=== PATIENT | female | born 1940 | race Caucasian/White ===

== ENCOUNTER → 2017-02-23 | Outpatient (CLI) | payer MEDICARE ==
--- NOTE | 2017-02-23 15:32 | US ---
EXAMINATION TYPE: US kidneys/renal and bladder DATE OF EXAM: 02/23/2017 2:59 PM COMPARISON: CT chest August 24, 2016 CLINICAL HISTORY: N39.0 Frequent Urinary Tract Infection. EXAM MEASUREMENTS: Right Kidney: 10.7 x 5.0 x 4.5 cm Left Kidney: 11.5 x 5.3 x 4.7 cm Right Kidney: No hydronephrosis or masses seen Left Kidney: echogenic foci noted superior, calcified artery vs small stone. Bladder: wnl There is no evidence for hydronephrosis at this point in time. The urinary bladder is anechoic. Bila teral ureteral jets are not seen. No worrisome solid or cystic masses seen on images saved. Last imag e shows nonspecific 3 mm hyperechoic focus upper pole level left kidney, no corresponding nonobstruct ing calculus seen on recent CT at this level IMPRESSION: No hydronephrosis is evident bilaterally. Unremarkable study.
== END | disposition home or self-care (01) ==
LOC: RADUSWWP 14:21
PROVIDERS: ATTEND Urology
DX: N39.0 Urinary tract infection, site not specified (principal)
CPT/HCPCS: 76770

== ENCOUNTER → 2017-05-12 | Outpatient (CLI) | payer MEDICARE ==
[2017-05-12 10:06] LABS: Blood Urea Nitrogen 18 mg/dL (7-17); Non-African American GFR(MDRD) 52 (>60 ml/min/1.73 sqM)
--- NOTE | 2017-05-12 11:33 | CT ---
EXAMINATION TYPE: CT abdomen pelvis w con DATE OF EXAM: 05/12/2017 HISTORY: Hematuria CT DLP: 1520mGycm Automated Exposure Control for Dose Reduction was Utilized. CONTRAST: CT scan of the abdomen and pelvis is performed with IV Contrast, patient injected with 80 ml mL of Vi sipaque 320. COMPARISON: None. FINDINGS: LUNG BASES: Some patchy bibasilar linear scarring and/or atelectasis is seen. There is some calcifica tion at level of the mitral valve identified. There is mild biatrial dilatation. LIVER/GB: Cholecystectomy clips are present. PANCREAS: No significant abnormality is seen. SPLEEN: No significant abnormality is seen. ADRENALS: No significant abnormality is seen. KIDNEYS: There is symmetric cortical medullary uptake and excretion from both kidneys without evidenc e of hydronephrosis bilaterally. There is asymmetric cortical atrophy or scarring involving lower lyndsay e right kidney seen best on coronal images. There is 5 mm calculus noted within calyx at this level s een best on coronal image 61. No hydronephrosis or obstructing renal calculi are seen bilaterally. No intraluminal calculus and bladder is present. BOWEL: The oral contrast reaches level of the splenic flexure. Evaluation of distal colon is felt sli ghtly suboptimal. There is no suspicious small or large bowel dilatation seen. There are diverticula scattered throughout the colon most pronounced in the left and sigmoid colon. There is no convincing CT evidence for acute diverticulitis. Amount of fecal burden is slightly prominent distally in the le ft colon and rectum. Cannot exclude villous mass or neoplasm at area of prominent diverticula in the sigmoid colon seen best on coronal image 46. UTERUS/ADNEXA: Uterus is surgically absent or markedly atrophic in appearance. LYMPH NODES: No greater than 1cm abdominal or pelvic lymph nodes are appreciated. OSSEOUS STRUCTURES: Metallic hardware from right hip arthroplasty causes streak artifact limiting shital luation of pelvic structures. Osseous structures are demineralized. There is moderate multilevel disc space narrowing and spurring with multilevel vacuum disc phenomenon in the lower lumbar spine. There is slight grade 1 anterolisthesis L4 on L5. There is most prominent spinal canal effacement at this level. OTHER: There are surgical changes from prior ventral wall hernia repair surgery in the rectus sheath with numerous coils identified. No recurrent ventral wall hernia is evident. There is moderate to severe calcified plaque of the aorta extending into branch vessels. Slight ectas ia is seen. No greater than 3 cm aneurysmal change is noted. IMPRESSION: 1. There is cortical atrophy lower pole level right kidney with 5 mm nonobstructing calyceal calculus at this level noted. 2. Prominent diverticulosis left and sigmoid colon without CT evidence for acute diverticulitis. Susp icious area proximal to mid sigmoid colon in which eccentric mass or neoplasm cannot be excluded, fur ther investigation with colonoscopy is advised if has not been performed in last 3 years.
== END | disposition home or self-care (01) ==
LOC: RADCTMAIN 09:30
PROVIDERS: ATTEND Urology
DX: N20.0 Calculus of kidney (principal); N26.1 Atrophy of kidney (terminal); K57.90 Diverticulosis of intestine, part unspecified, without perforation or abscess without bleeding; R31.9 Hematuria, unspecified
CPT/HCPCS: 82565; 84520; 74177; 36415; Q9967

== ENCOUNTER → 2017-09-10 | Outpatient (CLI) | payer MEDICARE ==
--- NOTE | 2017-09-10 13:00 | CTL ---
EXAMINATION TYPE: CT Low Dose Lung DATE OF EXAM ORDERED: 09/10/2017 HISTORY: . Lung cancer screening CT DLP: [address] CTDI: 3.06 mGy Automated exposure control for dose reduction was used. SCREENING VISIT: First screening visit COMPARISON: CT thorax dated 08/24/2016 TECHNIQUE: Low dose computed tomography scan was performed through the chest at 1 mm thick sections a nd reconstructed images in the coronal plane at [address] DIAGNOSTIC QUALITY: Satisfactory FINDINGS: LUNG NODULES: None. LUNGS: COPD: Severity: Moderate most exaggerated on the sagittal images Fibrosis: Severity: None Lymph nodes: Single enlarged 1.3 x 1.5 cm right paratracheal lymph node is nonspecific and appears mi ldly enlarged from the exam of 08/24/2016. No other enlarged greater the 1 cm short axis lymph nodes are seen within the mediastinum given the limitation of lack of intravenous contrast. Other findings: Right basilar subsegmental dependent atelectasis. Subtle subpleural reticulation is a lso favored to represent atelectasis bilaterally.. Fissural groundglass opacity on series 5 image 107 and series 7 image 56 within the right upper lobe is also likely related to atelectasis. Additional groundglass opacity within the right middle lobe on series 7 image 77 not well visualized on axial im aging is again favored to represent subsegmental atelectasis. RIGHT PLEURAL SPACE: Effusion: None Calcification: None Thickening: None Pneumothorax: None LEFT PLEURAL SPACE: Effusion: None Calcification: None Thickening: None Pneumothorax: None HEART: Heart Size: Normal. Ascending thoracic aorta is within normal limits measuring 3.4 cm. Coronary calcification: Moderate three-vessel Pericardial effusion: None OTHER FINDINGS: Upper abdomen: Cholecystectomy clips reside within the gallbladder fossa. Moderate calcific atheromat ous changes are seen of the visualized upper abdominal aorta. Bony thorax: Mild multilevel degenerative change of the thoracic spine is seen. Supraclavicular region: Unremarkable IMPRESSION: 1. Moderate pulmonary emphysema with no pulmonary nodules. Multifocal groundglass opacities are favor ed to represent multifocal atelectasis. Subpleural reticulation is also favored to represent atelecta sis due to its dependent location rather than early fibrosis. 2. Moderate three-vessel coronary calcifications are marker of coronary artery disease. 3. Single enlarged right peritracheal nonspecific lymph node, slightly enlarged from the prior. FOLLOW UP CT CHEST RECOMMENDATION: Continued annual screening low dose CT is recommended in [address] LUNG RAD: 1-No pulmonary nodules
== END | disposition home or self-care (01) ==
LOC: RADCTMAIN 12:09
PROVIDERS: ATTEND Family Medicine
DX: Z12.2 Encounter for screening for malignant neoplasm of respiratory organs (principal); J43.9 Emphysema, unspecified; Z87.891 Personal history of nicotine dependence; R59.0 Localized enlarged lymph nodes

== ENCOUNTER 2017-11-23 10:12 | Day surgery (SDC) | payer MEDICARE ==
[2017-11-16 14:39] VITALS: BMI 29.7
[~2017-11-23 10:12] MED LIST: LACTATED RINGERS 1,000 ML IV SCH; TIMOLOL 0.5% OPHTH DROPS 5 ML BTL ONE
[2017-11-23 10:45] VITALS: RESP 16; TEMP 98.1
[2017-11-23] MEDS ORDERED: IPRATROPIUM-ALBUTEROL 3 ML NEB INHALATION STA (10:46)
[2017-11-23] MEDS: CYCLOPENTOLATE 1% OPHTH SOLN 2 ML BTL OP ONE ×3 (10:48→11:06)
[2017-11-23] MEDS: FLURBIPROFEN 0.03% OPHTH DROPS 2.5 ML BTL OP ONE ×3 (10:51→11:09)
[2017-11-23] MEDS: PHENYLEPHRINE 10% OPHTH DROPS 5 ML BTL OP ONE ×3 (10:54→11:12)
[2017-11-23 10:57] LABS: Glucose,Whole Blood 82 mg/dL (75-99)
[2017-11-23] MEDS ORDERED: PROPOFOL 10 MG/ML 20 ML VIAL IV ONE (11:28)
[2017-11-23] MEDS ORDERED: BALANCED SALT IRRIG SOLN COMB2 15 ML IRRIG.SOLN INTRAOCULA ONE (11:35)
[2017-11-23] MEDS ORDERED: EPINEPHrine (PF) 0.5 ML in BALANCED SALT IRRIG SOLN COMB2 500 ML IRRIGATION ONE (11:35)
[2017-11-23] MEDS ORDERED: HYALURONATE SODIUM INTRAOCULAR 1 EACH SYRINGE (10MG/ML) INTRAOCULA ONE (11:35)
[2017-11-23] MEDS ORDERED: TETRACAINE 0.5% OPHTH (PF) DROPS 4 ML BTL RIGHT EYE ONE (11:38)
[2017-11-23] MEDS ORDERED: LIDOCAINE 1% (PF) 10MG/ML VIAL MISCELLANE ONE (11:48)
--- NOTE | 2017-11-23 11:51 | P.OP ---
Date of Procedure: 11/23/17 Procedure(s) Performed: PREOPERATIVE DIAGNOSIS: Cataract, right eye. POSTOPERATIVE DIAGNOSIS: Cataract, right eye. OPERATION: Phacoemulsification cataract, right eye. DESCRIPTION OF PROCEDURE: The patient was taken to the preoperative holding area. Intravenous Propofol was given so as to bring about adequate sedation. The following mixture was given for local anesthesia: 5 mL of 2% lidocaine, 5 mL of 0.75% Marcaine, and 1 mL of Wydase. Approximately 4 mL was injected in the retrobulbar space of the surgical eye. Additional 1 mL was then directed to the temporal area of the surgical eye. This was performed to allow adequate neurological block of the facial muscles. The patient was revived and then taken into the operative room. The patient was prepped and draped in the usual sterile manner for the operative eye. A lid speculum was put into position. The conjunctiva was resected back from the limbus in the 12 o'clock position. Bleeding was controlled with electrocautery. A #69 blade was then used and a half-thickness scleral incision approximately 1-mm posterior to the limbus was made on bare sclera. This was shelved in the clear cornea using a crescent knife. Next a 15-degree blade was used to make a stab incision at the 3 o' clock position at the corneolimbal interface. Keratome blade was then used and the superior wound was extended into the anterior chamber. Viscoelastic was injected into the anterior chamber and to maintain its form. Next, a cystotome was used and a continuous anterior capsulotomy was made without difficulty. Hydrodissection using a blunt cannula and BSS was performed. Phaco probe was then employed and a groove extending from 12 to 6 o'clock in the lens was created. A Andrew wand was used through the stab incision so as to perform a divide and conquer technique. Next an irrigation aspiration probe was utilized and any residual cortex was removed from the eye. Again, viscoelastic was injected into the anterior chamber. An Kike posterior chamber lens implant was placed in the cartridge and injected into the anterior chamber without difficulty. The SinGetPriceey hook was utilized to spin the lens into position and this was again performed without any difficulty. The irrigation and aspiration probe was again employed and any residual viscoelastic was removed from the eye. Then BSS was injected into the limbal stab incision and the anterior chamber re-inflated. The conjunctiva was reapproximated using electrocautery. One drop of 0.25% Timoptic was placed over the corneal along with TobraDex ophthalmic ointment. Two sterile patches and a Ritter eye shield were taped into position. The patient was transported to the recovery room in stable condition. Pathology: none sent Condition: stable Disposition: same day
[2017-11-23 12:16] VITALS: BP 169/79; PULSE 71
[2017-11-23] MEDS ORDERED: TIMOLOL 0.5% OPHTH DROPS 5 ML BTL OP ONE (23:00)
[2017-11-23] MEDS ORDERED: GENTAMICIN/PREDNISOL AC OPHTH OINT 3.5GM OPHTHALMIC ONE (23:00)
[2017-11-23] MEDS ORDERED: BUPIVACAINE (PF) 0.75% 5 ML, HYALURONIDASE, HUMAN RECOMB 150 UNIT, LIDOCAINE 2% (PF) 10... MISCELLANE ONE ×3 (23:00)
== END 2017-11-23 12:38 | disposition home or self-care (01) ==
LOC: OR 10:12
PROVIDERS: ATTEND Ophthalmology
DX: H25.11 Age-related nuclear cataract, right eye (principal); E11.9 Type 2 diabetes mellitus without complications; I10 Essential (primary) hypertension; F34.1 Dysthymic disorder; J44.9 Chronic obstructive pulmonary disease, unspecified; K21.9 Gastro-esophageal reflux disease without esophagitis; Z79.51 Long term (current) use of inhaled steroids; Z79.891 Long term (current) use of opiate analgesic; Z79.899 Other long term (current) drug therapy; Z88.1 Allergy status to other antibiotic agents; Z88.2 Allergy status to sulfonamides; Z88.6 Allergy status to analgesic agent; Z88.8 Allergy status to other drugs, medicaments and biological substances; Z87.891 Personal history of nicotine dependence
CPT/HCPCS: 66984; 94640; V2632; J3470; J2001 ×2; J0171; J2704

== ENCOUNTER → 2018-10-26 | Outpatient (CLI) | payer MEDICARE ==
--- NOTE | 2018-10-26 13:07 | XR ---
EXAMINATION TYPE: XR chest 2V DATE OF EXAM: 10/26/2018 COMPARISON: 07/28/2016 TECHNIQUE: PA and lateral views submitted. HISTORY: Shortness of breath FINDINGS: Heart is prominent is atherosclerotic change aorta. Arthropathy of the shoulders. Bilateral lower lob e consolidation and small effusion. Interstitial pattern is prominent. Hyperinflation suggests COPD. Hypertrophic and degenerative change of the spine. Lateral view suggest a surgical clip in the abdome n. IMPRESSION: 1. COPD with basilar infiltrate and small effusion correlate for CHF. Underlying pneumonia not exclud ed. A Jacob level critical message alert has been initiated for Ventura Duran DO via the [employer] Critical Results System on 10/26/2018 1:05 PM. This message alert has been sent to Ventura Vela nd, DO via the preferences provided by the clinician for the receipt of Radiology Critical Findings. Message ID [id number].
== END ==
LOC: RADXRMAIN 12:22
PROVIDERS: ATTEND Family Medicine
DX: J44.9 Chronic obstructive pulmonary disease, unspecified (principal)
CPT/HCPCS: 71046

== ENCOUNTER → 2018-11-08 | Outpatient (CLI) | payer MEDICARE ==
--- NOTE | 2018-11-09 11:01 | ECHOF ---
Referral Reason:I50.9 Heart Failure MEASUREMENTS -------- HEIGHT: 165.1 cm WEIGHT: 79.4 kg BP: RVIDd: 2.2 cm (< 3.3) IVSd: 1.1 cm (0.6 - 1.1) LVIDd: 5.3 cm (3.9 - 5.3) LVPWd: 1.3 cm (0.6 - 1.1) IVSs: 1.4 cm LVIDs: 3.7 cm LVPWs: 1.5 cm LA Diam: 4.4 cm (2.7 - 3.8) LAESV Index (A-L): 36.10 ml/m Ao Diam: 2.9 cm (2.0 - 3.7) AV Cusp: 1.0 cm (1.5 - 2.6) LA Diam: 4.4 cm (2.7 - 3.8) MV EXCURSION: 17.701 mm (> 18.000) MV EF SLOPE: 83 mm/s (70 - 150) EPSS: 1.9 cm MV E Donny: 1.44 m/s MV DecT: 284 ms MV A Donny: 0.88 m/s MV E/A Ratio: 1.64 RAP: 5.00 mmHg RVSP: 45.68 mmHg FINDINGS -------- Sinus rhythm. This was a technically adequate study. The left ventricular size is normal. There is mild concentric left ventricular hypertrophy. Overa ll left ventricular systolic function is normal with, an EF between 55 - 60 %. The right ventricle is normal in size. The left atrium is moderately dilated. LA is moderately dilated 34-39 ml/m2 The right atrial size is normal. There is mild aortic valve sclerosis. There is no evidence of aortic regurgitation. The mitral valve leaflets are mildly thickened. Mild mitral annular calcification present. Mild-t o-moderate mitral regurgitation is present. Mild tricuspid regurgitation present. There is mild pulmonary hypertension. The right ventricular systolic pressure, as measured by Doppler, is 45.68mmHg. There is no pulmonic regurgitation present. The aortic root size is normal. Echo free space indicative of a pericardial fat pad. CONCLUSIONS -------- 1. The left ventricular size is normal. 2. There is mild concentric left ventricular hypertrophy. 3. Overall left ventricular systolic function is normal with, an EF between 55 - 60 %. 4. The right ventricle is normal in size. 5. The left atrium is moderately dilated. 6. LA is moderately dilated 34-39 ml/m2 7. The right atrial size is normal. 8. There is mild aortic valve sclerosis. 9. The mitral valve leaflets are mildly thickened. 10. Mild mitral annular calcification present. 11. Cldn-sj-lmrjkdkb mitral regurgitation is present. 12. Mild tricuspid regurgitation present. 13. There is mild pulmonary hypertension. 14. The right ventricular systolic pressure, as measured by Doppler, is 45.68mmHg. 15. There is no pulmonic regurgitation present. 16. The aortic root size is normal. 17. Echo free space indicative of a pericardial fat pad. FILE SYSTEM INSTALLER: Lilia Mchugh RDCS
== END | disposition home or self-care (01) ==
LOC: RADECHMAIN 12:53
PROVIDERS: ATTEND Family Medicine
DX: I08.3 Combined rheumatic disorders of mitral, aortic and tricuspid valves (principal); I27.20 Pulmonary hypertension, unspecified
CPT/HCPCS: 93306

== ENCOUNTER 2019-01-04 15:36 | Inpatient (IN) | payer MEDICARE ==
--- NOTE | 2019-01-04 16:37 | ED ---
General Adult HPI - General Chief complaint: Recheck/Abnormal Lab/Rx Stated complaint: kidney problems Time Seen by Provider: 01/04/19 16:10 Source: patient Mode of arrival: wheelchair Limitations: no limitations - History of Present Illness Initial comments: Dictation was produced using [employer] dictation software. please excuse any gra mmatical, word or spelling errors. Chief Complaint: 70-year-old female with past medical history of COPD, chronic kidney disease, GERD, cervical arthritis presents with abnormal outpatient labs. History of Present Illness: Patient is 70-year-old female she was instructed by her pack worker supervisor To the emergency department for decreased renal function. She allegedly had an appointment with pack worker supervisor. She is told to come to the emergency department. She said her creatinine is 6.0. Patient has no symptoms at this time. She does have some lower extremity swelling and some mild exe rtional shortness of breath. Patient also reports history of cardiac disease. Patient otherwise has no complaints. The ROS documented in this emergency department record has been reviewed and confirmed by me. Those systems with pertinent positive or negative responses have been documented in the HPI. All other systems are other negative and/or noncontributory. PHYSICAL EXAM: General Impression: Alert and oriented x3, not in acute distress HEENT: Normocephalic atraumatic, extra-ocular movements intact, pupils equal and reactive to light bilaterally, mucous membranes moist. Cardiovascular: Heart regular rate and rhythm, S1&S2 audible, no murmurs, rubs or gallops Chest: Bilateral lung rhonchi Abdomen: Bowel sounds present, abdomen soft, non-tender, non-distended, no organomegaly Musculoskeletal: Pulses present and equal in all extremities, 1+ pitting edema to bilateral lower extremities Motor: no focal deficits noted Neurological: CN II-XII grossly intact, no focal motor or sensory deficits noted Skin: Intact with no visualized rashes Psych: Normal affect and mood ED course: 78-year-old female with abnormal creatinine told to come into the emergency department by pack worker supervisor. As upon arrival are within acceptable limits.Laboratory evaluation obtained. CBC is unremarkable. Patient's hemoglobin of 9.2. Metabolic panel shows potassium 3.3. Creatinine of 9.36 with a BUN of 66. Patient's troponin of 0.05. Patient's clinical presentation concerning for kidney failure. Patient's electrolytes are within acceptable limits. EKG does not show any findings. Patient be admitted to internal medicine with consultation to nephrology. Patient placed on renal diet. She may need emergent hemodialysis. EKG interpretation: Ventricular rate 79, sinus rhythm,. Interval 126, QRS 80, QTC 428. No ID prolongation, no QTC prolongation, no ST or T-wave changes noted. Overall, this EKG is unremarkable - Related Data Home Medications Medication Instructions Recorded Confirmed Advair Inhaler (Unknown Dose) 1 puff INHALATION BID 05/13/15 11/16/17 Fenofibrate [Tricor] 160 mg PO DAILY 05/13/15 11/16/17 Omeprazole [PriLOSEC] 20 mg PO AC-BRKFST 05/13/15 11/16/17 Spiriva Inhaler (Unknown Dose) 1 puff INHALATION QAM 05/13/15 11/16/17 Stool Softner 1 tab PO DIRECTED PRN 05/13/15 11/16/17 oxyCODONE HCL/ACETAMINOPHEN 1 each PO Q6HR PRN 05/13/15 11/16/17 [Percocet 7.5-325 mg] Ergocalciferol (Vitamin D2) 50,000 unit PO QMONTH 11/16/17 11/16/17 [Vitamin D2] Vortioxetine Hydrobromide 10 mg PO 1400 11/16/17 11/16/17 [Trintellix] Allergies Allergy/AdvReac Type Severity Reaction Status Date / Time erythromycin base Allergy Unknown Unknown Verified 01/04/19 15:56 meloxicam Allergy Unknown Unknown Verified 01/04/19 15:56 nitrofurantoin Allergy Unknown Unknown Verified 01/04/19 15:56 [From Macrobid] nitrofurantoin Allergy Unknown Unknown Verified 01/04/19 15:56 macrocrystalline [From Macrobid] Sulfa (Sulfonamide Allergy Unknown Unknown Verified 01/04/19 15:56 Antibiotics) Review of Systems ROS Statement: Those systems with pertinent positive or pertinent negative responses have been documented in the HPI. ROS Other: All systems not noted in ROS Statement are negative. Past Medical History Past Medical History: COPD, Diabetes Mellitus, Eye Disorder, GERD/Reflux, Osteoarthritis (OA) Additional Past Medical History / Comment(s): Right Cataract, DIABETES (DIET CONTROLLED), CONSTIPATION. Hx POSITIVE FOR BLOOD IN STOOL, SCIATICA, UTI's. History of Any Multi-Drug Resistant Organisms: None Reported Past Surgical History: Hernia Repair, Joint Replacement Additional Past Surgical History / Comment(s): Right hip replacement. Past Anesthesia/Blood Transfusion Reactions: No Reported Reaction Past Psychological History: Depression Smoking Status: Former smoker Past Alcohol Use History: None Reported Past Drug Use History: None Reported - Past Family History Mother Family Medical History: No Reported History General Exam Limitations: no limitations Course Vital Signs 01/04/19 15:54 Temperature 97.8 F Pulse Rate 80 Respiratory 16 Rate Blood Pressure 102/64 O2 Sat by Pulse 98 Oximetry Medical Decision Making - Lab Data Result diagrams: 01/04/19 16:45 01/04/19 16:45 Lab Results 01/04/19 01/04/19 01/04/19 Range/Units 16:45 16:45 16:45 WBC 4.8 (3.8-10.6) k/uL RBC 3.15 L (3.80-5.40) m/uL Hgb 9.2 L (11.4-16.0) gm/dL Hct 31.5 L (34.0-46.0) % MCV 100.0 (80.0-100.0) fL MCH 29.2 (25.0-35.0) pg MCHC 29.2 L (31.0-37.0) g/dL RDW 15.3 (11.5-15.5) % Plt Count 320 (150-450) k/uL Neutrophils % 73 % Lymphocytes % 16 % Monocytes % 6 % Eosinophils % 3 % Basophils % 0 % Neutrophils # 3.5 (1.3-7.7) k/uL Lymphocytes # 0.8 L (1.0-4.8) k/uL Monocytes # 0.3 (0-1.0) k/uL Eosinophils # 0.2 (0-0.7) k/uL Basophils # 0.0 (0-0.2) k/uL Hypochromasia Marked Poikilocytosis Slight Macrocytosis Slight Sodium 139 (137-145) mmol/L Potassium 3.3 L (3.5-5.1) mmol/L Chloride 110 H (98-107) mmol/L Carbon Dioxide 15 L (22-30) mmol/L Anion Gap 14 mmol/L BUN 66 H (7-17) mg/dL Creatinine 9.36 H* (0.52-1.04) mg/dL Est GFR (CKD-EPI)AfAm 4 (>60 ml/min/1.73 sqM) Est GFR (CKD-EPI)NonAf 4 (>60 ml/min/1.73 sqM) Glucose 110 H (74-99) mg/dL Calcium 8.1 L (8.4-10.2) mg/dL Magnesium 2.0 (1.6-2.3) mg/dL Total Bilirubin 0.4 (0.2-1.3) mg/dL AST 38 H (14-36) U/L ALT 31 (9-52) U/L Alkaline Phosphatase 61 (38-126) U/L Troponin I 0.050 H* (0.000-0.034) ng/mL Total Protein 5.8 L (6.3-8.2) g/dL Albumin 2.7 L (3.5-5.0) g/dL Disposition Clinical Impression: TE (acute kidney injury) Disposition: ADMITTED IP TO THIS [facility] Condition: Fair Referrals: Ventura Duran DO [Primary Care Provider] - 1-2 days Decision Time: 17:47
[2019-01-04 17:04] LABS: Basophils % (A) 0 %; Eosinophils # (A) 0.2 k/uL (0-0.7); Eosinophils % (A) 3 %; HCT 31.5 % (34.0-46.0); HGB 9.2 gm/dL (11.4-16.0); Hypochromasia Marked; Lymphocytes # (A) 0.8 k/uL (1.0-4.8); Lymphocytes % (A) 16 %; MCH 29.2 pg (25.0-35.0); MCHC 29.2 g/dL (31.0-37.0); Macrocytosis Slight; Mean Platelet Volume 6.8; Monocytes # (A) 0.3 k/uL (0-1.0); Monocytes % (A) 6 %; Neutrophils # (A) 3.5 k/uL (1.3-7.7); Neutrophils % (A) 73 %; Platelet Count 320 k/uL (150-450); Poikilocytosis Slight; RBC 3.15 m/uL (3.80-5.40); RDW 15.3 % (11.5-15.5); WBC 4.8 k/uL (3.8-10.6)
[2019-01-04 17:12] LABS: Albumin 2.7 g/dL (3.5-5.0); Calcium 8.1 mg/dL (8.4-10.2); Potassium 3.3 mmol/L (3.5-5.1); Total Bilirubin 0.4 mg/dL (0.2-1.3); Total Protein 5.8 g/dL (6.3-8.2)
[2019-01-04] MEDS ORDERED: ACETAMINOPHEN TAB 325 MG TAB PO PRN (17:16)
[2019-01-04] MEDS ORDERED: NALOXONE 0.4 MG/ML 1 ML VIAL IV PRN (17:16)
[2019-01-04] MEDS ORDERED: SODIUM CHLORIDE 0.9% 1,000 ML IV SCH (17:30)
--- NOTE | 2019-01-04 18:42 | XR ---
EXAMINATION TYPE: XR chest 2V DATE OF EXAM: 01/04/2019 COMPARISON: October 26, 2018 HISTORY: Chest pain TECHNIQUE: Frontal and lateral views of the chest are obtained. FINDINGS: There is no heart failure nor confluent pneumonic infiltrate. There is some linear density in the left lower lobe. Thoracic aorta is atheromatous. Heart is slightly enlarged. Bony thorax is i ntact. IMPRESSION: Mild cardiomegaly. No heart failure. Minimal scarring or subsegmental atelectasis left l ower lobe probably not changed.
[2019-01-04] MEDS ORDERED: POTASSIUM CHLORIDE ER 20 MEQ TAB.ER PO STA (20:55)
[2019-01-04] MEDS: TEMAZEPAM 30 MG CAP PO SCH (21:53)
[2019-01-04] MEDS: DOCUSATE 100 MG CAP PO SCH (21:53)
--- NOTE | 2019-01-04 21:54 | P.HPIM ---
History of Present Illness H&P Date: 01/04/19 Chief Complaint: Abnormal kidney function Patient is a 78-year-old female with a known history of COPD, diet-controlled diabetes, dry eyes, mouth/, xerostomia, osteoarthritis and GERD was seen by Dr. Gómez in the nephrology clinic. 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 Patient was sent sent to the hospital with elevated creatinine level 6.4. She's been having dry mouth and nausea and episodes of vomiting 2 at home. No chest pain. Patient does have bilateral lower extremities swelling and mild exertional shortness of breath. Currently denied any nausea. Denied any fever or chills. Denied any recent illnesses. Patient says that she's been having history of multiple urinary tract infections. Patient says that she has leaky heart valve and is following cardiology in the clinic. Dr. Chavarria is her systems programmer analyst. Patient has been taking Lasix due to bilateral lower extremity swelling. Patient was found to having blood in the urine. No gross hematuria. Chest x-ray showed mild cardiomegaly. No heart failure. Minimal scarring or subsegmental atelectasis left lower lobe probably not changed area did BUN 66 and creatinine 9.36, bicarb 15, hemoglobin 9.2, BNP 19, 300. Troponin 0.050 Potassium 3.3, albumin 2.7 Review of Systems Constitutional: Patient denies any fever or chills . No generalized weakness or weight loss. Abdomen: Patient denied nausea vomiting and diarrhea and abdominal pain. Cardiovascular: Patient denies any chest pain or short of breath no palpitations. Respiratory: patient denied any cough is from production. No shortness of breath Neurologic: Patient denied any numbness or tingling headache. Musculoskeletal: Patient denies any complaints of joint swelling or deformity. Skin: Negative Psychiatric: Negative Endocrine: No heat or cold intolerance. No recent weight gain. Genitourinary: No dysuria or hematuria. All other 14 point ROS negative except the above Past Medical History Past Medical History: COPD, Diabetes Mellitus, Eye Disorder, GERD/Reflux, Osteoarthritis (OA) Additional Past Medical History / Comment(s): Right Cataract, DIABETES (DIET CONTROLLED), CONSTIPATION. Hx POSITIVE FOR BLOOD IN urine, SCIATICA, UTI's. History of Any Multi-Drug Resistant Organisms: None Reported Past Surgical History: Hernia Repair, Joint Replacement Additional Past Surgical History / Comment(s): Right hip replacement. Past Anesthesia/Blood Transfusion Reactions: No Reported Reaction Past Psychological History: Depression Smoking Status: Former smoker Past Alcohol Use History: None Reported Additional Past Alcohol Use History / Comment(s): Quit smoking 8 yrs ago, smoked since age 14, 2 PPD. Past Drug Use History: None Reported - Past Family History Mother Family Medical History: No Reported History Medications and Allergies Home Medications Medication Instructions Recorded Confirmed Type Ergocalciferol (Vitamin D2) 50,000 unit PO QMONTH 11/16/17 01/04/19 History [Vitamin D2] Furosemide [Lasix] 20 mg PO DAILY 01/04/19 01/04/19 History Metoprolol Succinate [Toprol XL] 25 mg PO DAILY 01/04/19 01/04/19 History Naloxegol Oxalate [Movantik] 25 mg PO DAILY 01/04/19 01/04/19 History Pilocarpine [Salagen] 5 mg PO BID 01/04/19 01/04/19 History Temazepam 30 mg PO HS 01/04/19 01/04/19 History Tiotropium [place] [Spiriva] 1 cap INHALATION RT-DAILY 01/04/19 01/04/19 History Vortioxetine Hydrobromide 20 mg PO DAILY 01/04/19 01/04/19 History [Trintellix] oxyCODONE HCL/ACETAMINOPHEN 1 tab PO Q6HR 01/04/19 01/04/19 History [Percocet 5-325 mg] Allergies Allergy/AdvReac Type Severity Reaction Status Date / Time erythromycin base Allergy Unknown Unknown Verified 01/04/19 17:56 meloxicam Allergy Unknown Unknown Verified 01/04/19 17:56 nitrofurantoin Allergy Unknown Unknown Verified 01/04/19 17:56 [From Macrobid] nitrofurantoin Allergy Unknown Unknown Verified 01/04/19 17:56 macrocrystalline [From Macrobid] Sulfa (Sulfonamide Allergy Unknown Unknown Verified 01/04/19 17:56 Antibiotics) Physical Exam Vitals: Vital Signs Temp Pulse Pulse Resp BP BP Pulse Ox 01/04/19 17:57 98.0 F 90 16 139/68 98 01/04/19 17:48 89 16 118/51 97 01/04/19 15:54 97.8 F 80 16 102/64 98 Intake and Output 01/04/19 01/04/19 01/04/19 06:59 14:59 22:59 Other: Voiding Method Toilet Weight 73.936 kg PHYSICAL EXAMINATION: Patient is lying in the bed comfortably, no acute distress, awake alert and oriented.. HEENT: Normocephalic. Neck is supple. Pupils reactive. Nostrils clear. Oral cavity is moist. Ears reveal no drainage. Neck reveals no JVD, carotid bruits, or thyromegaly. CHEST EXAMINATION: Trachea is central. Symmetrical expansion. Lung momin clear to auscultation and percussion. CARDIAC: Normal S1, S2 with no gallops. No murmurs ABDOMEN: Soft. Bowel sounds normal. No organomegaly. No abdominal bruits. Extremities: BiLateral lower extremity 2+ edema. No clubbing or cyanosis Neurologically awake, alert, oriented x3 with well-coordinated movements. No focal deficits noted Skin: No rash or skin lesions. Psychiatric: Coperative. Nonsuicidal Musculoskeletal: No joint swelling or deformity. Normal range of motion. Results CBC & Chem 7: 01/04/19 16:45 01/04/19 16:45 Labs: Abnormal Lab Results - Last 24 Hours (Table) 01/04/19 01/04/19 01/04/19 Range/Units 16:45 16:45 16:45 RBC 3.15 L (3.80-5.40) m/uL Hgb 9.2 L (11.4-16.0) gm/dL Hct 31.5 L (34.0-46.0) % MCHC 29.2 L (31.0-37.0) g/dL Lymphocytes # 0.8 L (1.0-4.8) k/uL Potassium 3.3 L (3.5-5.1) mmol/L Chloride 110 H (98-107) mmol/L Carbon Dioxide 15 L (22-30) mmol/L BUN 66 H (7-17) mg/dL Creatinine 9.36 H* (0.52-1.04) mg/dL Glucose 110 H (74-99) mg/dL Calcium 8.1 L (8.4-10.2) mg/dL AST 38 H (14-36) U/L Troponin I 0.050 H* (0.000-0.034) ng/mL Total Protein 5.8 L (6.3-8.2) g/dL Albumin 2.7 L (3.5-5.0) g/dL Thrombosis Risk Factor Assmnt - DVT/VTE Prophylaxis DVT/VTE Prophylaxis: Pharmacologic Prophylaxis ordered - Choose All That Apply Any of the Below Risk Factors Present?: No Other Risk Factors: No Thrombosis Risk Factor Assessment Level: Very Low Risk Assessment and Plan Assessment: Acute on chronic kidney disease with creatinine level 9.36, nonoliguric. Baseline creatinine not known. Metabolic acidosis secondary to acute kidney injury Hypokalemia Anemia of chronic disease with hemoglobin level 9.2 Hypertension Diabetes diet controlled COPD stable Previous history of smoking Depression GERD Osteoarthritis history of UTIs DVT prophylaxis Plan: Patient will be continued on gentle hydration. Follow up renal function closely. Urinalysis and urine culture was ordered. Ultrasound kidneys. Follow up closely. Nephrology was consulted. Continue with home medications. Further recommendations based on the clinical course. Prognosis is guarded. Time with Patient: Greater than 30
[2019-01-04 22:40] LABS: Appearance,Urine Cloudy (Clear); Bacteria,Urine Rare /hpf; Bilirubin,Urine Negative (Negative); Blood,Urine Moderate (Negative); Color,Urine Yellow; Glucose,Urine (UA) 1+ (Negative); Hyaline Casts,Urine 1 /lpf (0-2); Ketones,Urine Negative (Negative); Leukocyte Esterase,Urine Small (Negative); Mucus,Urine Rare /hpf; Nitrite,Urine Negative (Negative); Protein,Urine 3+ (Negative); RBC,Urine 46 /hpf (0-5); Specific Gravity,Urine 1.009 (1.001-1.035); Squamous Epithelial Cell,Urine 1 /hpf (0-4); Urobilinogen,Urine <2.0 mg/dL (<2.0)
[2019-01-04] MEDS: METOPROLOL SUCCINATE (ER) 25 MG TAB.ER.24H PO SCH (23:01)
[2019-01-04] MEDS: PILOCARPINE 5 MG TAB PO SCH (23:02)
[2019-01-05] MEDS: oxyCODONE-APAP 5-325MG 1 EACH TAB PO PRN (05:56)
[2019-01-05 06:37] LABS: HCT 30.7 % (34.0-46.0); HGB 9.3 gm/dL (11.4-16.0); Hypochromasia Marked; MCH 31.6 pg (25.0-35.0); MCHC 30.3 g/dL (31.0-37.0); MCV 104.1 fL (80.0-100.0); Macrocytosis Moderate; Mean Platelet Volume 6.5; Platelet Count 337 k/uL (150-450); Poikilocytosis Slight; RBC 2.95 m/uL (3.80-5.40); RDW 15.5 % (11.5-15.5); WBC 6.4 k/uL (3.8-10.6)
[2019-01-05 06:48] LABS: Potassium 3.7 mmol/L (3.5-5.1)
--- NOTE | 2019-01-05 08:47 | US ---
EXAMINATION TYPE: US kidneys/renal and bladder DATE OF EXAM: 01/05/2019 COMPARISON: CT 05/12/17, US 02/23/17 CLINICAL HISTORY: TE. Patient states hematuria EXAM MEASUREMENTS: Right Kidney: 11.0 x 5.8 x 4.9 cm Left Kidney: 11.7 x 5.7 x 4.7 cm Right Kidney: Thinned renal cortex. Left Kidney: Thinned renal cortex, Upper pole cyst = 1.5 x 1.6 x 0.9 cm Bladder: Not overly distended. No obvious masses or thickened wall seen. Bilateral Jets seen: Yes Cortical echogenicity is increased. There is some loss of cortical medullary differentiation. IMPRESSION: Findings suggest underlying medical renal disease.
[2019-01-05] MEDS: HEPARIN SODIUM,PORCINE 5,000 UNIT/ML 1 ML VIAL SQ SCH ×2 (10:04→21:06)
[2019-01-05] MEDS: METOPROLOL SUCCINATE (ER) 25 MG TAB.ER.24H PO SCH (10:04)
[2019-01-05] MEDS: DOCUSATE 100 MG CAP PO SCH ×2 (10:04→21:05)
[2019-01-05] MEDS: VORTIOXETINE HYDROBROMIDE 20 MG TABLET PO SCH (10:05)
[2019-01-05] MEDS: PILOCARPINE 5 MG TAB PO SCH ×2 (10:05→21:05)
[2019-01-05] MEDS: PANTOPRAZOLE 40 MG/10 ML VIAL IV SCH (10:05)
[2019-01-05] MEDS: DEXTROSE 5% IN WATER 1,000 ML with SODIUM BICARB (1 MEQ/ML) 150 ML IV SCH (15:09)
[2019-01-05 16:12] LABS: Appearance,Urine Turbid (Clear); Bacteria,Urine Moderate /hpf; Bilirubin,Urine Negative (Negative); Blood,Urine Moderate (Negative); Color,Urine Yellow; Glucose,Urine (UA) Negative (Negative); Ketones,Urine Negative (Negative); Leukocyte Esterase,Urine Large (Negative); Mucus,Urine Occasional /hpf; Nitrite,Urine Negative (Negative); Protein,Urine 3+ (Negative); RBC,Urine 20 /hpf (0-5); Specific Gravity,Urine 1.012 (1.001-1.035); Squamous Epithelial Cell,Urine 1 /hpf (0-4); Urobilinogen,Urine <2.0 mg/dL (<2.0); WBC,Urine >182 /hpf (0-5)
[2019-01-05] MEDS: Naloxegol Oxalate [Movantik] 25 MG PO SCH (17:02)
--- NOTE | 2019-01-05 17:39 | CONS ---
CONSULTATION REASON FOR CONSULT: Renal failure. HISTORY OF PRESENT ILLNESS: The patient is a 78-year-old female who was seen for initial evaluation yesterday at the office. The patient was found to have a serum creatinine of about 6 mg/dL about 2 weeks ago. She had another set of labs done yesterday and her creatinine was up to 9 and therefore she was advised admission. Review of previous labs did show serum creatinine of about 2.5 in October of 2018, and we have a creatinine of 1.0 in 2017. The patient states that she was having significant swelling of her lower extremities and her diuretics were increased as outpatient. In view of worsening renal function, the diuretics were decreased, but the patient continues to feel weak. She denied any nausea or vomiting. She denied any change in her urine output, although she feels that she may be going less. There is no history of any significant rash. No history of joint pains in the hands. There is no history of use of NSAIDs. An ultrasound done as outpatient did not reveal any evidence of hydronephrosis. Last night, the patient was started on IV fluids. Her serum creatinine has not improved. It was 9.36 and it is at 9.76 today. The patient has been voiding. PAST MEDICAL HISTORY: Significant for hypertension, gastroesophageal reflux disease, osteoarthritis, diet- controlled diabetes, history of COPD, CHF, ejection fraction not known. History of chronic back pain. History of UTIs. PAST SURGICAL HISTORY: Right hip arthroplasty, hernia repair. SOCIAL HISTORY: Patient is a former smoker. No history of drug abuse or alcohol abuse. MEDICATIONS: Medications at home prior to admission included Lasix, Toprol, Trentillix, temazepam, Movantik, vitamin D2. ALLERGIES: ARE MULTIPLE, INCLUDE ERYTHROMYCIN, MELOXICAM, NITROFURANTOIN, SULFA. REVIEW OF SYSTEMS: As per HPI. Other systems negative. PHYSICAL EXAMINATION: Patient is comfortable, awake, alert, oriented x3. She is not in any acute distress. Blood pressure was 116/71, heart rate 86 per minute. She is afebrile. Examination of the heart S1, S2. Examination of the lungs bilateral breath sounds are heard. Abdomen is soft, nontender. Examination of lower extremities shows trace edema bilaterally. HAND SLITTER exam is grossly intact. LAB: Show sodium 140, potassium was 3.7, CO2 is 12, BUN 63, serum creatinine 9.76, calcium 8.0. BNP 35389, albumin 2.7, hemoglobin was 9.3, platelet count 337,000 and white cell count was 6.4. Chest x-ray does not show any significant CHF. ASSESSMENT: 1. Acute kidney injury. Rule out underlying acute GN given the proteinuria and hematuria noted on the urinalysis. A set of serologies will be ordered and patient is advised that if her renal function does not improve or continues to worsen, she may need dialysis. We will likely need to proceed with a kidney biopsy as well. The patient was recently diuresed. Therefore, I will hold off on the diuretics and keep her on IV fluids. So far, there is no change in the creatinine with IV fluids from yesterday. 2. Metabolic acidosis secondary to renal failure. We will start IV bicarb. 3. History of cardiomyopathy, ejection fraction not known. 4. History of chronic obstructive pulmonary disease. 5. Anemia, most likely anemia of chronic disease. No active bleeding noted at this time. PLAN: Check serologies. Agree with ultrasound of the kidneys. Continue IV fluids. Change IV fluids to IV bicarb. Repeat labs in a.m. If renal function continues to worsen, the patient may need to start dialysis. I have also discussed possibility of renal biopsy with her. Thank you for this consultation. We will continue to follow the patient with you during her hospitalization. VIN / ELEUTERIO: [id number] /
[2019-01-05 18:21] LABS: Hepatitis B Surface AB- Quant 3.5 mIU/mL; Hepatitis C IgG Antibody Non-Reactive (Non-Reactive)
[2019-01-05 18:30] LABS: Anti-DNA, DS unit <1.0 IU/mL; DNA Double-Stranded NEGATIVE (NEGATIVE)
[2019-01-05] MEDS: TEMAZEPAM 30 MG CAP PO SCH (21:06)
--- NOTE | 2019-01-06 00:37 | P.PN ---
Subjective Progress Note Date: 01/05/19 Principal diagnosis: Acute kidney injury Patient is a 78-year-old female with a known history of COPD, diet-controlled diabetes, dry eyes, mouth/, xerostomia, osteoarthritis and GERD was seen by Dr. Gómez in the nephrology clinic. 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 Patient was sent sent to the hospital with elevated creatinine level 6.4. She's been having dry mouth and nausea and episodes of vomiting 2 at home. No chest pain. Patient does have bilateral lower extremities swelling and mild exertional shortness of breath. Currently denied any nausea. Denied any fever or chills. Denied any recent illnesses. Patient says that she's been having history of multiple urinary tract infections. Patient says that she has leaky heart valve and is following cardiology in the clinic. Dr. Chavarria is her seconds grader. Patient has been taking Lasix due to bilateral lower extremity swelling. Patient was found to having blood in the urine. No gross hematuria. Chest x-ray showed mild cardiomegaly. No heart failure. Minimal scarring or subsegmental atelectasis left lower lobe probably not changed area did BUN 66 and creatinine 9.36, bicarb 15, hemoglobin 9.2, BNP 19, 300. Troponin 0.050 Potassium 3.3, albumin 2.7 01/05/2019 Patient denied any complaints of chest pain or shortness of breath. Creatinine level is about the same around 9. Patient was seen by nephrology. Serological workup for acute kidney injury was ordered. Patient was started on bicarb drip. No nausea vomiting or abdominal pain. No diarrhea. Patient does have good urine output. Current medications reviewed. Active Medications Acetaminophen (Tylenol Tab) 650 mg PO Q6HR PRN PRN Reason: Mild Pain or Fever > 100.5 Docusate Sodium (Colace) 100 mg PO BID [facility] Last Admin: 01/05/19 21:05 Dose: Not Given Documented by: Heparin Sodium (Porcine) (Heparin) 5,000 unit SQ Q12HR [facility] Last Admin: 01/05/19 21:06 Dose: 5,000 unit Documented by: Sodium Bicarbonate 150 ml/ (Dextrose/Water) 1,150 mls @ 100 mls/hr IV .[id number] [facility] Last Admin: 01/05/19 15:09 Dose: 100 mls/hr Documented by: Metoprolol Succinate (Toprol Xl) 25 mg PO DAILY [facility] Last Admin: 01/05/19 10:04 Dose: 25 mg Documented by: Naloxone HCl (Narcan) 0.2 mg IV Q2M PRN PRN Reason: Opioid Reversal Naloxegol Oxalate [ (Movantik] 25 Mg) 25 mg PO DAILY [facility] Last Admin: 01/05/19 17:02 Dose: Not Given Documented by: Ondansetron HCl (Zofran) 4 mg IVP Q6HR PRN PRN Reason: Nausea And Vomiting Oxycodone/Acetaminophen (Percocet 5-325) 1 each PO Q6HR PRN PRN Reason: Moderate Pain Last Admin: 01/05/19 05:56 Dose: 1 each Documented by: Pantoprazole Sodium (Protonix) 40 mg IV DAILY [facility] Last Admin: 01/05/19 10:05 Dose: 40 mg Documented by: Pilocarpine HCl (Salagen) 5 mg PO BID [facility] Last Admin: 01/05/19 21:05 Dose: Not Given Documented by: Temazepam (Restoril) 30 mg PO HS [facility] Last Admin: 01/05/19 21:06 Dose: 30 mg Documented by: Vortioxetine (Trintellix) 20 mg PO DAILY [facility] Last Admin: 01/05/19 10:05 Dose: 20 mg Documented by: Objective - Vital Signs Vital signs: Vital Signs Temp 98.0 F 01/05/19 20:00 Pulse 85 01/05/19 20:00 Resp 18 01/05/19 20:00 BP 131/79 01/05/19 20:00 Pulse Ox 96 01/05/19 20:00 Intake & Output 01/05/19 01/05/19 01/06/19 06:59 18:59 06:59 Intake Total 265 480 Output Total 250 100 Balance 15 480 -100 Weight 74 kg 74 kg Intake: IV 265 Sodium Chloride 0.9% 1, 265 000 ml @ 75 mls/hr IV . [id number] [facility] Rx#:[id number] Oral 480 Output: Urine 250 100 Other: Voiding Method Toilet Toilet Toilet # Voids 1 # Bowel Movements 1 - Exam PHYSICAL EXAMINATION: Patient is lying in the bed comfortably, no acute distress, awake alert and oriented.. HEENT: Normocephalic. Neck is supple. Pupils reactive. Nostrils clear. Oral cavity is moist. Ears reveal no drainage. Neck reveals no JVD, carotid bruits, or thyromegaly. CHEST EXAMINATION: Trachea is central. Symmetrical expansion. Lung momin clear to auscultation and percussion. CARDIAC: Normal S1, S2 with no gallops. No murmurs ABDOMEN: Soft. Bowel sounds normal. No organomegaly. No abdominal bruits. Extremities: 2+ edema. No clubbing or cyanosis Neurologically awake, alert, oriented x3 with well-coordinated movements. No focal deficits noted Skin: No rash or skin lesions. Psychiatric: Coperative. Nonsuicidal Musculoskeletal: No joint swelling or deformity. Normal range of motion. - Labs CBC & Chem 7: 01/05/19 06:00 01/05/19 06:00 Labs: Abnormal Lab Results - Last 24 Hours (Table) 01/04/19 01/05/19 01/05/19 Range/Units 15:48 06:00 06:00 RBC 2.95 L (3.80-5.40) m/uL Hgb 9.3 L (11.4-16.0) gm/dL Hct 30.7 L (34.0-46.0) % MCV 104.1 H (80.0-100.0) fL MCHC 30.3 L (31.0-37.0) g/dL Chloride 115 H (98-107) mmol/L Carbon Dioxide 12 L (22-30) mmol/L BUN 63 H (7-17) mg/dL Creatinine 9.76 H* (0.52-1.04) mg/dL Glucose 102 H (74-99) mg/dL Calcium 8.0 L (8.4-10.2) mg/dL Urine Appearance Turbid H (Clear) Urine Protein 3+ H (Negative) Urine Blood Moderate H (Negative) Ur Leukocyte Esterase Large H (Negative) Urine RBC 20 H (0-5) /hpf Urine WBC >182 H (0-5) /hpf Urine WBC Clumps Many H (None) /hpf Urine Bacteria Moderate H (None) /hpf Urine Mucus Occasional H (None) /hpf Assessment and Plan Assessment: Acute kidney injury with creatinine level 9.36, nonoliguric. Rule out glomera nephritis with proteinuria and hematuria in the urinalysis... Metabolic acidosis secondary to acute kidney injury Hypokalemia replaced. Cardiomyopathy ejection fraction unknown. Elevated BNP. Anemia of chronic disease with hemoglobin level 9.2 Hypertension Diabetes diet controlled COPD stable Previous history of smoking Depression GERD Osteoarthritis history of UTIs DVT prophylaxis Plan: Patient will be continued on gentle hydration. Changed to bicarbonate drip. Follow up renal function closely. Urinalysis showed proteinuria and hematuria. Serological workup for acute kidney injury was ordered. Nephrology is following. Ultrasound renal is negative for any obstruction. Possibility of renal biopsy is also being considered. TTE will be ordered for left ventricular ejection fraction. Further recommendations based on the clinical course. Time with Patient: Greater than 30
[2019-01-06] MEDS: DEXTROSE 5% IN WATER 1,000 ML with SODIUM BICARB (1 MEQ/ML) 150 ML IV SCH ×3 (01:42→23:33)
[2019-01-06] MEDS: oxyCODONE-APAP 5-325MG 1 EACH TAB PO PRN ×3 (03:26→23:33)
[2019-01-06 06:54] LABS: Basophils % (A) 0 %; Eosinophils # (A) 0.2 k/uL (0-0.7); Eosinophils % (A) 4 %; HCT 24.4 % (34.0-46.0); Hypochromasia Marked; Lymphocytes # (A) 0.8 k/uL (1.0-4.8); Lymphocytes % (A) 15 %; MCH 31.2 pg (25.0-35.0); MCHC 30.7 g/dL (31.0-37.0); MCV 101.7 fL (80.0-100.0); Macrocytosis Slight; Mean Platelet Volume 6.2; Monocytes # (A) 0.3 k/uL (0-1.0); Monocytes % (A) 7 %; Neutrophils # (A) 3.8 k/uL (1.3-7.7); Neutrophils % (A) 72 %; Platelet Count 279 k/uL (150-450); Poikilocytosis Slight; RDW 15.7 % (11.5-15.5); WBC 5.2 k/uL (3.8-10.6)
[2019-01-06 07:01] LABS: Calcium 7.5 mg/dL (8.4-10.2); Potassium 3.3 mmol/L (3.5-5.1)
[2019-01-06 07:02] LABS: HGB 7.5 gm/dL (11.4-16.0)
[2019-01-06] MEDS: VORTIOXETINE HYDROBROMIDE 20 MG TABLET PO SCH (08:33)
[2019-01-06] MEDS: METOPROLOL SUCCINATE (ER) 25 MG TAB.ER.24H PO SCH (08:33)
[2019-01-06] MEDS: PANTOPRAZOLE 40 MG/10 ML VIAL IV SCH (08:33)
[2019-01-06] MEDS: HEPARIN SODIUM,PORCINE 5,000 UNIT/ML 1 ML VIAL SQ SCH ×2 (08:33→20:11)
[2019-01-06] MEDS: PILOCARPINE 5 MG TAB PO SCH ×2 (08:33→20:10)
[2019-01-06] MEDS: DOCUSATE 100 MG CAP PO SCH ×2 (08:34→20:10)
[2019-01-06] MEDS: Naloxegol Oxalate [Movantik] 25 MG PO SCH (10:34)
[2019-01-06] MEDS: ONDANSETRON 4 MG/2 ML VIAL IVP PRN (10:48)
[2019-01-06] MEDS ORDERED: POTASSIUM CHLORIDE ER 20 MEQ TAB.ER PO STA (10:49)
[2019-01-06 11:29] LABS: Complement C3 70.5 mg/dL (80.0-207.0)
--- NOTE | 2019-01-06 11:43 | PN ---
PROGRESS NOTE The patient is seen for followup for acute kidney injury. She is maintained on IV fluids. Renal function has not improved. The patient states she has been voiding. So far the serologies are negative. Some of the serologies are pending. I have advised the patient that she will need a kidney biopsy and given the advanced renal failure we will need to dialyze her before the kidney biopsy is done. At this time we will schedule her for a biopsy, possibly early next week and we plan to dialyze her tomorrow. PHYSICAL EXAMINATION: On examination today, blood pressure is 148/67, heart rate 92 per minute. Patient is afebrile. EXAMINATION OF THE HEART: S1, S2. EXAMINATION OF THE LUNGS: Bilateral breath sounds are heard. Abdomen is soft, nontender. Examination of the lower extremities shows no evidence of edema. CHEF exam is grossly intact. LABS: Labs show sodium 139, potassium 3.3, chloride 112, CO2 is 15, BUN 65, serum creatinine 9.59, hemoglobin 7.5 g/dL. ASSESSMENT: 1. Acute kidney injury. Rule out underlying GN. The patient is maintained on IV fluids. So far serologies are negative. Renal function is not improving. I will send urine for eosinophils and we will plan for a kidney biopsy early next week. However, before that patient needs to be dialyzed since she has advanced renal failure. This will help to prevent any possible bleeding with the biopsy. We will proceed with vascular surgery consult today. 2. Hypokalemia. Will replace. 3. Non-gap metabolic acidosis secondary to renal failure, maintained on IV bicarb. PLAN: Replace potassium potassium. Consult vascular surgery. Plan on dialysis tomorrow and will schedule for a kidney biopsy on Wednesday or Wednesday. MMODL / IJN: [id number] /
[2019-01-06 14:16] LABS: C-ANCA <1:20 Titer (<1:20); P-ANCA <1:20 Titer (<1:20)
[2019-01-06] MEDS ORDERED: IV FLUID CONTINUATION 950 ML IV ONE (14:24)
[2019-01-06 14:25] LABS: INR 1.2 (<1.2); Prothrombin Time 12.8 sec (9.0-12.0)
[2019-01-06] MEDS ORDERED: LIDOCAINE 1% INJ 10MG/ML (20 ML MDV) SQ ONE (14:50)
[2019-01-06] MEDS ORDERED: MIDAZOLAM 2 MG/2 ML VIAL IV ONE (14:51)
[2019-01-06] MEDS ORDERED: fentaNYL (PF) 50 MCG/ML 2 ML AMP IV ONE (15:06)
[2019-01-06] MEDS ORDERED: HEPARIN SODIUM 1,000 UN/ML (10ML VL) IV ONE (15:10)
--- NOTE | 2019-01-06 18:19 | ECHOF ---
Referral Reason:CHF MEASUREMENTS -------- HEIGHT: 162.6 cm WEIGHT: 73.9 kg BP: 144/64 RVIDd: 2.7 cm (< 3.3) IVSd: 1.1 cm (0.6 - 1.1) LVIDd: 5.6 cm (3.9 - 5.3) LVPWd: 1.1 cm (0.6 - 1.1) IVSs: 1.6 cm LVIDs: 4.1 cm LVPWs: 1.3 cm LA Diam: 3.6 cm (2.7 - 3.8) LAESV Index (A-L): 31.51 ml/m Ao Diam: 3.1 cm (2.0 - 3.7) AV Cusp: 1.3 cm (1.5 - 2.6) MV EXCURSION: 16.269 mm (> 18.000) MV EF SLOPE: 103 mm/s (70 - 150) EPSS: 0.9 cm MV E Donny: 1.47 m/s MV DecT: 211 ms MV A Donny: 1.01 m/s MV E/A Ratio: 1.45 AV maxP.20 mmHg AV meanP.32 mmHg RAP: 5.00 mmHg RVSP: 57.44 mmHg FINDINGS -------- Sinus rhythm. This was a technically good study. The left ventricle is mildly dilated. There is borderline concentric left ventricular hypertrophy. Overall left ventricular systolic function is normal with, an EF between 55 - 60 %. The right ventricle is normal in size. LA is midly dilated 29-33ml/m2. The right atrium is normal in size. There is mild aortic valve sclerosis. There is mild aortic stenosis present. Peak/mean gradient a cross the Aortic Valve is 15.20mmHg / 8.32mmHg. The mitral valve leaflets are mildly thickened. Mild mitral annular calcification present. Modera [id number] mitral regurgitation is present. Moderate to severe tricuspid regurgitation present. There is moderate pulmonary hypertension. The right ventricular systolic pressure, as measured by Doppler, is 57.44mmHg. The pulmonic valve was not well visualized. There is no pulmonic regurgitation present. The aortic root size is normal. Normal inferior vena cava with normal inspiratory collapse consistent with estimated right atrial pre ssure of 5 mmHg. There is no pericardial effusion. CONCLUSIONS -------- 1. Sinus rhythm. 2. This was a technically good study. 3. The left ventricle is mildly dilated. 4. There is borderline concentric left ventricular hypertrophy. 5. Overall left ventricular systolic function is normal with, an EF between 55 - 60 %. 6. LA is midly dilated 29-33ml/m2. 7. There is mild aortic valve sclerosis. 8. There is mild aortic stenosis present. 9. Peak/mean gradient across the Aortic Valve is 15.20mmHg / 8.32mmHg. 10. The mitral valve leaflets are mildly thickened. 11. Mild mitral annular calcification present. 12. [id number] mitral regurgitation is present. 13. Moderate to severe tricuspid regurgitation present. 14. There is moderate pulmonary hypertension. 15. The pulmonic valve was not well visualized. 16. The aortic root size is normal. 17. Normal inferior vena cava with normal inspiratory collapse consistent with estimated right atrial pressure of 5 mmHg. 18. There is no pericardial effusion. DATA MINER: Libertad Bacon RDCS
--- NOTE | 2019-01-06 19:18 | XR ---
EXAMINATION TYPE: XR chest 1V portable DATE OF EXAM: 01/06/2019 COMPARISON: 01/04/2019 HISTORY: Catheter insertion TECHNIQUE: Single frontal view of the chest is obtained. FINDINGS: There is right central venous catheter with the tip in the superior vena cava. No pneumoth orax. Lungs are clear of consolidation. There is no heart failure. IMPRESSION: Catheter appears in good position.
[2019-01-06] MEDS: TEMAZEPAM 30 MG CAP PO SCH (20:11)
--- NOTE | 2019-01-07 00:57 | P.PN ---
Subjective Progress Note Date: 01/06/19 Principal diagnosis: Acute kidney injury Patient is a 78-year-old female with a known history of COPD, diet-controlled diabetes, dry eyes, mouth/, xerostomia, osteoarthritis and GERD was seen by Dr. Gómez in the nephrology clinic. Patient was sent to slag mixer by her primary care physician. Patient was sent sent to the hospital with elevated creatinine level 6.4. She's been having dry mouth and nausea and episodes of vomiting 2 at home. No chest pain. Patient does have bilateral lower extremities swelling and mild exertional shortness of breath. Currently denied any nausea. Denied any fever or chills. Denied any recent illnesses. Patient says that she's been having history of multiple urinary tract infections. Patient says that she has leaky heart valve and is following cardiology in the clinic. 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 Patient has been taking Lasix due to bilateral lower extremity swelling. Patient was found to having blood in the urine. No gross hematuria. Chest x-ray showed mild cardiomegaly. No heart failure. Minimal scarring or subsegmental atelectasis left lower lobe probably not changed area did BUN 66 and creatinine 9.36, bicarb 15, hemoglobin 9.2, BNP 19, 300. Troponin 0.050 Potassium 3.3, albumin 2.7 01/05/2019 Patient denied any complaints of chest pain or shortness of breath. Creatinine level is about the same around 9. Patient was seen by nephrology. Serological workup for acute kidney injury was ordered. Patient was started on bicarb drip. No nausea vomiting or abdominal pain. No diarrhea. Patient does have good urine output. 01/06/2019 Patient denied any complaints of chest pain or shortness of breath. No worsening leg swelling. Patient is being continued on D5 bicarb. Renal function is still the same with creatinine level 9.59. Serological workup has been negative so far nephrology is recommending renal biopsy early next week. Patient is being started on hemodialysis. No complaints of fever or chills. Patient does have nausea today. No vomiting. No abdominal pain. No dysuria or hematuria. Patient was started on antibiotics in the form of ceftriaxone for possible urinary tract infection. Current medications reviewed. Active Medications Acetaminophen (Tylenol Tab) 650 mg PO Q6HR PRN PRN Reason: Mild Pain or Fever > 100.5 Docusate Sodium (Colace) 100 mg PO BID [facility] Last Admin: 01/05/19 21:05 Dose: Not Given Documented by: Heparin Sodium (Porcine) (Heparin) 5,000 unit SQ Q12HR [facility] Last Admin: 01/05/19 21:06 Dose: 5,000 unit Documented by: Sodium Bicarbonate 150 ml/ (Dextrose/Water) 1,150 mls @ 100 mls/hr IV .[id number] [facility] Last Admin: 01/05/19 15:09 Dose: 100 mls/hr Documented by: Metoprolol Succinate (Toprol Xl) 25 mg PO DAILY [facility] Last Admin: 01/05/19 10:04 Dose: 25 mg Documented by: Naloxone HCl (Narcan) 0.2 mg IV Q2M PRN PRN Reason: Opioid Reversal Naloxegol Oxalate [ (Movantik] 25 Mg) 25 mg PO DAILY [facility] Last Admin: 01/05/19 17:02 Dose: Not Given Documented by: Ondansetron HCl (Zofran) 4 mg IVP Q6HR PRN PRN Reason: Nausea And Vomiting Oxycodone/Acetaminophen (Percocet 5-325) 1 each PO Q6HR PRN PRN Reason: Moderate Pain Last Admin: 01/05/19 05:56 Dose: 1 each Documented by: Pantoprazole Sodium (Protonix) 40 mg IV DAILY [facility] Last Admin: 01/05/19 10:05 Dose: 40 mg Documented by: Pilocarpine HCl (Salagen) 5 mg PO BID [facility] Last Admin: 01/05/19 21:05 Dose: Not Given Documented by: Temazepam (Restoril) 30 mg PO HS [facility] Last Admin: 01/05/19 21:06 Dose: 30 mg Documented by: Vortioxetine (Trintellix) 20 mg PO DAILY [facility] Last Admin: 01/05/19 10:05 Dose: 20 mg Documented by: Objective - Vital Signs Vital signs: Vital Signs Temp 98.1 F 01/06/19 20:00 Pulse 89 01/06/19 20:00 Resp 20 01/06/19 20:00 BP 122/68 01/06/19 20:00 Pulse Ox 98 01/06/19 20:00 Intake & Output 01/06/19 01/06/19 01/07/19 06:59 18:59 06:59 Intake Total 675 960 200 Output Total 100 600 Balance 575 360 200 Weight 75.3 kg Intake: IV 675 Sodium Chloride 0.9% 1, 675 000 ml @ 75 mls/hr IV . [id number] [facility] Rx#:[id number] Oral 960 200 Output: Urine 100 600 Other: Voiding Method Toilet Toilet Toilet # Voids 2 1 - Exam PHYSICAL EXAMINATION: Patient is lying in the bed comfortably, no acute distress, awake alert and oriented.. HEENT: Normocephalic. Neck is supple. Pupils reactive. Nostrils clear. Oral cavity is moist. Ears reveal no drainage. Neck reveals no JVD, carotid bruits, or thyromegaly. CHEST EXAMINATION: Trachea is central. Symmetrical expansion. Lung momin clear to auscultation and percussion. CARDIAC: Normal S1, S2 with no gallops. No murmurs ABDOMEN: Soft. Bowel sounds normal. No organomegaly. No abdominal bruits. Extremities: 2+ edema. No clubbing or cyanosis Neurologically awake, alert, oriented x3 with well-coordinated movements. No focal deficits noted Skin: No rash or skin lesions. Psychiatric: Coperative. Nonsuicidal Musculoskeletal: No joint swelling or deformity. Normal range of motion. - Labs CBC & Chem 7: 01/06/19 06:15 01/06/19 06:15 Labs: Abnormal Lab Results - Last 24 Hours (Table) 01/05/19 01/05/19 01/06/19 Range/Units 06:00 15:48 06:15 RBC 2.40 L (3.80-5.40) m/uL Hgb 7.5 L D (11.4-16.0) gm/dL Hct 24.4 L (34.0-46.0) % MCV 101.7 H (80.0-100.0) fL MCHC 30.7 L (31.0-37.0) g/dL RDW 15.7 H (11.5-15.5) % Lymphocytes # 0.8 L (1.0-4.8) k/uL PT (9.0-12.0) sec INR (<1.2) Potassium (3.5-5.1) mmol/L Chloride (98-107) mmol/L Carbon Dioxide (22-30) mmol/L BUN (7-17) mg/dL Creatinine (0.52-1.04) mg/dL Calcium (8.4-10.2) mg/dL Urine Appearance Turbid H (Clear) Urine Protein 3+ H (Negative) Urine Blood Moderate H (Negative) Ur Leukocyte Esterase Large H (Negative) Urine RBC 20 H (0-5) /hpf Urine WBC >182 H (0-5) /hpf Urine WBC Clumps Many H (None) /hpf Urine Bacteria Moderate H (None) /hpf Urine Mucus Occasional H (None) /hpf Complement C3 70.5 L (80.0-207.0) mg/dL 01/06/19 01/06/19 Range/Units 06:15 14:00 RBC (3.80-5.40) m/uL Hgb (11.4-16.0) gm/dL Hct (34.0-46.0) % MCV (80.0-100.0) fL MCHC (31.0-37.0) g/dL RDW (11.5-15.5) % Lymphocytes # (1.0-4.8) k/uL PT 12.8 H (9.0-12.0) sec INR 1.2 H (<1.2) Potassium 3.3 L (3.5-5.1) mmol/L Chloride 112 H (98-107) mmol/L Carbon Dioxide 15 L (22-30) mmol/L BUN 65 H (7-17) mg/dL Creatinine 9.59 H* (0.52-1.04) mg/dL Calcium 7.5 L (8.4-10.2) mg/dL Urine Appearance (Clear) Urine Protein (Negative) Urine Blood (Negative) Ur Leukocyte Esterase (Negative) Urine RBC (0-5) /hpf Urine WBC (0-5) /hpf Urine WBC Clumps (None) /hpf Urine Bacteria (None) /hpf Urine Mucus (None) /hpf Complement C3 (80.0-207.0) mg/dL Assessment and Plan Assessment: Acute kidney injury with creatinine level 9.36--9.76-9.59, nonoliguric. Rule out glomerulonephritis with proteinuria and hematuria in the urinalysis... Metabolic acidosis secondary to acute kidney injury Hypokalemia replaced. Chronic CHF with preserved ejection fraction and valvular abnormalities.. Elevated BNP. Moderate to severe mitral and tricuspid regurgitation Moderate pulmonary hypertension Anemia of chronic disease with hemoglobin level 9.2--7.5 Hypertension Diabetes diet controlled COPD stable Previous history of smoking Depression GERD Osteoarthritis history of UTIs DVT prophylaxis Plan: Patient will be continued on gentle hydration. Changed to bicarbonate drip. Follow up renal function closely. Urinalysis showed proteinuria and hematuria. Serological workup for acute kidney injury was ordered. Nephrology is following. Ultrasound renal is negative for any obstruction. renal biopsy is also being considered. Hemodialysis to be started tomorrow. Further recommendations based on the clinical course. Time with Patient: Greater than 30
[2019-01-07] MEDS: PANTOPRAZOLE 40 MG TABLET PO SCH (06:47)
[2019-01-07 07:39] LABS: Basophils % (A) 0 %; Eosinophils # (A) 0.3 k/uL (0-0.7); Eosinophils % (A) 5 %; HGB 7.8 gm/dL (11.4-16.0); Hypochromasia Moderate; Lymphocytes # (A) 0.8 k/uL (1.0-4.8); Lymphocytes % (A) 14 %; MCHC 31.2 g/dL (31.0-37.0); MCV 99.2 fL (80.0-100.0); Macrocytosis Slight; Mean Platelet Volume 6.3; Monocytes # (A) 0.4 k/uL (0-1.0); Monocytes % (A) 6 %; Neutrophils # (A) 4.5 k/uL (1.3-7.7); Neutrophils % (A) 73 %; Platelet Count 293 k/uL (150-450); Poikilocytosis Slight; RBC 2.52 m/uL (3.80-5.40); RDW 15.7 % (11.5-15.5); WBC 6.2 k/uL (3.8-10.6)
[2019-01-07 08:16] LABS: Albumin 2.3 g/dL (3.5-5.0); Calcium 7.2 mg/dL (8.4-10.2); Potassium 3.3 mmol/L (3.5-5.1); Total Bilirubin 0.4 mg/dL (0.2-1.3)
[2019-01-07] MEDS: ONDANSETRON 4 MG/2 ML VIAL IVP PRN ×2 (08:59→15:52)
[2019-01-07] MEDS: oxyCODONE-APAP 5-325MG 1 EACH TAB PO PRN ×2 (09:00→15:20)
[2019-01-07] MEDS: HEPARIN SODIUM,PORCINE 5,000 UNIT/ML 1 ML VIAL SQ SCH ×2 (09:00→19:56)
[2019-01-07] MEDS ORDERED: HEPARIN SODIUM,PORCINE 5,000 UNIT/ML 1 ML VIAL ONE (09:00)
[2019-01-07] MEDS: Naloxegol Oxalate [Movantik] 25 MG PO SCH (11:49)
[2019-01-07] MEDS: METOPROLOL SUCCINATE (ER) 25 MG TAB.ER.24H PO SCH (12:31)
[2019-01-07] MEDS: PILOCARPINE 5 MG TAB PO SCH ×2 (12:32→19:45)
[2019-01-07] MEDS: DOCUSATE 100 MG CAP PO SCH ×2 (12:32→19:44)
[2019-01-07] MEDS: VORTIOXETINE HYDROBROMIDE 20 MG TABLET PO SCH (12:32)
--- NOTE | 2019-01-07 15:08 | PN ---
PROGRESS NOTE Patient is seen for followup for acute kidney injury. She had her dialysis catheter placed yesterday and currently patient is seen on hemodialysis. Patient is tolerating her treatment well. She denies any complaints of chest pain, shortness of breath, nausea, vomiting or abdominal pain. She continues to have fair urine output. Patient is scheduled for biopsy early next week, either Wednesday or Wednesday. We will plan to dialyze her again on Wednesday at least 1 more time before the biopsy. Patient will also get DDAVP prior to the biopsy. PHYSICAL EXAMINATION: Today, blood pressure this morning 125/67, heart rate 94 per minute, patient is afebrile. Examination of the heart, S1, S2. Examination of the lungs, bilateral breath sounds are heard. Abdomen is soft, nontender. Examination of the lower extremities shows no significant edema. 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 LABS: Show hemoglobin 7.8, sodium 139, potassium 3.3, BUN 65, serum creatinine 9.1. ASSESSMENT: 1. Acute kidney injury. Rule out underlying GN. All serologies so far negative except C3, which is slightly on the lower side. We will proceed with kidney biopsy on Wednesday or Wednesday. Patient will receive her second hemodialysis treatment Wednesday morning. At this time, I will change the IV fluids to normal saline and discontinue the bicarb drip. 2. Metabolic acidosis, status post IV bicarb. 3. Hypokalemia associated with decreased oral intake and IV bicarb. Expect improvement once the bicarb is discontinued. We will also replace with hemodialysis today. PLAN: Repeat hemodialysis on Wednesday. DC bicarb drip changed to normal saline. Check urine eosinophils. Check urine culture which was ordered but does not look like it has been drawn yet. MMODL / IJN: [id number] /
[2019-01-07] MEDS: DEXTROSE 5% IN WATER 1,000 ML with SODIUM BICARB (1 MEQ/ML) 150 ML IV SCH (15:21)
[2019-01-07] MEDS: SODIUM CHLORIDE 0.9% 1,000 ML IV SCH (15:21)
[2019-01-07] MEDS: IPRATROPIUM-ALBUTEROL 3 ML NEB INHALATION SCH ×2 (16:53→21:07)
[2019-01-07] MEDS: TEMAZEPAM 30 MG CAP PO SCH (19:56)
--- NOTE | 2019-01-08 00:36 | P.PN ---
Subjective Progress Note Date: 01/07/19 Principal diagnosis: Acute kidney injury Patient is a 78-year-old female with a known history of COPD, diet-controlled diabetes, dry eyes, mouth/, xerostomia, osteoarthritis and GERD was seen by Dr. Gómez in the nephrology clinic. Patient was sent to fly maker by her primary care physician. Patient was sent sent to the hospital with elevated creatinine level 6.4. She's been having dry mouth and nausea and episodes of vomiting 2 at home. No chest pain. Patient does have bilateral lower extremities swelling and mild exertional shortness of breath. Currently denied any nausea. Denied any fever or chills. Denied any recent illnesses. Patient says that she's been having history of multiple urinary tract infections. Patient says that she has leaky heart valve and is following cardiology in the clinic. 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 Patient has been taking Lasix due to bilateral lower extremity swelling. Patient was found to having blood in the urine. No gross hematuria. Chest x-ray showed mild cardiomegaly. No heart failure. Minimal scarring or subsegmental atelectasis left lower lobe probably not changed area did BUN 66 and creatinine 9.36, bicarb 15, hemoglobin 9.2, BNP 19, 300. Troponin 0.050 Potassium 3.3, albumin 2.7 01/05/2019 Patient denied any complaints of chest pain or shortness of breath. Creatinine level is about the same around 9. Patient was seen by nephrology. Serological workup for acute kidney injury was ordered. Patient was started on bicarb drip. No nausea vomiting or abdominal pain. No diarrhea. Patient does have good urine output. 01/06/2019 Patient denied any complaints of chest pain or shortness of breath. No worsening leg swelling. Patient is being continued on D5 bicarb. Renal function is still the same with creatinine level 9.59. Serological workup has been negative so far nephrology is recommending renal biopsy early next week. Patient is being started on hemodialysis. No complaints of fever or chills. Patient does have nausea today. No vomiting. No abdominal pain. No dysuria or hematuria. Patient was started on antibiotics in the form of ceftriaxone for possible urinary tract infection. 01/07/2019 Patient did have hemodialysis today morning. Seems to tolerate well. Complains of nausea. Otherwise creatinine level improved to 9.1 this morning. Bicarb is 22. Full serological workup is pending at this time. No commerce of abdominal pain. No nausea vomiting or diarrhea. No chest pain or shortness of breath. Nephrology is planning for renal biopsy. Current medications reviewed. Active Medications Acetaminophen (Tylenol Tab) 650 mg PO Q6HR PRN PRN Reason: Mild Pain or Fever > 100.5 Docusate Sodium (Colace) 100 mg PO BID [facility] Last Admin: 01/05/19 21:05 Dose: Not Given Documented by: Heparin Sodium (Porcine) (Heparin) 5,000 unit SQ Q12HR [facility] Last Admin: 01/05/19 21:06 Dose: 5,000 unit Documented by: Sodium Bicarbonate 150 ml/ (Dextrose/Water) 1,150 mls @ 100 mls/hr IV .[id number] [facility] Last Admin: 01/05/19 15:09 Dose: 100 mls/hr Documented by: Metoprolol Succinate (Toprol Xl) 25 mg PO DAILY [facility] Last Admin: 01/05/19 10:04 Dose: 25 mg Documented by: Naloxone HCl (Narcan) 0.2 mg IV Q2M PRN PRN Reason: Opioid Reversal Naloxegol Oxalate [ (Movantik] 25 Mg) 25 mg PO DAILY [facility] Last Admin: 01/05/19 17:02 Dose: Not Given Documented by: Ondansetron HCl (Zofran) 4 mg IVP Q6HR PRN PRN Reason: Nausea And Vomiting Oxycodone/Acetaminophen (Percocet 5-325) 1 each PO Q6HR PRN PRN Reason: Moderate Pain Last Admin: 01/05/19 05:56 Dose: 1 each Documented by: Pantoprazole Sodium (Protonix) 40 mg IV DAILY [facility] Last Admin: 01/05/19 10:05 Dose: 40 mg Documented by: Pilocarpine HCl (Salagen) 5 mg PO BID [facility] Last Admin: 01/05/19 21:05 Dose: Not Given Documented by: Temazepam (Restoril) 30 mg PO HS [facility] Last Admin: 01/05/19 21:06 Dose: 30 mg Documented by: Vortioxetine (Trintellix) 20 mg PO DAILY [facility] Last Admin: 01/05/19 10:05 Dose: 20 mg Documented by: Objective - Vital Signs Vital signs: Vital Signs Temp 98.3 F 03/16/19 19:56 Pulse 100 01/07/19 21:18 Resp 20 01/07/19 19:56 BP 137/60 01/07/19 19:56 Pulse Ox 99 01/07/19 19:56 Intake & Output 01/07/19 01/07/19 01/08/19 06:59 18:59 06:59 Intake Total 850 240 80 Balance 850 240 80 Intake: Intake, IV Titration 500 Amount Dextrose 5% in Water 1, 500 000 ml @ 100 mls/hr IV . [id number] JONAS with Sodium Bicarb (1 Meq/ml) 150 ml Rx#:[id number] Oral 350 240 80 Other: Voiding Method Toilet Toilet Toilet # Voids 1 2 1 - Exam PHYSICAL EXAMINATION: Patient is lying in the bed comfortably, no acute distress, awake alert and oriented.. HEENT: Normocephalic. Neck is supple. Pupils reactive. Nostrils clear. Oral cavity is moist. Ears reveal no drainage. Neck reveals no JVD, carotid bruits, or thyromegaly. CHEST EXAMINATION: Trachea is central. Symmetrical expansion. Lung momin clear to auscultation and percussion. CARDIAC: Normal S1, S2 with no gallops. No murmurs ABDOMEN: Soft. Bowel sounds normal. No organomegaly. No abdominal bruits. Extremities: 2+ edema. No clubbing or cyanosis Neurologically awake, alert, oriented x3 with well-coordinated movements. No focal deficits noted Skin: No rash or skin lesions. Psychiatric: Coperative. Nonsuicidal Musculoskeletal: No joint swelling or deformity. Normal range of motion. - Labs CBC & Chem 7: 01/07/19 07:16 01/07/19 07:16 Labs: Abnormal Lab Results - Last 24 Hours (Table) 01/07/19 01/07/19 Range/Units 07:16 07:16 RBC 2.52 L (3.80-5.40) m/uL Hgb 7.8 L (11.4-16.0) gm/dL Hct 25.0 L (34.0-46.0) % RDW 15.7 H (11.5-15.5) % Lymphocytes # 0.8 L (1.0-4.8) k/uL Potassium 3.3 L (3.5-5.1) mmol/L BUN 65 H (7-17) mg/dL Creatinine 9.10 H* (0.52-1.04) mg/dL Calcium 7.2 L (8.4-10.2) mg/dL Total Protein 5.0 L (6.3-8.2) g/dL Albumin 2.3 L (3.5-5.0) g/dL Microbiology - Last 24 Hours (Table) 01/07/19 15:33 Urine Culture - Preliminary Urine,Clean Catch Assessment and Plan Assessment: Acute kidney injury with creatinine level 9.36--9.76-9.59--9.1, nonoliguric. Started hemodialysis on 01/07/2019 Rule out glomerulonephritis with proteinuria and hematuria in the urinalysis... Metabolic acidosis secondary to acute kidney injury Hypokalemia replaced. Chronic CHF with preserved ejection fraction and valvular abnormalities.. Elevated BNP. Moderate to severe mitral and tricuspid regurgitation Moderate pulmonary hypertension Anemia of chronic disease with hemoglobin level 9.2--7.5 Hypertension Diabetes diet controlled COPD stable Previous history of smoking Depression GERD Osteoarthritis history of UTIs DVT prophylaxis Plan: Patient will be continued on gentle hydration. Changed to bicarbonate drip. Follow up renal function closely. Urinalysis showed proteinuria and hematuria. Serological workup for acute kidney injury was ordered. Nephrology is following. Ultrasound renal is negative for any obstruction. renal biopsy is also being considered. Hemodialysis to be started tomorrow. Further recommendations based on the clinical course. Time with Patient: Greater than 30
[2019-01-08] MEDS: PANTOPRAZOLE 40 MG TABLET PO SCH (06:15)
[2019-01-08] MEDS: IPRATROPIUM-ALBUTEROL 3 ML NEB INHALATION SCH ×4 (07:55→21:20)
[2019-01-08 08:06] LABS: Basophils % (A) 1 %; Eosinophils # (A) 0.1 k/uL (0-0.7); Eosinophils % (A) 2 %; HCT 24.4 % (34.0-46.0); HGB 7.1 gm/dL (11.4-16.0); Hypochromasia Marked; Lymphocytes # (A) 0.7 k/uL (1.0-4.8); Lymphocytes % (A) 14 %; MCH 29.4 pg (25.0-35.0); MCHC 29.1 g/dL (31.0-37.0); MCV 100.8 fL (80.0-100.0); Macrocytosis Slight; Mean Platelet Volume 7.1; Monocytes # (A) 0.4 k/uL (0-1.0); Monocytes % (A) 7 %; Neutrophils # (A) 3.7 k/uL (1.3-7.7); Neutrophils % (A) 73 %; Platelet Count 262 k/uL (150-450); Poikilocytosis Slight; RBC 2.42 m/uL (3.80-5.40); RDW 15.6 % (11.5-15.5)
[2019-01-08 08:14] LABS: INR 1.2 (<1.2); Prothrombin Time 12.7 sec (9.0-12.0)
[2019-01-08 08:17] LABS: Potassium 3.2 mmol/L (3.5-5.1)
[2019-01-08] MEDS: HEPARIN SODIUM,PORCINE 5,000 UNIT/ML 1 ML VIAL SQ SCH ×2 (08:17→21:48)
[2019-01-08] MEDS: PILOCARPINE 5 MG TAB PO SCH ×2 (08:17→21:48)
[2019-01-08] MEDS: METOPROLOL SUCCINATE (ER) 25 MG TAB.ER.24H PO SCH (08:17)
[2019-01-08] MEDS: DOCUSATE 100 MG CAP PO SCH ×2 (08:17→21:48)
[2019-01-08] MEDS: VORTIOXETINE HYDROBROMIDE 20 MG TABLET PO SCH (08:17)
[2019-01-08] MEDS: Naloxegol Oxalate [Movantik] 25 MG PO SCH (08:18)
[2019-01-08] MEDS: SODIUM CHLORIDE 0.9% 1,000 ML IV SCH (08:19)
[2019-01-08] MEDS ORDERED: POTASSIUM CHLORIDE ER 20 MEQ TAB.ER PO STA (09:18)
[2019-01-08] MEDS: ONDANSETRON 4 MG/2 ML VIAL IVP PRN ×2 (11:36→18:58)
[2019-01-08] MEDS: oxyCODONE-APAP 5-325MG 1 EACH TAB PO PRN (11:43)
[2019-01-08] MEDS ORDERED: DARBEPOETIN ALFA 40 MCG/0.4 ML SYRINGE SQ SCH (13:00)
[2019-01-08] MEDS ORDERED: FUROSEMIDE 10 MG/ML 4 ML VIAL IV STA (13:47)
--- NOTE | 2019-01-08 13:54 | PN ---
PROGRESS NOTE Patient is seen for followup for acute kidney injury. Her renal function has worsened as outpatient. There is no evidence of obstructive uropathy. The patient is also noted to have proteinuria. She was admitted for further evaluation of her renal failure. All serologies so far are negative, except low C3 level. The patient is scheduled for a kidney biopsy either Wednesday or Wednesday. She has been started on dialysis. The patient had her first treatment yesterday and she will have a second treatment tomorrow. She is maintained on IV fluids which I will discontinue as she is mildly hypervolemic now. PHYSICAL EXAMINATION: Blood pressure this morning 140/66, heart rate 86 per minute. Patient is afebrile. Examination of the heart S1, S2. Examination of lungs: Bilateral breath sounds are heard. Abdomen is soft, nontender. Examination of lower extremities shows trace edema bilaterally. 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 LABS: Hemoglobin 7.1, sodium 138, potassium 3.2, BUN 34, serum creatinine 5.64. ASSESSMENT: 1. Acute kidney injury. Rule out underlying acute GN. Urine for eosinophils was negative. There is no evidence of obstructive uropathy. The patient has had her first treatment of hemodialysis yesterday as her creatinine was staying around 9.5 mg per dL. The patient will have a second treatment tomorrow hopefully before the kidney biopsy. So far, all serologies are negative, except for C3, which is low. 2. Hypokalemia. We will replace. 3. Metabolic acidosis, currently resolved. 4. Anemia with no active bleeding noted. Check iron studies. 5. Pyuria with urine culture currently negative. Maintained on empiric antibiotics. PLAN: DC IV fluids. Replace potassium. Repeat labs in a.m. Second treatment of hemodialysis tomorrow and kidney biopsy to be done either Wednesday or Wednesday. I will also give her a small dose of Lasix today. We will check iron studies for workup of anemia and start patient on Procrit/Aranesp. MMODL / IJN: [id number] /
--- NOTE | 2019-01-08 14:41 | IR ---
Fluoroscopy HISTORY: Dialysis catheter placement 2.1 minutes fluoroscopy time supplied to the referring clinician. 39 intraoperative C-arm images doc ument the procedure. See dictated report from vascular surgery.
[2019-01-08] MEDS: TEMAZEPAM 30 MG CAP PO SCH (21:54)
[2019-01-09] MEDS: PANTOPRAZOLE 40 MG TABLET PO SCH (06:28)
[2019-01-09 06:50] LABS: Calcium 7.7 mg/dL (8.4-10.2); Potassium 3.3 mmol/L (3.5-5.1)
[2019-01-09 07:02] LABS: Basophils % (A) 0 %; Eosinophils # (A) 0.2 k/uL (0-0.7); Eosinophils % (A) 4 %; Hypochromasia Marked; Lymphocytes # (A) 0.6 k/uL (1.0-4.8); Lymphocytes % (A) 11 %; MCH 30.3 pg (25.0-35.0); MCHC 30.4 g/dL (31.0-37.0); MCV 99.8 fL (80.0-100.0); Macrocytosis Slight; Mean Platelet Volume 7.4; Monocytes # (A) 0.4 k/uL (0-1.0); Monocytes % (A) 8 %; Neutrophils # (A) 4.1 k/uL (1.3-7.7); Neutrophils % (A) 75 %; Platelet Count 248 k/uL (150-450); Poikilocytosis Slight; RDW 15.4 % (11.5-15.5); WBC 5.4 k/uL (3.8-10.6)
[2019-01-09 07:07] LABS: HGB 6.7 gm/dL (11.4-16.0)
[2019-01-09] MEDS ORDERED: POTASSIUM CHLORIDE ER 20 MEQ TAB.ER PO STA (07:25)
[2019-01-09] MEDS ORDERED: HEPARIN SODIUM,PORCINE 5,000 UNIT/ML 1 ML VIAL ONE (07:30)
--- NOTE | 2019-01-09 08:53 | P.PN ---
Subjective Patient is seen in follow-up for acute kidney injury. Creatinine in April 2017 was near 1. On admission her creatinine was 9.36 with no significant improvement. She was subsequently started on hemodialysis. She is currently seen while undergoing second treatment of hemodialysis. Denies chest pain or shortness of breath. She scheduled for a kidney biopsy today. Vital signs are stable. General: The patient appeared well nourished and normally developed. HEENT: Head exam is unremarkable. Neck is without jugular venous distension. LUNGS: Lungs are clear to auscultation and percussion. Breath sounds decreased. HEART: Rate and Rhythm are regular. First and second heart sounds normal. No murmurs, rubs or gallops. ABDOMEN: Abdominal exam reveals normal bowel sounds. Non-tender and non- distended. No evidence of peritonitis. EXTREMITITES: No clubbing, cyanosis, or edema. Objective - Vital Signs Vital signs: Vital Signs Temp 98.2 F 01/09/19 08:00 Pulse 100 01/09/19 08:00 Resp 20 01/09/19 08:00 BP 159/82 01/09/19 08:00 Pulse Ox 99 01/09/19 08:00 Intake & Output 01/08/19 01/09/19 01/09/19 18:59 06:59 18:59 Intake Total 100 200 0 Balance 100 200 0 Weight 77 kg Intake: Oral 100 200 Blood Product 0 Rc As-1 Unit 0 [id number] Other: Voiding Method Toilet # Voids 4 1 - Labs CBC & Chem 7: 01/09/19 06:18 01/09/19 06:18 Labs: Abnormal Lab Results - Last 24 Hours (Table) 01/08/19 01/09/19 01/09/19 Range/Units 07:09 06:18 06:18 RBC 2.20 L (3.80-5.40) m/uL Hgb 6.7 L* (11.4-16.0) gm/dL Hct 22.0 L (34.0-46.0) % MCHC 30.4 L (31.0-37.0) g/dL Lymphocytes # 0.6 L (1.0-4.8) k/uL Potassium 3.3 L (3.5-5.1) mmol/L BUN 35 H (7-17) mg/dL Creatinine 6.44 H (0.52-1.04) mg/dL Calcium 7.7 L (8.4-10.2) mg/dL Crossmatch See Detail Microbiology - Last 24 Hours (Table) 01/07/19 15:33 Urine Culture - Final Urine,Clean Catch Assessment and Plan Plan: Assessment: 1. Acute kidney injury with concern for underlying acute GN. C3 noted to be low. No evidence of obstruction. Urine eosinophils negative. Currently hemodialysis dependent. Creatinine in April 2017 was near 1. 2. Hypokalemia secondary to diuresis. 3. Anemia scheduled to receive a unit of blood today with dialysis. She is maintained on Aranesp. 4. Metabolic acidosis secondary to acute kidney injury. Improved with dialysis. Plan: Currently seen while undergoing hemodialysis. Next treatment tomorrow. IV DDAVP one hour prior to kidney biopsy. Kidney biopsy scheduled for later today. Replace potassium. 1 unit of blood transfusion with dialysis today. Check iron studies.
[2019-01-09] MEDS: IPRATROPIUM-ALBUTEROL 3 ML NEB INHALATION SCH ×4 (09:41→21:52)
[2019-01-09 09:47] LABS: Iron Saturation 16.67 (12.00-45.00)
[2019-01-09] MEDS ORDERED: DESMOPRESSIN ACETATE 23 MCG in SODIUM CHLORIDE 0.9% 50 ML IVPB ONE (10:00)
--- NOTE | 2019-01-09 10:53 | P.PN ---
Subjective Progress Note Date: 01/08/19 Principal diagnosis: Acute kidney injury Patient is a 78-year-old female with a known history of COPD, diet-controlled diabetes, dry eyes, mouth/, xerostomia, osteoarthritis and GERD was seen by Dr. Gómez in the nephrology clinic. Patient was sent to senior vice president & general counsel by her primary care physician. Patient was sent sent to the hospital with elevated creatinine level 6.4. She's been having dry mouth and nausea and episodes of vomiting 2 at home. No chest pain. Patient does have bilateral lower extremities swelling and mild exertional shortness of breath. Currently denied any nausea. Denied any fever or chills. Denied any recent illnesses. Patient says that she's been having history of multiple urinary tract infections. Patient says that she has leaky heart valve and is following cardiology in the clinic. 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 Patient has been taking Lasix due to bilateral lower extremity swelling. Patient was found to having blood in the urine. No gross hematuria. Chest x-ray showed mild cardiomegaly. No heart failure. Minimal scarring or subsegmental atelectasis left lower lobe probably not changed area did BUN 66 and creatinine 9.36, bicarb 15, hemoglobin 9.2, BNP 19, 300. Troponin 0.050 Potassium 3.3, albumin 2.7 01/05/2019 Patient denied any complaints of chest pain or shortness of breath. Creatinine level is about the same around 9. Patient was seen by nephrology. Serological workup for acute kidney injury was ordered. Patient was started on bicarb drip. No nausea vomiting or abdominal pain. No diarrhea. Patient does have good urine output. 01/06/2019 Patient denied any complaints of chest pain or shortness of breath. No worsening leg swelling. Patient is being continued on D5 bicarb. Renal function is still the same with creatinine level 9.59. Serological workup has been negative so far nephrology is recommending renal biopsy early next week. Patient is being started on hemodialysis. No complaints of fever or chills. Patient does have nausea today. No vomiting. No abdominal pain. No dysuria or hematuria. Patient was started on antibiotics in the form of ceftriaxone for possible urinary tract infection. 01/07/2019 Patient did have hemodialysis today morning. Seems to tolerate well. Complains of nausea. Otherwise creatinine level improved to 9.1 this morning. Bicarb is 22. Full serological workup is pending at this time. No commerce of abdominal pain. No nausea vomiting or diarrhea. No chest pain or shortness of breath. Nephrology is planning for renal biopsy. 01/08/2019 Patient denied any complaints of chest pain or shortness of breath. Nausea is much improved. Patient says that she feels better after dialysis. No complaints of chest pain or worsening shortness of breath. Creatinine level improved to 5.6 today. Serological workup is pending. Hepatitis B and C negative. No fever no chills. Follow-up urine culture reports. Patient is being continued on ceftriaxone IV daily. Other acute overnight issues. No headache or dizziness or lightheadedness. Current medications reviewed. Active Medications Acetaminophen (Tylenol Tab) 650 mg PO Q6HR PRN PRN Reason: Mild Pain or Fever > 100.5 Docusate Sodium (Colace) 100 mg PO BID [facility] Last Admin: 01/05/19 21:05 Dose: Not Given Documented by: Heparin Sodium (Porcine) (Heparin) 5,000 unit SQ Q12HR [facility] Last Admin: 01/05/19 21:06 Dose: 5,000 unit Documented by: Sodium Bicarbonate 150 ml/ (Dextrose/Water) 1,150 mls @ 100 mls/hr IV .[id number] [facility] Last Admin: 01/05/19 15:09 Dose: 100 mls/hr Documented by: Metoprolol Succinate (Toprol Xl) 25 mg PO DAILY [facility] Last Admin: 01/05/19 10:04 Dose: 25 mg Documented by: Naloxone HCl (Narcan) 0.2 mg IV Q2M PRN PRN Reason: Opioid Reversal Naloxegol Oxalate [ (Movantik] 25 Mg) 25 mg PO DAILY [facility] Last Admin: 01/05/19 17:02 Dose: Not Given Documented by: Ondansetron HCl (Zofran) 4 mg IVP Q6HR PRN PRN Reason: Nausea And Vomiting Oxycodone/Acetaminophen (Percocet 5-325) 1 each PO Q6HR PRN PRN Reason: Moderate Pain Last Admin: 01/05/19 05:56 Dose: 1 each Documented by: Pantoprazole Sodium (Protonix) 40 mg IV DAILY [facility] Last Admin: 01/05/19 10:05 Dose: 40 mg Documented by: Pilocarpine HCl (Salagen) 5 mg PO BID [facility] Last Admin: 01/05/19 21:05 Dose: Not Given Documented by: Temazepam (Restoril) 30 mg PO HS [facility] Last Admin: 01/05/19 21:06 Dose: 30 mg Documented by: Vortioxetine (Trintellix) 20 mg PO DAILY [facility] Last Admin: 01/05/19 10:05 Dose: 20 mg Documented by: Objective - Vital Signs Vital signs: Vital Signs Temp 98.2 F 01/08/19 12:00 Pulse 84 01/08/19 16:38 Resp 20 01/08/19 16:00 BP 132/66 01/08/19 16:00 Pulse Ox 95 01/08/19 12:00 Intake & Output 01/07/19 01/08/19 01/08/19 18:59 06:59 18:59 Intake Total 240 380 100 Balance 240 380 100 Weight 77.2 kg Intake: Intake, IV Titration 200 Amount Sodium Chloride 0.9% 1, 200 000 ml @ 50 mls/hr IV . Q20H [facility] Rx#:[id number] Oral 240 180 100 Other: Voiding Method Toilet Toilet # Voids 2 2 4 - Exam PHYSICAL EXAMINATION: Patient is lying in the bed comfortably, no acute distress, awake alert and oriented.. HEENT: Normocephalic. Neck is supple. Pupils reactive. Nostrils clear. Oral cavity is moist. Ears reveal no drainage. Neck reveals no JVD, carotid bruits, or thyromegaly. CHEST EXAMINATION: Trachea is central. Symmetrical expansion. Lung momin clear to auscultation and percussion. CARDIAC: Normal S1, S2 with no gallops. No murmurs ABDOMEN: Soft. Bowel sounds normal. No organomegaly. No abdominal bruits. Extremities: 2+ edema. No clubbing or cyanosis Neurologically awake, alert, oriented x3 with well-coordinated movements. No focal deficits noted Skin: No rash or skin lesions. Psychiatric: Coperative. Nonsuicidal Musculoskeletal: No joint swelling or deformity. Normal range of motion. - Labs CBC & Chem 7: 01/09/19 06:18 01/09/19 06:18 Labs: Abnormal Lab Results - Last 24 Hours (Table) 01/08/19 01/08/19 01/08/19 Range/Units 07:09 07:09 07:09 RBC 2.42 L (3.80-5.40) m/uL Hgb 7.1 L (11.4-16.0) gm/dL Hct 24.4 L (34.0-46.0) % MCV 100.8 H (80.0-100.0) fL MCHC 29.1 L (31.0-37.0) g/dL RDW 15.6 H (11.5-15.5) % Lymphocytes # 0.7 L (1.0-4.8) k/uL PT 12.7 H (9.0-12.0) sec INR 1.2 H (<1.2) Potassium 3.2 L (3.5-5.1) mmol/L BUN 34 H (7-17) mg/dL Creatinine 5.64 H (0.52-1.04) mg/dL Calcium 7.0 L (8.4-10.2) mg/dL Microbiology - Last 24 Hours (Table) 01/07/19 15:33 Urine Culture - Preliminary Urine,Clean Catch Assessment and Plan Assessment: Acute kidney injury with creatinine level 9.36--9.76-9.59--9.1--5.6, nonoliguric. Started hemodialysis on 01/07/2019 Rule out glomerulonephritis with proteinuria and hematuria in the urinalysis... Loss. Workup is pending. Metabolic acidosis secondary to acute kidney injury Hypokalemia replaced. Chronic CHF with preserved ejection fraction and valvular abnormalities.. Elevated BNP. Moderate to severe mitral and tricuspid regurgitation Moderate pulmonary hypertension Anemia of chronic disease with hemoglobin level 9.2--7.5--7.1 Hypertension Diabetes diet controlled COPD stable Previous history of smoking Depression GERD Osteoarthritis history of UTIs DVT prophylaxis Plan: Patient will be continued on gentle hydration. Changed to bicarbonate drip. Follow up renal function closely. Urinalysis showed proteinuria and hematuria. Serological workup for acute kidney injury was ordered. Nephrology is following. Ultrasound renal is negative for any obstruction. renal biopsy is also being considered. Recent had hemodialysis first run on 01/07/2019.. Further recommendations based on the clinical course. Time with Patient: Greater than 30
[2019-01-09] MEDS: DOCUSATE 100 MG CAP PO SCH ×2 (11:19→20:49)
[2019-01-09] MEDS: PILOCARPINE 5 MG TAB PO SCH ×3 (11:19→20:49)
[2019-01-09] MEDS: METOPROLOL SUCCINATE (ER) 25 MG TAB.ER.24H PO SCH (11:19)
[2019-01-09] MEDS: VORTIOXETINE HYDROBROMIDE 20 MG TABLET PO SCH (11:19)
[2019-01-09] MEDS: Naloxegol Oxalate [Movantik] 25 MG PO SCH (11:30)
[2019-01-09] MEDS: ONDANSETRON 4 MG/2 ML VIAL IVP PRN ×2 (14:44→20:49)
--- NOTE | 2019-01-09 15:29 | P.PCN ---
Date of Procedure: 01/09/19 Preoperative Diagnosis: renal failure Procedure(s) Performed: renal biopsy by ct guidance Anesthesia: local Estimated Blood Loss (ml): 50 Pathology: other Condition: stable Disposition: no change Operative Findings: 3 x 18 ga lower right renal cortex
[2019-01-09] MEDS: oxyCODONE-APAP 5-325MG 1 EACH TAB PO PRN (17:21)
[2019-01-09] MEDS: TEMAZEPAM 30 MG CAP PO SCH (20:49)
[2019-01-10] MEDS: oxyCODONE-APAP 5-325MG 1 EACH TAB PO PRN ×2 (04:36→17:25)
--- NOTE | 2019-01-10 06:08 | PN ---
PROGRESS NOTE DATE OF SERVICE: 01/09/2019 PRESENTING COMPLAINT: Nausea. INTERVAL HISTORY: This patient admitted with acute renal failure. Creatinine was 2.5 in October, presented with a creatinine up to 9 being 6 two weeks ago. The patient has been having persistent nausea. The patient is given a unit of blood earlier today. Pending to get a renal biopsy. Daughter at the bedside. REVIEW OF SYSTEMS: Done for constitutional, cardiovascular, GI, pulmonary; relevant findings as above. CURRENT MEDICATIONS: Current medications are reviewed that include DuoNeb, IV ceftriaxone, Aranesp, subcu heparin, Toprol XL, Movantik, Percocet, Protonix, Salagen, Restoril, Trintellix. PHYSICAL EXAMINATION: On examination, temperature in 98.8, pulse 108, respirations 16, blood pressure 137/68, pulse ox 98% on 2 L. GENERAL APPEARANCE: Sitting up in a chair, tired appearing. EYES: Pupils equal. Conjunctivae normal. HEENT: External appearance of nose and ears normal. Oral cavity dry. NECK; JVD not raised. Mass not palpable. RESPIRATORY: Effort normal. LUNGS: Fair entry. CARDIOVASCULAR: First and second sounds normal. edema. ABDOMEN: Soft, nontender. Liver and spleen not palpable. PSYCHIATRY: Alert and oriented x3. Mood and affect tired appearing. INVESTIGATIONS: White count 5.4, hemoglobin 6.7. Potassium 3.3. BUN 35, creatinine 6.44. Ferritin 336. Albumin 2.3. A 2-D echocardiogram EF 55% to 60% and moderate to severe mitral and tricuspid regurgitation and moderate pulmonary hypertension. ASSESSMENT: 1. Acute kidney injury with concern for underlying acute glomerulonephritis. The patient is currently on hemodialysis. 2. Hypokalemia due to diuresis. 3. Metabolic acidosis secondary to acute kidney injury. 4. Essential hypertension. 5. Diabetes mellitus type 2 on oral hypoglycemic. 6. Chronic obstructive pulmonary disease in an ex-smoker. 7. Gastroesophageal reflux disease. 8. Primary osteoarthritis. 9. Hypoalbuminemia as an acute phase reactant. 10.Troponin leak, not acute coronary syndrome positive in setting of renal failure. 11.Acute urinary tract infection likely from cystitis. PLAN: The patient did get a unit of blood today pending renal biopsy. Further plan of care to be determined by Nephrology. Care was discussed with the patient's daughter at the bedside. Prognosis guarded. MMODL / IJN: [id number] /
[2019-01-10] MEDS: PANTOPRAZOLE 40 MG TABLET PO SCH (06:43)
[2019-01-10] MEDS: IPRATROPIUM-ALBUTEROL 3 ML NEB INHALATION SCH ×4 (07:05→20:20)
[2019-01-10 07:29] LABS: Potassium 3.8 mmol/L (3.5-5.1)
[2019-01-10 07:30] LABS: Calcium 7.9 mg/dL (8.4-10.2); Phosphorus 5.2 mg/dL (2.5-4.5)
--- NOTE | 2019-01-10 08:03 | CT ---
DATE OF EXAM: 01/09/2019 COMPARISON: NONE CT DLP: 1200 mGycm HISTORY: Renal failure PROCEDURE: Maximal barrier technique was utilized. After informed consent, the skin overlying a suit able path to the lower right kidney was localized using CT guidance, the skin was prepped and draped. Lidocaine was used for local anesthesia. A skin chuck made with a scalpel. Using CT guidance, a 17 -gauge needle was advanced into in position at inferior cortex of the right kidney where coaxial plac ement of an 18-gauge needle was used and core biopsy obtained. Three passes made in total. Hemostas is was achieved. There was no immediate complication and patient remained in stable condition. Spec imen submitted to Pathology. IMPRESSION: Status post CT guided core biopsy of right renal cortex, pathology pending. This procedu re performed by the undersigned.
--- NOTE | 2019-01-10 10:34 | P.PN ---
Subjective Patient is seen in follow-up for acute kidney injury. Creatinine in April 2017 was near 1. On admission her creatinine was 9.36 with no significant improvement. She was subsequently started on hemodialysis. She is currently seen while undergoing third treatment of hemodialysis. Denies chest pain or shortness of breath. She underwent kidney biopsy on January 09. Results are pending. Vital signs are stable. General: The patient appeared well nourished and normally developed. HEENT: Head exam is unremarkable. Neck is without jugular venous distension. LUNGS: Lungs are clear to auscultation and percussion. Breath sounds decreased. HEART: Rate and Rhythm are regular. First and second heart sounds normal. No murmurs, rubs or gallops. ABDOMEN: Abdominal exam reveals normal bowel sounds. Non-tender and non- distended. No evidence of peritonitis. EXTREMITITES: No clubbing, cyanosis, or edema. Objective - Vital Signs Vital signs: Vital Signs Temp 98.2 F 01/10/19 04:39 Pulse 101 H 01/10/19 07:15 Resp 20 01/10/19 04:39 BP 165/83 01/10/19 04:39 Pulse Ox 97 01/10/19 07:25 Intake & Output 01/09/19 01/10/19 01/10/19 18:59 06:59 18:59 Intake Total 310 Output Total 1150 Balance -840 Weight 77 kg 76 kg Intake: Blood Product 310 Rc As-1 Unit 310 [id number] Output: Urine 150 Other 1000 Other: Voiding Method Toilet Toilet # Bowel Movements 1 - Labs CBC & Chem 7: 01/09/19 06:18 01/10/19 06:31 Labs: Abnormal Lab Results - Last 24 Hours (Table) 01/08/19 01/09/19 01/10/19 Range/Units 07:09 06:18 06:31 BUN 21 H (7-17) mg/dL Creatinine 4.28 H (0.52-1.04) mg/dL Calcium 7.9 L (8.4-10.2) mg/dL Phosphorus 5.2 H (2.5-4.5) mg/dL Ferritin 336.6 H (10.0-291.0) ng/mL Crossmatch See Detail Assessment and Plan Plan: Assessment: 1. Acute kidney injury with concern for underlying acute GN. C3 noted to be low. No evidence of obstruction. Urine eosinophils negative. Currently hemodialysis dependent. Creatinine in April 2017 was near 1. 2. Hypokalemia secondary to diuresis. Better post replacement. 3. Anemia scheduled to receive a unit of blood today with dialysis. She is maintained on Aranesp. Iron deficiency noted. 4. Metabolic acidosis secondary to acute kidney injury. Improved with dialysis. Plan: Currently seen while undergoing hemodialysis. Will plan to hold hemodialysis tomorrow. Await results of the kidney biopsy. IV iron 3 doses. First dose today. Check phosphorus level.
[2019-01-10 11:28] LABS: Basophils % (A) 0 %; Eosinophils # (A) 0.2 k/uL (0-0.7); Eosinophils % (A) 3 %; HCT 27.4 % (34.0-46.0); Hypochromasia Marked; Lymphocytes # (A) 0.5 k/uL (1.0-4.8); Lymphocytes % (A) 8 %; MCH 30.1 pg (25.0-35.0); MCHC 30.3 g/dL (31.0-37.0); MCV 99.6 fL (80.0-100.0); Macrocytosis Slight; Mean Platelet Volume 7.8; Monocytes # (A) 0.6 k/uL (0-1.0); Monocytes % (A) 9 %; Neutrophils # (A) 5.5 k/uL (1.3-7.7); Neutrophils % (A) 79 %; Platelet Count 235 k/uL (150-450); Poikilocytosis Slight; RBC 2.76 m/uL (3.80-5.40); RDW 15.9 % (11.5-15.5)
[2019-01-10] MEDS: METOPROLOL SUCCINATE (ER) 25 MG TAB.ER.24H PO SCH (11:40)
[2019-01-10 11:41] LABS: HGB 8.3 gm/dL (11.4-16.0)
[2019-01-10] MEDS: PILOCARPINE 5 MG TAB PO SCH ×2 (11:41→21:00)
[2019-01-10] MEDS: Naloxegol Oxalate [Movantik] 25 MG PO SCH (11:41)
[2019-01-10] MEDS: VORTIOXETINE HYDROBROMIDE 20 MG TABLET PO SCH (11:41)
[2019-01-10] MEDS: DOCUSATE 100 MG CAP PO SCH ×2 (11:41→21:00)
[2019-01-10] MEDS: SODIUM FERRIC GLUCONAT-SUCROSE 125 MG in SODIUM CHLORIDE 0.9% 100 ML IVPB SCH (11:50)
[2019-01-10] MEDS: ONDANSETRON 4 MG/2 ML VIAL IVP PRN (11:57)
[2019-01-10] MEDS: TEMAZEPAM 30 MG CAP PO SCH (20:59)
[2019-01-10] MEDS: HEPARIN SODIUM,PORCINE 5,000 UNIT/ML 1 ML VIAL SQ SCH (21:00)
[2019-01-10] MEDS ORDERED: SCOPOLAMINE 1.5MG/72HR PATCH TRANSDERM SCH (23:15)
[2019-01-11] MEDS: PANTOPRAZOLE 40 MG TABLET PO SCH (06:29)
--- NOTE | 2019-01-11 07:21 | PN ---
PROGRESS NOTE DATE OF SERVICE: 01/10/2019 PRESENTING COMPLAINT: Nausea. INTERVAL HISTORY: Patient admitted with acute renal failure. Creatinine was 2.5 in October and admitted with a creatinine of 9, status post renal biopsy. Still having persistent nausea, not really able to eat much. Has been on hemodialysis. Does feel tired. REVIEW OF SYSTEMS: Done for constitutional, cardiovascular, GI, pulmonary; relevant findings as above. CURRENT MEDICATIONS: Reviewed, include IV ceftriaxone, IV iron has been given. PHYSICAL EXAMINATION: Temperature 98.8, pulse 104, respiration 18, blood pressure 130/71, pulse ox 98% on 2 L. GENERAL: Sitting up in bed, tired. EYES: Pupils equal, conjunctivae normal. NECK: JVD not raised. Mass not palpable. RESPIRATORY: Effort normal. LUNGS: Clear. CARDIOVASCULAR: First and second sounds are normal. No edema. ABDOMEN: Soft, nontender. Liver and spleen not palpable. PSYCHIATRY: Alert and oriented x3. Mood and affect normal. INVESTIGATIONS: White count 7, hemoglobin 8.3, potassium 3.8, BUN 21, creatinine 4.28, phosphorus 5.2. ASSESSMENT: 1. Acute kidney injury with concern for underlying acute glomerulonephritis, currently on hemodialysis. 2. Persistent nausea could be from uremic symptoms. 3. Hypokalemia due to diuresis. 4. Metabolic acidosis secondary to acute kidney injury. 5. Essential hypertension. 6. Diabetes mellitus type 2 on oral hypoglycemic. 7. Chronic obstructive pulmonary disease in an ex-smoker. 8. Gastroesophageal reflux disease. 9. Primary osteoarthritis. 10.Hypoalbuminemia as an acute phase reactant. 11.Troponin leak, not acute coronary syndrome. 12.Acute urinary tract infection, likely from cystitis. Patient has completed 3 days of antibiotics. PLAN: Patient will be skipping hemodialysis tomorrow. Will use a scopolamine patch, scopolamine patch. Potassium is corrected. Creatinine has started to come down. The patient's urine eosinophiles was 0. Patient is getting IV iron. Will follow with Nephrology. MMODL / IJN: [id number] /
[2019-01-11 07:23] LABS: Calcium 8.2 mg/dL (8.4-10.2); Phosphorus 3.7 mg/dL (2.5-4.5); Potassium 3.4 mmol/L (3.5-5.1)
[2019-01-11] MEDS ORDERED: POTASSIUM CHLORIDE ER 20 MEQ TAB.ER PO STA (07:57)
[2019-01-11] MEDS: IPRATROPIUM-ALBUTEROL 3 ML NEB INHALATION SCH ×5 (08:02→21:07)
[2019-01-11] MEDS: PILOCARPINE 5 MG TAB PO SCH ×2 (08:52→20:47)
[2019-01-11] MEDS: Naloxegol Oxalate [Movantik] 25 MG PO SCH (08:52)
[2019-01-11] MEDS: METOPROLOL SUCCINATE (ER) 25 MG TAB.ER.24H PO SCH (09:00)
[2019-01-11] MEDS: VORTIOXETINE HYDROBROMIDE 20 MG TABLET PO SCH (09:00)
[2019-01-11] MEDS: HEPARIN SODIUM,PORCINE 5,000 UNIT/ML 1 ML VIAL SQ SCH ×2 (09:01→20:47)
[2019-01-11] MEDS: oxyCODONE-APAP 5-325MG 1 EACH TAB PO PRN ×2 (09:07→23:48)
--- NOTE | 2019-01-11 10:14 | P.PN ---
Subjective Patient is seen in follow-up for acute kidney injury. Creatinine in April 2017 was near 1. On admission her creatinine was 9.36 with no significant improvement. She was subsequently started on hemodialysis. She tolerated third treatment of hemodialysis while yesterday. Denies chest pain or shortness of breath. She underwent kidney biopsy on January 09. Results are pending. Vital signs are stable. General: The patient appeared well nourished and normally developed. HEENT: Head exam is unremarkable. Neck is without jugular venous distension. LUNGS: Lungs are clear to auscultation and percussion. Breath sounds decreased. HEART: Rate and Rhythm are regular. First and second heart sounds normal. No murmurs, rubs or gallops. ABDOMEN: Abdominal exam reveals normal bowel sounds. Non-tender and non- distended. No evidence of peritonitis. EXTREMITITES: No clubbing, cyanosis, or edema. Objective - Vital Signs Vital signs: Vital Signs Temp 98.1 F 01/11/19 08:00 Pulse 100 01/11/19 08:15 Resp 18 01/11/19 08:00 BP 152/84 01/11/19 08:00 Pulse Ox 98 01/11/19 08:00 Intake & Output 01/10/19 01/11/19 01/11/19 18:59 06:59 18:59 Intake Total 540 120 Balance 540 120 Weight 75.5 kg Intake: Oral 540 120 Other: Voiding Method Toilet Toilet # Voids 1 2 # Bowel Movements 1 - Labs CBC & Chem 7: 01/10/19 06:31 01/11/19 06:29 Labs: Abnormal Lab Results - Last 24 Hours (Table) 01/10/19 01/11/19 Range/Units 06:31 06:29 RBC 2.76 L (3.80-5.40) m/uL Hgb 8.3 L D (11.4-16.0) gm/dL Hct 27.4 L (34.0-46.0) % MCHC 30.3 L (31.0-37.0) g/dL RDW 15.9 H (11.5-15.5) % Lymphocytes # 0.5 L (1.0-4.8) k/uL Potassium 3.4 L (3.5-5.1) mmol/L Creatinine 3.09 H (0.52-1.04) mg/dL Calcium 8.2 L (8.4-10.2) mg/dL Assessment and Plan Plan: Assessment: 1. Acute kidney injury with concern for underlying acute GN. C3 noted to be low. No evidence of obstruction. Urine eosinophils negative. Currently hemodialysis dependent. Creatinine in April 2017 was near 1. 2. Hypokalemia secondary to diuresis. 3. Anemia scheduled to receive a unit of blood today with dialysis. She is maintained on Aranesp. Iron deficiency noted. 4. Metabolic acidosis secondary to acute kidney injury. Improved with dialysis. Plan: Next hemodialysis tomorrow. Await results of the kidney biopsy. IV iron 3 doses. Second dose today. Phosphorus level at goal. Replace potassium. 40 mEq today.
[2019-01-11] MEDS: SODIUM FERRIC GLUCONAT-SUCROSE 125 MG in SODIUM CHLORIDE 0.9% 100 ML IVPB SCH (10:35)
--- NOTE | 2019-01-11 10:55 | CDI ---
Documentation Clarification Form Date: 01/11/2019 10:34:47 AM From: Alisa Dougherty RN, CCDS Admit Date: 01/04/2019 5:16:00 PM Patient Name: Gladis Horn Visit Number: [id number] Discharge Date: ATTENTION: The Clinical Documentation Specialists (CDI) and [facility] Coding Staff appreciate your assistance in clarifying documentation. Please respond to the clarification below the line at the bottom and electronically sign. The CDI & [facility] Coding staff will review the response and follow-up if needed. Please note: Queries are made part of the Legal Health Record. If you have any questions, please contact the author of this message via ITS. Dr. Wayne Taylor CHF is documented in your ongoing progress notes starting on 01/07/19. History/Risk Factors: Hypertension, Diabetes diet controlled, COPD, Clinical Indicators: Patient sent in for abnormal labs. She's been having nausea and episodes of vomiting x2 at home. Patient does have bilateral lower extremity swelling and mild exertionall shortness of breath. Chest x-ray showed mild cardiomegaly. no heart failure VS/Pulse OX: 122/68 89 20 98 % RA BNP: 19,300 Echocardiogram Results: EF 55-60 % Treatment: Toprol Xl PO Lasix IV X1 ( per Nephrology 01/08/19) In your professional opinion, can you please clarify the type of CHF if known? Chronic Diastolic Heart Failure: Unable to Determine Other, please specify (Last Revision: January 2018) Possible chronic CHF with diastolic dysfunction. Ejection fraction 55-60%. MTDD
[2019-01-11] MEDS: TEMAZEPAM 30 MG CAP PO SCH (20:47)
--- NOTE | 2019-01-11 23:42 | PN ---
PROGRESS NOTE DATE OF SERVICE: 01/11/2019 PRESENTING COMPLAINT: Tired. INTERVAL HISTORY: This patient presented with acute renal failure, had a creatinine of 2.5 in October, presented with creatinine of 9. Status post renal biopsy. Also getting hemodialysis. Did not get dialysis today. Started on a scopolamine patch yesterday. Feels better. Did tolerate some diet today. Sitting up in a chair. No vomiting, no fever, no chills. REVIEW OF SYSTEMS: Done for constitutional, cardiovascular, GI, pulmonary; relevant findings as above. CURRENT MEDICATIONS: Reviewed. They include: 1. DuoNeb. 2. Aranesp. 3. Subcutaneous heparin. 4. Scopolamine patch. PHYSICAL EXAMINATION: Temperature 98.1, pulse 116, respiration 18, blood pressure 152/84, pulse ox 98% on 2 L. GENERAL APPEARANCE: Sitting up, looking better. EYES: Pupils equal. Conjunctivae pale. NECK: JVD not raised. Mass not palpable. RESPIRATORY: Effort normal. Lungs are clear. CARDIOVASCULAR: First and second sounds normal. No edema. ABDOMEN: Soft, non-tender. Liver and spleen not palpable. PSYCHIATRY: Alert and oriented x3. Mood and affect normal. INVESTIGATIONS: Potassium 3.4, BUN 13, creatinine 3.09. ASSESSMENT: 1. Acute kidney injury with concern for underlying acute glomerulonephritis, currently on hemodialysis, pending renal biopsy results. 2. Persistent nausea. Could be from uremic symptoms, improving. 3. Hypokalemia due to diuresis. 4. Metabolic acidosis secondary to acute kidney injury. 5. Essential hypertension. 6. Diabetes mellitus, type 2, on oral hypoglycemic. 7. Chronic obstructive pulmonary disease in an ex-smoker. 8. Gastroesophageal reflux disease. 9. Primary osteoarthritis. 10.Hypoalbuminemia as an acute phase reactant. 11.Troponin leak, not acute coronary syndrome. 12.Acute urinary tract infection from cystitis. Patient finished 3-day course of antibiotics. PLAN: Overall looking better. Await results of renal biopsy and further determination by Nephrology. Patient has started to eat better. Keep the scopolamine patch on. MMODL / IJN: [id number] /
[2019-01-12] MEDS: PANTOPRAZOLE 40 MG TABLET PO SCH (06:09)
[2019-01-12 06:47] LABS: Basophils % (A) 0 %; Eosinophils # (A) 0.3 k/uL (0-0.7); Eosinophils % (A) 4 %; HCT 26.3 % (34.0-46.0); Hypochromasia Moderate; Lymphocytes # (A) 0.9 k/uL (1.0-4.8); Lymphocytes % (A) 12 %; MCH 30.1 pg (25.0-35.0); MCHC 30.4 g/dL (31.0-37.0); MCV 99.1 fL (80.0-100.0); Macrocytosis Slight; Mean Platelet Volume 6.8; Monocytes # (A) 0.5 k/uL (0-1.0); Monocytes % (A) 7 %; Neutrophils # (A) 5.3 k/uL (1.3-7.7); Neutrophils % (A) 75 %; Platelet Count 245 k/uL (150-450); Poikilocytosis Slight; RBC 2.65 m/uL (3.80-5.40); RDW 15.2 % (11.5-15.5); WBC 7.1 k/uL (3.8-10.6)
[2019-01-12 07:02] LABS: Magnesium 1.7 mg/dL (1.6-2.3); Potassium 3.8 mmol/L (3.5-5.1)
[2019-01-12] MEDS: IPRATROPIUM-ALBUTEROL 3 ML NEB INHALATION SCH ×4 (07:47→20:46)
[2019-01-12] MEDS: Naloxegol Oxalate [Movantik] 25 MG PO SCH (09:03)
[2019-01-12] MEDS: PILOCARPINE 5 MG TAB PO SCH ×2 (09:05→22:00)
[2019-01-12] MEDS: VORTIOXETINE HYDROBROMIDE 20 MG TABLET PO SCH (09:05)
[2019-01-12] MEDS: METOPROLOL SUCCINATE (ER) 25 MG TAB.ER.24H PO SCH (09:05)
[2019-01-12] MEDS: HEPARIN SODIUM,PORCINE 5,000 UNIT/ML 1 ML VIAL SQ SCH ×2 (09:05→21:56)
--- NOTE | 2019-01-12 10:41 | P.PN ---
Subjective Patient is seen in follow-up for acute kidney injury. Creatinine in April 2017 was near 1. On admission her creatinine was 9.36 with no significant improvement. She was subsequently started on hemodialysis. She has undergone 3 treatments of hemodialysis so far this admission. Denies chest pain or shortness of breath. 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 Patient complains of dry heaving this morning. According to the nurse she's also been having shortness of breath while laying flat. Vital signs are stable. General: The patient appeared well nourished and normally developed. HEENT: Head exam is unremarkable. Neck is without jugular venous distension. LUNGS: Breath sounds decreased. HEART: Rate and Rhythm are regular. First and second heart sounds normal. No murmurs, rubs or gallops. ABDOMEN: Abdominal exam reveals normal bowel sounds. Non-tender and non-distended. No evidence of peritonitis. EXTREMITITES: No clubbing, cyanosis, or edema. Objective - Vital Signs Vital signs: Vital Signs Temp 97.5 F L 01/12/19 08:00 Pulse 110 H 01/12/19 08:00 Resp 22 01/12/19 08:00 BP 160/100 01/12/19 08:00 Pulse Ox 99 01/12/19 08:00 Intake & Output 01/11/19 01/12/19 01/12/19 18:59 06:59 18:59 Intake Total 480 Balance 480 Weight 75 kg Intake: Oral 480 Other: # Voids 2 1 - Labs CBC & Chem 7: 01/12/19 06:14 01/12/19 06:14 Labs: Abnormal Lab Results - Last 24 Hours (Table) 01/12/19 01/12/19 Range/Units 06:14 06:14 RBC 2.65 L (3.80-5.40) m/uL Hgb 8.0 L (11.4-16.0) gm/dL Hct 26.3 L (34.0-46.0) % MCHC 30.4 L (31.0-37.0) g/dL Lymphocytes # 0.9 L (1.0-4.8) k/uL BUN 21 H (7-17) mg/dL Creatinine 4.03 H (0.52-1.04) mg/dL Calcium 8.0 L (8.4-10.2) mg/dL Assessment and Plan Plan: Assessment: 1. 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 However she is noted to h ave severe chronicity on biopsy. C3 noted to be low. No evidence of obstruction. Urine eosinophils negative. Currently hemodialysis dependent. Creatinine in April 2017 was near 1. 2. Hypokalemia secondary to diuresis. Better posterior placement. 3. Anemia scheduled to receive a unit of blood today with dialysis. She is maintained on Aranesp. Iron deficiency noted. 4. Metabolic acidosis secondary to acute kidney injury. Improved with dialysis. Plan: Hemodialysis today. Will try for 2-3 L ultrafiltration. IV iron 3 doses. Third dose today. Phosphorus level at goal. commercial property manager to help facilitate outpatient hemodialysis set up. She is not a candidate for treatment of fibrillary GN due to high chronicity.
[2019-01-12] MEDS: SODIUM FERRIC GLUCONAT-SUCROSE 125 MG in SODIUM CHLORIDE 0.9% 100 ML IVPB SCH (13:03)
[2019-01-12] MEDS: ONDANSETRON 4 MG/2 ML VIAL IVP PRN (13:03)
[2019-01-12] MEDS: oxyCODONE-APAP 5-325MG 1 EACH TAB PO PRN (17:44)
[2019-01-12] MEDS: TEMAZEPAM 30 MG CAP PO SCH (21:56)
--- NOTE | 2019-01-12 22:43 | PN ---
PROGRESS NOTE DATE OF SERVICE: 01/12/2019 PRESENTING COMPLAINT: Tired. INTERVAL HISTORY: This patient presented with acute renal failure, had a creatinine of 2.5 in October, admitted with a creatinine of 9, now getting hemodialysis. Care was discussed with Dr. Bland. No further intervention. Changes appear to be chronic. The patient had some more nausea today. Patient is due to get dialyzed today; about 3 L are planned to be removed. Family at the bedside. The patient really does not like the hospital food. REVIEW OF SYSTEMS: Done for constitutional, cardiovascular, GI, pulmonary; relevant findings as above. CURRENT MEDICATIONS: Reviewed. They include: 1. DuoNeb. 2. Aranesp. 3. IV iron. 4. Scopolamine patch. PHYSICAL EXAMINATION: Temperature 97.6, pulse 110, respiration 18, blood pressure 177/82, pulse ox 98% on 3 L. GENERAL APPEARANCE: Sitting up beside the bed, awake. EYES: Pupils equal. Conjunctivae pale. NECK: JVD not raised. Mass not palpable. RESPIRATORY: Effort normal. Lungs are clear. CARDIOVASCULAR: First and second sounds normal. No edema. ABDOMEN: Soft, non-tender. Liver and spleen not palpable. PSYCHIATRY: Alert and oriented x3. Mood and affect normal. INVESTIGATIONS: White count 7.1, hemoglobin 8, potassium 3.8, BUN 21, creatinine 4.03. ASSESSMENT: 1. Acute kidney injury with concern for underlying acute kidney injury with biopsy coming back showing chronic changes. Patient to continue on hemodialysis. 2. Nausea, probably from renal failure, improving. 3. Hypokalemia due to diuresis. 4. Metabolic acidosis secondary to acute kidney injury. 5. Essential hypertension. 6. Diabetes mellitus, type 2, on oral hypoglycemic. 7. Chronic obstructive pulmonary disease in an ex-smoker. 8. Gastroesophageal reflux disease. 9. Primary osteoarthritis. 10.Hyperalbuminemia as an acute phase reactant. 11.Troponin leak, not acute coronary syndrome. 12.Acute urinary tract infection from cystitis. Patient finished a 3-day course of antibiotics. PLAN: Discussed at length with Dr. Bland. Patient will get dialyzed and hopefully can be discharged tomorrow. Outpatient hemodialysis schedule is being set up. Also spoke to the family. Did tell the patient's family to bring some food from outside that patient likes, as patient definitely does not like the hospital food. MMODL / IJN: [id number] /
[2019-01-13] MEDS: PANTOPRAZOLE 40 MG TABLET PO SCH (07:35)
--- NOTE | 2019-01-13 08:22 | P.PN ---
Subjective Patient is seen in follow-up for acute kidney injury. Creatinine in April 2017 was near 1. On admission her creatinine was 9.36 with no significant improvement. She was subsequently started on hemodialysis. She has undergone 4 treatments of hemodialysis so far this admission. Denies chest pain or shortness of breath. 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 Feels better today. Oral intake is gradually improving. Dyspnea improved. Vital signs are stable. General: The patient appeared well nourished and normally developed. HEENT: Head exam is unremarkable. Neck is without jugular venous distension. LUNGS: Breath sounds decreased. HEART: Rate and Rhythm are regular. First and second heart sounds normal. No murmurs, rubs or gallops. ABDOMEN: Abdominal exam reveals normal bowel sounds. Non-tender and non- distended. No evidence of peritonitis. EXTREMITITES: No clubbing, cyanosis, or edema. Objective - Vital Signs Vital signs: Vital Signs Temp 98.5 F 01/13/19 04:23 Pulse 111 H 01/13/19 04:23 Resp 20 01/13/19 04:23 BP 157/86 01/13/19 04:23 Pulse Ox 98 01/13/19 04:23 Intake & Output 01/12/19 01/13/19 01/13/19 18:59 06:59 18:59 Intake Total 300 Balance 300 Weight 73.2 kg Intake: Intake, IV Titration 100 Amount Sodium Ferric Gluconat- 100 Sucrose 125 mg In Sodium Chloride 0.9% 100 ml @ 100 mls/hr IVPB DAILY [facility] Rx#:[id number] Oral 200 Other: # Voids 2 - Labs CBC & Chem 7: 01/12/19 06:14 01/12/19 06:14 Assessment and Plan Plan: Assessment: 1. 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 However she is noted to have severe chronicity on biopsy. C3 noted to be low. No evidence of ob struction. Urine eosinophils negative. Currently hemodialysis dependent. Creatinine in April 2017 was near 1. 2. Hypokalemia secondary to diuresis. Better posterior placement. 3. Anemia scheduled to receive a unit of blood today with dialysis. She is maintained on Aranesp. Iron deficiency noted. Status post 3 doses of IV iron. 4. Metabolic acidosis secondary to acute kidney injury. Improved with dialysis. Plan: Hemodialysis today. Will try for 2-3 L ultrafiltration. She will now be maintained on a Wednesday schedule. Phosphorus level at goal. She is not a candidate for treatment of fibrillary GN due to high chronicity. Stable to be discharged from nephrology standpoint after dialysis today.
[2019-01-13 09:04] VITALS: RESP 22
--- NOTE | 2019-01-13 09:34 | CDI ---
Documentation Clarification Form Date: 01/13/2019 9:08:40 AM From: Alisa Dougherty RN, CCDS Admit Date: 01/04/2019 5:16:00 PM Patient Name: Gladis Horn Visit Number: [id number] Discharge Date: ATTENTION: The Clinical Documentation Specialists (CDI) and [facility] Coding Staff appreciate your assistance in clarifying documentation. Please respond to the clarification below the line at the bottom and electronically sign. The CDI & [facility] Coding staff will review the response and follow-up if needed. Please note: Queries are made part of the Legal Health Record. If you have any questions, please contact the author of this message via ITS. Dr. Filemon Bland Patient was admitted with acute kidney injury secondary to fibrilllary GN. Acute on Chronic renal failure is noted in the H/P and further clarification is needed. History/Risk Factors: COPB, Diabetes Mellitus, Former smoker Clinical Indicators: Present to the nephrologists clinic with complaints of having dry mouth and nausea and episodes of vomiting x2. The patient was found to have a serum creatinine of about 6 mg/dL about 2 weeks prior to admission. She is noted to have severe chronicity on biopsy. C3 noted to be low. Currently hemodialysis dependent. On admission BUN 66, CR 9.36 GFR: 4 Patients Baseline: Creatinine in April 2017 was near 1. Creatinine of about 2.5 in October of 2018 Treatment: IVF IV Bicarb Kidney biopsy Hemodialysis per orders Monitor: CBC BUN, CR, Electrolytes In order to capture the severity of condition, please clarify if the condition signifies: CKD Stage 1 (GFR > 90) CKD Stage 2 (GFR 60-89) CKD Stage 3 (GFR 30-59) CKD Stage 4 (GFR 15-29) CKD Stage 5 (GFR <15) ESRD Other, please specify Unable to determine (Last Revision: January 2018) MTDD
[2019-01-13] MEDS: IPRATROPIUM-ALBUTEROL 3 ML NEB INHALATION SCH ×3 (09:49→16:41)
[2019-01-13 11:30] VITALS: BMI 27.6
[2019-01-13 12:26] VITALS: BP 147/93; PULSE 108; TEMP 97.4
[2019-01-13] MEDS: METOPROLOL SUCCINATE (ER) 25 MG TAB.ER.24H PO SCH (13:32)
[2019-01-13] MEDS: VORTIOXETINE HYDROBROMIDE 20 MG TABLET PO SCH (13:32)
[2019-01-13] MEDS: PILOCARPINE 5 MG TAB PO SCH (13:33)
[2019-01-13] MEDS: HEPARIN SODIUM,PORCINE 5,000 UNIT/ML 1 ML VIAL SQ SCH (13:33)
[2019-01-13] MEDS: Naloxegol Oxalate [Movantik] 25 MG PO SCH (13:38)
--- NOTE | 2019-01-14 05:01 | DS ---
DISCHARGE SUMMARY DATE OF ADMISSION: January 04, 2019 DATE OF DISCHARGE: January 13, 2019. FINAL DIAGNOSES: 1. 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 2. Nausea as a side effect of renal failure/uremia. 3. Hypokalemia due to diuresis. 4. Metabolic acidosis secondary to acute kidney injury. 5. Essential hypertension. 6. Diabetes mellitus type 2 on oral hypoglycemic. 7. Chronic obstructive pulmonary disease in an ex-smoker. 8. Gastroesophageal reflux disease. 9. Primary osteoarthritis. 10.Hypoalbuminemia as an acute phase reactant. 11.Troponin leak, not acute coronary syndrome. 12.Acute urinary tract infection from cystitis. The patient did complete a 3 course of antibiotics. 13.End-stage kidney disease, started on hemodialysis. 14.Moderate to severe mitral and tricuspid regurgitation. 15.Secondary pulmonary hypertension. HOSPITAL COURSE: This patient normally runs a creatinine of 2.5, presented with creatinine of 9 and uremic symptoms. The patient was started on hemodialysis. The patient's kidney biopsy came back and showed chronic fibrillator changes. Discussed with Dr. Bland. The patient to continue dialysis. The patient's symptoms were better. Eating better. The patient did have a 2-D echocardiogram showed EF of 55-60 percent, evidence of moderate to severe mitral and tricuspid regurgitation and moderate pulmonary hypertension. 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 CONSULTATIONS: Dr. Bland and Dr. Gómez from Nephrology, interventional Radiology Dr. Raven robb put in the dialysis catheter. PHYSICAL EXAMINATION: Temperature 97.4, pulse 108, respiratory 22, blood pressure 147/93, pulse ox 100 percent on 3 L. LABS: White count 7.1, hemoglobin 8, potassium 3.8, BUN 21, creatinine 4.03, phosphorus 1.7, iron 42, TIBC 252, iron saturation was 16.6, ferritin 336. DISCHARGE MEDICATIONS: 1. Vitamin D2 24743 units every month. 2. Toprol-XL 25 mg a day. 3. 25 mg a day. 4. Salagen 5 mg p.o. b.i.d. 5. Temazepam 30 mg q.h.s. 6. Spiriva 1 capsule inhalation daily. 7. Trentillix 20 mg p.o. daily. 8. Percocet 5 one tab q.6h. 9. Tylenol 650 mg q.6h p.r.n. FOLLOWUP: Follow up with Dr. Gómez in 1 week. Follow up with Dr. Duran on January 20, 2019, hemodialysis at [facility] on Wednesday, Wednesday and Wednesday. Copy to Dr. Duran. MMODL / IJN: [id number] /
--- NOTE | 2019-02-01 10:56 | CONS ---
CONSULTATION Patient was seen on 01/08/2019. Patient was consulted for placement of urgent dialysis catheter. This is a 78-year-old female with history of acute chronic renal failure, history of COPD, history of diabetes. SURGICAL HISTORY: Patient had a hernia repair and joint replacement in the past. PHYSICAL EXAMINATION: The patient was seen in her room, lying comfortably in bed. NECK: Supple. Trachea central. CHEST: Clear. ABDOMEN: Soft. Femoral pulses are present. Patient has some swelling of both lower extremities. Patient has a high BUN and creatinine. I was consulted for placement of the dialysis catheter. Risks and complications of bleeding, infection, thrombosis has been discussed. MMODL / IJN: [id number] /
--- NOTE | 2019-02-01 12:08 | PCN ---
PROCEDURE NOTE DATE OF SERVICE: 01/08/2019 . PREOPERATIVE REPORT: Acute on chronic renal failure. PROCEDURE: Ultrasound-guided right IJ catheter placed. Patient was brought to the biology laboratory assistant. Right side of the neck and chest was prepped and draped in a sterile manner. 1% lidocaine plain infiltrated under IV sedation and a micropuncture introduced. Ultrasound-guided right internal jugular vein micropuncture guidewire was passed and 4 Croatian dilator on the top of the guidewire. After that, we passed a regular guidewire under fluoroscopy. The scope which was parked in the inferior vena cava. After that, a tunnel was created. Through the tunnel we brought the dialysis catheter pre curved sheath was advanced on the top of the guidewire. Through the sheath we introduced the dialysis catheter. Tip of the catheter in superior vena cava an atrial fib. The sheath was removed and flushed with heparin saline and hep-locked and incision closed with Vicryl and nylon. Dressing applied. Patient tolerated the procedure well. MMODL / IJN: [id number] /
== END 2019-01-13 17:00 | disposition home or self-care (01) | DRG 683 ==
LOC: EC 15:36 → 3SCARD 17:16
PROVIDERS: ADMIT Hospitalist; ATTEND Hospitalist
PROC: 02HV33Z Insertion of Infusion Device into Superior Vena Cava, Percutaneous Approach (ICD-10-PCS; 2019-01-08)
PROC: 0TB03ZX Excision of Right Kidney, Percutaneous Approach, Diagnostic (ICD-10-PCS; principal; 2019-01-09)
PROC: 5A1D70Z Performance of Urinary Filtration, Intermittent, Less than 6 Hours Per Day (ICD-10-PCS; 2019-01-12)
DX: N17.9 Acute kidney failure, unspecified (principal); E87.2 Acidosis; I13.2 Hypertensive heart and chronic kidney disease with heart failure and with stage 5 chronic kidney disease, or end stage renal disease; I42.9 Cardiomyopathy, unspecified; I50.32 Chronic diastolic (congestive) heart failure; D63.8 Anemia in other chronic diseases classified elsewhere; E11.22 Type 2 diabetes mellitus with diabetic chronic kidney disease; E61.1 Iron deficiency; E87.6 Hypokalemia; E88.09 Other disorders of plasma-protein metabolism, not elsewhere classified; F32.9 Major depressive disorder, single episode, unspecified; I08.1 Rheumatic disorders of both mitral and tricuspid valves; I27.29 Other secondary pulmonary hypertension; J44.9 Chronic obstructive pulmonary disease, unspecified; K21.9 Gastro-esophageal reflux disease without esophagitis; M19.91 Primary osteoarthritis, unspecified site; N03.9 Chronic nephritic syndrome with unspecified morphologic changes; N26.9 Renal sclerosis, unspecified; N30.90 Cystitis, unspecified without hematuria; T50.2X5A Adverse effect of carbonic-anhydrase inhibitors, benzothiadiazides and other diuretics, initial encounter; Z79.899 Other long term (current) drug therapy; Z87.440 Personal history of urinary (tract) infections; Z87.891 Personal history of nicotine dependence; Z96.641 Presence of right artificial hip joint; N18.6 End stage renal disease; Z88.1 Allergy status to other antibiotic agents; Z88.2 Allergy status to sulfonamides; Z88.8 Allergy status to other drugs, medicaments and biological substances
CPT/HCPCS: 36415; 36558; 71045; 71046; 76770; 76937; 77001; 80048; 80053; 81001; 82728; 83516; 83540; 83550; 83735; 83880; 84100; 84484; 85025; 85027; 85610; 86038; 86160; 86225; 86255; 86334; 86335; 86706; 86803; 86850; 86900; 86901; 86920; 87086; 87205; 87340; 88305; 88313; 88342; 88346; 88348; 88350; 90935; 93005; 93306; 94640; 94760; 99284

== ENCOUNTER 2019-04-12 10:03 | Day surgery (SDC) | payer MEDICARE ==
[2019-04-06 18:18] VITALS: BMI 26.9
[~2019-04-12 10:03] MED LIST changes: +ALPRAZolam 0.25 MG TAB PO PRN; -LACTATED RINGERS 1,000 ML IV SCH; +SODIUM CHLORIDE 0.9% 1,000 ML in EMPTY BAG 1 BAG IV ONE; -TIMOLOL 0.5% OPHTH DROPS 5 ML BTL ONE
[2019-04-12 11:07] VITALS: TEMP 97.8
[2019-04-12 11:14] LABS: Glucose,Whole Blood 88 mg/dL (75-99)
[2019-04-12] MEDS ORDERED: MIDAZOLAM (PF) 2 MG/2 ML VIAL IVP ONE (12:35)
[2019-04-12] MEDS ORDERED: IV FLUID CONTINUATION 1,000 ML IV ONE (12:38)
[2019-04-12] MEDS ORDERED: LIDOCAINE 1% INJ 10MG/ML (20 ML MDV) SQ ONE (12:38)
[2019-04-12] MEDS ORDERED: VERAPAMIL SYRINGE (5 MG/10 ML) INTRAARTER ONE ×2 (12:40→12:50)
[2019-04-12] MEDS ORDERED: HYDROmorphone 1 MG/ML 1 ML SYRINGE IVP ONE (12:42)
[2019-04-12] MEDS ORDERED: HEPARIN SODIUM 1,000 UN/ML (10ML VL) IV ONE (12:45)
[2019-04-12] MEDS ORDERED: IOPAMIDOL-370 125ML BTL INJ ONE (12:49)
[2019-04-12] MEDS ORDERED: RX INFO: IV CONTRAST WAS GIVEN 1 EACH MISC MISCELLANE PRN (12:55)
[2019-04-12] MEDS ORDERED: SODIUM CHLORIDE 0.9% 1,000 ML IV SCH (13:00)
[2019-04-12 16:36] VITALS: BP 155/65; PULSE 89; RESP 16
--- NOTE | 2019-04-12 18:58 | CC ---
CARDIAC CATHETERIZATION REPORT DATE OF SERVICE: April 12, 2019 PERFORMING PHYSICIAN: William Chavarria MD, external grinder tool. PROCEDURE PERFORMED: 1. Selective right and left coronary angiogram. 2. Left heart catheterization. INDICATION: This is a 79-year-old female patient with end-stage renal disease on dialysis currently, as well as hypertension and dyslipidemia who was experiencing symptoms of discomfort in between the shoulders with exertion. The symptoms of the discomfort in between the shoulders was mainly exertional. Because of that, a heart catheterization was advised. APPROACH: Right radial artery. COMPLICATION: None. LEVEL OF SEDATION: Moderate with sedation length of 13 minutes. PROCEDURE DESCRIPTION: After obtaining an informed consent, the patient was brought to cardiac laborer concrete paving. The right radial artery was cannulated using micropuncture technique, the micropuncture wire passed easily. Then I placed a 5-Albanian sheath in the right radial artery. After that, I gave the patient 2 mg of verapamil IA and 8000 units of heparin IV. Subsequently I did perform selective right and left coronary angiogram using JR4 and JL3.5 catheters. The left heart catheterization was performed using 5-Albanian pigtail catheter. The procedure was completed without any complication. SELECTIVE CORONARY ANGIOGRAM: 1. The right coronary artery is a moderate caliber vessel and is a nondominant vessel and appeared to be angiographically normal. 2. The left main is angiographically normal. It bifurcates into the left circumflex and left anterior descending artery. 3. The left circumflex is a large caliber vessel. It is a dominant vessel. The left circumflex itself appeared to have mild disease only and distally bifurcates into PDA and PLV branches both appeared to be angiographically normal. 4. The left circumflex itself gives rise into OM1, which has a lesion in the midportion appeared to be in the range of 60% and OM2 which appeared to be angiographically normal. 5. The LAD: The proximal LAD appeared to have mild disease only. The mid LAD appeared to have also mild disease only and the LAD distally appeared to be angiographically normal. HEMODYNAMICS: The left ventricular end-diastolic pressure was about 8 mmHg without significant gradient across the aortic valve. CONCLUSION: 1. Calcified left coronary system. 2. Dominant left coronary system. 3. Intermediate lesion involving the mid 1st obtuse marginal branch of the left circumflex appeared to be in the range of 60%. POSTPROCEDURE MANAGEMENT: Given the above anatomy, I did recommend maximized medical treatment and follow up with the patient. If the patient continues to have intermittent episodes of angina, I would consider doing an FFR of the OM and possible PCI of the OM if the FFR is ischemic. VIN / ELEUTERIO: [id number] /
--- NOTE | 2019-04-12 19:16 | LTR ---
DATE OF SERVICE: April 12, [address] Duran: Ms. 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 I did recommend maximized medical treatment at this point and no need for balloon angioplasty or stenting. I want to thank you for allowing us to participate in her care and please do not hesitate to call if you have any questions or concerns. MMODL / IJN: [id number] /
== END 2019-04-12 17:10 | disposition home or self-care (01) ==
LOC: CATHCVL 10:03
PROVIDERS: ATTEND Internal Medicine Interventional Cardiology
DX: I25.10 Atherosclerotic heart disease of native coronary artery without angina pectoris (principal); I25.84 Coronary atherosclerosis due to calcified coronary lesion; E78.5 Hyperlipidemia, unspecified; N18.6 End stage renal disease; Z99.2 Dependence on renal dialysis; E11.22 Type 2 diabetes mellitus with diabetic chronic kidney disease; J96.11 Chronic respiratory failure with hypoxia; F17.200 Nicotine dependence, unspecified, uncomplicated; Z79.82 Long term (current) use of aspirin; Z79.51 Long term (current) use of inhaled steroids; Z79.899 Other long term (current) drug therapy; Z88.1 Allergy status to other antibiotic agents; Z88.2 Allergy status to sulfonamides; I13.2 Hypertensive heart and chronic kidney disease with heart failure and with stage 5 chronic kidney disease, or end stage renal disease; I50.32 Chronic diastolic (congestive) heart failure; I34.0 Nonrheumatic mitral (valve) insufficiency
CPT/HCPCS: 93458; C1769; C1894; J2001; J1644; J1170; Q9967; J2250

== ENCOUNTER 2019-05-16 08:16 | Day surgery (SDC) | payer MEDICARE ==
[2019-05-11 15:24] VITALS: BMI 26.6
[~2019-05-16 08:16] MED LIST changes: -ALPRAZolam 0.25 MG TAB PO PRN; +DEXAMETHASONE SOD PHOSPHATE 10 MG/ML 1 ML VIAL IV ONE; +HYDROmorphone 0.5 MG/0.5 ML SYRINGE IVP PRN; +LACTATED RINGERS 1,000 ML IV SCH; +ONDANSETRON 4 MG/2 ML VIAL IVP ONE; -SODIUM CHLORIDE 0.9% 1,000 ML in EMPTY BAG 1 BAG IV ONE
[2019-05-16 08:45] VITALS: TEMP 98
[2019-05-16 08:51] LABS: Glucose,Whole Blood 88 mg/dL (75-99)
[2019-05-16] MEDS ORDERED: MIDAZOLAM (PF) 2 MG/2 ML VIAL IVP ONE (09:46)
[2019-05-16] MEDS ORDERED: HEPARIN SODIUM,PORCINE 5,000 UNIT/ML 1 ML VIAL ONE (10:49)
[2019-05-16] MEDS ORDERED: LIDOCAINE 1% INJ 10MG/ML (20 ML MDV) ONE (10:49)
[2019-05-16] MEDS ORDERED: PROPOFOL 10 MG/ML 20 ML VIAL IV ONE (10:49)
[2019-05-16] MEDS ORDERED: fentaNYL (PF) 50 MCG/ML 2 ML AMP ONE (10:49)
[2019-05-16] MEDS ORDERED: PHENYLEPHRINE-0.9% NACL SYG 1 MG/10 ML SYRINGE ONE (10:49)
--- NOTE | 2019-05-16 10:53 | P.ANPRN ---
Procedure Note - Anesthesia - Nerve Block Performed Left Infraclavicular Single Time Out Performed: Yes ([id number]) Date of Procedure: 05/16/19 Procedure Start Time: :45 Procedure Stop Time: 09:50 Location of Patient Procedure: PreOp Indication: Acute Post-Operative Pain, Dx/Pain Location (Left Arm Pain), Requested by physician Sedation Type: Sedate with meaningful contact maintained Preparation: Sterile Prep Position: Supine Catheter: None Needle Types: Pajunk Needle Gauge: 21 Technique: Ultrasound Blood Aspirated: No Pain Paresthesia on Injection Noted: No Resistance on Injection: Normal Events: Uneventful and Well Tolerated
[2019-05-16] MEDS ORDERED: GELATIN SPONGE,ABSORB (SMALL) 1 EACH SPONGE TOPICAL ONE (12:39)
[2019-05-16] MEDS ORDERED: THROMBIN (BOVINE) 5,000 UNIT VIAL TOPICAL ONE (12:44)
--- NOTE | 2019-05-16 13:03 | P.OP ---
Date of Procedure: 05/16/19 Preoperative Diagnosis: End-stage renal disease Postoperative Diagnosis: Same Procedure(s) Performed: Left upper extremity loop AV graft Anesthesia: regional Surgeon: Wayne Garcia Estimated Blood Loss (ml): 20 Pathology: none sent Condition: stable Disposition: PACU Indications for Procedure: 79-year-old female with chronic renal failure in need of hemodialysis per her clinical rehab specialist and presents today for loop AV graft creation in the left upper extremity secondary to small veins throughout both upper extremities. Description of Procedure: After written informed consent was obtained the patient all risks benefits and competitions were described patient is brought to the operative suite and laid in a supine position with the left arm outstretched on an armboard. The area of the arm was then prepped and draped in usual sterile fashion after appropriate anesthetic was performed per the anesthesiologist. A timeout was performed in normal fashion antibiotics were administered prior to incision. A transverse incision was then created just distal to the elbow and dissection was carried down to the antecubital vein and this was dissected free in a circumferential manner. Proximal and distal control was obtained with vessel loops. Attention was then placed to the artery and the brachial artery was then dissected free in a circumferential manner and controlled with vessel loops for the proximal and distal aspect. A tunnel was then created in a loop fashion with a counterincision made in the forearm and a 4-7 mm [place] propatent graft was tunneled in a loop fashion. Patient was then administered heparin. Arterial anastomosis was then performed after arteriotomy was created in the brachial artery and extended with Pott Haynes scissors. We 4 mm aspect of the graft was then spatulated in normal fashion and anastomosis was created with 6-0 Prolene suture in a running fashion. Control was then released into the graft revealing good pulsatile blood flow. Distal control of the artery was then released. Assessment of the radial artery demonstrated good pulse. The anastomosis was then performed. Venotomy was created with 11 blade scalpel and extended with Pott Haynes scissors. A 7 mm aspect of the graft was then spatulated in normal fashion and anastomosis was created with 6-0 Prolene suture in a running fashion. Prior to last sutures being placed control was released revealing good backbleeding from the vein. The graft was flushed with heparin saline. Control was then released revealing good pulsatile blood flow within the vein with a good palpable thrill noted. Hemostasis was then assured with Gelfoam and thr ombin and Surgicel. Incisions were then closed in a multilayer fashion. Skin was cleansed and dressings were placed. The patient tolerated the procedure well and was sent to PACU for recovery. Plan - Discharge Summary Discharge Rx Participant: No New Discharge Prescriptions: No Action Ergocalciferol (Vitamin D2) [Vitamin D2] 50,000 unit PO QMONTH oxyCODONE HCL/ACETAMINOPHEN [Percocet 5-325 mg] 1 tab PO Q6HR PRN PRN Reason: Pain Vortioxetine Hydrobromide [Trintellix] 20 mg PO DAILY Temazepam 30 mg PO HS Metoprolol Succinate [Toprol XL] 25 mg PO DAILY Tiotropium [place] [Spiriva] 1 cap INHALATION RT-DAILY Ipratropium/Albuterol Sulfate [Combivent Respimat Inhaler] 1 - 2 puff INHALATION QID PRN PRN Reason: Dyspnea Fluticasone/Salmeterol [Advair 250-50 Diskus] 1 inhalation PO BID Albuterol Nebulized [Ventolin Nebulized] 2.5 mg INHALATION Q6H PRN PRN Reason: Dyspnea Niacin [Niacin ER] 500 mg PO DAILY Aspirin 81 mg PO DAILY Fenofibrate(Unknown Dose) 1 tab PO DAILY Rosuvastatin [Crestor] 10 mg PO DAILY Isosorbide Mononitrate [Isosorbide Mononitrate ER] 60 mg PO DAILY Discharge Medication List Ergocalciferol (Vitamin D2) [Vitamin D2] 50,000 unit PO QMONTH 11/16/17 [History] Metoprolol Succinate [Toprol XL] 25 mg PO DAILY 01/04/19 [History] Temazepam 30 mg PO HS 01/04/19 [History] Tiotropium [place] [Spiriva] 1 cap INHALATION RT-DAILY 01/04/19 [History] Vortioxetine Hydrobromide [Trintellix] 20 mg PO DAILY 01/04/19 [History] oxyCODONE HCL/ACETAMINOPHEN [Percocet 5-325 mg] 1 tab PO Q6HR PRN 01/04/19 [History] Albuterol Nebulized [Ventolin Nebulized] 2.5 mg INHALATION Q6H PRN 04/06/19 [History] Aspirin 81 mg PO DAILY 04/06/19 [History] Fenofibrate(Unknown Dose) 1 tab PO DAILY 04/06/19 [History] Fluticasone/Salmeterol [Advair 250-50 Diskus] 1 inhalation PO BID 04/06/19 [History] Ipratropium/Albuterol Sulfate [Combivent Respimat Inhaler] 1 - 2 puff INHALATION QID PRN 04/06/19 [History] Niacin [Niacin ER] 500 mg PO DAILY 04/06/19 [History] Isosorbide Mononitrate [Isosorbide Mononitrate ER] 60 mg PO DAILY 05/11/19 [History] Rosuvastatin [Crestor] 10 mg PO DAILY 05/11/19 [History] Follow up Appointment(s)/Referral(s): Wayne Garcia DO [STAFF PHYSICIAN] - 1 Week Activity/Diet/Wound Care/Special Instructions: no heavy lifting greater than 15 lbs with left arm. No tub baths. Ok to remove dressing in 48 hours then ok to shower over incision. Maintain steri strips. Discharge Disposition: HOME SELF-CARE
[2019-05-16 13:08] VITALS: PULSE 82
[2019-05-16] MEDS ORDERED: HYDROcodone/APAP 5-325MG 1 EACH TAB PO ONE (13:21)
[2019-05-16 13:59] VITALS: BP 125/74; RESP 16
== END 2019-05-16 14:27 | disposition home or self-care (01) ==
LOC: OR 08:16
PROVIDERS: ATTEND Surgery
DX: I12.0 Hypertensive chronic kidney disease with stage 5 chronic kidney disease or end stage renal disease (principal); E11.22 Type 2 diabetes mellitus with diabetic chronic kidney disease; N18.6 End stage renal disease; Z99.2 Dependence on renal dialysis; I25.10 Atherosclerotic heart disease of native coronary artery without angina pectoris; E78.5 Hyperlipidemia, unspecified; J44.9 Chronic obstructive pulmonary disease, unspecified; M19.90 Unspecified osteoarthritis, unspecified site; F32.9 Major depressive disorder, single episode, unspecified; Z79.82 Long term (current) use of aspirin; Z79.891 Long term (current) use of opiate analgesic; Z79.899 Other long term (current) drug therapy; Z97.2 Presence of dental prosthetic device (complete) (partial); Z96.641 Presence of right artificial hip joint; Z87.891 Personal history of nicotine dependence; Z88.1 Allergy status to other antibiotic agents; Z88.2 Allergy status to sulfonamides; Z88.8 Allergy status to other drugs, medicaments and biological substances
CPT/HCPCS: 36830; 64413; 86900; 86901; 86850; 36415; L8670; J1644; J1100; J0690; J2405; J2001; J3010; J2370; J2704; J2250

== ENCOUNTER 2021-01-21 08:02 | Day surgery (SDC) | payer MEDICARE ==
[2021-01-20 08:23] VITALS: BMI 26.6
[~2021-01-21 08:02] MED LIST changes: -DEXAMETHASONE SOD PHOSPHATE 10 MG/ML 1 ML VIAL IV ONE; +DEXAMETHASONE SOD PHOSPHATE 4 MG/ML 1 ML VIAL IV ONE; +LIDOCAINE 1% (10MG/ML) FOR IV START INTRADERMA PRN; +MIDAZOLAM 2 MG/2 ML VIAL IV PRN; -ONDANSETRON 4 MG/2 ML VIAL IVP ONE; +SODIUM CHLORIDE 0.9% 500 ML 500 ML IV SCH
[2021-01-21] MEDS ORDERED: SODIUM CHLORIDE 0.9% 500 ML 500 ML IV ONE (08:10)
[2021-01-21 08:35] VITALS: RESP 16; TEMP 97.6
[2021-01-21] MEDS ORDERED: LIDOCAINE 1% INJ 10MG/ML (20 ML MDV) ONE (08:46)
[2021-01-21] MEDS ORDERED: LIDOCAINE 1% INJ 10MG/ML (20 ML MDV) SQ ONE (08:55)
[2021-01-21 09:16] LABS: Basophils % (A) 1 %; Eosinophils # (A) 0.2 k/uL (0-0.7); Eosinophils % (A) 5 %; HCT 36.2 % (34.0-46.0); HGB 11.9 gm/dL (11.4-16.0); Lymphocytes # (A) 1.5 k/uL (1.0-4.8); Lymphocytes % (A) 29 %; MCH 31.7 pg (25.0-35.0); MCHC 32.8 g/dL (31.0-37.0); MCV 96.4 fL (80.0-100.0); Monocytes # (A) 0.4 k/uL (0-1.0); Monocytes % (A) 7 %; Neutrophils % (A) 57 %; Platelet Count 164 k/uL (150-450); RBC 3.76 m/uL (3.80-5.40); RDW 13.7 % (11.5-15.5); WBC 5.3 k/uL (3.8-10.6)
[2021-01-21] MEDS ORDERED: IOPAMIDOL-250 50ML BTL INTRAARTER ONE (09:26)
--- NOTE | 2021-01-21 09:34 | P.OP ---
Description of Procedure: Date: 01/21/2021 Preoperative diagnosis: End-stage renal disease, outflow stenosis Postoperative diagnosis: Same Procedure: Left Upper extremity fistulogram with ultrasound guided access, percutaneous transluminal balloon venoplasty of the outflow venous anastomosis Surgeon: Wayne Garcia DO Anesthesia : Local Estimated blood loss: Minimal Complications: None Condition: Stable Disposition: Stable Indications: 80-year-old female with history of end-stage renal disease on hemodialysis via left upper extremity loop graft presented to the office for her normal evaluation and ultrasound which demonstrated some elevated velocities at the outflow venous anastomosis. Patient states that she has had some increased bleeding after dialysis and therefore presents today for evaluation. Operative narrative: After written informed consent was obtained the patient all risks benefits competitions were described the patient is brought to the [facility] and laid in a supine position with their left arm outstretched on an armboard. The area of the arm was prepped and draped in usual sterile fashion. Utilizing local anesthetic the fistula was accessed under ultrasound guidance and a 6-[place] sheath was placed. Fistulogram was then obtained demonstrating widely patent loop graft with an area of stenosis at the venous anastomosis. The outflow cephalic vein, subclavian and axillary veins were widely patent without any evidence of stenosis. No central stenosis was noted. Inflow was assessed after guidewire was placed across the outflow stenosis and utilizing a 5 x 40 mm balloon balloon venoplasty was performed. Inflow was normal without any evidence of stenosis or disease. Once completed the balloon was removed and final fissure gram was obtained demonstrating mild improvement at the anastomotic line. There was some waist of the balloon but we did not want to get overaggressive and possible rupture the anastomosis. All guidewires and catheters were removed and suture was placed for hemostasis. Hemostasis was assured the area was cleansed and dressings were placed. The patient all procedure well had a palpable thrill at the conclusion of the procedure as well as palpable radial pulse. Plan - Discharge Summary Discharge Rx Participant: No New Discharge Prescriptions: No Action Ergocalciferol (Vitamin D2) [Vitamin D2] 50,000 unit PO QMONTH oxyCODONE HCL/ACETAMINOPHEN [Percocet 5-325 mg] 1 tab PO Q6HR PRN PRN Reason: Pain Temazepam 30 mg PO HS Metoprolol Succinate [Toprol XL] 25 mg PO DAILY Tiotropium [place] [Spiriva] 1 cap INHALATION RT-DAILY Ipratropium/Albuterol Sulfate [Combivent Respimat Inhaler] 1 - 2 puff INHALATION QID PRN PRN Reason: Dyspnea Fluticasone/Salmeterol [Advair 250-50 Diskus] 1 inhalation PO BID Albuterol Nebulized [Ventolin Nebulized] 2.5 mg INHALATION Q6H PRN PRN Reason: Dyspnea Niacin [Niacin ER] 500 mg PO DAILY Aspirin 81 mg PO DAILY Isosorbide Mononitrate [Isosorbide Mononitrate ER] 30 mg PO DAILY Discharge Medication List Ergocalciferol (Vitamin D2) [Vitamin D2] 50,000 unit PO QMONTH 11/16/17 [History] Metoprolol Succinate [Toprol XL] 25 mg PO DAILY 01/04/19 [History] Temazepam 30 mg PO HS 01/04/19 [History] Tiotropium [place] [Spiriva] 1 cap INHALATION RT-DAILY 01/04/19 [History] oxyCODONE HCL/ACETAMINOPHEN [Percocet 5-325 mg] 1 tab PO Q6HR PRN 01/04/19 [History] Albuterol Nebulized [Ventolin Nebulized] 2.5 mg INHALATION Q6H PRN 04/06/19 [History] Aspirin 81 mg PO DAILY 04/06/19 [History] Fluticasone/Salmeterol [Advair 250-50 Diskus] 1 inhalation PO BID 04/06/19 [History] Ipratropium/Albuterol Sulfate [Combivent Respimat Inhaler] 1 - 2 puff INHALATION QID PRN 04/06/19 [History] Niacin [Niacin ER] 500 mg PO DAILY 04/06/19 [History] Isosorbide Mononitrate [Isosorbide Mononitrate ER] 30 mg PO DAILY 05/11/19 [His tory]
[2021-01-21 10:46] VITALS: PULSE 82
[2021-01-21 10:50] VITALS: BP 152/77
--- NOTE | 2021-01-21 14:35 | IR ---
EXAMINATION TYPE: IR fistula/abscess/sinus tract DATE OF EXAM: 01/21/2021 COMPARISON: NONE HISTORY: Reduced arteriovenous fistula flow Fluoroscopy support supplied to the referring clinician. See dictated report from vascular surgery, 2 minutes fluoroscopy time, 514 intraoperative images document the procedure
== END 2021-01-21 10:16 | disposition home or self-care (01) ==
LOC: CATHCVL 08:02
PROVIDERS: ATTEND Surgery
DX: T82.858A Stenosis of other vascular prosthetic devices, implants and grafts, initial encounter (principal); I12.0 Hypertensive chronic kidney disease with stage 5 chronic kidney disease or end stage renal disease; E11.22 Type 2 diabetes mellitus with diabetic chronic kidney disease; N18.6 End stage renal disease; Z99.2 Dependence on renal dialysis; E11.9 Type 2 diabetes mellitus without complications; Z82.49 Family history of ischemic heart disease and other diseases of the circulatory system; Z81.8 Family history of other mental and behavioral disorders; Z87.891 Personal history of nicotine dependence; Z79.82 Long term (current) use of aspirin; Z79.51 Long term (current) use of inhaled steroids; Z79.899 Other long term (current) drug therapy; Z88.6 Allergy status to analgesic agent; Z88.1 Allergy status to other antibiotic agents; Z88.2 Allergy status to sulfonamides
CPT/HCPCS: 36902; 85025; C1769 ×4; C1894; C1725; J2001; Q9966

== ENCOUNTER → 2021-03-06 | Outpatient (CLI) | payer MEDICARE ==
--- NOTE | 2021-03-06 14:09 | US ---
EXAMINATION TYPE: US venous doppler duplex LE RT DATE OF EXAM: 03/06/2021 1:58 PM COMPARISON: NONE CLINICAL HISTORY: R60.0 Localized edema. Right foot swelling per patient. On baby aspirin. No injur y. SIDE PERFORMED: Right TECHNIQUE: The lower extremity deep venous system is examined utilizing real time linear array sonog rhea with graded compression, doppler sonography and color-flow sonography. VESSELS IMAGED: Common Femoral Vein Deep Femoral Vein Greater Saphenous Vein * Femoral Vein Popliteal Vein Small Saphenous Vein * Proximal Calf Veins (* superficial vessels) Right Leg: Negative for DVT IMPRESSION: No evidence for DVT.
== END | disposition home or self-care (01) ==
LOC: RADUSWWP 13:44
PROVIDERS: ATTEND Family Medicine
DX: R60.0 Localized edema (principal)

== ENCOUNTER → 2021-03-12 | Outpatient (CLI) | payer MEDICARE ==
--- NOTE | 2021-03-12 12:34 | CT ---
EXAMINATION TYPE: CT angio chest DATE OF EXAM: 03/12/2021 COMPARISON: 09/10/2017 and 08/24/2016 HISTORY: SOB TECHNIQUE: Contiguous axial scanning of the chest performed with IV Contrast, patient injected with 1 00ml mL of Isovue 370. Coronal/sagittal MIP reconstructions performed. CT DLP: 613 mGycm Automated exposure control for dose reduction was used. FINDINGS: Heart upper limits of normal in size. Some dilatation of the right side of the heart but no flattenin g of the interventricular septum. Prominent reflux of contrast into the hepatic veins. LAD and circum flex coronary artery calcifications. No pericardial effusion. Mild to moderate atherosclerotic arch calcifications with a bovine configuration to the aortic arch. Enlargement of the pulmonary arterial system with the right and left sides measuring up to 3.0 cm com patible with underlying pulmonary hypertension. Satisfactory opacification of the pulmonary arterial system no suspicious filling defect to suggest a pulmonary embolus. Enlarged 1.4 cm lower right paratracheal lymph node is unchanged. Other smaller mediastinal lymph nod es are also unchanged from 2017. No progressive thoracic lymphadenopathy. New small right pleural effusion. Mild centrilobular emphysema. Some scattered septal lines are prese nt. No adriana consolidation. Some dependent edema along the posterior midline subcutaneous adipose layer. Some sutures along the anterior mid abdomen and right upper quadrant. Bones: Moderate to advanced degenerative disc disease mid and lower thoracic spine. IMPRESSION: 1. NO EVIDENCE FOR PULMONARY EMBOLUS. 2. CONSTELLATION OF FINDINGS INCLUDING RIGHT HEART CHAMBER ENLARGEMENT, PULMONARY ARTERIAL HYPERTENSI ON, SMALL RIGHT EFFUSION, AND SCATTERED SEPTAL LINES COMPATIBLE WITH CHF WITH EARLY INTERSTITIAL PULM ONARY EDEMA. 3. CAD WITH LAD AND CIRCUMFLEX CORONARY ARTERY CALCIFICATIONS. 4. COPD WITH MILD EMPHYSEMA.
== END | disposition home or self-care (01) ==
LOC: RADCTMAIN 10:05
PROVIDERS: ATTEND Family Medicine
DX: J44.9 Chronic obstructive pulmonary disease, unspecified (principal); J43.9 Emphysema, unspecified; I27.21 Secondary pulmonary arterial hypertension; I25.10 Atherosclerotic heart disease of native coronary artery without angina pectoris
CPT/HCPCS: 71275; Q9967

== ENCOUNTER 2021-05-02 18:08 | Inpatient (IN) | payer MEDICARE ==
[2021-05-02] MEDS ORDERED: SODIUM CHLORIDE 0.9% 500 ML 500 ML IV STA (18:17)
[2021-05-02] MEDS ORDERED: IPRATROPIUM-ALBUTEROL 3 ML NEB INHALATION STA (18:25)
[2021-05-02] MEDS ORDERED: methylPREDNISolone SOD SUCCI 125 MG/2 ML VIAL IV STA (18:25)
--- NOTE | 2021-05-02 18:32 | ED ---
SOB HPI - General Chief Complaint: Shortness of Breath Stated Complaint: SOB Source: patient, family, RN notes reviewed, old records reviewed Mode of arrival: wheelchair Limitations: no limitations - History of Present Illness Initial Comments: 81-year-old white female, alert and oriented 4, presents to the emergency room with a friend complaining of 2 days of shortness of breath and cough. Patient states that she's also had some chest pain that goes to the left side. She states that she recently was given a fair condition and that she attributes her illness 2. States that prior to getting the air conditioner she was feeling great and then after today she's been having an increased cough. Patient states that she does have COPD and is on 2 L at home she does not smoke. She states that her sputum is clearing color. Patient states that she has a decrease in her appetite and is having nausea but no vomiting. Her last BM was today. She states that she does have an appointment for dialysis today but she canceled that rescheduled for tomorrow. Patient is dyspneic with oxygen saturation 92% on 2 L, heart rate of 123, temperature 100.6. MD Complaint: shortness of breath, cough, chest pain -: days(s) (2) Radiation: left arm Severity scale (1-10): 8 Consistency: constant Improves With: nothing Worsens With: exertion Known History Of: COPD, congestive heart failure, diabetes, other (Dialysis) Associated Symptoms: chest pain, cough, sputum production (Clear), nausea/vomiting (Nausea and no vomiting), other (Decreased appetite) Treatments Prior to Arrival: oxygen - Related Data Home Oxygen Amount: 2 Liters Home Medications Medication Instructions Recorded Confirmed Ergocalciferol (Vitamin D2) 50,000 unit PO Q28D 11/16/17 05/02/21 [Vitamin D2] Temazepam 30 mg PO HS 01/04/19 05/02/21 Tiotropium [place] [Spiriva] 1 cap INHALATION RT-DAILY 01/04/19 05/02/21 oxyCODONE HCL/ACETAMINOPHEN 1 tab PO DAILY PRN 01/04/19 05/02/21 [Percocet 5-325 mg] Aspirin 81 mg PO DAILY 04/06/19 05/02/21 Fluticasone/Salmeterol [Advair 1 puff INHALATION RT-BID 04/06/19 05/02/21 250-50 Diskus] Ipratropium/Albuterol Sulfate 1 - 2 puff INHALATION RT-QID PRN 04/06/19 05/02/21 [Combivent Respimat Inhaler] Furosemide [Lasix] 40 mg PO DAILY 05/02/21 05/02/21 Lidocaine-Prilocaine Cream [Emla 1 applic TOPICAL MOWEFR 05/02/21 05/02/21 Cream 2.5%/2.5%] Pantoprazole Sodium [Protonix] 20 mg PO DAILY 05/02/21 05/02/21 [place] Multivitamin 1 tab PO DAILY 05/02/21 05/02/21 Allergies Allergy/AdvReac Type Severity Reaction Status Date / Time erythromycin base Allergy Unknown Unknown Verified 05/02/21 20:28 meloxicam Allergy Unknown Unknown Verified 05/02/21 20:28 nitrofurantoin Allergy Unknown Unknown Verified 05/02/21 20:28 [From Macrobid] nitrofurantoin Allergy Unknown Unknown Verified 05/02/21 20:28 macrocrystalline [From Macrobid] Sulfa (Sulfonamide Allergy Unknown Unknown Verified 05/02/21 20:28 Antibiotics) Review of Systems ROS Statement: Those systems with pertinent positive or pertinent negative responses have been documented in the HPI. ROS Other: All systems not noted in ROS Statement are negative. Past Medical History Past Medical History: COPD, Diabetes Mellitus, Dialysis, Eye Disorder, GERD/Reflux, Osteoarthritis (OA), Renal Disease Additional Past Medical History / Comment(s): Right Cataract, DIABETES (DIET CONTROLLED), CONSTIPATION. Hx UTI's, SCIATICA, hemodialysis Wed-Wed-Wed., uses oxygen @2l, very SOB per pt, swollen hands & feet, back pain between shoulder blades, irreg. heart rate per pt. hemodialysis fistula lt arm History of Any Multi-Drug Resistant Organisms: None Reported Past Surgical History: Hernia Repair, Joint Replacement Additional Past Surgical History / Comment(s): Right hip replacement, dialysis catheter insertion Past Anesthesia/Blood Transfusion Reactions: No Reported Reaction Past Psychological History: Depression Smoking Status: Former smoker Past Alcohol Use History: None Reported Past Drug Use History: None Reported - Past Family History Mother Family Medical History: No Reported History General Exam Limitations: no limitations General appearance: alert, in distress (Dyspneic) Head exam: Present: atraumatic, normocephalic, normal inspection Eye exam: Present: normal appearance, PERRL, EOMI. Absent: scleral icterus, conjunctival injection, periorbital swelling, periorbital tenderness ENT exam: Present: normal exam, normal oropharynx, mucous membranes dry Neck exam: Present: normal inspection, full ROM. Absent: tenderness, meningismus, lymphadenopathy, thyromegaly Respiratory exam: Present: wheezes, rales. Absent: stridor, chest wall tenderness, accessory muscle use Cardiovascular Exam: Present: tachycardia GI/Abdominal exam: Present: soft, normal bowel sounds. Absent: distended, tenderness, guarding, rebound, rigid, mass, pulsatile mass Extremities exam: Present: full ROM, normal capillary refill. Absent: tenderness, pedal edema, joint swelling, calf tenderness Left Forearm Wrist exam: Present: other (Graft left arm for dialysis) Back exam: Present: normal inspection, full ROM. Absent: tenderness, CVA tenderness (R), CVA tenderness (L), muscle spasm, paraspinal tenderness, vertebral tenderness, rash noted Neurological exam: Present: alert, oriented X3, CN II-XII intact Psychiatric exam: Present: normal affect, normal mood Skin exam: Present: warm, dry, intact, normal color. Absent: rash, cyanosis, diaphoretic, erythema, urticaria, vesicles, petechiae, pallor Course Vital Signs 05/02/21 05/02/21 05/02/21 18:12 19:01 19:21 Temperature 100.0 F H Pulse Rate 123 H 112 H Respiratory 28 H 16 Rate Blood Pressure 180/89 O2 Sat by Pulse 88 L Oximetry 05/02/21 05/02/21 19:34 19:55 Temperature 102.2 F H Pulse Rate 113 H 112 H Respiratory 22 Rate Blood Pressure O2 Sat by Pulse 93 L Oximetry Medical Decision Making - Medical Decision Making X-ray shows an enlarged heart, mild blunting of the costophrenic angles , more in the right consistent with mild heart failure. There are small pleural effusions which is consistent with physical exam of rales and wheezing at the right base. Patient is febrile and tachycardic upon arrival to the ER will be treated for community-acquired pneumonia. WBC count is 5.9, hemoglobin and hematocrit is 12 and 37 respectively, troponin 0.016. BUN 25, Creatinine is 4.65, patient is on renal dialysis and did miss today but is scheduled tomorrow at 10 AM. Lactic acid is 2.2 patient was given 500 mL 0.9 normal saline bolus. D-dimer elevated at 1.25, [place] [address]. Patient will be admitted to the hospital for pneumonia with nephrology on consult. She was given Rocephin and doxycycline in the emergency room. Case discussed with Dr. Madden. - Lab Data Result diagrams: 05/02/21 18:17 05/02/21 18:17 Lab Results 05/02/21 05/02/21 05/02/21 Range/Units 18:17 18:17 18:17 WBC 5.9 (3.8-10.6) k/uL RBC 3.85 (3.80-5.40) m/uL Hgb 12.6 (11.4-16.0) gm/dL Hct 37.8 (34.0-46.0) % MCV 98.1 (80.0-100.0) fL MCH 32.6 (25.0-35.0) pg MCHC 33.3 (31.0-37.0) g/dL RDW 14.4 (11.5-15.5) % Plt Count 117 L (150-450) k/uL MPV 7.3 Neutrophils % 86 % Lymphocytes % 8 % Monocytes % 4 % Eosinophils % 1 % Basophils % 0 % Neutrophils # 5.1 (1.3-7.7) k/uL Lymphocytes # 0.4 L (1.0-4.8) k/uL Monocytes # 0.2 (0-1.0) k/uL Eosinophils # 0.1 (0-0.7) k/uL Basophils # 0.0 (0-0.2) k/uL PT (9.0-12.0) sec INR (<1.2) APTT (22.0-30.0) sec D-Dimer (<0.60) mg/L FEU Sodium 136 L (137-145) mmol/L Potassium 4.0 (3.5-5.1) mmol/L Chloride 97 L (98-107) mmol/L Carbon Dioxide 26 (22-30) mmol/L Anion Gap 13 mmol/L BUN 25 H (7-17) mg/dL Creatinine 4.65 H (0.52-1.04) mg/dL Est GFR (CKD-EPI)AfAm 10 (>60 ml/min/1.73 sqM) Est GFR (CKD-EPI)NonAf 8 (>60 ml/min/1.73 sqM) Glucose 127 H (74-99) mg/dL Plasma Lactic Acid Saad (0.7-2.0) mmol/L Calcium 9.1 (8.4-10.2) mg/dL Magnesium 1.9 (1.6-2.3) mg/dL Total Bilirubin 0.7 (0.2-1.3) mg/dL AST 47 H (14-36) U/L ALT 15 (4-34) U/L Alkaline Phosphatase 121 (38-126) U/L Troponin I 0.016 (0.000-0.034) ng/mL NT-Pro-B Natriuret Pep pg/mL Total Protein 7.6 (6.3-8.2) g/dL Albumin 4.1 (3.5-5.0) g/dL 05/02/21 05/02/21 05/02/21 Range/Units 18:51 18:51 18:51 WBC (3.8-10.6) k/uL RBC (3.80-5.40) m/uL Hgb (11.4-16.0) gm/dL Hct (34.0-46.0) % MCV (80.0-100.0) fL MCH (25.0-35.0) pg MCHC (31.0-37.0) g/dL RDW (11.5-15.5) % Plt Count (150-450) k/uL MPV Neutrophils % % Lymphocytes % % Monocytes % % Eosinophils % % Basophils % % Neutrophils # (1.3-7.7) k/uL Lymphocytes # (1.0-4.8) k/uL Monocytes # (0-1.0) k/uL Eosinophils # (0-0.7) k/uL Basophils # (0-0.2) k/uL PT 10.1 (9.0-12.0) sec INR 0.9 (<1.2) APTT 24.7 (22.0-30.0) sec D-Dimer 1.25 H (<0.60) mg/L FEU Sodium (137-145) mmol/L Potassium (3.5-5.1) mmol/L Chloride (98-107) mmol/L Carbon Dioxide (22-30) mmol/L Anion Gap mmol/L BUN (7-17) mg/dL Creatinine (0.52-1.04) mg/dL Est GFR (CKD-EPI)AfAm (>60 ml/min/1.73 sqM) Est GFR (CKD-EPI)NonAf (>60 ml/min/1.73 sqM) Glucose (74-99) mg/dL Plasma Lactic Acid Saad 2.2 H* (0.7-2.0) mmol/L Calcium (8.4-10.2) mg/dL Magnesium (1.6-2.3) mg/dL Total Bilirubin (0.2-1.3) mg/dL AST (14-36) U/L ALT (4-34) U/L Alkaline Phosphatase (38-126) U/L Troponin I (0.000-0.034) ng/mL NT-Pro-B Natriuret Pep 16265 pg/mL Total Protein (6.3-8.2) g/dL Albumin (3.5-5.0) g/dL - EKG Data EKG shows normal: sinus rhythm (Ventricular rate of 1:15, VA interval 0.146, QRS of 0.92, QTC of 0.484) When compared to previous EKG there are: no significant change (01/04/2019) Disposition Clinical Impression: Pneumonia Disposition: ADMITTED IP TO THIS [facility] Condition: Fair Referrals: Ventura Duran DO [Primary Care Provider] - 1-2 days Decision Date: 05/02/21 Decision Time: 19:48
[2021-05-02 19:03] LABS: Basophils % (A) 0 %; Eosinophils # (A) 0.1 k/uL (0-0.7); Eosinophils % (A) 1 %; HCT 37.8 % (34.0-46.0); HGB 12.6 gm/dL (11.4-16.0); Lymphocytes # (A) 0.4 k/uL (1.0-4.8); Lymphocytes % (A) 8 %; MCH 32.6 pg (25.0-35.0); MCHC 33.3 g/dL (31.0-37.0); MCV 98.1 fL (80.0-100.0); Mean Platelet Volume 7.3; Monocytes # (A) 0.2 k/uL (0-1.0); Monocytes % (A) 4 %; Neutrophils # (A) 5.1 k/uL (1.3-7.7); Neutrophils % (A) 86 %; Platelet Count 117 k/uL (150-450); RBC 3.85 m/uL (3.80-5.40); RDW 14.4 % (11.5-15.5); WBC 5.9 k/uL (3.8-10.6)
[2021-05-02 19:16] LABS: Albumin 4.1 g/dL (3.5-5.0); Calcium 9.1 mg/dL (8.4-10.2); Magnesium 1.9 mg/dL (1.6-2.3); Total Bilirubin 0.7 mg/dL (0.2-1.3); Total Protein 7.6 g/dL (6.3-8.2)
--- NOTE | 2021-05-02 19:23 | XR ---
EXAMINATION TYPE: XR chest 2V DATE OF EXAM: 05/02/2021 COMPARISON: 01/06/2019 HISTORY: Difficulty breathing TECHNIQUE: FINDINGS: Heart is enlarged. There is mild blunting of the costophrenic angles and more on the right side. There is mild pulmonary congestion. There are chest leads. IMPRESSION: Changes consistent with mild heart failure with small pleural effusions. This appears new compared to old exam.
[2021-05-02 19:36] LABS: INR 0.9 (<1.2); Partial Thromboplastin Time 24.7 sec (22.0-30.0); Prothrombin Time 10.1 sec (9.0-12.0)
[2021-05-02 19:49] LABS: D-Dimer 1.25 mg/L FEU (<0.60)
[2021-05-02] MEDS ORDERED: NALOXONE 0.4 MG/ML 1 ML VIAL IV PRN (20:43)
[2021-05-02] MEDS ORDERED: ACETAMINOPHEN TAB 325 MG TAB PO PRN (20:43)
[2021-05-02] MEDS: DOXYCYCLINE 100 MG in SODIUM CHLORIDE 0.9% 100 ML IVPB SCH (21:17)
[2021-05-02] MEDS ORDERED: TEMAZEPAM 15 MG CAP PO PRN (22:05)
[2021-05-02] MEDS ORDERED: CEFEPIME 2 GM in SODIUM CHLORIDE 0.9% 100 ML IVPB SCH (23:00)
[2021-05-02] MEDS ORDERED: CEFEPIME 1 GM in SODIUM CHLORIDE 0.9% 100 ML IVPB SCH (23:00)
[2021-05-02] MEDS: CEFEPIME 1 GM in SODIUM CHLORIDE 0.9% 50 ML IVPB SCH (23:47)
[2021-05-03] MEDS ORDERED: CEFEPIME 2 GM in SODIUM CHLORIDE 0.9% 100 ML IVPB SCH ×2
[2021-05-03 03:23] LABS: Appearance,Urine Cloudy (Clear); Bacteria,Urine Many /hpf; Bilirubin,Urine Negative (Negative); Blood,Urine Large (Negative); Color,Urine Yellow; Glucose,Urine (UA) Negative (Negative); Ketones,Urine Negative (Negative); Leukocyte Esterase,Urine Moderate (Negative); Nitrite,Urine Negative (Negative); PH, Urine 6.5 (5.0-8.0); Protein,Urine 2+ (Negative); RBC,Urine 106 /hpf (0-5); Specific Gravity,Urine 1.009 (1.001-1.035); Squamous Epithelial Cell,Urine 11 /hpf (0-4); Urobilinogen,Urine <2.0 mg/dL (<2.0); WBC,Urine 29 /hpf (0-5)
[2021-05-03] MEDS: IPRATROPIUM-ALBUTEROL 3 ML NEB INHALATION PRN ×4 (06:15→19:18)
[2021-05-03] MEDS: SYMBICORT 80-4.5 MCG INHALER INHALATION SCH ×2 (06:18→19:18)
[2021-05-03] MEDS ORDERED: NON FORMULARY DRUG (Tiotropium Bromide [Spiriva] 18 MCG Cap.W.Dev) INHALATION SCH (08:00)
[2021-05-03] MEDS: DOXYCYCLINE 100 MG in SODIUM CHLORIDE 0.9% 100 ML IVPB SCH (08:59)
[2021-05-03] MEDS: FUROSEMIDE 40 MG TAB PO SCH (08:59)
[2021-05-03] MEDS: ASPIRIN 81 MG PO SCH (08:59)
[2021-05-03] MEDS: HEPARIN SODIUM,PORCINE/PF 5,000 UNIT/0.5 ML SYRINGE SQ SCH ×2 (08:59→22:42)
[2021-05-03] MEDS ORDERED: FAMOTIDINE 20 MG/2 ML VIAL IV SCH (09:00)
--- NOTE | 2021-05-03 10:11 | P.NPCON ---
History of Present Illness - Reason for Consult end stage renal disease - History of Present Illness Reason for consultation: End-stage renal disease History of present illness: I sent patient is a 81-year-old female seen in renal consultation for end-stage renal disease. She is maintained on hemodialysis on Wednesday schedule. Patient presented to the hospital with shortness of breath that began 2-3 days ago. Patient does admit to a productive cough with clear phlegm. She denies any fever or chills. No vomiting or diarrhea. She missed hemodialysis yesterday due to not feeling well. She did receive 1 L bolus of normal saline on admission. She is also receiving IV antibiotics for pneumonia. Chest x-ray was suggestive of mild heart failure. Blood pressure is on the higher side. White count is normal. Patient has a history of diastolic CHF with moderate to severe mitral and cuspid regurgitation. She is currently on 3 L nasal cannula. No active complaints at this time. Vital signs are stable. General: The patient appeared well nourished and normally developed. HEENT: Head exam is unremarkable. Neck is without jugular venous distension. LUNGS: Breath sounds decreased. HEART: Rate and Rhythm are regular. ABDOMEN: Soft, no distention. EXTREMITITES: No edema. Past Medical History Past Medical History: COPD, Diabetes Mellitus, Dialysis, Eye Disorder, GERD/Reflux, Osteoarthritis (OA), Renal Disease Additional Past Medical History / Comment(s): Right Cataract, DIABETES (DIET CONTROLLED), CONSTIPATION. Hx UTI's, SCIATICA, hemodialysis Wed-Wed-Wed., uses oxygen @2l, very SOB per pt, swollen hands & feet, back pain between shoulder blades, irreg. heart rate per pt. hemodialysis fistula lt arm History of Any Multi-Drug Resistant Organisms: None Reported Past Surgical History: Hernia Repair, Joint Replacement Additional Past Surgical History / Comment(s): Right hip replacement, dialysis catheter insertion Past Anesthesia/Blood Transfusion Reactions: No Reported Reaction Past Psychological History: Depression Smoking Status: Former smoker Past Alcohol Use History: None Reported Additional Past Alcohol Use History / Comment(s): Quit smoking 8 yrs ago, smoked since age 14, 2 PPD. Past Drug Use History: None Reported - Past Family History Mother Family Medical History: No Reported History Medications and Allergies Home Medications Medication Instructions Recorded Confirmed Type Ergocalciferol (Vitamin D2) 50,000 unit PO Q28D 11/16/17 05/02/21 History [Vitamin D2] Temazepam 30 mg PO HS 01/04/19 05/02/21 History Tiotropium [place] [Spiriva] 1 cap INHALATION RT-DAILY 01/04/19 05/02/21 History oxyCODONE HCL/ACETAMINOPHEN 1 tab PO DAILY PRN 01/04/19 05/02/21 History [Percocet 5-325 mg] Aspirin 81 mg PO DAILY 04/06/19 05/02/21 History Fluticasone/Salmeterol [Advair 1 puff INHALATION RT-BID 04/06/19 05/02/21 History 250-50 Diskus] Ipratropium/Albuterol Sulfate 1 - 2 puff INHALATION RT-QID PRN 04/06/19 05/02/21 History [Combivent Respimat Inhaler] Furosemide [Lasix] 40 mg PO DAILY 05/02/21 05/02/21 History Lidocaine-Prilocaine Cream [Emla 1 applic TOPICAL MOWEFR 05/02/21 05/02/21 History Cream 2.5%/2.5%] Pantoprazole Sodium [Protonix] 20 mg PO DAILY 05/02/21 05/02/21 History [place] Multivitamin 1 tab PO DAILY 05/02/21 05/02/21 History Allergies Allergy/AdvReac Type Severity Reaction Status Date / Time erythromycin base Allergy Unknown Unknown Verified 05/02/21 20:28 meloxicam Allergy Unknown Unknown Verified 05/02/21 20:28 nitrofurantoin Allergy Unknown Unknown Verified 05/02/21 20:28 [From Macrobid] nitrofurantoin Allergy Unknown Unknown Verified 05/02/21 20:28 macrocrystalline [From Macrobid] Sulfa (Sulfonamide Allergy Unknown Unknown Verified 05/02/21 20:28 Antibiotics) Physical Exam Vitals: Vital Signs Temp Pulse Pulse Resp BP BP Pulse Ox 05/03/21 06:53 97.7 F 106 H 15 164/79 93 L 05/03/21 06:28 104 H 05/03/21 06:15 105 H 05/03/21 02:00 97.6 F 104 H 18 171/82 94 L 05/02/21 22:10 98.9 F 109 H 19 159/92 91 L 05/02/21 21:18 114 H 20 162/88 97 05/02/21 19:55 102.2 F H 112 H 22 93 L 05/02/21 19:34 113 H 05/02/21 19:21 112 H 05/02/21 19:01 16 05/02/21 18:12 100.0 F H 123 H 28 H 180/89 88 L Intake and Output 05/02/21 05/03/21 05/03/21 22:59 06:59 14:59 Other: # Voids 1 Weight 70.307 kg 70 kg Results - Lab Results Most recent lab results Calcium 9.1 mg/dL (8.4-10.2) 05/02/21 18:17 Magnesium 1.9 mg/dL (1.6-2.3) 05/02/21 18:17 05/02/21 18:17 05/02/21 18:17 Assessment and Plan Plan: Assessment: 1. End-stage renal disease maintained on hemodialysis on Wednesday schedule. 2. Acute on chronic diastolic CHF with moderate to severe mitral and tricuspid regurgitation. 3. Pulmonary hypertension. 4. Pneumonia maintain on antibiotics. 5. Chronic kidney disease mineral bone disease. 6. Hypertension with chronic kidney disease. Plan: Hemodialysis today. Check phosphorus level. Add hydralazine 25 mg 3 times a day. Thank you for the consultation. I will continue to follow the patient with you during her hospital stay.
[2021-05-03] MEDS: CEFEPIME 1 GM in SODIUM CHLORIDE 0.9% 50 ML IVPB SCH (10:35)
--- NOTE | 2021-05-03 11:59 | P.HPIM ---
History of Present Illness Patient is a 81-year-old the pleasant female came in with compensative short is a cough with whitish sputum production. Patient was found to be febrile patient denied any dysuria increased to urinary frequency. Patient urine is significantly abnormal patient was started on Rocephin and doxycycline with concerns of pneumonia although there is no pneumonia on the chest x-ray such as chest x-ray service history of pulmonary edema with bilateral pleural effusions. Patient does have history of end-stage liver disease (dependent and patient dialysis access is a left arm graft. Patient is feeling much better patient does have wheezing on exam patient does use oxygen at home does have history of COPD. REVIEW OF SYSTEMS: CONSTITUTIONAL: As mentioned in HPI. HEENT: No recent visual problems or hearing problems. Denied any sore throat. CARDIOVASCULAR: No chest pain, orthopnea, PND, no palpitations, no syncope. PULMONARY: no hemoptysis. GASTROINTESTINAL: No diarrhea, no nausea, no vomiting, no abdominal pain. NEUROLOGICAL: No headaches, no weakness, no numbness. HEMATOLOGICAL: Denies any bleeding or petechiae. GENITOURINARY: Denies any burning micturition, frequency, or urgency. MUSCULOSKELETAL/RHEUMATOLOGICAL: Denies any joint pain, swelling, or any muscle pain. ENDOCRINE: Denies any polyuria or polydipsia. The rest of the 14-point review of systems is negative. PHYSICAL EXAMINATION: GENERAL: The patient is alert and oriented x3, not in any acute distress. Well developed, well nourished. HEENT: Pupils are round and equally reacting to light. EOMI. No scleral icterus. No conjunctival pallor. Normocephalic, atraumatic. No pharyngeal erythema. No thyromegaly. CARDIOVASCULAR: S1 and S2 present. No murmurs, rubs, or gallops. PULMONARY: Mild expiratory wheezing on exam ABDOMEN: Soft, nontender, nondistended, normoactive bowel sounds. No palpable organomegaly. MUSCULOSKELETAL: No joint swelling or deformity. EXTREMITIES: No cyanosis, clubbing, or pedal edema. NEUROLOGICAL: Gross neurological examination did not reveal any focal deficits. SKIN: No rashes. Assessment and plan -Sepsis most probably secondary to urinary tract infection patient doesn't appear to have any pneumonia at this time dose toxic and this can you continue with the Rocephin. -Shortness of breath and pulmonary edema secondary to end-stage renal disease, patient received hemodialysis yesterday with some improvement in her respiratory status. -COPD with mild acute exacerbation patient will be started on inhaled steroids inhalational treatments -Chronic respiratory failure on home oxygen which will be continued -Pulmonary hypertension secondary to urinary hypertension most probably secondary to COPD -Chronic kidney disease/end-stage renal disease secondary to hypertensive nephrosclerosis are to diabetic nephropathy -Hypertension -Gastroesophageal reflux disease DVT prophylaxis: Subcutaneous heparin Past Medical History Past Medical History: COPD, Diabetes Mellitus, Dialysis, Eye Disorder, GERD/Reflux, Osteoarthritis (OA), Renal Disease Additional Past Medical History / Comment(s): Right Cataract, DIABETES (DIET CONTROLLED), CONSTIPATION. Hx UTI's, SCIATICA, hemodialysis Mon-Wed-Wed., uses oxygen @2l, very SOB per pt, swollen hands & feet, back pain between shoulder blades, irreg. heart rate per pt. hemodialysis fistula lt arm History of Any Multi-Drug Resistant Organisms: None Reported Past Surgical History: Hernia Repair, Joint Replacement Additional Past Surgical History / Comment(s): Right hip replacement, dialysis catheter insertion Past Anesthesia/Blood Transfusion Reactions: No Reported Reaction Past Psychological History: Depression Smoking Status: Former smoker Past Alcohol Use History: None Reported Additional Past Alcohol Use History / Comment(s): Quit smoking 8 yrs ago, smoked since age 14, 2 PPD. Past Drug Use History: None Reported - Past Family History Mother Family Medical History: No Reported History Medications and Allergies Home Medications Medication Instructions Recorded Confirmed Type Ergocalciferol (Vitamin D2) 50,000 unit PO Q28D 11/16/17 05/02/21 History [Vitamin D2] Temazepam 30 mg PO HS 01/04/19 05/02/21 History Tiotropium Ambrose [Spiriva] 1 cap INHALATION RT-DAILY 01/04/19 05/02/21 History oxyCODONE HCL/ACETAMINOPHEN 1 tab PO DAILY PRN 01/04/19 05/02/21 History [Percocet 5-325 mg] Aspirin 81 mg PO DAILY 04/06/19 05/02/21 History Fluticasone/Salmeterol [Advair 1 puff INHALATION RT-BID 04/06/19 05/02/21 History 250-50 Diskus] Ipratropium/Albuterol Sulfate 1 - 2 puff INHALATION RT-QID PRN 04/06/19 05/02/21 History [Combivent Respimat Inhaler] Furosemide [Lasix] 40 mg PO DAILY 05/02/21 05/02/21 History Lidocaine-Prilocaine Cream [Emla 1 applic TOPICAL MOWEFR 05/02/21 05/02/21 History Cream 2.5%/2.5%] Pantoprazole Sodium [Protonix] 20 mg PO DAILY 05/02/21 05/02/21 History Brigette-Lynn Multivitamin 1 tab PO DAILY 05/02/21 05/02/21 History Allergies Allergy/AdvReac Type Severity Reaction Status Date / Time erythromycin base Allergy Unknown Unknown Verified 05/02/21 20:28 meloxicam Allergy Unknown Unknown Verified 05/02/21 20:28 nitrofurantoin Allergy Unknown Unknown Verified 05/02/21 20:28 [From Macrobid] nitrofurantoin Allergy Unknown Unknown Verified 05/02/21 20:28 macrocrystalline [From Macrobid] Sulfa (Sulfonamide Allergy Unknown Unknown Verified 05/02/21 20:28 Antibiotics) Physical Exam Vitals: Vital Signs Temp Pulse Pulse Resp BP BP Pulse Ox 05/03/21 06:53 97.7 F 106 H 15 164/79 93 L 05/03/21 06:28 104 H 05/03/21 06:15 105 H 05/03/21 02:00 97.6 F 104 H 18 171/82 94 L 05/02/21 22:10 98.9 F 109 H 19 159/92 91 L 05/02/21 21:18 114 H 20 162/88 97 05/02/21 19:55 102.2 F H 112 H 22 93 L 05/02/21 19:34 113 H 05/02/21 19:21 112 H 05/02/21 19:01 16 05/02/21 18:12 100.0 F H 123 H 28 H 180/89 88 L Intake and Output 05/02/21 05/03/21 05/03/21 22:59 06:59 14:59 Intake Total 150 Balance 150 Intake: Intake, IV Titration 150 Amount Cefepime 1 gm In Sodium 50 Chloride 0.9% 50 ml @ 12. 5 mls/hr IVPB Q12H JONAS Rx #:[id number] Doxycycline 100 mg In 100 Sodium Chloride 0.9% 100 ml @ 100 mls/hr IVPB Q12HR JONAS Rx#:[id number] Other: # Voids 1 1 # Bowel Movements 1 Weight 70.307 kg 70 kg Results CBC & Chem 7: 05/02/21 18:17 05/02/21 18:17 Labs: Abnormal Lab Results - Last 24 Hours (Table) 05/02/21 05/02/21 05/02/21 Range/Units 18:17 18:17 18:51 Plt Count 117 L (150-450) k/uL Lymphocytes # 0.4 L (1.0-4.8) k/uL D-Dimer 1.25 H (<0.60) mg/L FEU Sodium 136 L (137-145) mmol/L Chloride 97 L (98-107) mmol/L BUN 25 H (7-17) mg/dL Creatinine 4.65 H (0.52-1.04) mg/dL Glucose 127 H (74-99) mg/dL Plasma Lactic Acid Saad (0.7-2.0) mmol/L AST 47 H (14-36) U/L Urine Appearance (Clear) Urine Protein (Negative) Urine Blood (Negative) Ur Leukocyte Esterase (Negative) Urine RBC (0-5) /hpf Urine WBC (0-5) /hpf Ur Squamous Epith Cells (0-4) /hpf Urine Bacteria (None) /hpf 05/02/21 05/03/21 Range/Units 18:51 02:00 Plt Count (150-450) k/uL Lymphocytes # (1.0-4.8) k/uL D-Dimer (<0.60) mg/L FEU Sodium (137-145) mmol/L Chloride (98-107) mmol/L BUN (7-17) mg/dL Creatinine (0.52-1.04) mg/dL Glucose (74-99) mg/dL Plasma Lactic Acid Saad 2.2 H* (0.7-2.0) mmol/L AST (14-36) U/L Urine Appearance Cloudy H (Clear) Urine Protein 2+ H (Negative) Urine Blood Large H (Negative) Ur Leukocyte Esterase Moderate H (Negative) Urine RBC 106 H (0-5) /hpf Urine WBC 29 H (0-5) /hpf Ur Squamous Epith Cells 11 H (0-4) /hpf Urine Bacteria Many H (None) /hpf Microbiology - Last 24 Hours (Table) 05/03/21 02:00 Urine Culture - Preliminary Urine,Voided
[2021-05-03] MEDS ORDERED: LEVOFLOXACIN 500 MG TAB PO SCH ×2 (15:00)
[2021-05-03] MEDS: hydrALAZINE HCL 25 MG TAB PO SCH ×2 (15:27→22:42)
[2021-05-03] MEDS ORDERED: METOPROLOL TARTRATE 25 MG TAB PO STA (17:49)
[2021-05-03] MEDS: BENZOCAINE/MENTHOL LOZENG 1 EACH LOZENGE MUCOUS MEM PRN (18:10)
[2021-05-03] MEDS: oxyCODONE-APAP 5-325MG 1 EACH TAB PO PRN (18:11)
[2021-05-03] MEDS ORDERED: HEPARIN SODIUM,PORCINE/PF 5,000 UNIT/0.5 ML SYRINGE SQ SCH (21:00)
--- NOTE | 2021-05-03 22:40 | P.CONS ---
History of Present Illness - Reason for Consult Consult date: 05/03/21 pneumonia Requesting physician: Blair E Sheet - Chief Complaint shortness of breath and cough few days - History of Present Illness Patient is 81-year female with multiple comorbidities presenting to the ER at [facility] yesterday evening for evaluation of increasing shortness of breath and cough that has been getting worse for the last 2 days patient complaining of a congested cough moderate intensity however she is unable to cough up any sputum patient denies any chest pain patient denies having any nausea no vomiting no abdominal pain no diarrhea patient denies having any choking on the food patient did have history of COPD on 2 L at home and also have a history of end-stage renal disease on hemodialysis patient apparently has been given a air conditioner and patient mention her symptoms started after she has been exposed to the air conditioner on presentation to the hospital the patient did have a fever of 102.2 F the patient was tachycardic patient did have a normal white count the D-dimer was mildly elevated lactic was 2.2 urine was positive patient did have a chest x-ray changes consistent with mild heart failure with small pleural effusion patient was admitted to hospital she has been started on cefepime infectious disease was consulted for further management of antibiotic therapy Review of Systems Positive point has been mentioned in the HPI rest of the systems are negative Past Medical History Past Medical History: COPD, Diabetes Mellitus, Dialysis, Eye Disorder, GERD/Reflux, Osteoarthritis (OA), Renal Disease Additional Past Medical History / Comment(s): Right Cataract, DIABETES (DIET CONTROLLED), CONSTIPATION. Hx UTI's, SCIATICA, hemodialysis Mon-Wed-Fri., uses oxygen @2l, very SOB per pt, swollen hands & feet, back pain between shoulder blades, irreg. heart rate per pt. hemodialysis fistula lt arm History of Any Multi-Drug Resistant Organisms: None Reported Past Surgical History: Hernia Repair, Joint Replacement Additional Past Surgical History / Comment(s): Right hip replacement, dialysis catheter insertion Past Anesthesia/Blood Transfusion Reactions: No Reported Reaction Past Psychological History: Depression Smoking Status: Former smoker Past Alcohol Use History: None Reported Additional Past Alcohol Use History / Comment(s): Quit smoking 8 yrs ago, smoked since age 14, 2 PPD. Past Drug Use History: None Reported - Past Family History Mother Family Medical History: No Reported History Medications and Allergies Home Medications Medication Instructions Recorded Confirmed Type Ergocalciferol (Vitamin D2) 50,000 unit PO Q28D 11/16/17 05/02/21 History [Vitamin D2] Temazepam 30 mg PO HS 01/04/19 05/02/21 History Tiotropium Webster [Spiriva] 1 cap INHALATION RT-DAILY 01/04/19 05/02/21 History oxyCODONE HCL/ACETAMINOPHEN 1 tab PO DAILY PRN 01/04/19 05/02/21 History [Percocet 5-325 mg] Aspirin 81 mg PO DAILY 04/06/19 05/02/21 History Fluticasone/Salmeterol [Advair 1 puff INHALATION RT-BID 04/06/19 05/02/21 History 250-50 Diskus] Ipratropium/Albuterol Sulfate 1 - 2 puff INHALATION RT-QID PRN 04/06/19 05/02/21 History [Combivent Respimat Inhaler] Furosemide [Lasix] 40 mg PO DAILY 05/02/21 05/02/21 History Lidocaine-Prilocaine Cream [Emla 1 applic TOPICAL MOWEFR 05/02/21 05/02/21 History Cream 2.5%/2.5%] Pantoprazole Sodium [Protonix] 20 mg PO DAILY 05/02/21 05/02/21 History Brigette-Lynn Multivitamin 1 tab PO DAILY 05/02/21 05/02/21 History Allergies Allergy/AdvReac Type Severity Reaction Status Date / Time erythromycin base Allergy Unknown Unknown Verified 05/02/21 20:28 meloxicam Allergy Unknown Unknown Verified 05/02/21 20:28 nitrofurantoin Allergy Unknown Unknown Verified 05/02/21 20:28 [From Macrobid] nitrofurantoin Allergy Unknown Unknown Verified 05/02/21 20:28 macrocrystalline [From Macrobid] Sulfa (Sulfonamide Allergy Unknown Unknown Verified 05/02/21 20:28 Antibiotics) Physical Exam Vitals: Vital Signs Temp Pulse Pulse Resp BP BP Pulse Ox 05/03/21 13:23 98.3 F 113 H 17 138/75 94 L 05/03/21 12:13 100 05/03/21 11:59 100 05/03/21 06:53 97.7 F 106 H 15 164/79 93 L 05/03/21 06:28 104 H 05/03/21 06:15 105 H 05/03/21 02:00 97.6 F 104 H 18 171/82 94 L 05/02/21 22:10 98.9 F 109 H 19 159/92 91 L 05/02/21 21:18 114 H 20 162/88 97 05/02/21 19:55 102.2 F H 112 H 22 93 L 05/02/21 19:34 113 H 05/02/21 19:21 112 H 05/02/21 19:01 16 05/02/21 18:12 100.0 F H 123 H 28 H 180/89 88 L Intake and Output 05/02/21 05/03/21 05/03/21 22:59 06:59 14:59 Intake Total 150 Balance 150 Intake: Intake, IV Titration 150 Amount Cefepime 1 gm In Sodium 50 Chloride 0.9% 50 ml @ 12. 5 mls/hr IVPB Q12H JONAS Rx #:[id number] Doxycycline 100 mg In 100 Sodium Chloride 0.9% 100 ml @ 100 mls/hr IVPB Q12HR JONAS Rx#:[id number] Other: # Voids 1 1 # Bowel Movements 1 Weight 70.307 kg 70 kg GENERAL DESCRIPTION: An elderly female up in the chair, no distress. No tachypnea or accessory muscle of respiration use. HEENT: Shows Pallor , no scleral icterus. Oral mucous membrane is dry. No pharyngeal erythema or thrush NECK: Trachea central, no thyromegaly. LUNGS: Unlabored breathing. Coarse breath sounds bilaterally. No wheeze or crackle. HEART: S1, S2, regular rate and rhythm. No loud murmur ABDOMEN: Soft, no tenderness , guarding or rigidity, no organomegaly EXTREMITIES: No edema of feet. SKIN: No rash, no masses palpable. NEUROLOGICAL: The patient is awake, alert, oriented x3, mood and affect normal. Results CBC & Chem 7: 05/02/21 18:17 05/02/21 18:17 Labs: Abnormal Lab Results - Last 24 Hours (Table) 05/02/21 05/02/21 05/02/21 Range/Units 18:17 18:17 18:51 Plt Count 117 L (150-450) k/uL Lymphocytes # 0.4 L (1.0-4.8) k/uL D-Dimer 1.25 H (<0.60) mg/L FEU Sodium 136 L (137-145) mmol/L Chloride 97 L (98-107) mmol/L BUN 25 H (7-17) mg/dL Creatinine 4.65 H (0.52-1.04) mg/dL Glucose 127 H (74-99) mg/dL Plasma Lactic Acid Saad (0.7-2.0) mmol/L AST 47 H (14-36) U/L Urine Appearance (Clear) Urine Protein (Negative) Urine Blood (Negative) Ur Leukocyte Esterase (Negative) Urine RBC (0-5) /hpf Urine WBC (0-5) /hpf Ur Squamous Epith Cells (0-4) /hpf Urine Bacteria (None) /hpf 05/02/21 05/03/21 Range/Units 18:51 02:00 Plt Count (150-450) k/uL Lymphocytes # (1.0-4.8) k/uL D-Dimer (<0.60) mg/L FEU Sodium (137-145) mmol/L Chloride (98-107) mmol/L BUN (7-17) mg/dL Creatinine (0.52-1.04) mg/dL Glucose (74-99) mg/dL Plasma Lactic Acid Saad 2.2 H* (0.7-2.0) mmol/L AST (14-36) U/L Urine Appearance Cloudy H (Clear) Urine Protein 2+ H (Negative) Urine Blood Large H (Negative) Ur Leukocyte Esterase Moderate H (Negative) Urine RBC 106 H (0-5) /hpf Urine WBC 29 H (0-5) /hpf Ur Squamous Epith Cells 11 H (0-4) /hpf Urine Bacteria Many H (None) /hpf Microbiology - Last 24 Hours (Table) 05/03/21 02:00 Urine Culture - Preliminary Urine,Voided Assessment and Plan Assessment: 1- patient presented to hospital with increasing shortness of breath patient did have a cough in this patient who did have fever on presentation , pt symptoms started after exposure to air conditioner patient was given, concern for possible atypical pneumonia such as Legionella 2-patient who do have a positive UA to significant urinary symptoms in this patient with underlying dialysis questionable value of UA in this patient p opulation (1) Pneumonia Current Visit: Yes Status: Acute Code(s): J18.9 - PNEUMONIA, UNSPECIFIED ORGANISM SNOMED Code(s): 525320842 (2) Sepsis Current Visit: Yes Status: Acute Code(s): A41.9 - SEPSIS, UNSPECIFIED ORGANISM SNOMED Code(s): 31523490 Plan: 1- we will obtain urine for Legionella antigen and check a CRP and pro ca lcitonin level 2-continue cefepime however and Levaquin 3-obtain sputum for Gram stain and culture We will follow on clinical condition and cultures to further adjust medication if needed Thank you for this consultation will follow this patient with you Time with Patient: Greater than 30
[2021-05-03] MEDS: TEMAZEPAM 15 MG CAP PO PRN (23:30)
[2021-05-04 06:39] LABS: HCT 39.3 % (34.0-46.0); HGB 12.8 gm/dL (11.4-16.0); MCH 32.3 pg (25.0-35.0); MCHC 32.7 g/dL (31.0-37.0); MCV 98.9 fL (80.0-100.0); Mean Platelet Volume 7.8; Platelet Count 126 k/uL (150-450); RBC 3.97 m/uL (3.80-5.40); RDW 14.5 % (11.5-15.5); WBC 5.9 k/uL (3.8-10.6)
[2021-05-04 06:52] LABS: African American GFR (CKD) 13 (>60 ml/min/1.73 sqM); Anion Gap 12 mmol/L; Blood Urea Nitrogen 23 mg/dL (7-17); C Reactive Protein 4.3 mg/dL (<1.0); Calcium 9.3 mg/dL (8.4-10.2); Carbon Dioxide 25 mmol/L (22-30); Chloride 101 mmol/L (98-107); Glucose 105 mg/dL (74-99); Non-African American GFR(CKD) 11 (>60 ml/min/1.73 sqM); Potassium 3.7 mmol/L (3.5-5.1); Sodium 138 mmol/L (137-145)
[2021-05-04] MEDS: oxyCODONE-APAP 5-325MG 1 EACH TAB PO PRN (08:11)
[2021-05-04] MEDS: PANTOPRAZOLE 40 MG TABLET PO SCH (08:12)
[2021-05-04] MEDS: HEPARIN SODIUM,PORCINE/PF 5,000 UNIT/0.5 ML SYRINGE SQ SCH ×2 (08:12→20:44)
[2021-05-04] MEDS: FOLIC ACID-VIT B COMPLEX-VIT C 1 CAP PO SCH (08:12)
[2021-05-04] MEDS: ASPIRIN 81 MG PO SCH (08:12)
[2021-05-04] MEDS: FUROSEMIDE 40 MG TAB PO SCH (08:12)
[2021-05-04] MEDS: hydrALAZINE HCL 25 MG TAB PO SCH (08:12)
[2021-05-04] MEDS: CEFEPIME 1 GM in SODIUM CHLORIDE 0.9% 50 ML IVPB SCH (08:14)
[2021-05-04] MEDS ORDERED: predniSONE 20 MG TAB PO STA (08:17)
--- NOTE | 2021-05-04 08:22 | P.PN ---
Subjective Patient is a 81-year-old the pleasant female came in with compensative short is a cough with whitish sputum production. Patient was found to be febrile patient denied any dysuria increased to urinary frequency. Patient urine is significantly abnormal patient was started on Rocephin and doxycycline with concerns of pneumonia although there is no pneumonia on the chest x-ray such as chest x-ray service history of pulmonary edema with bilateral pleural effusions. Patient does have history of end-stage liver disease (dependent and patient dialysis access is a left arm graft. Patient is feeling much better patient does have wheezing on exam patient does use oxygen at home does have history of COPD. 05/04/2022 Infectious disease evaluate the patient that they believe patient has atypical pneumonia patient is presently on cefepime and levofloxacin. Urine Legionella antigen is being obtained sputum cultures were ordered. I still do not believe patient has pneumonia patient has pulmonary edema on the chest x-ray. And her pulmonary edema is secondary to volume overload and patient is a poor dialysis patient. Patient does have a lateral pleural effusions consistent with pulmonary edema rather than atypical pneumonia. Patient doesn't have any fevers at this time. 2 feeling short of breath does have some wheezing on exam patient will be given 1 dose of prednisone patient does have history of COPD. Is not coughing much. will repeat a chest x-ray which shows improvement but then it CHF Constitutional: Denied any fatigue denied any fever. Cardio vascular: denied any chest pain, palpitations Gastrointestinal denied any nausea vomiting Pulmonary: Mentioned in the interval history Neurologic denied any new focal deficits All inpatient medications were reviewed and appropriate changes in these medications as dictated in the interval history and assessment and plan. PHYSICAL EXAMINATION: GENERAL: The patient is alert and oriented x3, not in any acute distress. Well developed, well nourished. HEENT: Pupils are round and equally reacting to light. EOMI. No scleral icterus. No conjunctival pallor. Normocephalic, atraumatic. No pharyngeal erythema. No thyromegaly. CARDIOVASCULAR: S1 and S2 present. No murmurs, rubs, or gallops. PULMONARY: Mild expiratory wheezing on exam ABDOMEN: Soft, nontender, nondistended, normoactive bowel sounds. No palpable organomegaly. MUSCULOSKELETAL: No joint swelling or deformity. EXTREMITIES: No cyanosis, clubbing, or pedal edema. NEUROLOGICAL: Gross neurological examination did not reveal any focal deficits. SKIN: No rashes. Assessment and plan -Sepsis most probably secondary to urinary tract infection patient doesn't appear to have any pneumonia infectious disease evaluate the patient and patient is a being treated for atypical pneumonia patient is also on levofloxacin along with the cefepime. -Shortness of breath and pulmonary edema secondary to end-stage renal disease, had urinalysis today continues to have shortness of breath patient does have [place] PD which is contributing to her shortness of breath and patient tell will be given a dose of steroid -COPD with mild acute exacerbation patient will be started on inhaled steroids inhalational treatments and dose of prednisone. -Chronic respiratory failure on home oxygen which will be continued -Pulmonary hypertension secondary to urinary hypertension most probably secondary to COPD -Chronic kidney disease/end-stage renal disease secondary to hypertensive nephrosclerosis are to diabetic nephropathy -Hypertension -Gastroesophageal reflux disease DVT prophylaxis: Subcutaneous heparin Objective - Vital Signs Vital signs: Vital Signs Temp 98.6 F 05/04/21 07:38 Pulse 115 H 05/04/21 07:38 Resp 26 H 05/04/21 07:38 BP 148/84 05/04/21 07:38 Pulse Ox 97 05/04/21 07:38 Intake & Output 05/03/21 05/04/21 05/04/21 18:59 06:59 18:59 Intake Total 150 300 Output Total 2300 Balance 150 -2000 Weight 70.3 kg Intake: Intake, IV Titration 150 Amount Cefepime 1 gm In Sodium 50 Chloride 0.9% 50 ml @ 12. 5 mls/hr IVPB Q12H JONAS Rx #:[id number] Doxycycline 100 mg In 100 Sodium Chloride 0.9% 100 ml @ 100 mls/hr IVPB Q12HR JONAS Rx#:[id number] Hemodialysis 300 Output: Hemodialysis 2300 Other: Voiding Method Bedside Commode # Voids 1 2 # Bowel Movements 1 - Labs CBC & Chem 7: 05/04/21 06:03 05/04/21 06:03 Labs: Abnormal Lab Results - Last 24 Hours (Table) 05/03/21 05/04/21 05/04/21 Range/Units 18:30 06:03 06:03 Plt Count 126 L (150-450) k/uL BUN 23 H (7-17) mg/dL Creatinine 3.67 H (0.52-1.04) mg/dL Glucose 105 H (74-99) mg/dL C-Reactive Protein 4.3 H (<1.0) mg/dL Procalcitonin 0.85 H (0.02-0.09) ng/mL Microbiology - Last 24 Hours (Table) 05/02/21 20:10 Blood Culture - Preliminary Blood No Growth after 24 hours 05/02/21 18:33 Blood Culture - Preliminary Blood No Growth after 24 hours 05/03/21 02:00 Urine Culture - Preliminary Urine,Voided
[2021-05-04] MEDS: IPRATROPIUM-ALBUTEROL 3 ML NEB INHALATION PRN ×3 (08:36→16:17)
[2021-05-04] MEDS: SYMBICORT 80-4.5 MCG INHALER INHALATION SCH ×2 (08:36→21:10)
--- NOTE | 2021-05-04 08:41 | XR ---
EXAMINATION TYPE: XR chest 1V DATE OF EXAM: 05/04/2021 COMPARISON: Chest x-ray 05/02/2021, CT chest 03/12/2021 HISTORY: Congestive heart failure TECHNIQUE: Single frontal view of the chest is obtained. FINDINGS: The heart remains enlarged. There is blunting the right costophrenic angle. Interstitium i s increased. No evident pneumothorax. Aorta is dense. Patient is rotated. Bones are stable, there may be chronic rotator cuff tear right shoulder. IMPRESSION: Cardiomegaly, right basilar effusion and associated atelectasis. Difficult to exclude a component of mild interstitial edema. There is underlying emphysema.
[2021-05-04] MEDS ORDERED: FAMOTIDINE 20 MG TAB PO SCH (09:00)
[2021-05-04] MEDS ORDERED: METOPROLOL TARTRATE 25 MG TAB PO SCH (09:00)
--- NOTE | 2021-05-04 09:53 | P.PN ---
Subjective Patient is seen in follow-up for end-stage renal disease. She is maintained on hemodialysis on Wednesday schedule. [place] dizzy with this morning and was also noted to be tachycardic. Feels better now. She is on 2 L of cannula. Tolerated dialysis well yesterday. Blood pressures stable. Vital signs are stable. General: The patient appeared well nourished and normally developed. HEENT: Head exam is unremarkable. Neck is without jugular venous distension. LUNGS: Breath sounds decreased. HEART: Rate and Rhythm are regular. ABDOMEN: Soft, no distention. EXTREMITITES: No edema. Objective - Vital Signs Vital signs: Vital Signs Temp 98.6 F 05/04/21 07:38 Pulse 88 05/04/21 08:50 Resp 26 H 05/04/21 07:38 BP 148/84 05/04/21 07:38 Pulse Ox 97 05/04/21 07:38 Intake & Output 05/03/21 05/04/21 05/04/21 18:59 06:59 18:59 Intake Total 150 300 Output Total 2300 Balance 150 -2000 Weight 70.3 kg Intake: Intake, IV Titration 150 Amount Cefepime 1 gm In Sodium 50 Chloride 0.9% 50 ml @ 12. 5 mls/hr IVPB Q12H JONAS Rx #:[id number] Doxycycline 100 mg In 100 Sodium Chloride 0.9% 100 ml @ 100 mls/hr IVPB Q12HR JONAS Rx#:[id number] Hemodialysis 300 Output: Hemodialysis 2300 Other: Voiding Method Bedside Commode # Voids 1 2 # Bowel Movements 1 - Labs CBC & Chem 7: 05/04/21 06:03 05/04/21 06:03 Labs: Abnormal Lab Results - Last 24 Hours (Table) 05/03/21 05/04/21 05/04/21 Range/Units 18:30 06:03 06:03 Plt Count 126 L (150-450) k/uL BUN 23 H (7-17) mg/dL Creatinine 3.67 H (0.52-1.04) mg/dL Glucose 105 H (74-99) mg/dL C-Reactive Protein 4.3 H (<1.0) mg/dL Procalcitonin 0.85 H (0.02-0.09) ng/mL Microbiology - Last 24 Hours (Table) 05/02/21 20:10 Blood Culture - Preliminary Blood No Growth after 24 hours 05/02/21 18:33 Blood Culture - Preliminary Blood No Growth after 24 hours 05/03/21 02:00 Urine Culture - Preliminary Urine,Voided Assessment and Plan Plan: Assessment: 1. End-stage renal disease maintained on hemodialysis on Wednesday schedule. 2. Acute on chronic diastolic CHF with moderate to severe mitral and tricuspid regurgitation. 3. Pulmonary hypertension. 4. Pneumonia maintain on antibiotics. 5. Chronic kidney disease mineral bone disease. Phosphorus level 3.8. 6. Hypertension with chronic kidney disease. Plan: Hemodialysis tomorrow. Check EKG. Cardiology to be notified for further recommendations. Discussed with the nurse.
[2021-05-04 10:23] LABS: Hepatitis B Surface AB- Quant 122.4 mIU/mL; Hepatitis B Surface Antibody Reactive (Non-Reactive); Hepatitis B Surface Antigen Non-Reactive (Non-Reactive)
--- NOTE | 2021-05-04 15:40 | CONS ---
CONSULTATION CHIEF COMPLAINT: Shortness of breath and palpitations. HISTORY: Gladis is an 81-year-old lady with history of atrial fibrillation, end-stage renal disease on hemodialysis, and COPD, who is admitted to hospital with symptoms of cough, fever and urinary frequency. She was treated and I have been consulted because of atrial fibrillation with rapid ventricular rate. The patient has known permanent atrial fibrillation, heart rates are poorly controlled. She is not on anticoagulant because of some issues with bleeding. She does not have chest pain. Her shortness of breath is chronic and stable. The patient has a dialysis access on the left arm. The patient is feeling better. Past medical history is significant for end-stage renal disease on hemodialysis, COPD, diabetes, osteoarthritis, cataracts, hernia repair, joint replacement. MEDICATIONS: At home include Lasix, lidocaine, tamsulosin, Spiriva, Percocet, Combivent. ALLERGIES: Has multiple drug allergies, they are charted. FAMILY HISTORY: Negative for premature coronary artery disease. SOCIAL HISTORY: Negative for current smoking, EtOH abuse, or drug abuse. REVIEW OF SYSTEMS: HEENT is unremarkable. Cardiac as described above. Respiratory as described above. GI negative. significant for end-stage renal disease on hemodialysis. Psychosocial negative. Derm negative. Constitutional negative. Oncological negative. PHYSICAL EXAM: On exam comfortable at rest. Heart rate is 104 beats per minute. Blood pressure is normal. Chest exam reveals good air entry bilaterally. Heart exam reveals first and second heart sounds. Systolic murmur at the apex. Abdomen is soft. Examination of extremities reveals bilateral pitting edema. LABS: Lab show a hemoglobin of 12.8, platelet count is 126, potassium is 3.7, BUN is 23, creatinine is 3.6. ASSESSMENT: Permanent atrial fibrillation with poorly controlled ventricular rate. PLAN: I will obtain a 2D echo to document her LV function. Treat her with metoprolol 25 t.i.d. The issue of anticoagulation is to be addressed in the outpatient set up. We need to figure out why she was thought not to be a candidate for anticoagulation. MMODL / IJN: [id number] /
[2021-05-04] MEDS: METOPROLOL TARTRATE 25 MG TAB PO SCH ×2 (15:52→20:44)
[2021-05-04] MEDS: TEMAZEPAM 15 MG CAP PO PRN (22:34)
--- NOTE | 2021-05-05 06:56 | PN ---
PROGRESS NOTE DATE OF SERVICE: 05/04/2021 REASON FOR FOLLOWUP: 1. Pneumonia. 2. Positive blood culture. INTERVAL HISTORY: The patient is afebrile. The patient is breathing more comfortably. The patient denies having any chest pain, cough has decreased in intensity. Not able to bring up any sputum. No nausea, vomiting. No abdominal pain or diarrhea. PHYSICAL EXAMINATION: Her blood pressure is 145/87, pulse of 127, temperature 98.4. She is 95% on 3 L nasal cannula. General description is an elderly female lying in bed in no distress. Respiratory system: Unlabored breathing, decreased intensity of breath sounds. No wheeze. Heart S1, S2. Regular rate and rhythm. Abdomen: Soft, no tenderness. LABORATORY DATA: . Blood cultures with gram-positive bacilli. DIAGNOSTIC IMPRESSION AND PLAN: 1. Patient admitted to the hospital with shortness of breath and cough concerning for pneumonia. Urine for Legionella is still pending. The patient clinically responding to the Levaquin to continue while waiting for the culture to finalize. 2. Positive blood cultures with gram-positive bacilli and possible contaminant. Blood culture repeat tomorrow. No need for vancomycin. MMODL / IJN: [id number] /
[2021-05-05] MEDS: BENZOCAINE/MENTHOL LOZENG 1 EACH LOZENGE MUCOUS MEM PRN (07:07)
[2021-05-05] MEDS: SYMBICORT 80-4.5 MCG INHALER INHALATION SCH ×2 (07:22→20:50)
[2021-05-05] MEDS: METOPROLOL TARTRATE 25 MG TAB PO SCH ×3 (07:38→20:24)
[2021-05-05] MEDS: ASPIRIN 81 MG PO SCH (07:38)
[2021-05-05] MEDS: HEPARIN SODIUM,PORCINE/PF 5,000 UNIT/0.5 ML SYRINGE SQ SCH ×2 (07:38→20:27)
[2021-05-05] MEDS: FOLIC ACID-VIT B COMPLEX-VIT C 1 CAP PO SCH (07:39)
[2021-05-05] MEDS: FUROSEMIDE 40 MG TAB PO SCH (07:39)
[2021-05-05] MEDS: PANTOPRAZOLE 40 MG TABLET PO SCH (07:39)
[2021-05-05] MEDS: LIDOCAINE-PRILOCAINE 2.5-2.5% CREAM 5 GM TUBE TOPICAL SCH (07:40)
[2021-05-05 07:44] LABS: HCT 36.8 % (34.0-46.0); MCHC 32.7 g/dL (31.0-37.0); Mean Platelet Volume 8.2; Platelet Count 124 k/uL (150-450); RBC 3.75 m/uL (3.80-5.40); RDW 14.6 % (11.5-15.5); WBC 5.8 k/uL (3.8-10.6)
[2021-05-05] MEDS: CEFEPIME 1 GM in SODIUM CHLORIDE 0.9% 50 ML IVPB SCH (07:45)
[2021-05-05] MEDS ORDERED: ERGOCALCIFEROL 1,250 MCG (50,000 IU) CAPSULE PO SCH (09:00)
[2021-05-05 10:45] LABS: African American GFR (CKD) 10 (>60 ml/min/1.73 sqM); Anion Gap 11 mmol/L; Blood Urea Nitrogen 40 mg/dL (7-17); Calcium 8.9 mg/dL (8.4-10.2); Carbon Dioxide 24 mmol/L (22-30); Chloride 101 mmol/L (98-107); Glucose 132 mg/dL (74-99); Non-African American GFR(CKD) 8 (>60 ml/min/1.73 sqM); Potassium 3.7 mmol/L (3.5-5.1); Sodium 136 mmol/L (137-145)
[2021-05-05] MEDS ORDERED: METOPROLOL TARTRATE 25 MG TAB PO STA (10:56)
--- NOTE | 2021-05-05 12:42 | P.PN ---
Subjective Patient is a 81-year-old the pleasant female came in with compensative short is a cough with whitish sputum production. Patient was found to be febrile patient denied any dysuria increased to urinary frequency. Patient urine is significantly abnormal patient was started on Rocephin and doxycycline with concerns of pneumonia although there is no pneumonia on the chest x-ray such as chest x-ray service history of pulmonary edema with bilateral pleural effusions. Patient does have history of end-stage liver disease (dependent and patient dialysis access is a left arm graft. Patient is feeling much better patient does have wheezing on exam patient does use oxygen at home does have history of COPD. 05/04/2022 Infectious disease evaluate the patient that they believe patient has atypical pneumonia patient is presently on cefepime and levofloxacin. Urine Legionella antigen is being obtained sputum cultures were ordered. I still do not believe patient has pneumonia patient has pulmonary edema on the chest x-ray. And her pulmonary edema is secondary to volume overload and patient is a poor dialysis patient. Patient does have a lateral pleural effusions consistent with pulmonary edema rather than atypical pneumonia. Patient doesn't have any fevers at this time. 2 feeling short of breath does have some wheezing on exam patient will be given 1 dose of prednisone patient does have history of COPD. Is not coughing much. will repeat a chest x-ray which shows improvement but then it CHF. 05/05/2021 Patient is in atrial fibrillation with rapid unclear rate cardiology eval and the patient patient is a given additional dose of metoprolol patient metoprolol dose was increased to 25 3 times a day. Patient not on any anti-correlation patient heart rate is still high. I believe that this increased heart rate is secondary to fluoroquinolones and discontinue levofloxacin and lipid urine Legionella antigen is negative. Clinically bilateral pleural effusions is not consistent with atypical pneumonia rather it's more consistent with volume overload. I'll discuss the same with the infectious disease. Patient is also on cefepime which is being continued. Urine culture showed normal emiliano, blood cultures are positive for gram-negative bacilli which is a contamination. Patient wheezing although improved. Respiratory status is improving at this time. Constitutional: Denied any fatigue denied any fever. Cardio vascular: denied any chest pain, palpitations Gastrointestinal denied any nausea vomiting Pulmonary: Mentioned in the interval history Neurologic denied any new focal deficits All inpatient medications were reviewed and appropriate changes in these medications as dictated in the interval history and assessment and plan. PHYSICAL EXAMINATION: GENERAL: The patient is alert and oriented x3, not in any acute distress. Well developed, well nourished. HEENT: Pupils are round and equally reacting to light. EOMI. No scleral icterus. No conjunctival pallor. Normocephalic, atraumatic. No pharyngeal erythema. No thyromegaly. CARDIOVASCULAR: S1 and S2 present. No murmurs, rubs, or gallops. Tachycardic irregularly irregular rhythm PULMONARY: Mild expiratory wheezing on exam which she is an improvement compared to yesterday ABDOMEN: Soft, nontender, nondistended, normoactive bowel sounds. No palpable organomegaly. MUSCULOSKELETAL: No joint swelling or deformity. EXTREMITIES: No cyanosis, clubbing, or pedal edema. NEUROLOGICAL: Gross neurological examination did not reveal any focal deficits. SKIN: No rashes. Assessment and plan -Sepsis most probably secondary to urinary tract infection patient doesn't appear to have any pneumonia infectious disease evaluated the patient and p atient is a being treated for atypical pneumonia patient is also on levofloxacin for urinary Legionella antigen is negative patient heart rhythm abnormalities can be related to fluoroquinolones were discontinued levofloxacin and continue cefepime. -Atrial fibrillation with rapid unclear rate cardiology evaluated the patient patient is not on any anticoagulation at this time and patient is on metoprolol 50 3 times a day. And cardiology is recommending the anticoagulation issue to be addressed by her master sheet clerk. -Shortness of breath and pulmonary edema secondary to end-stage renal disease, had urinalysis today continues to have shortness of breath patient does have COPD which is contributing to her shortness of breath and wheezing did improve -COPD with mild acute exacerbation patient will be started on inhaled steroids inhalational treatments and dose of prednisone. -Chronic respiratory failure on home oxygen which will be continued -Pulmonary hypertension secondary to urinary hypertension most probably secondary to COPD -Chronic kidney disease/end-stage renal disease secondary to hypertensive nephrosclerosis are to diabetic nephropathy -Hypertension -Gastroesophageal reflux disease DVT prophylaxis: Subcutaneous heparin Objective - Vital Signs Vital signs: Vital Signs Temp 97.9 F 05/05/21 07:33 Pulse 141 H 05/05/21 10:36 Resp 19 05/05/21 07:33 BP 127/87 05/05/21 07:33 Pulse Ox 99 05/05/21 07:33 Intake & Output 05/04/21 05/05/21 05/05/21 18:59 06:59 18:59 Intake Total 50 Balance 50 Weight 71.1 kg Intake: Intake, IV Titration 50 Amount Cefepime 1 gm In Sodium 50 Chloride 0.9% 50 ml @ 12. 5 mls/hr IVPB Q24HR [facility] Rx#:[id number] Other: Voiding Method Bedside Commode # Voids 1 # Bowel Movements 1 - Labs CBC & Chem 7: 05/05/21 06:57 05/05/21 10:10 Labs: Abnormal Lab Results - Last 24 Hours (Table) 05/05/21 05/05/21 Range/Units 06:57 10:10 RBC 3.75 L (3.80-5.40) m/uL Plt Count 124 L (150-450) k/uL Sodium 136 L (137-145) mmol/L BUN 40 H (7-17) mg/dL Creatinine 4.62 H (0.52-1.04) mg/dL Glucose 132 H (74-99) mg/dL Microbiology - Last 24 Hours (Table) 05/02/21 18:33 Blood Culture Gram Stain - Preliminary Blood 05/02/21 20:10 Blood Culture - Preliminary Blood No Growth after 48 hours 05/02/21 18:33 Blood Culture - Final Blood 05/03/21 02:00 Urine Culture - Final Urine,Voided
[2021-05-05] MEDS: oxyCODONE-APAP 5-325MG 1 EACH TAB PO PRN (13:15)
[2021-05-05] MEDS: NYSTATIN 100,000 UNIT/ML SUSP 500,000 UNIT/5 ML CUP PO SCH ×3 (14:09→20:25)
[2021-05-05] MEDS ORDERED: MIDODRINE 5 MG TAB PO ONE (14:31)
[2021-05-05] MEDS: IPRATROPIUM-ALBUTEROL 3 ML NEB INHALATION PRN (15:47)
[2021-05-05] MEDS ORDERED: METOPROLOL TARTRATE 50 MG TAB PO SCH (16:00)
--- NOTE | 2021-05-05 18:00 | PN ---
PROGRESS NOTE Patient is seen for followup for end-stage renal disease. She is scheduled on a Wednesday, Wednesday, Wednesday schedule. This morning patient is complaining of shortness of breath. She is noted to be in atrial fibrillation with an RVR and has received Lopressor. Heart rate about 140s. The patient denies any chest pains. PHYSICAL EXAMINATION: On examination today, blood pressure 108/78, heart rate 140 per minute, she is afebrile. Examination of the heart S1, S2. Examination of the lungs, decreased breath sounds at the bases. Abdomen is soft, nontender. Examination of lower extremities shows no evidence of edema. PERSONNEL SECURITY SPECIALIST exam grossly intact. LAB: Show sodium 136, potassium 3.7, BUN 40, creatinine 4.62. ASSESSMENT: 1. End-stage renal disease, on hemodialysis on a Wednesday, Wednesday, Wednesday schedule. 2. Atrial fibrillation with RVR, being followed by Cardiology, maintained on Lopressor. May need IV Cardizem drip. 3. Pulmonary hypertension. 4. Chronic diastolic congestive heart failure with acute component. 5. History of moderate to severe mitral and tricuspid regurgitation. 6. Chronic kidney disease mineral bone disorder. 7. Hypertension with chronic kidney disease. 8. Volume overload, expect improvement with dialysis today. PLAN: Hemodialysis today, however, patient's heart rate is quite elevated. We will try to have a goal ultrafiltration of about 1 to 1.5 L as tolerated. If her heart rate increases further the patient will not be dialyzed and we will plan for a treatment again tomorrow. MMODL / IJN: [id number] /
--- NOTE | 2021-05-05 19:00 | ECHOF ---
Referral Reason:afib MEASUREMENTS -------- HEIGHT: 162.6 cm WEIGHT: 69.9 kg BP: IVSd: 0.8 cm (0.6 - 1.1) LVIDd: 4.5 cm (3.9 - 5.3) LVPWd: 1.5 cm (0.6 - 1.1) EDV(Teich): 93 ml IVSs: 1.1 cm LVIDs: 3.6 cm LVPWs: 1.7 cm %IVS Thck: 39 % ESV(Teich): 55 ml EF(Teich): 41 % %FS: 20 % SV(Teich): 39 ml LA Diam: 4.3 cm (2.7 - 3.8) RVIDd: 3.4 cm (< 3.3) Ao Diam: 2.5 cm (2.0 - 3.7) TR Vmax: 3.79 m/s TR maxP.36 mmHg RAP: 5.00 mmHg RVSP: 62.36 mmHg MV EF SLOPE: 64.48 mm/s (70 - 150) MV EXCURSION: 17.01 mm (> 18.000) FINDINGS -------- Atrial fibrillation. This was a technically adequate study. Overall left ventricular systolic function is mild-moderately impaired with, an EF between 40 - 45 %. The right ventricle is mild to moderately enlarged. The left atrium is moderately dilated. The right atrial size is normal. There is doming of the aortic valve leaflets. There is mild aortic valve sclerosis. Mild mitral annular calcification present. Mild mitral regurgitation is present. Moderate tricuspid regurgitation present. There is moderate pulmonary hypertension. The right lennox tricular systolic pressure, as measured by Doppler, is 62.36mmHg. There is no pulmonic regurgitation present. There is no pericardial effusion. Small Pleural Effusion. CONCLUSIONS -------- 1. Overall left ventricular systolic function is mild-moderately impaired with, an EF between 40 - 45 %. 2. The right ventricle is mild to moderately enlarged. 3. The left atrium is moderately dilated. 4. The right atrial size is normal. 5. There is doming of the aortic valve leaflets. 6. Mild mitral annular calcification present. 7. Mild mitral regurgitation is present. 8. Moderate tricuspid regurgitation present. 9. There is moderate pulmonary hypertension. 10. The right ventricular systolic pressure, as measured by Doppler, is 62.36mmHg. 11. There is no pulmonic regurgitation present. 12. There is no pericardial effusion. 13. Small Pleural Effusion. INSPECTOR EXPERIMENTAL ASSEMBLY: Lilia Mchugh RDCS
[2021-05-05] MEDS: TEMAZEPAM 15 MG CAP PO PRN (23:16)
--- NOTE | 2021-05-05 23:17 | PN ---
PROGRESS NOTE DATE OF SERVICE: 05/05/2021 REASON FOR FOLLOWUP: 1. Pneumonia. 2. Positive blood culture likely contamination. INTERVAL HISTORY: Patient is afebrile. The patient is breathing comfortably. The patient did have a cough, which is dry in nature. No nausea, no vomiting. No abdominal pain or diarrhea. PHYSICAL EXAMINATION: Blood pressure 101/66, pulse 84, temp 97.7. She is 99% on 2 L nasal cannula. General description is an elderly female lying in no distress. Respiratory system: Unlabored breathing, decreased breath sounds in the bases with no wheeze. Heart S1, S2. Regular rate and rhythm. Abdomen is soft. No tenderness. LABS: BUN of 40, creatinine 4.62. Urine for Legionella antigen negative. White count 5.8. DIAGNOSTIC IMPRESSION AND PLAN: 1. Patient admitted to the hospital with pneumonia, possible community-acquired. Urine for Legionella negative. Levaquin has been discontinued. Continue .. 2. Positive blood culture with gram-positive bacilli and possible contaminant. No need for any therapy for the same thing. MMODL / IJN: [id number] /
[2021-05-06] MEDS: IPRATROPIUM-ALBUTEROL 3 ML NEB INHALATION PRN ×4 (07:20→20:12)
[2021-05-06] MEDS: SYMBICORT 80-4.5 MCG INHALER INHALATION SCH ×2 (07:20→20:12)
[2021-05-06] MEDS: CEFEPIME 1 GM in SODIUM CHLORIDE 0.9% 50 ML IVPB SCH (07:31)
[2021-05-06] MEDS: HEPARIN SODIUM,PORCINE/PF 5,000 UNIT/0.5 ML SYRINGE SQ SCH (07:32)
[2021-05-06] MEDS: METOPROLOL TARTRATE 25 MG TAB PO SCH ×3 (07:32→21:14)
[2021-05-06] MEDS: ASPIRIN 81 MG PO SCH (07:32)
[2021-05-06] MEDS: FUROSEMIDE 40 MG TAB PO SCH (07:33)
[2021-05-06] MEDS: PANTOPRAZOLE 40 MG TABLET PO SCH (07:33)
[2021-05-06] MEDS: NYSTATIN 100,000 UNIT/ML SUSP 500,000 UNIT/5 ML CUP PO SCH ×4 (07:33→21:15)
[2021-05-06] MEDS: FOLIC ACID-VIT B COMPLEX-VIT C 1 CAP PO SCH (07:33)
[2021-05-06 09:09] LABS: HCT 35.2 % (37.2-46.3); HGB 11.3 g/dL (12.0-15.0); MCH 30.6 pg (27.0-32.0); MCHC 32.1 g/dL (32.0-37.0); MCV 95.4 fL (80.0-97.0); Mean Platelet Volume 10.9 fL (9.5-12.2); Platelet Count 162 X 10*3/uL (140-440); RBC 3.69 X 10*6/uL (4.10-5.20); RDW 15.6 % (11.5-14.5); WBC 7.25 X 10*3/uL (4.50-10.00)
--- NOTE | 2021-05-06 09:37 | P.PN ---
Subjective This is a pleasant 81-year-old female past medical history significant for end-stage renal disease on hemodialysis, history of SVT, diabetes mellitus and COPD. She follows in the office with Dr. Chavarria. She is seen and examined sitting up in bed in no acute distress. She has family at the bedside. She continues to be in atrial fibrillation with poorly controlled ventricular rates. There is some question of prior history of A. fib however according to Dr. Chavarria's office documentation the patient is only ever been diagnosed with SVT and atrial tachycardia in the past. Blood pressure 127/87 heart rate 141 afebrile maintaining oxygen saturation on nasal cannula. GENERAL: Well-appearing, well-nourished and in no acute distress. NECK: Supple without JVD or thyromegaly. LUNGS: Respiration equal and unlabored. Scattered rhonchi throughout, no wheezes or rales. HEART: Irregular rate and rhythm without murmurs, rubs or gallops. S1 and S2 heard. EXTREMITIES: Normal range of motion, no edema. No clubbing or cyanosis. Peripheral pulses intact. ASSESSMENT Paroxysmal atrial organized atrial tachycardia with rapid ventricular rate End-stage renal disease on hemodialysis PLAN Increase metoprolol to 75 mg 3 times a day. Nurse Practitioner note has been reviewed, I agree with a documented findings and plan of care. Patient was seen and examined. Objective - Vital Signs Vital signs: Vital Signs Temp 97.9 F 05/05/21 07:33 Pulse 141 H 05/05/21 10:36 Resp 19 05/05/21 07:33 BP 127/87 05/05/21 07:33 Pulse Ox 99 05/05/21 07:33 Intake & Output 05/04/21 05/05/21 05/05/21 18:59 06:59 18:59 Intake Total 50 Balance 50 Weight 71.1 kg Intake: Intake, IV Titration 50 Amount Cefepime 1 gm In Sodium 50 Chloride 0.9% 50 ml @ 12. 5 mls/hr IVPB Q24HR [facility] Rx#:[id number] Other: Voiding Method Bedside Commode # Voids 1 # Bowel Movements 1 - Labs CBC & Chem 7: 05/06/21 06:07 05/05/21 10:10 Labs: Abnormal Lab Results - Last 24 Hours (Table) 05/05/21 05/05/21 Range/Units 06:57 10:10 RBC 3.75 L (3.80-5.40) m/uL Plt Count 124 L (150-450) k/uL Sodium 136 L (137-145) mmol/L BUN 40 H (7-17) mg/dL Creatinine 4.62 H (0.52-1.04) mg/dL Glucose 132 H (74-99) mg/dL Microbiology - Last 24 Hours (Table) 05/02/21 18:33 Blood Culture Gram Stain - Preliminary Blood 05/02/21 20:10 Blood Culture - Preliminary Blood No Growth after 48 hours 05/02/21 18:33 Blood Culture - Final Blood 05/03/21 02:00 Urine Culture - Final Urine,Voided
[2021-05-06 10:14] LABS: African American GFR (CKD) 9.4 (60.0-200.0); BUN/Creat Ratio 8.94 Ratio (12.00-20.00); Calcium 7.9 mg/dL (8.7-10.3); Non-African American GFR(CKD) 8.1 (60.0-200.0); Potassium 3.9 mmol/L (3.5-5.5)
[2021-05-06] MEDS: APIXABAN 2.5 MG TABLET PO SCH ×2 (12:50→21:15)
--- NOTE | 2021-05-06 13:37 | PN ---
PROGRESS NOTE Patient is seen for followup for end-stage renal disease. The patient was not able to tolerate dialysis yesterday. We had about 1-1/2 hour treatment. Her heart rate had been significantly elevated, 130-1 40 beats per minute. We were not able to take any fluid off. This morning her heart rate is much improved and staying at about 112 per minute. Her respiratory status is slightly improved, although she remains short of breath. PHYSICAL EXAMINATION: On examination today, blood pressure 119/84, heart rate 120 per minute, she is afebrile. Examination of the heart S1, S2. Examination of the lungs, bilateral breath sounds are heard. Decreased breath sounds at bases. Abdomen is soft, nontender. Examination of lower extremities shows no evidence of edema. AIRFRAME DESIGN ENGINEER exam grossly intact. LAB: Show sodium 137, potassium 3.9, chloride 100, hemoglobin 11.3 g/dL. ASSESSMENT: 1. End-stage renal disease, on hemodialysis on a Wednesday, Wednesday, Wednesday schedule. Patient did not tolerate her treatment well yesterday secondary to atrial fibrillation with RVR. We will plan to dialyze him again today for a short period of time mostly for fluid removal. 2. Acute hypoxic respiratory failure secondary to fluid overload. Expect improvement post dialysis. 3. Atrial fibrillation with rapid ventricular response, heart rate is slightly improved. Patient is maintained on metoprolol. She is on Eliquis for anticoagulation. 4. Diphtheroid bacteremia, most likely contaminant. 5. Possible community-acquired pneumonia, being followed by Infectious Disease, maintained on antibiotics. PLAN: Repeat hemodialysis today mostly for ultrafiltration for about 2 hours and then continue with metoprolol for rate control. If patient tolerates dialysis well, we will plan for her regular treatment again tomorrow. MMODL / IJN: [id number] /
--- NOTE | 2021-05-06 13:37 | PN ---
PROGRESS NOTE DATE OF VISIT: 05/06/2021 REASON FOR FOLLOWUP: 1. Pneumonia. 2. Positive blood culture likely contamination. INTERVAL HISTORY: The patient is afebrile. The patient is breathing comfortably. The patient denies having chest pain. She did have a cough, which is mostly dry in nature. No nausea, no vomiting. No abdominal pain, no diarrhea. PHYSICAL EXAMINATION: Blood pressure is 119/84, pulse of 120, temperature of 97.7. She is 99% on 4 L nasal cannula. GENERAL DESCRIPTION is an elderly female up in the chair in no distress. RESPIRATORY SYSTEM: Unlabored breathing, decreased BS, no wheeze. HEART: S1, S2. Regular rate and rhythm. ABDOMEN: Soft, no tenderness. LABS: Hemoglobin 11.9, white count 7.5. BUN of 42, creatinine 4.7. DIAGNOSTIC IMPRESSION AND PLAN: 1. Patient with admission to the hospital with pneumonia, clinically responding cefepime, to continue. Transition to oral antibiotic on discharge. 2. Positive blood culture with diphtheroids, likely contaminant. Blood culture negative. No need for further workup for the same thing. MMODL / IJN: [id number] /
[2021-05-06] MEDS: AMIODARONE 200 MG TAB PO SCH ×3 (14:14→21:15)
--- NOTE | 2021-05-06 15:37 | P.PN ---
Subjective Progress Note Date: 05/06/21 Patient is a 81-year-old the pleasant female came in with compensative short is a cough with whitish sputum production. Patient was found to be febrile patient denied any dysuria increased to urinary frequency. Patient urine is significantly abnormal patient was started on Rocephin and doxycycline with concerns of pneumonia although there is no pneumonia on the chest x-ray such as chest x-ray service history of pulmonary edema with bilateral pleural effusions. Patient does have history of end-stage liver disease (dependent and patient dialysis access is a left arm graft. Patient is feeling much better patient does have wheezing on exam patient does use oxygen at home does have history of COPD. 05/04/2022 Infectious disease evaluate the patient that they believe patient has atypical p neumonia patient is presently on cefepime and levofloxacin. Urine Legionella antigen is being obtained sputum cultures were ordered. I still do not believe patient has pneumonia patient has pulmonary edema on the chest x-ray. And her pulmonary edema is secondary to volume overload and patient is a poor dialysis patient. Patient does have a lateral pleural effusions consistent with pulmonary edema rather than atypical pneumonia. Patient doesn't have any fevers at this time. 2 feeling short of breath does have some wheezing on exam patient will be given 1 dose of prednisone patient does have history of COPD. Is not coughing much. will repeat a chest x-ray which shows improvement but then it CHF. 05/05/2021 Patient is in atrial fibrillation with rapid unclear rate cardiology eval and the patient patient is a given additional dose of metoprolol patient metoprolol dose was increased to 25 3 times a day. Patient not on any anticoagulation patient heart rate is still high. I believe that this increased heart rate is secondary to fluoroquinolones and discontinue levofloxacin and lipid urine Legionella antigen is negative. Clinically bilateral pleural effusions is not consistent with atypical pneumonia rather it's more consistent with volume overload. I'll discuss the same with the infectious disease. Patient is also on cefepime which is being continued. Urine culture showed normal emiliano, blood cultures are positive for gram-negative bacilli which is a contamination. P atient wheezing although improved. Respiratory status is improving at this time. 05/06/2021 Patient is seen in follow-up this morning and heart rate slightly improved after increasing dose although blood pressure on the lower side with multiple medical consultations following. Patient continues on IV cefepime with infectious disease following closely. Nephrology also following as patient receives dialysis and unable to tolerate yesterday and will try ultrafiltration today with possibly resuming hemodialysis on her normal schedule of Wednesday/Wednesday/Wednesday. Patient being started on Eliquis 2.5 mg twice a day. Patient continues on metoprolol 75 mg 3 times daily and cardiology following closely and has added amiodarone 200 mg 3 times daily and will continue to monitor closely. She continues to have some shortness of breath with mild wheezing noted and is continued on breathing inhalational treatments and will continue. Patient is afebrile. Constitutional: Denied any fatigue denied any fever. Cardio vascular: denied any chest pain, palpitations Gastrointestinal denied any nausea vomiting Pulmonary: Mentioned in the interval history Neurologic denied any new focal deficits All inpatient medications were reviewed and appropriate changes in these medications as dictated in the interval history and assessment and plan. PHYSICAL EXAMINATION: GENERAL: The patient is alert and oriented x3, not in any acute distress. Well developed, well nourished. HEENT: Pupils are round and equally reacting to light. EOMI. No scleral icterus. No conjunctival pallor. Normocephalic, atraumatic. No pharyngeal erythema. No thyromegaly. CARDIOVASCULAR: S1 and S2 present. No murmurs, rubs, or gallops. Tachycardic irregularly irregular rhythm PULMONARY: Diminished breath sounds bilaterally with Mild expiratory wheezing on exam which she is slowly improving ABDOMEN: Soft, nontender, nondistended, normoactive bowel sounds. No palpable organomegaly. MUSCULOSKELETAL: No joint swelling or deformity. EXTREMITIES: No cyanosis, clubbing, or pedal edema. NEUROLOGICAL: Gross neurological examination did not reveal any focal deficits. SKIN: No rashes. Assessment and plan -Sepsis most probably secondary to urinary tract infection patient doesn't appear to have any pneumonia. infectious disease following an patient is maintained on IV cefepime for possible atypical pneumonia -Atrial fibrillation with rapid unclear rate cardiology evaluated the patient and being started on Eliquis 2.5 mg twice daily. patient is on metoprolol 75mg 3 times a day. And amiodarone being added and will monitor closely -Shortness of breath and pulmonary edema secondary to end-stage renal disease, had ultrafiltration today, continues to have shortness of breath patient does have COPD which is contributing to her shortness of breath and wheezing did improve -COPD with mild acute exacerbation patient will be started on inhaled steroids inhalational treatments and dose of prednisone. -Chronic respiratory failure on home oxygen which will be continued -Pulmonary hypertension most probably secondary to COPD -Chronic kidney disease/end-stage renal disease secondary to hypertensive nephrosclerosis and diabetic nephropathy -Hypertension -Gastroesophageal reflux disease -DVT prophylaxis: eliquis -Full code Plan: Continue to monitor vital signs and attempt ultrafiltration today with possible hemodialysis tomorrow. Continue to follow with multiple medical consultations. Will repeat a.m. labs and continue to monitor closely. Patient is. Anxious to go home and would like to go home tomorrow if possible. Possible discharge in 24 hours. Objective - Vital Signs Vital signs: Vital Signs Temp 98.4 F 05/06/21 14:00 Pulse 133 H 05/06/21 14:00 Resp 18 05/06/21 14:00 BP 132/76 05/06/21 14:00 Pulse Ox 95 05/06/21 14:00 Intake & Output 05/05/21 05/06/21 05/06/21 18:59 06:59 18:59 Intake Total 1100 Output Total 0 300 Balance 0 800 Weight 68.7 kg Intake: Hemodialysis 1100 Output: Hemodialysis 0 300 Other: Voiding Method Bedside Commode Bedside Commode # Voids 3 - Labs CBC & Chem 7: 05/06/21 06:07 05/06/21 06:07 Labs: Abnormal Lab Results - Last 24 Hours (Table) 05/06/21 05/06/21 Range/Units 06:07 06:07 RBC 3.69 L (4.10-5.20) X 10*6/uL Hgb 11.3 L (12.0-15.0) g/dL Hct 35.2 L (37.2-46.3) % RDW 15.6 H (11.5-14.5) % Absolute Nucleated RBC 0.02 H (0.00-0.00) X 10*3/uL NRBC/100 WBC Diff 0.3 H (0.0-0.0) /100 WBCS Anion Gap 14.00 H (4.00-12.00) mmol/L BUN 42.0 H (9.0-27.0) mg/dL Creatinine 4.7 H (0.6-1.5) mg/dL Est GFR (CKD-EPI)AfAm 9.4 L (60.0-200.0) Est GFR (CKD-EPI)NonAf 8.1 L (60.0-200.0) BUN/Creatinine Ratio 8.94 L (12.00-20.00) Ratio Calcium 7.9 L (8.7-10.3) mg/dL Microbiology - Last 24 Hours (Table) 05/02/21 18:33 Blood Culture Gram Stain - Final Blood Blood Culture - Preliminary Brevibacterium species 05/05/21 06:57 Blood Culture - Preliminary Blood No Growth after 24 hours 05/02/21 20:10 Blood Culture - Preliminary Blood No Growth after 72 hours
[2021-05-06] MEDS: TEMAZEPAM 15 MG CAP PO PRN (22:54)
[2021-05-07] MEDS: FUROSEMIDE 40 MG TAB PO SCH (07:52)
[2021-05-07] MEDS: APIXABAN 2.5 MG TABLET PO SCH ×2 (07:52→21:03)
[2021-05-07] MEDS: METOPROLOL TARTRATE 25 MG TAB PO SCH ×3 (07:52→21:03)
[2021-05-07] MEDS: LIDOCAINE-PRILOCAINE 2.5-2.5% CREAM 5 GM TUBE TOPICAL SCH (07:52)
[2021-05-07] MEDS: NYSTATIN 100,000 UNIT/ML SUSP 500,000 UNIT/5 ML CUP PO SCH ×4 (07:53→21:04)
[2021-05-07] MEDS: CEFEPIME 1 GM in SODIUM CHLORIDE 0.9% 50 ML IVPB SCH (07:53)
[2021-05-07] MEDS: AMIODARONE 200 MG TAB PO SCH ×3 (07:53→21:03)
[2021-05-07] MEDS: PANTOPRAZOLE 40 MG TABLET PO SCH (07:53)
[2021-05-07] MEDS: FOLIC ACID-VIT B COMPLEX-VIT C 1 CAP PO SCH (07:53)
[2021-05-07] MEDS: IPRATROPIUM-ALBUTEROL 3 ML NEB INHALATION PRN ×3 (08:17→21:56)
[2021-05-07] MEDS: SYMBICORT 80-4.5 MCG INHALER INHALATION SCH ×2 (08:17→21:57)
--- NOTE | 2021-05-07 09:31 | P.PN ---
Subjective This is a pleasant 81-year-old female past medical history significant for end-stage renal disease on hemodialysis, history of SVT, diabetes mellitus and COPD. She follows in the office with Dr. Chavarria. She is seen and examined sitting up in bed in no acute distress. She has family at the bedside. She continues to be in atrial fibrillation with poorly controlled ventricular rates. There is some question of prior history of A. fib however according to Dr. Chavarria's office documentation the patient is only ever been diagnosed with SVT and atrial tachycardia in the past. Blood pressure 127/87 heart rate 141 afebrile maintaining oxygen saturation on nasal cannula. 05/07/2021 Pt is seen and examined sitting up in bed in no acute distress. Her breathing is starting to improve. She continues to be in afib with rates in the 100-115 ranges. Better at night while sleeping. Blood pressure 116/77 heart rate 97 afebrile and maintaining oxygen saturation on nasal cannula. GENERAL: Well-appearing, well-nourished and in no acute distress. NECK: Supple without JVD or thyromegaly. LUNGS: Respiration equal and unlabored. Scattered rhonchi throughout, no wheezes or rales. HEART: Irregular rate and rhythm without murmurs, rubs or gallops. S1 and S2 heard. EXTREMITIES: Normal range of motion, no edema. No clubbing or cyanosis. Perip heral pulses intact. ASSESSMENT Paroxysmal organized atrial tachycardia with rapid ventricular rate End-stage renal disease on hemodialysis Pneumonia Bacteremia, possible contaminant per ID Diabetes mellitus COPD History of SVT PLAN Amiodarone has been initiated yesterday for help with rate control. This has helped some but she is still mildly uncontrolled. This is likely being driven by her current pulmonary state with pneumonia. She will continue 200 mg TID for 2 weeks, then decrease to 200 mg BID, then daily thereafter. If she does not convert she will likely require SHERON/cardioversion as an outpatient down the line. Discussed with the patient and daughter in detail the current plan. Nurse Practitioner note has been reviewed, I agree with a documented findings and plan of care. Patient was seen and examined. Objective - Vital Signs Vital signs: Vital Signs Temp 97.8 F 05/07/21 08:00 Pulse 124 H 05/07/21 08:00 Resp 18 05/07/21 08:00 BP 116/77 05/07/21 08:00 Pulse Ox 98 05/07/21 08:00 Intake & Output 05/06/21 05/07/21 05/07/21 18:59 06:59 18:59 Intake Total 1640 Output Total 300 Balance 1340 Weight 68.7 kg 69.4 kg Intake: Oral 540 Hemodialysis 1100 Output: Hemodialysis 300 Other: Voiding Method Bedside Commode Bedside Commode # Voids 2 1 - Labs CBC & Chem 7: 05/06/21 06:07 05/06/21 06:07 Labs: Abnormal Lab Results - Last 24 Hours (Table) 05/06/21 05/06/21 Range/Units 06:07 06:07 RBC 3.69 L (4.10-5.20) X 10*6/uL Hgb 11.3 L (12.0-15.0) g/dL Hct 35.2 L (37.2-46.3) % RDW 15.6 H (11.5-14.5) % Absolute Nucleated RBC 0.02 H (0.00-0.00) X 10*3/uL NRBC/100 WBC Diff 0.3 H (0.0-0.0) /100 WBCS Anion Gap 14.00 H (4.00-12.00) mmol/L BUN 42.0 H (9.0-27.0) mg/dL Creatinine 4.7 H (0.6-1.5) mg/dL Est GFR (CKD-EPI)AfAm 9.4 L (60.0-200.0) Est GFR (CKD-EPI)NonAf 8.1 L (60.0-200.0) BUN/Creatinine Ratio 8.94 L (12.00-20.00) Ratio Calcium 7.9 L (8.7-10.3) mg/dL Microbiology - Last 24 Hours (Table) 05/02/21 20:10 Blood Culture - Preliminary Blood No Growth after 96 hours 05/02/21 18:33 Blood Culture Gram Stain - Final Blood Blood Culture - Preliminary Brevibacterium species 05/05/21 06:57 Blood Culture - Preliminary Blood No Growth after 24 hours
--- NOTE | 2021-05-07 11:54 | PN ---
PROGRESS NOTE Patient is seen for followup for end-stage renal disease. Her heart rate has been running high. She remains about 106-120. We tried to dialyze the patient again yesterday and we were able to get about 1.1 L. This morning she is sitting up in a chair, still complaining of shortness of breath. Heart rate is noted to be 124. PHYSICAL EXAMINATION: Blood pressure 116/77. She is afebrile. Examination of the heart S1, S2. Examination of the lungs, bilateral breath sounds are heard. Abdomen is soft, nontender. Examination of the lower extremities shows no evidence of edema. [employer] exam grossly intact. LABS: Show sodium 137, potassium 3.9, hemoglobin 11.3 g/dL. ASSESSMENT: 1. End-stage renal disease, on hemodialysis on a Wednesday, Wednesday, Wednesday schedule. The patient was dialyzed yesterday and we were able to get just about 1.1 L mostly secondary to atrial fibrillation with RVR. I will hold off on dialysis today and plan for a treatment tomorrow. Hopefully, her rate is better controlled by then. 2. Atrial fibrillation with RVR, being followed by Cardiology, started on amiodarone, maintained on Lopressor as well. 3. Volume overload seems to have improved. I believe her shortness of breath is mostly related to the atrial fibrillation with RVR. I will check a chest x-ray today and then repeated again post dialysis tomorrow. We will try to increase UF as tolerated tomorrow with dialysis if her heart rate is better controlled. 4. Chronic kidney disease, mineral bone disorder. PLAN: Hemodialysis in a.m. Check chest x-ray today and then again in a.m. post dialysis. MMODL / IJN: [id number] /
--- NOTE | 2021-05-07 14:30 | P.PN ---
Subjective Progress Note Date: 05/07/21 Patient is a 81-year-old the pleasant female came in with compensative short is a cough with whitish sputum production. Patient was found to be febrile patient denied any dysuria increased to urinary frequency. Patient urine is significantly abnormal patient was started on Rocephin and doxycycline with concerns of pneumonia although there is no pneumonia on the chest x-ray such as chest x-ray service history of pulmonary edema with bilateral pleural effusions. Patient does have history of end-stage liver disease (dependent and patient dialysis access is a left arm graft. Patient is feeling much better patient does have wheezing on exam patient does use oxygen at home does have history of COPD. 05/04/2022 Infectious disease evaluate the patient that they believe patient has atypical p neumonia patient is presently on cefepime and levofloxacin. Urine Legionella antigen is being obtained sputum cultures were ordered. I still do not believe patient has pneumonia patient has pulmonary edema on the chest x-ray. And her pulmonary edema is secondary to volume overload and patient is a poor dialysis patient. Patient does have a lateral pleural effusions consistent with pulmonary edema rather than atypical pneumonia. Patient doesn't have any fevers at this time. 2 feeling short of breath does have some wheezing on exam patient will be given 1 dose of prednisone patient does have history of COPD. Is not coughing much. will repeat a chest x-ray which shows improvement but then it CHF. 05/05/2021 Patient is in atrial fibrillation with rapid unclear rate cardiology eval and the patient patient is a given additional dose of metoprolol patient metoprolol dose was increased to 25 3 times a day. Patient not on any anticoagulation patient heart rate is still high. I believe that this increased heart rate is secondary to fluoroquinolones and discontinue levofloxacin and lipid urine Legionella antigen is negative. Clinically bilateral pleural effusions is not consistent with atypical pneumonia rather it's more consistent with volume overload. I'll discuss the same with the infectious disease. Patient is also on cefepime which is being continued. Urine culture showed normal emiliano, blood cultures are positive for gram-negative bacilli which is a contamination. P atient wheezing although improved. Respiratory status is improving at this time. 05/06/2021 Patient is seen in follow-up this morning and heart rate slightly improved after increasing dose although blood pressure on the lower side with multiple medical consultations following. Patient continues on IV cefepime with infectious disease following closely. Nephrology also following as patient receives dialysis and unable to tolerate yesterday and will try ultrafiltration today with possibly resuming hemodialysis on her normal schedule of Wednesday/Wednesday/Wednesday. Patient being started on Eliquis 2.5 mg twice a day. Patient continues on metoprolol 75 mg 3 times daily and cardiology following closely and has added amiodarone 200 mg 3 times daily and will continue to monitor closely. She continues to have some shortness of breath with mild wheezing noted and is continued on breathing inhalational treatments and will continue. Patient is afebrile. 05/07/2021 Patient is seen in follow-up with no acute overnight issues noted. Daughter at the bedside and discussed discharge planning as patient continues to be extremely weak and dyspneic with minimal exertion and will have PT/OT evaluate the patient and also case management to discuss options of possible ECF for continued PT/OT therapy and family along with patient are agreeable if it is a covered benefit under her insurance as she does live alone and they are quite concerned as they live in [facility] with limited visitations allowed. They feel she is unsafe to return home at this time and her current clinical situation. Patient continues on 3-4 L of oxygen via nasal cannula and continues to have a minimal cough with no phlegm production. Patient did tolerate ultrafiltration yesterday and nephrology following and plans are for hemodialysis in the morning with follow-up chest x-ray. Patient is continued on oral amiodarone along with oral metoprolol and heart rate improved today. Patient is continued on IV cefepime with infectious disease following. Patient is afebrile and white blood count within normal limits. Chest x-ray ordered today and pending at this time. Constitutional: Denied any fatigue denied any fever. Cardio vascular: denied any chest pain, palpitations Gastrointestinal denied any nausea vomiting Pulmonary: Mentioned in the interval history Neurologic denied any new focal deficits, reports generalized weakness All inpatient medications were reviewed and appropriate changes in these medications as dictated in the interval history and assessment and plan. PHYSICAL EXAMINATION: GENERAL: The patient is alert and oriented x3, not in any acute distress. Well developed, well nourished. HEENT: Pupils are round and equally reacting to light. EOMI. No scleral icterus. No conjunctival pallor. Normocephalic, atraumatic. No pharyngeal erythema. No thyromegaly. CARDIOVASCULAR: S1 and S2 present. No murmurs, rubs, or gallops. Tachycardic irregularly irregular rhythm PULMONARY: Diminished breath sounds bilaterally with scattered rhonchi noted. Wheezing improved. ABDOMEN: Soft, nontender, nondistended, normoactive bowel sounds. No palpable organomegaly. MUSCULOSKELETAL: No joint swelling or deformity. EXTREMITIES: No cyanosis, clubbing, or pedal edema. NEUROLOGICAL: Gross neurological examination did not reveal any focal deficits. SKIN: No rashes. Assessment and plan -Sepsis most probably secondary to urinary tract infection patient doesn't appear to have any pneumonia. infectious disease following and patient is maintained on IV cefepime for possible atypical pneumonia -Atrial fibrillation with rapid unclear rate cardiology evaluated the patient and being started on Eliquis 2.5 mg twice daily. patient is on metoprolol 75mg 3 times a day. And amiodarone being added and will monitor closely, improving and will need an amiodarone taper and close outpatient follow-up with cardiology and possible SHERON in the outpatient setting if this continues to be uncontrolled -Acute on chronic systolic congestive heart failure acute exacerbation, most recent EF is 40-45% -Shortness of breath and pulmonary edema secondary to end-stage renal disease, will have hemodialysis tomorrow, continues to have shortness of breath patient does have COPD which is contributing to her shortness of breath and wheezing did improve -COPD with mild acute exacerbation patient will continue on inhaled steroids inhalational treatments and dose of prednisone. -Chronic respiratory failure on home oxygen which will be continued -Pulmonary hypertension most probably secondary to COPD -Chronic kidney disease/end-stage renal disease secondary to hypertensive nephrosclerosis and diabetic nephropathy -Hypertension -Gastroesophageal reflux disease -DVT prophylaxis: eliquis -Full code Plan: Continue to monitor vital signs and tolerated ultrafiltration yesterday with possible hemodialysis tomorrow. Nephrology is following closely. Continue to follow with multiple medical consultations. Chest x-ray ordered and pending at this time and patient will undergo hemodialysis tomorrow with a follow-up chest x-ray. Patient continues on oral amiodarone along with metoprolol and cardiology following closely. Patient continues to be extremely weak and dyspneic with minimal exertion and daughter here at the bedside and discussion was had about possible rehab and will have PT/OT evaluate the patient. Patient will likely benefit from subacute rehab for continued strength and mobility as she does live alone and has multiple complex medical comorbidities. Family lives in [facility] and are restricted with visitations given the pandemic and have a hard time coming here to visit their mother. Case management and social work consulted for possible placement at [facility]. Continue with current medications and will continue to monitor closely. Objective - Vital Signs Vital signs: Vital Signs Temp 97.8 F 05/07/21 08:00 Pulse 97 05/07/21 08:25 Resp 18 05/07/21 08:00 BP 116/77 05/07/21 08:00 Pulse Ox 98 05/07/21 08:00 Intake & Output 05/06/21 05/07/21 05/07/21 18:59 06:59 18:59 Intake Total 1640 Output Total 300 Balance 1340 Weight 68.7 kg 69.4 kg Intake: Oral 540 Hemodialysis 1100 Output: Hemodialysis 300 Other: Voiding Method Bedside Commode Bedside Commode # Voids 2 1 - Labs CBC & Chem 7: 05/06/21 06:07 05/06/21 06:07 Labs: Abnormal Lab Results - Last 24 Hours (Table) 05/06/21 Range/Units 06:07 Anion Gap 14.00 H (4.00-12.00) mmol/L BUN 42.0 H (9.0-27.0) mg/dL Creatinine 4.7 H (0.6-1.5) mg/dL Est GFR (CKD-EPI)AfAm 9.4 L (60.0-200.0) Est GFR (CKD-EPI)NonAf 8.1 L (60.0-200.0) BUN/Creatinine Ratio 8.94 L (12.00-20.00) Ratio Calcium 7.9 L (8.7-10.3) mg/dL Microbiology - Last 24 Hours (Table) 05/02/21 20:10 Blood Culture - Preliminary Blood No Growth after 96 hours 05/02/21 18:33 Blood Culture Gram Stain - Final Blood Blood Culture - Preliminary Brevibacterium species 05/05/21 06:57 Blood Culture - Preliminary Blood No Growth after 24 hours
[2021-05-07] MEDS: SENNOSIDES 8.6 MG TAB PO SCH ×2 (15:15→21:00)
--- NOTE | 2021-05-07 15:49 | XR ---
EXAMINATION TYPE: XR chest 1V DATE OF EXAM: 05/07/2021 CLINICAL HISTORY: CHF. TECHNIQUE: Portable frontal view of the chest. COMPARISON: 05/04/2021 FINDINGS: The cardiomediastinal silhouette is again enlarged. Pulmonary vasculature is normal. There is interstitial coarsening which is likely chronic. Minimal subsegmental atelectasis and/or scarring . Small right pleural effusion. No pneumothorax seen. No acute displaced osseous fracture. IMPRESSION: Unchanged cardiomegaly and small right pleural effusion versus 05/04/2021.
--- NOTE | 2021-05-07 18:35 | PN ---
PROGRESS NOTE DATE OF SERVICE: 05/07/2021 REASON FOR FOLLOWUP: Pneumonia. INTERVAL HISTORY: The patient is afebrile. The patient is feeling better. She is breathing comfortably. The patient's cough has decreased intensity, not bringing up any sputum. No vomiting. No abdominal pain or diarrhea. PHYSICAL EXAMINATION: Blood pressure 115/77 with a pulse of 91, temperature 97.8. She is 98% on 3 L nasal cannula. General description is an elderly female lying in bed in no distress. Respiratory system: Unlabored breathing, decreased breath sounds in the bases. No wheeze. Heart: S1, S2. Regular rate and rhythm. Abdomen: Soft, no tenderness. LABS: Hemoglobin 11.8, white count 7.25, BUN of 42, creatinine 4.7. Blood culture repeat has been negative so far. DIAGNOSTIC IMPRESSION/PLAN: Patient admitted to the hospital with shortness of breath and cough in this patient who did have a component of pneumonia. Sputum could not be obtained. Overall improvement with cefepime to continue while monitoring clinical course closely. Continue supportive care. MMODL / IJN: [id number] /
[2021-05-07] MEDS: TEMAZEPAM 15 MG CAP PO PRN (22:29)
[2021-05-08] MEDS: CEFEPIME 1 GM in SODIUM CHLORIDE 0.9% 50 ML IVPB SCH (07:22)
[2021-05-08] MEDS: FOLIC ACID-VIT B COMPLEX-VIT C 1 CAP PO SCH (07:23)
[2021-05-08] MEDS: METOPROLOL TARTRATE 25 MG TAB PO SCH ×3 (07:23→20:58)
[2021-05-08] MEDS: APIXABAN 2.5 MG TABLET PO SCH ×2 (07:23→20:58)
[2021-05-08] MEDS: PANTOPRAZOLE 40 MG TABLET PO SCH (07:23)
[2021-05-08] MEDS: AMIODARONE 200 MG TAB PO SCH ×3 (07:23→20:58)
[2021-05-08] MEDS: FUROSEMIDE 40 MG TAB PO SCH (07:23)
[2021-05-08] MEDS: SENNOSIDES 8.6 MG TAB PO SCH ×2 (07:23→20:57)
[2021-05-08] MEDS: NYSTATIN 100,000 UNIT/ML SUSP 500,000 UNIT/5 ML CUP PO SCH ×4 (07:23→20:56)
[2021-05-08] MEDS: SYMBICORT 80-4.5 MCG INHALER INHALATION SCH ×2 (09:05→19:26)
--- NOTE | 2021-05-08 11:03 | P.PN ---
Subjective Patient is a 81-year-old the pleasant female came in with compensative short is a cough with whitish sputum production. Patient was found to be febrile patient denied any dysuria increased to urinary frequency. Patient urine is significantly abnormal patient was started on Rocephin and doxycycline with concerns of pneumonia although there is no pneumonia on the chest x-ray such as chest x-ray service history of pulmonary edema with bilateral pleural effusions. Patient does have history of end-stage liver disease (dependent and patient dialysis access is a left arm graft. Patient is feeling much better patient does have wheezing on exam patient does use oxygen at home does have history of COPD. 05/04/2022 Infectious disease evaluate the patient that they believe patient has atypical pneumonia patient is presently on cefepime and levofloxacin. Urine Legionella antigen is being obtained sputum cultures were ordered. I still do not believe patient has pneumonia patient has pulmonary edema on the chest x-ray. And her pulmonary edema is secondary to volume overload and patient is a poor dialysis patient. Patient does have a lateral pleural effusions consistent with pulmonary edema rather than atypical pneumonia. Patient doesn't have any fevers at this time. 2 feeling short of breath does have some wheezing on exam patient will be given 1 dose of prednisone patient does have history of COPD. Is not coughing much. will repeat a chest x-ray which shows improvement but then it CHF. 05/05/2021 Patient is in atrial fibrillation with rapid unclear rate cardiology eval and the patient patient is a given additional dose of metoprolol patient metoprolol dose was increased to 25 3 times a day. Patient not on any anti-correlation patient heart rate is still high. I believe that this increased heart rate is secondary to fluoroquinolones and discontinue levofloxacin and lipid urine Legionella antigen is negative. Clinically bilateral pleural effusions is not consistent with atypical pneumonia rather it's more consistent with volume overload. I'll discuss the same with the infectious disease. Patient is also on cefepime which is being continued. Urine culture showed normal emiliano, blood cultures are positive for gram-negative bacilli which is a contamination. Patient wheezing although improved. Respiratory status is improving at this time. 05/08/2021 Patient is presently on amiodarone and metoprolol and patient heart rate is better controlled but patient that is bit volume overloaded with significant edema. Bilateral upper and lower extremities patient is undergoing hemodialysis today. Because of the borderline blood pressure is not much enough room to remove much of fluid 2 L of fluid is being removed today via hemodialysis. She probably will end up staying in the hospital until Wednesday and patient was comparing of her shortness of breath orthopnea last night Constitutional: Denied any fatigue denied any fever. Cardio vascular: denied any chest pain, palpitations Gastrointestinal denied any nausea vomiting Pulmonary: Mentioned in the interval history Neurologic denied any new focal deficits All inpatient medications were reviewed and appropriate changes in these medications as dictated in the interval history and assessment and plan. PHYSICAL EXAMINATION: GENERAL: The patient is alert and oriented x3, not in any acute distress. Well developed, well nourished. HEENT: Pupils are round and equally reacting to light. EOMI. No scleral icterus. No conjunctival pallor. Normocephalic, atraumatic. No pharyngeal erythema. No thyromegaly. CARDIOVASCULAR: S1 and S2 present. No murmurs, rubs, or gallops. Tachycardic irregularly irregular rhythm PULMONARY: Mild expiratory wheezing on exam which she is an improvement compared to yesterday ABDOMEN: Soft, nontender, nondistended, normoactive bowel sounds. No palpable organomegaly. MUSCULOSKELETAL: No joint swelling or deformity. EXTREMITIES: No cyanosis, clubbing, or pedal edema. NEUROLOGICAL: Gross neurological examination did not reveal any focal deficits. SKIN: No rashes. Assessment and plan -Sepsis most probably secondary to urinary tract infection patient doesn't appear to have any pneumonia infectious disease evaluated the patient and patient is a being treated for atypical pneumonia patient is also on levofloxacin for urinary Legionella antigen is negative patient heart rhythm abnormalities can be related to fluoroquinolones were discontinued levofloxacin and continue cefepime. -Atrial fibrillation with rapid unclear rate cardiology evaluated the patient patient is not on any anticoagulation at this time and patient is on metoprolol 75 mg 3 times a day along with amiodarone. And cardiology is recommending the anticoagulation issue to be addressed by her welfare case worker. -Shortness of breath and pulmonary edema secondary to end-stage renal disease, had urinalysis today continues to have shortness of breath patient does have COPD which is contributing to her shortness of breath and wheezing did improve -COPD with mild acute exacerbation patient is on inhaled steroids inhalational treatments presently not in exacerbation. -Chronic respiratory failure on home oxygen which will be continued -Pulmonary hypertension secondary to urinary hypertension most probably secondary to COPD -Chronic kidney disease/end-stage renal disease secondary to hypertensive nephrosclerosis are to diabetic nephropathy -Hypertension -Gastroesophageal reflux disease DVT prophylaxis: Subcutaneous heparin Objective - Vital Signs Vital signs: Vital Signs Temp 97.6 F 05/08/21 07:46 Pulse 104 H 05/08/21 07:46 Resp 16 05/08/21 07:46 BP 110/75 05/08/21 07:46 Pulse Ox 98 05/08/21 07:46 Intake & Output 05/07/21 05/08/21 05/08/21 18:59 06:59 18:59 Intake Total 540 Balance 540 Weight 69.4 kg 71.1 kg Intake: Oral 540 Other: Voiding Method Bedside Commode Bedside Commode # Voids 3 1 - Labs CBC & Chem 7: 05/06/21 06:07 05/06/21 06:07 Labs: Microbiology - Last 24 Hours (Table) 05/05/21 06:57 Blood Culture - Preliminary Blood No Growth after 72 hours 05/02/21 20:10 Blood Culture - Preliminary Blood No Growth after 120 hours
--- NOTE | 2021-05-08 12:30 | PN ---
PROGRESS NOTE Patient is seen for followup for end-stage renal disease. She is currently seen on dialysis. She is tolerating her treatment fairly okay. Blood pressure was low and therefore the temp was decreased. Patient is complaining of being cold. Her heart rate is much better controlled now and we are planning for about 2 L of ultrafiltration. PHYSICAL EXAMINATION: On examination today, blood pressure 110/75, heart rate 104 per minute, she is afebrile. Examination of the heart S1, S2. Examination of the lungs, bilateral breath sounds are heard. Abdomen is soft, nontender. Examination of lower extremities shows no evidence of edema. 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 LAB: Show sodium 137 on May 06, potassium 3.9. ASSESSMENT: 1. End-stage renal disease, on hemodialysis on a Wednesday, Wednesday, Wednesday schedule. 2. Atrial fibrillation with an RVR now with improved ventricular response. 3. Volume overload. 4. Chronic kidney disease mineral bone disorder. PLAN: We will plan for about 2-2.5 L of ultrafiltration today. Her blood pressure and heart rate are much improved, therefore, hopefully patient will have a smooth treatment today. If she needs we can arrange for an extra treatment tomorrow depending on her volume status. MMODL / IJN: [id number] /
[2021-05-08 14:04] VITALS: BMI 26.9
[2021-05-08] MEDS: IPRATROPIUM-ALBUTEROL 3 ML NEB INHALATION PRN (15:14)
--- NOTE | 2021-05-08 18:24 | PN ---
PROGRESS NOTE DATE OF SERVICE: 05/08/2021 REASON FOR FOLLOWUP: Pneumonia. INTERVAL HISTORY: The patient is afebrile. The patient is complaining of shortness of breath. She did have a cough, not bringing up any sputum. No chest pain. No abdominal pain or diarrhea. PHYSICAL EXAMINATION: Blood pressure 114/79, pulse of 94, temperature is 97.8, She is 98% on 2 L nasal cannula. GENERAL DESCRIPTION: The patient is an elderly female up in the chair in no distress. RESPIRATORY SYSTEM: Unlabored breathing, decreased BS, no wheeze. HEART: S1, S2. Regular rate and rhythm. LABS: No new labs have been obtained today. Blood culture repeat has been negative. Initially showing some ( ) bacterium. Chest x-ray yesterday showing a right-sided pleural effusion. DIAGNOSTIC IMPRESSION AND PLAN: Patient admitted to the hospital with shortness of breath and cough, concerning for pneumonia. Patient continually complaining of shortness of breath, not feeling better, now with evidence of effusion, which is small. Continue cefepime to which the patient's fever has responded and continue supportive care. MMODL / IJN: [id number] /
[2021-05-08] MEDS: oxyCODONE-APAP 5-325MG 1 EACH TAB PO PRN (20:56)
[2021-05-08] MEDS: TEMAZEPAM 15 MG CAP PO PRN (20:57)
[2021-05-09] MEDS: METOPROLOL TARTRATE 25 MG TAB PO SCH ×3 (07:17→21:04)
[2021-05-09] MEDS: PANTOPRAZOLE 40 MG TABLET PO SCH (07:17)
[2021-05-09] MEDS: FUROSEMIDE 40 MG TAB PO SCH (07:18)
[2021-05-09] MEDS: LIDOCAINE-PRILOCAINE 2.5-2.5% CREAM 5 GM TUBE TOPICAL SCH (07:18)
[2021-05-09] MEDS: AMIODARONE 200 MG TAB PO SCH ×3 (07:18→21:04)
[2021-05-09] MEDS: APIXABAN 2.5 MG TABLET PO SCH ×2 (07:18→21:04)
[2021-05-09] MEDS: NYSTATIN 100,000 UNIT/ML SUSP 500,000 UNIT/5 ML CUP PO SCH ×4 (07:18→21:03)
[2021-05-09] MEDS: FOLIC ACID-VIT B COMPLEX-VIT C 1 CAP PO SCH (07:18)
[2021-05-09] MEDS: SENNOSIDES 8.6 MG TAB PO SCH ×2 (07:19→21:05)
[2021-05-09] MEDS: CEFEPIME 1 GM in SODIUM CHLORIDE 0.9% 50 ML IVPB SCH (07:23)
[2021-05-09] MEDS: SYMBICORT 80-4.5 MCG INHALER INHALATION SCH ×2 (08:48→19:55)
[2021-05-09 11:27] LABS: HCT 35.9 % (37.2-46.3); HGB 11.6 g/dL (12.0-15.0); MCH 32.8 pg (27.0-32.0); MCHC 32.3 g/dL (32.0-37.0); MCV 101.4 fL (80.0-97.0); Mean Platelet Volume 11.3 fL (9.5-12.2); Platelet Count 158 X 10*3/uL (140-440); RBC 3.54 X 10*6/uL (4.10-5.20); RDW 16.5 % (11.5-14.5); WBC 9.67 X 10*3/uL (4.50-10.00)
--- NOTE | 2021-05-09 14:08 | PN ---
PROGRESS NOTE Patient is seen for followup for end-stage renal disease. The patient tolerated her treatment well yesterday. She is currently sitting up in bed. Heart rate has been around 90s. EXAMINATION: On examination today, blood pressure 117/77, heart rate 93 per minute. Patient is afebrile. Examination of the heart S1, S2. Examination of the lungs, bilateral breath sounds are heard. Decreased breath sounds at bases. Abdomen is soft, nontender. Examination of lower extremities shows no significant edema. 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 LAB: Show hemoglobin 11.6, sodium 137, potassium 3.9 on May 06. ASSESSMENT: 1. End-stage renal disease, on dialysis on Wednesday, Wednesday, Wednesday schedule. Hemodialysis will be scheduled for tomorrow as patient was dialyzed yesterday. We had about 2 L of ultrafiltration. 2. Atrial fibrillation with RVR currently with improved ventricular response heart rate less than 100 now, maintained on amiodarone and Lopressor. 3. Volume overload, currently improved. X-ray did not show significant congestive heart failure. The patient tolerated UF of about 2 L yesterday. We will plan to dialyze her again tomorrow. 4. Chronic kidney disease, mineral bone disorder. PLAN: Hemodialysis in a.m. MMODL / IJN: [id number] /
--- NOTE | 2021-05-09 14:25 | PN ---
PROGRESS NOTE DATE OF SERVICE: 05/09/2021 REASON FOR FOLLOWUP: Pneumonia. INTERVAL HISTORY: The patient is afebrile. The patient is breathing comfortably. Patient denies having any chest pain. Cough decreased in intensity. Mostly dry in nature. No nausea, vomiting, no abdominal pain or diarrhea. PHYSICAL EXAMINATION: Blood pressure 117/77, pulse of 90, temperature 98.5. He is 98% on 3 L nasal cannula. General description is an elderly female up in the bed in no distress. Respiratory system: Unlabored breathing. Decreased breath sounds in the bases. No wheeze. Heart S1, S2. Regular rate and rhythm. Abdomen soft. No tenderness. The patient did have a big bruise on the left posterior abdominal wall. LABS: Hemoglobin 11.1, white count of 9.67. Hemoglobin is stable though. Blood culture has been negative. DIAGNOSTIC IMPRESSION AND PLAN: 1. Patient admitted to the hospital with shortness of breath, fever, pneumonia. Overall improvement on cefepime to start a short course of oral Ceftin on discharge to finish a course of therapy. 2. Patient with a left posterior trunk bruise. The area should be marked to make sure no evidence of any continuous bleeding. Patient have any symptoms referable to that area and will be monitored. MMODL / IJN: [id number] /
[2021-05-09 15:26] LABS: Albumin 3.3 g/dL (3.80-4.90); Albumin/Globulin Ratio 1.18 (1.60-3.17); Anion Gap 18.2 mmol/L (4.00-12.00); BUN/Creat Ratio 6.39 Ratio (12.00-20.00); Calcium 8.3 mg/dL (8.7-10.3); Carbon Dioxide 22.8 mmol/L (21.6-31.8); Globulin 2.8 g/dL (1.6-3.3); Non-African American GFR(CKD) 11.2 (60.0-200.0); Potassium 3.8 mmol/L (3.5-5.5); Total Bilirubin 0.4 mg/dL (0.2-1.2); Total Protein 6.1 g/dL (6.2-8.2)
[2021-05-09] MEDS: predniSONE 20 MG TAB PO SCH (18:11)
[2021-05-09] MEDS: oxyCODONE-APAP 5-325MG 1 EACH TAB PO PRN (21:03)
[2021-05-09] MEDS: TEMAZEPAM 15 MG CAP PO PRN (21:04)
--- NOTE | 2021-05-10 01:43 | P.PN ---
Subjective Progress Note Date: 05/09/21 Patient is a 81-year-old the pleasant female came in with compensative short is a cough with whitish sputum production. Patient was found to be febrile patient denied any dysuria increased to urinary frequency. Patient urine is significantly abnormal patient was started on Rocephin and doxycycline with concerns of pneumonia although there is no pneumonia on the chest x-ray such as chest x-ray service history of pulmonary edema with bilateral pleural effusions. Patient does have history of end-stage liver disease (dependent and patient dialysis access is a left arm graft. Patient is feeling much better patient does have wheezing on exam patient does use oxygen at home does have history of COPD. 05/04/2022 Infectious disease evaluate the patient that they believe patient has atypical p neumonia patient is presently on cefepime and levofloxacin. Urine Legionella antigen is being obtained sputum cultures were ordered. I still do not believe patient has pneumonia patient has pulmonary edema on the chest x-ray. And her pulmonary edema is secondary to volume overload and patient is a poor dialysis patient. Patient does have a lateral pleural effusions consistent with pulmonary edema rather than atypical pneumonia. Patient doesn't have any fevers at this time. 2 feeling short of breath does have some wheezing on exam patient will be given 1 dose of prednisone patient does have history of COPD. Is not coughing much. will repeat a chest x-ray which shows improvement but then it CHF. 05/05/2021 Patient is in atrial fibrillation with rapid unclear rate cardiology eval and the patient patient is a given additional dose of metoprolol patient metoprolol dose was increased to 25 3 times a day. Patient not on any anticoagulation patient heart rate is still high. I believe that this increased heart rate is secondary to fluoroquinolones and discontinue levofloxacin and lipid urine Legionella antigen is negative. Clinically bilateral pleural effusions is not consistent with atypical pneumonia rather it's more consistent with volume overload. I'll discuss the same with the infectious disease. Patient is also on cefepime which is being continued. Urine culture showed normal emiliano, blood cultures are positive for gram-negative bacilli which is a contamination. P atient wheezing although improved. Respiratory status is improving at this time. 05/06/2021 Patient is seen in follow-up this morning and heart rate slightly improved after increasing dose although blood pressure on the lower side with multiple medical consultations following. Patient continues on IV cefepime with infectious disease following closely. Nephrology also following as patient receives dialysis and unable to tolerate yesterday and will try ultrafiltration today with possibly resuming hemodialysis on her normal schedule of Wednesday/Wednesday/Wednesday. Patient being started on Eliquis 2.5 mg twice a day. Patient continues on metoprolol 75 mg 3 times daily and cardiology following closely and has added amiodarone 200 mg 3 times daily and will continue to monitor closely. She continues to have some shortness of breath with mild wheezing noted and is continued on breathing inhalational treatments and will continue. Patient is afebrile. 05/07/2021 Patient is seen in follow-up with no acute overnight issues noted. Daughter at the bedside and discussed discharge planning as patient continues to be extremely weak and dyspneic with minimal exertion and will have PT/OT evaluate the patient and also case management to discuss options of possible ECF for continued PT/OT therapy and family along with patient are agreeable if it is a covered benefit under her insurance as she does live alone and they are quite concerned as they live in [facility] with limited visitations allowed. They feel she is unsafe to return home at this time and her current clinical situation. Patient continues on 3-4 L of oxygen via nasal cannula and continues to have a minimal cough with no phlegm production. Patient did tolerate ultrafiltration yesterday and nephrology following and plans are for hemodialysis in the morning with follow-up chest x-ray. Patient is continued on oral amiodarone along with oral metoprolol and heart rate improved today. Patient is continued on IV cefepime with infectious disease following. Patient is afebrile and white blood count within normal limits. Chest x-ray ordered today and pending at this time. 05/08/2021 Patient is presently on amiodarone and metoprolol and patient heart rate is better controlled but patient that is bit volume overloaded with significant edema. Bilateral upper and lower extremities patient is undergoing hemodialysis today. Because of the borderline blood pressure is not much enough room to remove much of fluid 2 L of fluid is being removed today via hemodialysis. She probably will end up staying in the hospital until Wednesday and patient was comparing of her shortness of breath orthopnea last night 05/09/2021 Patient is seen and evaluated this morning sitting up in the chair and continues to have a cough with some mild wheeze and extreme shortness of breath. Patient continues on IV cefepime along with breathing inhalational treatments. Will add low dose prednisone for the wheezing. Patient states she is not having dialysis today with possibly tomorrow. Patient is on oral lasix. Social work following as well and patient will require insurance authorization to ECF once more stable and closer to discharge. Will follow up with chest xray in the am. Constitutional: Denied any fatigue denied any fever. Cardio vascular: denied any chest pain, palpitations Gastrointestinal denied any nausea vomiting Pulmonary: Mentioned in the interval history Neurologic denied any new focal deficits, reports generalized weakness All inpatient medications were reviewed and appropriate changes in these medications as dictated in the interval history and assessment and plan. PHYSICAL EXAMINATION: GENERAL: The patient is alert and oriented x3, not in any acute distress. Well developed, well nourished. HEENT: Pupils are round and equally reacting to light. EOMI. No scleral icterus. No conjunctival pallor. Normocephalic, atraumatic. No pharyngeal erythema. No thyromegaly. CARDIOVASCULAR: S1 and S2 present. No murmurs, rubs, or gallops. Tachycardic irregularly irregular rhythm PULMONARY: Diminished breath sounds bilaterally with scattered rhonchi noted. Wheezing improved although still evident. ABDOMEN: Soft, nontender, nondistended, normoactive bowel sounds. No palpable organomegaly. MUSCULOSKELETAL: No joint swelling or deformity. EXTREMITIES: No cyanosis, clubbing, or pedal edema. NEUROLOGICAL: Gross neurological examination did not reveal any focal deficits. SKIN: No rashes. Assessment and plan -Sepsis most probably secondary to urinary tract infection patient doesn't appear to have any pneumonia infectious disease evaluated the patient and patient is a being treated for atypical pneumonia patient was also on levofloxacin for urinary Legionella antigen is negative patient heart rhythm abnormalities can be related to fluoroquinolones were discontinued levofloxacin and continue cefepime. -Atrial fibrillation with rapid ventricular rate cardiology evaluated the patient patient is on eliquis, metoprolol 75 mg 3 times a day along with amiodarone. -Shortness of breath and pulmonary edema secondary to end-stage renal disease, continues to have shortness of breath patient does have COPD which is contributing to her shortness of breath and wheezing did improve although still evident and will add low dose prednisone -COPD with mild acute exacerbation patient is on inhaled steroids inhalational treatments presently not in exacerbation. -Chronic respiratory failure on home oxygen which will be continued -Pulmonary hypertension secondary to most probably secondary to COPD -Chronic kidney disease/end-stage renal disease secondary to hypertensive nephrosclerosis and also diabetic nephropathy -Hypertension -Gastroesophageal reflux disease -DVT prophylaxis: eliquis -Full code Plan: Continue to monitor vital signs and continue with current medications. Will add low dose oral prednisone. Nephrology is following closely. Continue to follow with multiple medical consultations. Patient continues to be extremely weak and dyspneic with minimal exertion. Encouraged continued incentive spirometer use. Case management and social work following and working on placement at [facility]. Patient will require insurance authorization once closer to discharge. Continue with current medications and will continue to monitor closely. Follow up labs and chest xray in the am. Objective - Vital Signs Vital signs: Vital Signs Temp 98.5 F 05/09/21 08:00 Pulse 93 05/09/21 08:00 Resp 17 05/09/21 08:00 BP 117/77 05/09/21 08:00 Pulse Ox 98 05/09/21 08:00 Intake & Output 05/08/21 05/09/21 05/09/21 18:59 06:59 18:59 Intake Total 540 50 Balance 540 50 Weight 71.1 kg 71 kg Intake: Intake, IV Titration 50 Amount Cefepime 1 gm In Sodium 50 Chloride 0.9% 50 ml @ 12. 5 mls/hr IVPB Q24HR [facility] Rx#:[id number] Oral 540 Other: Voiding Method Bedside Commode # Bowel Movements 1 - Labs CBC & Chem 7: 05/09/21 07:08 05/09/21 07:08 Labs: Microbiology - Last 24 Hours (Table) 05/02/21 20:10 Blood Culture - Final Blood No Growth after 144 hours 05/05/21 06:57 Blood Culture - Preliminary Blood No Growth after 72 hours
[2021-05-10 06:53] LABS: African American GFR (CKD) 11 (>60 ml/min/1.73 sqM); Anion Gap 11 mmol/L; Blood Urea Nitrogen 29 mg/dL (7-17); Calcium 8.1 mg/dL (8.4-10.2); Carbon Dioxide 22 mmol/L (22-30); Chloride 104 mmol/L (98-107); Glucose 141 mg/dL (74-99); Non-African American GFR(CKD) 9 (>60 ml/min/1.73 sqM); Potassium 3.5 mmol/L (3.5-5.1); Sodium 137 mmol/L (137-145)
[2021-05-10] MEDS: SYMBICORT 80-4.5 MCG INHALER INHALATION SCH ×2 (07:25→20:12)
[2021-05-10 07:30] LABS: Anisocytosis Slight; HCT 35.4 % (34.0-46.0); HGB 11.7 gm/dL (11.4-16.0); MCV 99.9 fL (80.0-100.0); Macrocytosis Slight; Mean Platelet Volume 8.2; Platelet Count 141 k/uL (150-450); RBC 3.54 m/uL (3.80-5.40); RDW 16.1 % (11.5-15.5)
[2021-05-10] MEDS: CEFEPIME 1 GM in SODIUM CHLORIDE 0.9% 50 ML IVPB SCH (08:17)
[2021-05-10] MEDS: PANTOPRAZOLE 40 MG TABLET PO SCH (08:18)
[2021-05-10] MEDS: APIXABAN 2.5 MG TABLET PO SCH ×2 (08:18→21:19)
[2021-05-10] MEDS: SENNOSIDES 8.6 MG TAB PO SCH ×2 (08:18→21:21)
[2021-05-10] MEDS: NYSTATIN 100,000 UNIT/ML SUSP 500,000 UNIT/5 ML CUP PO SCH ×5 (08:19→21:19)
[2021-05-10] MEDS: predniSONE 20 MG TAB PO SCH (08:19)
[2021-05-10] MEDS: AMIODARONE 200 MG TAB PO SCH ×3 (08:19→21:19)
[2021-05-10] MEDS: FOLIC ACID-VIT B COMPLEX-VIT C 1 CAP PO SCH (08:19)
[2021-05-10] MEDS: FUROSEMIDE 40 MG TAB PO SCH (08:24)
[2021-05-10] MEDS: METOPROLOL TARTRATE 25 MG TAB PO SCH ×3 (08:25→21:20)
[2021-05-10 09:00] LABS: Band Neutrophils % 1 %; Eosinophils # (M) 0.09 k/uL (0-0.7); Lymphocytes # (M) 0.82 k/uL (1.0-4.8); Monocytes # (M) 0.36 k/uL (0-1.0); Myelocytes # (M) 0.18 k/uL (0); Myelocytes % 2 %; Neutrophils % (M) 84 %; Nucleated Red Blood Cells 3 /100 WBC (0-0); Total Cells Counted 200; WBC 9.1 k/uL (3.8-10.6)
[2021-05-10 09:01] LABS: Polychromasia Present
--- NOTE | 2021-05-10 10:11 | PN ---
PROGRESS NOTE Patient is seen for followup for end-stage renal disease. She was admitted with atrial fibrillation with RVR. Currently is sitting up in bed. She is comfortable. Patient denies any significant complaints. Shortness of breath slightly improved. She is scheduled for hemodialysis today. The patient is normally maintained on a Wednesday, Wednesday, Wednesday schedule, which she has been off schedule during her stay recently secondary to issues with heart rate and difficult ultrafiltration with a rapid heart rate. EXAMINATION: Today patient is comfortable. Blood pressure 107/77, heart rate 90 per minute. Patient is afebrile. Examination of the heart S1, S2. Examination of the lungs, bilateral breath sounds are heard. Abdomen is soft, nontender. Examination of lower extremities edema 1+ bilaterally. 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 LAB: Show sodium 137, potassium 3.5, BUN 29, creatinine 4.28, hemoglobin 11.7. ASSESSMENT: 1. End-stage renal disease, on hemodialysis on a Wednesday, Wednesday, Wednesday schedule as outpatient. The patient will be dialyzed today. 2. Fluid overload currently improved. Chest x-ray did not show significant congestive heart failure. 3. Atrial fibrillation with RVR. 4. Chronic kidney disease, mineral bone disorder. PLAN: Hemodialysis today. MMODL / IJN: [id number] /
--- NOTE | 2021-05-10 10:15 | XR ---
EXAMINATION TYPE: XR chest 1V portable DATE OF EXAM: 05/10/2021 COMPARISON: 05/07/2021 INDICATION: Short of breath TECHNIQUE: Single frontal view of the chest is obtained. FINDINGS: The heart size is prominent. The pulmonary vasculature is normal. Small right pleural effusion is present. This is increasing from comparison. Some mild atelectasis ma y be at the left base. IMPRESSION: 1. Increasing small right pleural effusion. 2. Suggestion of minimal plate atelectasis at the left base. 3. Cardiomegaly
--- NOTE | 2021-05-10 15:55 | P.PN ---
Subjective Patient is a 81-year-old the pleasant female came in with compensative short is a cough with whitish sputum production. Patient was found to be febrile patient denied any dysuria increased to urinary frequency. Patient urine is significantly abnormal patient was started on Rocephin and doxycycline with concerns of pneumonia although there is no pneumonia on the chest x-ray such as chest x-ray service history of pulmonary edema with bilateral pleural effusions. Patient does have history of end-stage liver disease (dependent and patient dialysis access is a left arm graft. Patient is feeling much better patient does have wheezing on exam patient does use oxygen at home does have history of COPD. 05/04/2022 Infectious disease evaluate the patient that they believe patient has atypical pneumonia patient is presently on cefepime and levofloxacin. Urine Legionella antigen is being obtained sputum cultures were ordered. I still do not believe patient has pneumonia patient has pulmonary edema on the chest x-ray. And her pulmonary edema is secondary to volume overload and patient is a poor dialysis patient. Patient does have a lateral pleural effusions consistent with pulmonary edema rather than atypical pneumonia. Patient doesn't have any fevers at this time. 2 feeling short of breath does have some wheezing on exam patient will be given 1 dose of prednisone patient does have history of COPD. Is not coughing much. will repeat a chest x-ray which shows improvement but then it CHF. 05/05/2021 Patient is in atrial fibrillation with rapid unclear rate cardiology eval and the patient patient is a given additional dose of metoprolol patient metoprolol dose was increased to 25 3 times a day. Patient not on any anticoagulation patient heart rate is still high. I believe that this increased heart rate is secondary to fluoroquinolones and discontinue levofloxacin and lipid urine Legionella antigen is negative. Clinically bilateral pleural effusions is not consistent with atypical pneumonia rather it's more consistent with volume overload. I'll discuss the same with the infectious disease. Patient is also on cefepime which is being continued. Urine culture showed normal emiliano, blood cultures are positive for gram-negative bacilli which is a contamination. Patient wheezing although improved. Respiratory status is improving at this time. 05/06/2021 Patient is seen in follow-up this morning and heart rate slightly improved after increasing dose although blood pressure on the lower side with multiple medical consultations following. Patient continues on IV cefepime with infectious disease following closely. Nephrology also following as patient receives dialysis and unable to tolerate yesterday and will try ultrafiltration today with possibly resuming hemodialysis on her normal schedule of Wednesday/Wednesday/Wednesday. Patient being started on Eliquis 2.5 mg twice a day. Patient continues on metoprolol 75 mg 3 times daily and cardiology following closely and has added amiodarone 200 mg 3 times daily and will continue to monitor closely. She continues to have some shortness of breath with mild wheezing noted and is continued on breathing inhalational treatments and will continue. Patient is afebrile. 05/07/2021 Patient is seen in follow-up with no acute overnight issues noted. Daughter at the bedside and discussed discharge planning as patient continues to be extremely weak and dyspneic with minimal exertion and will have PT/OT evaluate the patient and also case management to discuss options of possible ECF for continued PT/OT therapy and family along with patient are agreeable if it is a covered benefit under her insurance as she does live alone and they are quite concerned as they live in [facility] with limited visitations allowed. They feel she is unsafe to return home at this time and her current clinical situation. Patient continues on 3-4 L of oxygen via nasal cannula and continues to have a minimal cough with no phlegm production. Patient did tolerate ultrafiltration yesterday and nephrology following and plans are for hemodialysis in the morning with follow-up chest x-ray. Patient is continued on oral amiodarone along with oral metoprolol and heart rate improved today. Patient is continued on IV cefepime with infectious disease following. Patient is afebrile and white blood count within normal limits. Chest x-ray ordered today and pending at this time. 05/08/2021 Patient is presently on amiodarone and metoprolol and patient heart rate is better controlled but patient that is bit volume overloaded with significant edema. Bilateral upper and lower extremities patient is undergoing hemodialysis today. Because of the borderline blood pressure is not much enough room to remove much of fluid 2 L of fluid is being removed today via hemodialysis. She probably will end up staying in the hospital until Wednesday and patient was comparing of her shortness of breath orthopnea last night 05/09/2021 Patient is seen and evaluated this morning sitting up in the chair and continues to have a cough with some mild wheeze and extreme shortness of breath. Patient continues on IV cefepime along with breathing inhalational treatments. Will add low dose prednisone for the wheezing. Patient states she is not having dialysis today with possibly tomorrow. Patient is on oral lasix. Social work following as well and patient will require insurance authorization to ECF once more stable and closer to discharge. Will follow up with chest xray in the am. 05/10/2021 This is a pleasant 81 years old female who presents with sepsis secondary to UTI and pneumonia. She's chronic kidney disease and end-stage renal disease on dialysis. There was suspicion of atrial fibrillation with recommendation that she follow up with her composite worker for need for anticoagulation and our composite worker evaluated the patient and diagnosed her with paroxysmal organized atrial tachycardia. And it looks like she has cardiomyopathy with ejection fraction of 40-45%. Today she was undergoing dialysis. She still complained from difficulty breathing although she reports improvement. She is saturating 98% on 3 L oxygen NC.. She is afebrile Labs reviewed. CBC and BMP are unremarkable except for chronically elevated creatinine. Liver enzymes were elevated yesterday Chest x-ray this morning: Increasing small right pleural effusion. Atelectasis and cardiomegaly She remains on cefepime. Also she is on prednisone 20 mg for history of COPD, also she is on Eliquis 2.5 mg. She is on amiodarone 200 mg 3 times a day, composite worker [place] to [place] to [facility] down the road. Objective - Vital Signs Vital signs: Vital Signs Temp 97.6 F 05/10/21 13:00 Pulse 101 H 05/10/21 13:00 Resp 16 05/10/21 13:00 BP 152/92 05/10/21 13:00 Pulse Ox 98 05/10/21 13:00 Intake & Output 05/09/21 05/10/21 05/10/21 18:59 06:59 18:59 Intake Total 540 290 Balance 540 290 Weight 71.1 kg Intake: Intake, IV Titration 50 Amount Cefepime 1 gm In Sodium 50 Chloride 0.9% 50 ml @ 12. 5 mls/hr IVPB Q24HR [facility] Rx#:[id number] Oral 540 240 Other: Voiding Method Bedside Commode Bedside Commode # Bowel Movements 2 - Exam GENERAL: The patient is alert and oriented x3, not in any acute distress. Well developed, well nourished. HEENT: Pupils are round and equally reacting to light. EOMI. No scleral icterus. No conjunctival pallor. Normocephalic, atraumatic. No pharyngeal erythema. No thyromegaly. CARDIOVASCULAR: S1 and S2 present. No murmurs, rubs, or gallops. -PULMONARY: Chest is clear to auscultation, no wheezing . Bilateral crepitation ABDOMEN: Soft, nontender, nondistended, normoactive bowel sounds. No palpable organomegaly. MUSCULOSKELETAL: No joint swelling or deformity. EXTREMITIES: No cyanosis, clubbing, or pedal edema. NEUROLOGICAL: Gross neurological examination did not reveal any focal deficits. SKIN: No rashes. no petechiae. - Labs CBC & Chem 7: 05/10/21 06:24 05/10/21 06:24 Labs: Abnormal Lab Results - Last 24 Hours (Table) 05/10/21 05/10/21 Range/Units 06:24 06:24 RBC 3.54 L (3.80-5.40) m/uL RDW 16.1 H (11.5-15.5) % Plt Count 141 L (150-450) k/uL Lymphocytes # (Manual) 0.82 L (1.0-4.8) k/uL Myelocytes # (Manual) 0.18 H (0) k/uL Nucleated RBCs 3 H (0-0) /100 WBC BUN 29 H (7-17) mg/dL Creatinine 4.28 H (0.52-1.04) mg/dL Glucose 141 H (74-99) mg/dL Calcium 8.1 L (8.4-10.2) mg/dL Microbiology - Last 24 Hours (Table) 05/05/21 06:57 Blood Culture - Preliminary Blood No Growth after 120 hours Assessment and Plan Assessment: -Sepsis most probably secondary to urinary tract infection patient , possible pneumonia, infectious disease evaluated the patient and continued cefepime. -Atrial fibrillation with rapid ventricular rate cardiology evaluated the patient patient is on eliquis, metoprolol 75 mg 3 times a day along with amiodarone. -Shortness of breath and pulmonary edema secondary to end-stage renal disease, continues to have shortness of breath patient does have COPD which is contributing to her shortness of breath and wheezing did improve although still evident and will add low dose prednisone -Acute on chronic systolic CHF with ejection fraction 40-45% -Moderate tricuspid regurgitation -COPD with mild acute exacerbation patient is on inhaled steroids inhalational treatments presently not in exacerbation. -Chronic respiratory failure on home oxygen which will be continued -Pulmonary hypertension secondary to most probably secondary to COPD -Chronic kidney disease/end-stage renal disease secondary to hypertensive nephrosclerosis and also diabetic nephropathy -Hypertension -Gastroesophageal reflux disease -DVT prophylaxis: eliquis - GI prophylaxis Protonix
--- NOTE | 2021-05-10 17:29 | PN ---
PROGRESS NOTE DATE OF SERVICE: 05/10/2021. REASON FOR FOLLOWUP: Pneumonia. INTERVAL HISTORY: The patient is afebrile. The patient is still complaining of shortness of breath. She did have some cough, not bringing up any sputum. No nausea, no abdominal pain or diarrhea. PHYSICAL EXAMINATION: Blood pressure 173/92 with a pulse of 96 temperature 98.2. She is 98% on 2 L nasal cannula. General description is an elderly female lying in no distress. Respiratory system unlabored breathing, decreased breath sounds at bases no wheeze. Heart S1, S2. Regular rate and rhythm. LABS: Hemoglobin 9.1, BUN of 29, creatinine is 2.28. DIAGNOSTIC IMPRESSION AND PLAN: Patient admitted to the hospital with shortness of breath. This patient did have a possible component of pneumonia. X-ray showed mostly increased pleural effusion. The patient is undergoing dialysis. She is covered with cefepime to continue for now. Monitor clinical course closely. MMODL / IJN: [id number] /
[2021-05-10] MEDS: oxyCODONE-APAP 5-325MG 1 EACH TAB PO PRN (18:15)
[2021-05-11] MEDS: oxyCODONE-APAP 5-325MG 1 EACH TAB PO PRN ×2 (00:14→21:59)
[2021-05-11] MEDS: TEMAZEPAM 15 MG CAP PO PRN ×2 (00:15→21:58)
[2021-05-11] MEDS: CEFEPIME 1 GM in SODIUM CHLORIDE 0.9% 50 ML IVPB SCH (07:35)
[2021-05-11] MEDS: NYSTATIN 100,000 UNIT/ML SUSP 500,000 UNIT/5 ML CUP PO SCH ×4 (07:36→21:59)
[2021-05-11] MEDS: METOPROLOL TARTRATE 25 MG TAB PO SCH ×3 (07:36→21:58)
[2021-05-11] MEDS: AMIODARONE 200 MG TAB PO SCH ×3 (07:36→21:58)
[2021-05-11] MEDS: APIXABAN 2.5 MG TABLET PO SCH ×2 (07:36→21:58)
[2021-05-11] MEDS: PANTOPRAZOLE 40 MG TABLET PO SCH (07:36)
[2021-05-11] MEDS: predniSONE 20 MG TAB PO SCH (07:36)
[2021-05-11] MEDS: FUROSEMIDE 40 MG TAB PO SCH (07:36)
[2021-05-11] MEDS: FOLIC ACID-VIT B COMPLEX-VIT C 1 CAP PO SCH (07:37)
[2021-05-11] MEDS: SENNOSIDES 8.6 MG TAB PO SCH (07:37)
[2021-05-11] MEDS: SYMBICORT 80-4.5 MCG INHALER INHALATION SCH ×2 (07:42→19:17)
--- NOTE | 2021-05-11 12:30 | P.PN ---
Subjective Patient is a 81-year-old the pleasant female came in with compensative short is a cough with whitish sputum production. Patient was found to be febrile patient denied any dysuria increased to urinary frequency. Patient urine is significantly abnormal patient was started on Rocephin and doxycycline with concerns of pneumonia although there is no pneumonia on the chest x-ray such as chest x-ray service history of pulmonary edema with bilateral pleural effusions. Patient does have history of end-stage liver disease (dependent and patient dialysis access is a left arm graft. Patient is feeling much better patient does have wheezing on exam patient does use oxygen at home does have history of COPD. 05/04/2022 Infectious disease evaluate the patient that they believe patient has atypical pneumonia patient is presently on cefepime and levofloxacin. Urine Legionella antigen is being obtained sputum cultures were ordered. I still do not believe patient has pneumonia patient has pulmonary edema on the chest x-ray. And her pulmonary edema is secondary to volume overload and patient is a poor dialysis patient. Patient does have a lateral pleural effusions consistent with pulmonary edema rather than atypical pneumonia. Patient doesn't have any fevers at this time. 2 feeling short of breath does have some wheezing on exam patient will be given 1 dose of prednisone patient does have history of COPD. Is not coughing much. will repeat a chest x-ray which shows improvement but then it CHF. 05/05/2021 Patient is in atrial fibrillation with rapid unclear rate cardiology eval and the patient patient is a given additional dose of metoprolol patient metoprolol dose was increased to 25 3 times a day. Patient not on any anticoagulation patient heart rate is still high. I believe that this increased heart rate is secondary to fluoroquinolones and discontinue levofloxacin and lipid urine Legionella antigen is negative. Clinically bilateral pleural effusions is not consistent with atypical pneumonia rather it's more consistent with volume overload. I'll discuss the same with the infectious disease. Patient is also on cefepime which is being continued. Urine culture showed normal emiliano, blood cultures are positive for gram-negative bacilli which is a contamination. Patient wheezing although improved. Respiratory status is improving at this time. 05/06/2021 Patient is seen in follow-up this morning and heart rate slightly improved after increasing dose although blood pressure on the lower side with multiple medical consultations following. Patient continues on IV cefepime with infectious disease following closely. Nephrology also following as patient receives dialysis and unable to tolerate yesterday and will try ultrafiltration today with possibly resuming hemodialysis on her normal schedule of Wednesday/Wednesday/Wednesday. Patient being started on Eliquis 2.5 mg twice a day. Patient continues on metoprolol 75 mg 3 times daily and cardiology following closely and has added amiodarone 200 mg 3 times daily and will continue to monitor closely. She continues to have some shortness of breath with mild wheezing noted and is continued on breathing inhalational treatments and will continue. Patient is afebrile. 05/07/2021 Patient is seen in follow-up with no acute overnight issues noted. Daughter at the bedside and discussed discharge planning as patient continues to be extremely weak and dyspneic with minimal exertion and will have PT/OT evaluate the patient and also case management to discuss options of possible ECF for continued PT/OT therapy and family along with patient are agreeable if it is a covered benefit under her insurance as she does live alone and they are quite concerned as they live in [facility] with limited visitations allowed. They feel she is unsafe to return home at this time and her current clinical situation. Patient continues on 3-4 L of oxygen via nasal cannula and continues to have a minimal cough with no phlegm production. Patient did tolerate ultrafiltration yesterday and nephrology following and plans are for hemodialysis in the morning with follow-up chest x-ray. Patient is continued on oral amiodarone along with oral metoprolol and heart rate improved today. Patient is continued on IV cefepime with infectious disease following. Patient is afebrile and white blood count within normal limits. Chest x-ray ordered today and pending at this time. 05/08/2021 Patient is presently on amiodarone and metoprolol and patient heart rate is better controlled but patient that is bit volume overloaded with significant edema. Bilateral upper and lower extremities patient is undergoing hemodialysis today. Because of the borderline blood pressure is not much enough room to remove much of fluid 2 L of fluid is being removed today via hemodialysis. She probably will end up staying in the hospital until Wednesday and patient was comparing of her shortness of breath orthopnea last night 05/09/2021 Patient is seen and evaluated this morning sitting up in the chair and continues to have a cough with some mild wheeze and extreme shortness of breath. Patient continues on IV cefepime along with breathing inhalational treatments. Will add low dose prednisone for the wheezing. Patient states she is not having dialysis today with possibly tomorrow. Patient is on oral lasix. Social work following as well and patient will require insurance authorization to ECF once more stable and closer to discharge. Will follow up with chest xray in the am. 05/10/2021 This is a pleasant 81 years old female who presents with sepsis secondary to UTI and pneumonia. She's chronic kidney disease and end-stage renal disease on dialysis. There was suspicion of atrial fibrillation with recommendation that she follow up with her barge pilot for need for anticoagulation and our barge pilot evaluated the patient and diagnosed her with paroxysmal organized atrial tachycardia. And it looks like she has cardiomyopathy with ejection fraction of 40-45%. Today she was undergoing dialysis. She still complained from difficulty breathing although she reports improvement. She is saturating 98% on 3 L oxygen NC.. She is afebrile Labs reviewed. CBC and BMP are unremarkable except for chronically elevated creatinine. Liver enzymes were elevated yesterday Chest x-ray this morning: Increasing small right pleural effusion. Atelectasis and cardiomegaly She remains on cefepime. Also she is on prednisone 20 mg for history of COPD, also she is on Eliquis 2.5 mg. She is on amiodarone 200 mg 3 times a day, bar[place] pilot planning [place] to [facility] down the road. 05/11/2021 Patient breathing is slightly better than yesterday. She is somewhat less dyspneic. With no cough, no chest pain. She is currently on 3 L oxygen via nasal cannula and saturating 98% she is on 2 L oxygen at home. She still complaining of from bilateral leg swelling. Blood pressure is 100/66. She is continued on cefepime for possible pneumonia. UTI is also suspected but is less likely. Chest x-ray from yesterday showing increasing small right pleural effusion and minimal atelectasis She had with dialysis yesterday. She is continued on amiodarone, metoprolol and Eliquis for possible atrial fibrillation per barge pilot. She might need SHERON/cardioversion and converted as an outpatient. Objective - Vital Signs Vital signs: Vital Signs Temp 97.6 F 05/11/21 07:56 Pulse 82 05/11/21 07:56 Resp 19 05/11/21 07:56 BP 100/66 05/11/21 07:56 Pulse Ox 99 05/11/21 07:56 Intake & Output 05/10/21 05/11/21 05/11/21 18:59 06:59 18:59 Intake Total 240 Output Total 1999 -1999 240 Weight 71.1 kg Intake: Oral 240 Output: Hemodialysis 1999 Other: Voiding Method Bedside Commode Bedside Commode Bedside Commode # Voids 3 1 1 # Bowel Movements 1 1 1 - Exam GENERAL: The patient is alert and oriented x3, not in any acute distress. Well developed, well nourished. HEENT: Pupils are round and equally reacting to light. EOMI. No scleral icterus. No conjunctival pallor. Normocephalic, atraumatic. No pharyngeal erythema. No thyromegaly. CARDIOVASCULAR: S1 and S2 present. No murmurs, rubs, or gallops. -PULMONARY: Chest is clear to auscultation, no wheezing . Bilateral crepitation ABDOMEN: Soft, nontender, nondistended, normoactive bowel sounds. No palpable organomegaly. MUSCULOSKELETAL: No joint swelling or deformity. EXTREMITIES: No cyanosis, clubbing, or pedal edema. NEUROLOGICAL: Gross neurological examination did not reveal any focal deficits. SKIN: No rashes. no petechiae. - Labs CBC & Chem 7: 05/10/21 06:24 05/10/21 06:24 Labs: Microbiology - Last 24 Hours (Table) 05/05/21 06:57 Blood Culture - Final Blood No Growth after 144 hours Assessment and Plan Assessment: -Sepsis most probably secondary to urinary tract infection patient , possible pneumonia, infectious disease evaluated the patient and continued cefepime. -Atrial fibrillation with rapid ventricular rate cardiology evaluated the patient patient is on eliquis, metoprolol 75 mg 3 times a day along with amiodarone. -Shortness of breath and pulmonary edema secondary to end-stage renal disease, continues to have shortness of breath patient does have COPD which is contributing to her shortness of breath and wheezing did improve although still evident and will add low dose prednisone -Acute on chronic systolic CHF with ejection fraction 40-45% -Moderate tricuspid regurgitation -COPD with mild acute exacerbation patient is on inhaled steroids inhalational treatments presently not in exacerbation. -Chronic respiratory failure on home oxygen which will be continued -Pulmonary hypertension secondary to most probably secondary to COPD -Chronic kidney disease/end-stage renal disease secondary to hypertensive nephrosclerosis and also diabetic nephropathy -Hypertension -Gastroesophageal reflux disease -DVT prophylaxis: eliquis - GI prophylaxis Protonix
--- NOTE | 2021-05-11 13:26 | PN ---
PROGRESS NOTE Patient is seen for followup for end-stage renal disease. This morning patient feels fairly well. We had about 2 L of ultrafiltration yesterday. She tolerated her treatment very well. The patient is complaining of lower extremity swelling. She denies any significant palpitations, chest pain, or shortness of breath. PHYSICAL EXAMINATION: On examination today, blood pressure 100/66, heart rate 82 per minute. She is afebrile. Examination of the heart S1, S2. Examination of the lungs, bilateral breath sounds are heard. Abdomen is soft, nontender. Examination of lower extremities shows edema 1+ bilaterally. CREW BOSS exam grossly intact. LABS: Show sodium of 137, potassium 3.5 yesterday, hemoglobin 11.7 g/dL. ASSESSMENT: 1. End-stage renal disease, on hemodialysis on a Wednesday, Wednesday, Wednesday schedule. 2. Volume overload, tolerated dialysis well yesterday with UF of 2 L. We will plan for another treatment tomorrow. 3. Atrial fibrillation with rapid ventricular response, heart rate now controlled well and patient has been tolerating her dialysis much better. 4. Chronic kidney disease, mineral bone disorder. PLAN: Hemodialysis in a.m. MMODL / IJN: [id number] /
--- NOTE | 2021-05-11 14:59 | PN ---
PROGRESS NOTE DATE OF SERVICE: 05/10/2021 INTERVAL HISTORY: Patient is seen for followup for end-stage renal disease. She is complaining of mild shortness of breath today. Patient is scheduled for hemodialysis today, which is Wednesday. Her heart rate is much better controlled now, staying about 70-80 beats per minute. PHYSICAL EXAMINATION: Blood pressure 107/77, heart rate of 78 per minute. She is afebrile examination of the heart S1, S2. Examination of the lungs, bilateral breath sounds are heard. Abdomen is soft, nontender. Examination of lower extremities shows edema 2+ bilaterally. G[employer]ICER exam grossly intact. LAB: Show sodium 137, potassium 3.5, hemoglobin 11.7 on 05/10/2021. ASSESSMENT: 1. End-stage renal disease, on hemodialysis on a Wednesday, Wednesday, Wednesday schedule. Patient will be dialyzed today, which is Wednesday, as she did not have a treatment yesterday due to issues with the rapid heart rate. We will try for about 2 L and she will be dialyzed again on Wednesday. 2. Atrial fibrillation with rapid ventricular response, now better controlled. 3. Mild volume overload. 4. Chronic kidney disease, mineral bone disorder. PLAN: Hemodialysis today which is 05/10/2021. Next dialysis again on 05/12/2021. MMODL / IJN: [id number] /
--- NOTE | 2021-05-11 16:32 | PN ---
PROGRESS NOTE DATE OF SERVICE: 05/11/2021 REASON FOR FOLLOWUP: Pneumonia. INTERVAL HISTORY: The patient is afebrile. The patient is breathing comfortably. The patient denies having any chest pain. No shortness of breath or cough. No abdominal pain. EXAMINATION: Blood pressure 139/70 with a pulse of 92, temperature is 97.8, she is 94% on 2 L nasal cannula. GENERAL DESCRIPTION: Is an elderly female up in the chair in no distress. RESPIRATORY SYSTEM: Unlabored breathing, decreased breath sounds in the base, with no wheeze. HEART: S1, S2. Regular rate and rhythm. LABS: Hemoglobin 11.1, white count 9.1 BUN of 29, creatinine 4.28. DIAGNOSTIC IMPRESSION AND PLAN: Shortness with cough and chest pain. Diagnosis of pneumonia. Overall improvement on cefepime, finishing therapy with a short course of Ceftin. Continue supportive care. MMODL / IJN: [id number] /
[2021-05-12] MEDS: SENNOSIDES 8.6 MG TAB PO SCH ×3 (05:27→21:40)
[2021-05-12] MEDS: SYMBICORT 80-4.5 MCG INHALER INHALATION SCH ×2 (07:22→19:26)
[2021-05-12] MEDS: AMIODARONE 200 MG TAB PO SCH ×3 (08:27→20:18)
[2021-05-12] MEDS: FUROSEMIDE 40 MG TAB PO SCH (08:27)
[2021-05-12] MEDS: METOPROLOL TARTRATE 25 MG TAB PO SCH ×3 (08:28→21:40)
[2021-05-12 08:30] LABS: Anisocytosis Slight; HCT 42.7 % (34.0-46.0); HGB 13.3 gm/dL (11.4-16.0); Hypochromasia Slight; MCH 31.9 pg (25.0-35.0); MCHC 31.1 g/dL (31.0-37.0); MCV 102.5 fL (80.0-100.0); Macrocytosis Moderate; Mean Platelet Volume 9.4; Platelet Count 117 k/uL (150-450); RBC 4.17 m/uL (3.80-5.40); RDW 18.7 % (11.5-15.5)
[2021-05-12] MEDS: PANTOPRAZOLE 40 MG TABLET PO SCH (08:34)
[2021-05-12] MEDS: LIDOCAINE-PRILOCAINE 2.5-2.5% CREAM 5 GM TUBE TOPICAL SCH (08:34)
[2021-05-12] MEDS: NYSTATIN 100,000 UNIT/ML SUSP 500,000 UNIT/5 ML CUP PO SCH ×4 (08:34→21:40)
[2021-05-12] MEDS: predniSONE 20 MG TAB PO SCH (08:34)
[2021-05-12] MEDS: APIXABAN 2.5 MG TABLET PO SCH ×2 (08:34→21:41)
[2021-05-12] MEDS: CEFDINIR 300 MG CAP PO SCH (08:35)
[2021-05-12] MEDS: FOLIC ACID-VIT B COMPLEX-VIT C 1 CAP PO SCH (08:35)
--- NOTE | 2021-05-12 10:54 | P.PN ---
Subjective Patient is seen in follow-up for end-stage renal disease. She is maintained on hemodialysis on Wednesday schedule. Tolerating dialysis well. Complains of a cough. On 2 L nasal cannula. Vital signs are stable. General: The patient appeared well nourished and normally developed. HEENT: Head exam is unremarkable. Neck is without jugular venous distension. LUNGS: Breath sounds decreased. HEART: Rate and Rhythm are regular. ABDOMEN: Soft, no distention. EXTREMITITES: No edema. Objective - Vital Signs Vital signs: Vital Signs Temp 97.4 F L 05/12/21 07:45 Pulse 95 05/12/21 07:45 Resp 16 05/12/21 07:45 BP 109/75 05/12/21 07:45 Pulse Ox 95 05/12/21 07:45 Intake & Output 05/11/21 05/12/21 05/12/21 18:59 06:59 18:59 Intake Total 480 Balance 480 Weight 71 kg Intake: Oral 480 Other: Voiding Method Bedside Commode Bedside Commode # Voids 1 2 # Bowel Movements 1 1 - Labs CBC & Chem 7: 05/12/21 06:14 05/10/21 06:24 Labs: Abnormal Lab Results - Last 24 Hours (Table) 05/12/21 Range/Units 06:14 WBC 11.2 H (3.8-10.6) k/uL MCV 102.5 H (80.0-100.0) fL RDW 18.7 H (11.5-15.5) % Plt Count 117 L (150-450) k/uL Microbiology - Last 24 Hours (Table) 05/05/21 06:57 Blood Culture - Final Blood No Growth after 144 hours Assessment and Plan Plan: Assessment: 1. End-stage renal disease maintained on hemodialysis on Wednesday schedule. 2. Acute on chronic diastolic CHF with moderate to severe mitral and tricuspid regurgitation. 3. Pulmonary hypertension. 4. Pneumonia maintained on antibiotics. 5. Chronic kidney disease mineral bone disease. Phosphorus level 3.8. 6. Hypertension with chronic kidney disease. 7. A. fib maintained on amiodarone, metoprolol and anticoagulation. 8. Volume overload. Plan: Currently seen while undergoing hemodialysis. Try for 2.5-3 L UF. Next treatment on Wednesday.
[2021-05-12 11:51] LABS: African American GFR (CKD) 9.2 (60.0-200.0); Albumin 3.7 g/dL (3.80-4.90); Albumin/Globulin Ratio 1.19 (1.60-3.17); Anion Gap 15.2 mmol/L (4.00-12.00); BUN/Creat Ratio 7.71 Ratio (12.00-20.00); Calcium 8.6 mg/dL (8.7-10.3); Carbon Dioxide 24.8 mmol/L (21.6-31.8); Globulin 3.1 g/dL (1.6-3.3); Non-African American GFR(CKD) 7.9 (60.0-200.0); Potassium 4.5 mmol/L (3.5-5.5); Total Bilirubin 0.6 mg/dL (0.3-1.2); Total Protein 6.8 g/dL (6.2-8.2)
[2021-05-12 12:09] LABS: Band Neutrophils % 1 %; Lymphocytes # (M) 1.19 k/uL (1.0-4.8); Monocytes # (M) 0.76 k/uL (0-1.0); Neutrophils % (M) 82 %; Nucleated Red Blood Cells 4 /100 WBC (0-0); Total Cells Counted 200; WBC 10.8 k/uL (3.8-10.6)
[2021-05-12 12:10] LABS: Polychromasia Present
--- NOTE | 2021-05-12 20:23 | P.PN ---
Subjective Patient is a 81-year-old the pleasant female came in with compensative short is a cough with whitish sputum production. Patient was found to be febrile patient denied any dysuria increased to urinary frequency. Patient urine is significantly abnormal patient was started on Rocephin and doxycycline with concerns of pneumonia although there is no pneumonia on the chest x-ray such as chest x-ray service history of pulmonary edema with bilateral pleural effusions. Patient does have history of end-stage liver disease (dependent and patient dialysis access is a left arm graft. Patient is feeling much better patient does have wheezing on exam patient does use oxygen at home does have history of COPD. 05/04/2022 Infectious disease evaluate the patient that they believe patient has atypical pneumonia patient is presently on cefepime and levofloxacin. Urine Legionella antigen is being obtained sputum cultures were ordered. I still do not believe patient has pneumonia patient has pulmonary edema on the chest x-ray. And her pulmonary edema is secondary to volume overload and patient is a poor dialysis patient. Patient does have a lateral pleural effusions consistent with pulmonary edema rather than atypical pneumonia. Patient doesn't have any fevers at this time. 2 feeling short of breath does have some wheezing on exam patient will be given 1 dose of prednisone patient does have history of COPD. Is not coughing much. will repeat a chest x-ray which shows improvement but then it CHF. 05/05/2021 Patient is in atrial fibrillation with rapid unclear rate cardiology eval and the patient patient is a given additional dose of metoprolol patient metoprolol dose was increased to 25 3 times a day. Patient not on any anticoagulation patient heart rate is still high. I believe that this increased heart rate is secondary to fluoroquinolones and discontinue levofloxacin and lipid urine Legionella antigen is negative. Clinically bilateral pleural effusions is not consistent with atypical pneumonia rather it's more consistent with volume overload. I'll discuss the same with the infectious disease. Patient is also on cefepime which is being continued. Urine culture showed normal emiliano, blood cultures are positive for gram-negative bacilli which is a contamination. Patient wheezing although improved. Respiratory status is improving at this time. 05/06/2021 Patient is seen in follow-up this morning and heart rate slightly improved after increasing dose although blood pressure on the lower side with multiple medical consultations following. Patient continues on IV cefepime with infectious disease following closely. Nephrology also following as patient receives dialysis and unable to tolerate yesterday and will try ultrafiltration today with possibly resuming hemodialysis on her normal schedule of Wednesday/Wednesday/Wednesday. Patient being started on Eliquis 2.5 mg twice a day. Patient continues on metoprolol 75 mg 3 times daily and cardiology following closely and has added amiodarone 200 mg 3 times daily and will continue to monitor closely. She continues to have some shortness of breath with mild wheezing noted and is continued on breathing inhalational treatments and will continue. Patient is afebrile. 05/07/2021 Patient is seen in follow-up with no acute overnight issues noted. Daughter at the bedside and discussed discharge planning as patient continues to be extremely weak and dyspneic with minimal exertion and will have PT/OT evaluate the patient and also case management to discuss options of possible ECF for continued PT/OT therapy and family along with patient are agreeable if it is a covered benefit under her insurance as she does live alone and they are quite concerned as they live in [facility] with limited visitations allowed. They feel she is unsafe to return home at this time and her current clinical situation. Patient continues on 3-4 L of oxygen via nasal cannula and continues to have a minimal cough with no phlegm production. Patient did tolerate ultrafiltration yesterday and nephrology following and plans are for hemodialysis in the morning with follow-up chest x-ray. Patient is continued on oral amiodarone along with oral metoprolol and heart rate improved today. Patient is continued on IV cefepime with infectious disease following. Patient is afebrile and white blood count within normal limits. Chest x-ray ordered today and pending at this time. 05/08/2021 Patient is presently on amiodarone and metoprolol and patient heart rate is better controlled but patient that is bit volume overloaded with significant edema. Bilateral upper and lower extremities patient is undergoing hemodialysis today. Because of the borderline blood pressure is not much enough room to remove much of fluid 2 L of fluid is being removed today via hemodialysis. She probably will end up staying in the hospital until Wednesday and patient was comparing of her shortness of breath orthopnea last night 05/09/2021 Patient is seen and evaluated this morning sitting up in the chair and continues to have a cough with some mild wheeze and extreme shortness of breath. Patient continues on IV cefepime along with breathing inhalational treatments. Will add low dose prednisone for the wheezing. Patient states she is not having dialysis today with possibly tomorrow. Patient is on oral lasix. Social work following as well and patient will require insurance authorization to ECF once more stable and closer to discharge. Will follow up with chest xray in the am. 05/10/2021 This is a pleasant 81 years old female who presents with sepsis secondary to UTI and pneumonia. She's chronic kidney disease and end-stage renal disease on dialysis. There was suspicion of atrial fibrillation with recommendation that she follow up with her sinker winder for need for anticoagulation and our sinker winder evaluated the patient and diagnosed her with paroxysmal organized atrial tachycardia. And it looks like she has cardiomyopathy with ejection fraction of 40-45%. Today she was undergoing dialysis. She still complained from difficulty breathing although she reports improvement. She is saturating 98% on 3 L oxygen NC.. She is afebrile Labs reviewed. CBC and BMP are unremarkable except for chronically elevated creatinine. Liver enzymes were elevated yesterday Chest x-ray this morning: Increasing small right pleural effusion. Atelectasis and cardiomegaly She remains on cefepime. Also she is on prednisone 20 mg for history of COPD, also she is on Eliquis 2.5 mg. She is on amiodarone 200 mg 3 times a day, sinker winder planning to [place] to [facility] down the road. 05/11/2021 Patient breathing is slightly better than yesterday. She is somewhat less dyspneic. With no cough, no chest pain. She is currently on 3 L oxygen via nasal cannula and saturating 98% she is on 2 L oxygen at home. She still complaining of from bilateral leg swelling. Blood pressure is 100/66. She is continued on cefepime for possible pneumonia. UTI is also suspected but is less likely. Chest x-ray from yesterday showing increasing small right pleural effusion and minimal atelectasis She had with dialysis yesterday. She is continued on amiodarone, metoprolol and Eliquis for possible atrial fibrillation per sinker winder. She might need SHERON/cardioversion and converted as an outpatient. 05/12/2021 Patient breathing quietly on she is now on 2 L oxygen via nasal cannula, which is her baseline at home she is also uses 2 L/m of oxygen. No significant dyspnea. No chest pain. She still has significant bilateral leg swelling. No other new complaint. She went for her scheduled hemodialysis today. Results vitals and labs look stable. Liver enzymes slightly trending up. We going to hold her amiodarone dose tonight and check liver enzymes tomorrow, most likely elevated liver enzymes is secondary to amiodarone or contributing to it. We going to call cardiology follow-up tomorrow. Also she has mild leukocytosis at 10.8. Her antibiotics were changed to cefdinir by mouth by ID team. Today I did peer to peer review with her social provider, however they rejected the case to go to subacute rehab. Possible discharge in 24-48 hour Objective - Vital Signs Vital signs: Vital Signs Temp 97.5 F L 05/12/21 13:53 Pulse 96 05/12/21 13:53 Resp 16 05/12/21 13:53 BP 131/82 05/12/21 13:53 Pulse Ox 96 05/12/21 13:53 Intake & Output 05/11/21 05/12/21 05/12/21 18:59 06:59 18:59 Intake Total 480 Output Total 2500 Balance 480 -2500 Weight 71 kg Intake: Oral 480 Output: Hemodialysis 2500 Other: Voiding Method Bedside Commode Bedside Commode # Voids 1 2 2 # Bowel Movements 1 1 - Exam GENERAL: The patient is alert and oriented x3, not in any acute distress. Well developed, well nourished. HEENT: Pupils are round and equally reacting to light. EOMI. No scleral icterus. No conjunctival pallor. Normocephalic, atraumatic. No pharyngeal erythema. No thyromegaly. CARDIOVASCULAR: S1 and S2 present. No murmurs, rubs, or gallops. -PULMONARY: Chest is clear to auscultation, no wheezing . Bilateral crepitation ABDOMEN: Soft, nontender, nondistended, normoactive bowel sounds. No palpable organomegaly. MUSCULOSKELETAL: No joint swelling or deformity. EXTREMITIES: No cyanosis, clubbing, or pedal edema. NEUROLOGICAL: Gross neurological examination did not reveal any focal deficits. SKIN: No rashes. no petechiae. - Labs CBC & Chem 7: 05/12/21 06:14 05/12/21 06:14 Labs: Abnormal Lab Results - Last 24 Hours (Table) 05/12/21 05/12/21 Range/Units 06:14 06:14 WBC 10.8 H (3.8-10.6) k/uL MCV 102.5 H (80.0-100.0) fL RDW 18.7 H (11.5-15.5) % Plt Count 117 L (150-450) k/uL Neutrophils # (Manual) 8.90 H (1.3-7.7) k/uL Nucleated RBCs 4 H (0-0) /100 WBC Anion Gap 15.20 H (4.00-12.00) mmol/L BUN 37.0 H (9.0-27.0) mg/dL Creatinine 4.8 H (0.6-1.5) mg/dL Est GFR (CKD-EPI)AfAm 9.2 L (60.0-200.0) Est GFR (CKD-EPI)NonAf 7.9 L (60.0-200.0) BUN/Creatinine Ratio 7.71 L (12.00-20.00) Ratio Calcium 8.6 L (8.7-10.3) mg/dL AST 235 H (13-35) U/L ALT 284 H (8-44) U/L Alkaline Phosphatase 138 H (41-126) U/L Albumin 3.70 L (3.80-4.90) g/dL Albumin/Globulin Ratio 1.19 L (1.60-3.17) g/dL Assessment and Plan Assessment: -Sepsis most probably secondary to urinary tract infection patient , possible pneumonia, infectious disease evaluated the patient and continued cefdinir PO per ID team . -Atrial fibrillation with rapid ventricular rate cardiology evaluated the patient patient is on eliquis, metoprolol 75 mg 3 times a day along with amiodarone. -Shortness of breath and pulmonary edema secondary to end-stage renal disease,improving -Acute on chronic systolic CHF with ejection fraction 40-45% -Moderate tricuspid regurgitation -COPD with mild acute exacerbation patient is on inhaled steroids inhalational treatments , c/w oral prednisone -Chronic respiratory failure on home oxygen which will be continued -Pulmonary hypertension secondary to most probably secondary to COPD -Chronic kidney disease/end-stage renal disease secondary to hypertensive nephrosclerosis and also diabetic nephropathy -Hypertension -Gastroesophageal reflux disease -DVT prophylaxis: eliquis - GI prophylaxis Protonix
[2021-05-12] MEDS: oxyCODONE-APAP 5-325MG 1 EACH TAB PO PRN (21:56)
[2021-05-12] MEDS: TEMAZEPAM 15 MG CAP PO PRN (21:56)
--- NOTE | 2021-05-12 23:39 | PN ---
PROGRESS NOTE DATE OF SERVICE: 05/12/2021 REASON FOR FOLLOWUP: Pneumonia. INTERVAL HISTORY: The patient is afebrile. Not feeling that good, though the patient denies having any chest pain. ( ) cough, not bringing up any sputum. No abdominal pain or diarrhea. PHYSICAL EXAMINATION: Her blood pressure is 131/82 with a pulse of 93 temperature 97.5. She is 96% on 3 L. GENERAL DESCRIPTION: The patient is an elderly female lying in bed in no distress. RESPIRATORY SYSTEM: Unlabored breathing, decreased intensity of breath sounds. No wheeze. HEART: S1, S2. Regular rate and rhythm. ABDOMEN: Soft, no tenderness. EXTREMITIES: No edema of the feet. LABS: The hemoglobin 13.1, white count 10.8, BUN of 37 and creatinine 4.8. DIAGNOSTIC IMPRESSION AND PLAN: Patient admitted to the hospital shortness of breath, multifactorial, possible component of pneumonia. Patient has about 10 days of IV cefazolin. Currently on Ceftin, to continue for short course. We will monitor clinical course closely. Continue supportive care. MMANDREL / KARENN: [id number] /
[2021-05-13] MEDS: SYMBICORT 80-4.5 MCG INHALER INHALATION SCH ×2 (07:30→19:44)
[2021-05-13] MEDS: FUROSEMIDE 40 MG TAB PO SCH (08:31)
[2021-05-13] MEDS: METOPROLOL TARTRATE 25 MG TAB PO SCH ×3 (08:31→21:13)
[2021-05-13] MEDS: PANTOPRAZOLE 40 MG TABLET PO SCH (08:31)
[2021-05-13] MEDS: AMIODARONE 200 MG TAB PO SCH (08:31)
[2021-05-13] MEDS: APIXABAN 2.5 MG TABLET PO SCH ×2 (08:31→21:13)
[2021-05-13] MEDS: predniSONE 20 MG TAB PO SCH (08:31)
[2021-05-13] MEDS: SENNOSIDES 8.6 MG TAB PO SCH ×2 (08:31→23:23)
[2021-05-13] MEDS: CEFDINIR 300 MG CAP PO SCH (08:32)
[2021-05-13] MEDS: FOLIC ACID-VIT B COMPLEX-VIT C 1 CAP PO SCH (08:32)
[2021-05-13] MEDS: NYSTATIN 100,000 UNIT/ML SUSP 500,000 UNIT/5 ML CUP PO SCH ×4 (08:32→21:14)
[2021-05-13 10:02] LABS: ALT 204 U/L (4-34); AST 111 U/L (14-36); African American GFR (CKD) 11 (>60 ml/min/1.73 sqM); Alkaline Phosphatase 124 U/L (38-126); Anion Gap 10 mmol/L; Blood Urea Nitrogen 29 mg/dL (7-17); Calcium 8.5 mg/dL (8.4-10.2); Carbon Dioxide 25 mmol/L (22-30); Chloride 103 mmol/L (98-107); Glucose 88 mg/dL (74-99); Non-African American GFR(CKD) 10 (>60 ml/min/1.73 sqM); Potassium 3.7 mmol/L (3.5-5.1); Sodium 138 mmol/L (137-145); Total Bilirubin 0.7 mg/dL (0.2-1.3)
--- NOTE | 2021-05-13 10:20 | P.PN ---
Subjective Patient is seen in follow-up for end-stage renal disease. She is maintained on hemodialysis on Wednesday schedule. No problems with dialysis yesterday. Complains of a cough. On 3 L nasal cannula. No changes overnight. Vital signs are stable. General: The patient appeared well nourished and normally developed. HEENT: Head exam is unremarkable. Neck is without jugular venous distension. LUNGS: Breath sounds decreased. HEART: Rate and Rhythm are regular. ABDOMEN: Soft, no distention. EXTREMITITES: No edema. Objective - Vital Signs Vital signs: Vital Signs Temp 97.6 F 05/13/21 07:23 Pulse 83 05/13/21 07:23 Resp 18 05/13/21 07:23 BP 119/80 05/13/21 07:23 Pulse Ox 98 05/13/21 07:23 Intake & Output 05/12/21 05/13/21 05/13/21 18:59 06:59 18:59 Output Total 2500 Balance -2500 Weight 72.5 kg Output: Hemodialysis 2500 Other: # Voids 2 1 - Labs CBC & Chem 7: 05/12/21 06:14 05/13/21 03:55 Labs: Abnormal Lab Results - Last 24 Hours (Table) 05/12/21 05/12/21 05/13/21 Range/Units 06:14 06:14 03:55 WBC 10.8 H (3.8-10.6) k/uL Neutrophils # (Manual) 8.90 H (1.3-7.7) k/uL Nucleated RBCs 4 H (0-0) /100 WBC Anion Gap 15.20 H (4.00-12.00) mmol/L BUN 37.0 H 29 H (9.0-27.0) mg/dL Creatinine 4.8 H 4.03 H (0.6-1.5) mg/dL Est GFR (CKD-EPI)AfAm 9.2 L (60.0-200.0) Est GFR (CKD-EPI)NonAf 7.9 L (60.0-200.0) BUN/Creatinine Ratio 7.71 L (12.00-20.00) Ratio Calcium 8.6 L (8.7-10.3) mg/dL AST 235 H 111 H (13-35) U/L ALT 284 H 204 H (8-44) U/L Alkaline Phosphatase 138 H (41-126) U/L Total Protein 6.0 L (6.3-8.2) g/dL Albumin 3.70 L 3.0 L (3.80-4.90) g/dL Albumin/Globulin Ratio 1.19 L (1.60-3.17) g/dL Assessment and Plan Plan: Assessment: 1. End-stage renal disease maintained on hemodialysis on Wednesday schedule. 2. Acute on chronic diastolic CHF with moderate to severe mitral and tricuspid regurgitation. 3. Pulmonary hypertension. 4. Pneumonia maintained on antibiotics. 5. Chronic kidney disease mineral bone disease. Phosphorus level 3.8. 6. Hypertension with chronic kidney disease. 7. A. fib maintained on amiodarone, metoprolol and anticoagulation. 8. Volume overload. Improved with ultrafiltration. Plan: Hemodialysis tomorrow.
--- NOTE | 2021-05-13 11:43 | PN ---
PROGRESS NOTE DATE OF SERVICE: 05/13/2021 REASON FOR FOLLOWUP: Pneumonia. INTERVAL HISTORY: The patient is afebrile. The patient is feeling better. She is breathing more comfortably. The patient denies having any chest pain. Cough has decreased intensity, not bringing up some sputum. No hemoptysis. No vomiting. No abdominal pain or diarrhea. PHYSICAL EXAMINATION: Blood pressure 119/80 with a pulse of 83. Temperature is 97.6, she is 98% on 3 L nasal cannula. General description is an elderly female up in the chair in no distress. Respiratory system: Unlabored breathing. Clear to auscultation anteriorly. Heart S1, S2. Regular rate and rhythm. Abdomen soft, no tenderness. LABS: BUN of 29, creatinine 4.03. DIAGNOSTIC IMPRESSION AND PLAN: Patient admitted to hospital with pneumonia. Patient seemed to have shown overall clinical improvement, currently on Omnicef to continue for another four to five days to finish course of therapy. Close outpatient followup. MMODL / IJN: [id number] /
--- NOTE | 2021-05-13 13:13 | P.PN ---
Subjective This is a pleasant 81-year-old female past medical history significant for end-stage renal disease on hemodialysis, history of SVT, diabetes mellitus and COPD. She follows in the office with Dr. Chavarria. She is seen and examined sitting up in bed in no acute distress. She has family at the bedside. She continues to be in atrial fibrillation with poorly controlled ventricular rates. There is some question of prior history of A. fib however according to Dr. Chavarria's office documentation the patient is only ever been diagnosed with SVT and atrial tachycardia in the past. Blood pressure 127/87 heart rate 141 afebrile maintaining oxygen saturation on nasal cannula. 05/13/2021 We have been asked to re-evaluate this patient regarding her elevated liver enzymes while on amiodarone. She continues to be in atrial fibrillation with con trolled ventricular rates. Blood pressure 119/80 heart rate 83 afebrile and maintaining oxygen saturation on nasal cannula. Laboratory data reviewed, sodium 138, potassium 3.7, creatinine 4.03, AST 111, ALT 204 down from peak of 235 and 284 yesterday. GENERAL: Well-appearing, well-nourished and in no acute distress. NECK: Supple without JVD or thyromegaly. LUNGS: Respiration equal and unlabored. No rales. HEART: Irregular rate and rhythm without murmurs, rubs or gallops. S1 and S2 heard. EXTREMITIES: Normal range of motion, no edema. No clubbing or cyanosis. Peripheral pulses intact. ASSESSMENT Paroxysmal organized atrial tachycardia with rapid ventricular rate Paroxysmal atrial fibrillation Amiodarone-induced liver toxicity End-stage renal disease on hemodialysis Pneumonia Bacteremia, possible contaminant per ID Diabetes mellitus COPD History of SVT PLAN Discontinue amiodarone. Plan for follow-up with Dr. Chavarria for outpatient SHREON cardioversion. Nurse Practitioner note has been reviewed, I agree with a documented findings and plan of care. Patient was seen and examined. Objective - Vital Signs Vital signs: Vital Signs Temp 97.6 F 05/13/21 07:23 Pulse 83 05/13/21 07:23 Resp 18 05/13/21 07:23 BP 119/80 05/13/21 07:23 Pulse Ox 98 05/13/21 07:23 Intake & Output 05/12/21 05/13/21 05/13/21 18:59 06:59 18:59 Output Total 2500 Balance -2500 Weight 72.5 kg Output: Hemodialysis 2500 Other: # Voids 2 1 - Labs CBC & Chem 7: 05/12/21 06:14 05/13/21 03:55 Labs: Abnormal Lab Results - Last 24 Hours (Table) 05/13/21 Range/Units 03:55 BUN 29 H (7-17) mg/dL Creatinine 4.03 H (0.52-1.04) mg/dL AST 111 H (14-36) U/L ALT 204 H (4-34) U/L Total Protein 6.0 L (6.3-8.2) g/dL Albumin 3.0 L (3.5-5.0) g/dL
[2021-05-13] MEDS: guaiFENesin SYRUP 100MG/5ML 200 MG/10 ML CUP PO PRN (21:12)
[2021-05-13] MEDS: TEMAZEPAM 15 MG CAP PO PRN (21:18)
--- NOTE | 2021-05-13 22:47 | P.PN ---
Subjective Patient is a 81-year-old the pleasant female came in with compensative short is a cough with whitish sputum production. Patient was found to be febrile patient denied any dysuria increased to urinary frequency. Patient urine is significantly abnormal patient was started on Rocephin and doxycycline with concerns of pneumonia although there is no pneumonia on the chest x-ray such as chest x-ray service history of pulmonary edema with bilateral pleural effusions. Patient does have history of end-stage liver disease (dependent and patient dialysis access is a left arm graft. Patient is feeling much better patient does have wheezing on exam patient does use oxygen at home does have history of COPD. 05/04/2022 Infectious disease evaluate the patient that they believe patient has atypical pneumonia patient is presently on cefepime and levofloxacin. Urine Legionella antigen is being obtained sputum cultures were ordered. I still do not believe patient has pneumonia patient has pulmonary edema on the chest x-ray. And her pulmonary edema is secondary to volume overload and patient is a poor dialysis patient. Patient does have a lateral pleural effusions consistent with pulmonary edema rather than atypical pneumonia. Patient doesn't have any fevers at this time. 2 feeling short of breath does have some wheezing on exam patient will be given 1 dose of prednisone patient does have history of COPD. Is not coughing much. will repeat a chest x-ray which shows improvement but then it CHF. 05/05/2021 Patient is in atrial fibrillation with rapid unclear rate cardiology eval and the patient patient is a given additional dose of metoprolol patient metoprolol dose was increased to 25 3 times a day. Patient not on any anticoagulation patient heart rate is still high. I believe that this increased heart rate is secondary to fluoroquinolones and discontinue levofloxacin and lipid urine Legionella antigen is negative. Clinically bilateral pleural effusions is not consistent with atypical pneumonia rather it's more consistent with volume overload. I'll discuss the same with the infectious disease. Patient is also on cefepime which is being continued. Urine culture showed normal emiliano, blood cultures are positive for gram-negative bacilli which is a contamination. Patient wheezing although improved. Respiratory status is improving at this time. 05/06/2021 Patient is seen in follow-up this morning and heart rate slightly improved after increasing dose although blood pressure on the lower side with multiple medical consultations following. Patient continues on IV cefepime with infectious disease following closely. Nephrology also following as patient receives dialysis and unable to tolerate yesterday and will try ultrafiltration today with possibly resuming hemodialysis on her normal schedule of Wednesday/Wednesday/Wednesday. Patient being started on Eliquis 2.5 mg twice a day. Patient continues on metoprolol 75 mg 3 times daily and cardiology following closely and has added amiodarone 200 mg 3 times daily and will continue to monitor closely. She continues to have some shortness of breath with mild wheezing noted and is continued on breathing inhalational treatments and will continue. Patient is afebrile. 05/07/2021 Patient is seen in follow-up with no acute overnight issues noted. Daughter at the bedside and discussed discharge planning as patient continues to be extremely weak and dyspneic with minimal exertion and will have PT/OT evaluate the patient and also case management to discuss options of possible ECF for continued PT/OT therapy and family along with patient are agreeable if it is a covered benefit under her insurance as she does live alone and they are quite concerned as they live in [facility] with limited visitations allowed. They feel she is unsafe to return home at this time and her current clinical situation. Patient continues on 3-4 L of oxygen via nasal cannula and continues to have a minimal cough with no phlegm production. Patient did tolerate ultrafiltration yesterday and nephrology following and plans are for hemodialysis in the morning with follow-up chest x-ray. Patient is continued on oral amiodarone along with oral metoprolol and heart rate improved today. Patient is continued on IV cefepime with infectious disease following. Patient is afebrile and white blood count within normal limits. Chest x-ray ordered today and pending at this time. 05/08/2021 Patient is presently on amiodarone and metoprolol and patient heart rate is better controlled but patient that is bit volume overloaded with significant edema. Bilateral upper and lower extremities patient is undergoing hemodialysis today. Because of the borderline blood pressure is not much enough room to remove much of fluid 2 L of fluid is being removed today via hemodialysis. She probably will end up staying in the hospital until Wednesday and patient was comparing of her shortness of breath orthopnea last night 05/09/2021 Patient is seen and evaluated this morning sitting up in the chair and continues to have a cough with some mild wheeze and extreme shortness of breath. Patient continues on IV cefepime along with breathing inhalational treatments. Will add low dose prednisone for the wheezing. Patient states she is not having dialysis today with possibly tomorrow. Patient is on oral lasix. Social work following as well and patient will require insurance authorization to ECF once more stable and closer to discharge. Will follow up with chest xray in the am. 05/10/2021 This is a pleasant 81 years old female who presents with sepsis secondary to UTI and pneumonia. She's chronic kidney disease and end-stage renal disease on dialysis. There was suspicion of atrial fibrillation with recommendation that she follow up with her candy polisher for need for anticoagulation and our candy polisher evaluated the patient and diagnosed her with paroxysmal organized atrial tachycardia. And it looks like she has cardiomyopathy with ejection fraction of 40-45%. Today she was undergoing dialysis. She still complained from difficulty breathing although she reports improvement. She is saturating 98% on 3 L oxygen NC.. She is afebrile Labs reviewed. CBC and BMP are unremarkable except for chronically elevated creatinine. Liver enzymes were elevated yesterday Chest x-ray this morning: Increasing small right pleural effusion. Atelectasis and cardiomegaly She remains on cefepime. Also she is on prednisone 20 mg for history of COPD, also she is on Eliquis 2.5 mg. She is on amiodarone 200 mg 3 times a day, candy polisher [place] to [facility] down the road. 05/11/2021 Patient breathing is slightly better than yesterday. She is somewhat less dyspneic. With no cough, no chest pain. She is currently on 3 L oxygen via nasal cannula and saturating 98% she is on 2 L oxygen at home. She still complaining of from bilateral leg swelling. Blood pressure is 100/66. She is continued on cefepime for possible pneumonia. UTI is also suspected but is less likely. Chest x-ray from yesterday showing increasing small right pleural effusion and minimal atelectasis She had with dialysis yesterday. She is continued on amiodarone, metoprolol and Eliquis for possible atrial fibrillation per candy polisher. She might need SHERON/cardioversion and converted as an outpatient. 05/12/2021 Patient breathing quietly on she is now on 2 L oxygen via nasal cannula, which is her baseline at home she is also uses 2 L/m of oxygen. No significant dyspnea. No chest pain. She still has significant bilateral leg swelling. No other new complaint. She went for her scheduled hemodialysis today. Results vitals and labs look stable. Liver enzymes slightly trending up. We going to hold her amiodarone dose tonight and check liver enzymes tomorrow, most likely elevated liver enzymes is secondary to amiodarone or contributing to it. We going to call cardiology follow-up tomorrow. Also she has mild leukocytosis at 10.8. Her antibiotics were changed to cefdinir by mouth by ID team. Today I did peer to peer review with her social provider, however they rejected the case to go to subacute rehab. Possible discharge in 24-48 hour 05/13/20 pt continue to improve clinically , pt antibiotic is switched to oral cefdinr for her pna, she still has b/l leg swelling which is chroinic , she will go for hemodialysis tomorrow pt has trending up liver enz and when we held last night dose , ast and alt level improved today , today we called cardiology who kindly evaluated pt and stopped her amiodarone, pt will need to f/u with for cardioversion as outpt cmx appealed decision by her insurance provider and now they accpet pt to go to [facility] Objective - Vital Signs Vital signs: Vital Signs Temp 97.6 F 05/13/21 20:00 Pulse 84 05/13/21 20:00 Resp 18 05/13/21 20:00 BP 120/78 05/13/21 20:00 Pulse Ox 98 05/13/21 20:00 Intake & Output 05/13/21 05/13/21 05/14/21 06:59 18:59 06:59 Intake Total 240 Balance 240 Weight 72.5 kg Intake: Oral 240 Other: # Voids 1 - Exam GENERAL: The patient is alert and oriented x3, not in any acute distress. Well developed, well nourished. HEENT: Pupils are round and equally reacting to light. EOMI. No scleral icterus. No conjunctival pallor. Normocephalic, atraumatic. No pharyngeal erythema. No thyromegaly. CARDIOVASCULAR: S1 and S2 present. No murmurs, rubs, or gallops. -PULMONARY: Chest is clear to auscultation, no wheezing . Bilateral crepitation ABDOMEN: Soft, nontender, nondistended, normoactive bowel sounds. No palpable organomegaly. MUSCULOSKELETAL: No joint swelling or deformity. EXTREMITIES: No cyanosis, clubbing, or pedal edema. NEUROLOGICAL: Gross neurological examination did not reveal any focal deficits. SKIN: No rashes. no petechiae. - Labs CBC & Chem 7: 05/12/21 06:14 05/13/21 03:55 Labs: Abnormal Lab Results - Last 24 Hours (Table) 05/13/21 Range/Units 03:55 BUN 29 H (7-17) mg/dL Creatinine 4.03 H (0.52-1.04) mg/dL AST 111 H (14-36) U/L ALT 204 H (4-34) U/L Total Protein 6.0 L (6.3-8.2) g/dL Albumin 3.0 L (3.5-5.0) g/dL Assessment and Plan Assessment: -Sepsis most probably secondary to urinary tract infection patient , possible pneumonia, infectious disease evaluated the patient and continued cefdinir PO per ID team . -Atrial fibrillation with rapid ventricular rate cardiology evaluated the patient patient is on eliquis, metoprolol 75 mg 3 times a day along with amiodarone. -Shortness of breath and pulmonary edema secondary to end-stage renal disease,improving -Acute on chronic systolic CHF with ejection fraction 40-45% -Moderate tricuspid regurgitation -COPD with mild acute exacerbation patient is on inhaled steroids inhalational treatments , c/w oral prednisone -Chronic respiratory failure on home oxygen which will be continued -Pulmonary hypertension secondary to most probably secondary to COPD -Chronic kidney disease/end-stage renal disease secondary to hypertensive nephrosclerosis and also diabetic nephropathy -Hypertension -Gastroesophageal reflux disease -DVT prophylaxis: eliquis - GI prophylaxis Protonix possible dc in 24 hours after HD tomorrow
[2021-05-14] MEDS: guaiFENesin SYRUP 100MG/5ML 200 MG/10 ML CUP PO PRN (03:18)
[2021-05-14] MEDS: SYMBICORT 80-4.5 MCG INHALER INHALATION SCH (07:37)
[2021-05-14 08:05] VITALS: BP 126/77; PULSE 77; RESP 13; TEMP 98
[2021-05-14] MEDS: predniSONE 20 MG TAB PO SCH (08:23)
[2021-05-14] MEDS: METOPROLOL TARTRATE 25 MG TAB PO SCH ×2 (08:23→16:41)
[2021-05-14] MEDS: APIXABAN 2.5 MG TABLET PO SCH (08:23)
[2021-05-14] MEDS: FUROSEMIDE 40 MG TAB PO SCH (08:23)
[2021-05-14] MEDS: FOLIC ACID-VIT B COMPLEX-VIT C 1 CAP PO SCH (08:24)
[2021-05-14] MEDS: SENNOSIDES 8.6 MG TAB PO SCH (08:24)
[2021-05-14] MEDS: PANTOPRAZOLE 40 MG TABLET PO SCH (08:24)
[2021-05-14] MEDS: CEFDINIR 300 MG CAP PO SCH (08:24)
[2021-05-14] MEDS: LIDOCAINE-PRILOCAINE 2.5-2.5% CREAM 5 GM TUBE TOPICAL SCH (08:24)
[2021-05-14] MEDS: NYSTATIN 100,000 UNIT/ML SUSP 500,000 UNIT/5 ML CUP PO SCH ×2 (08:24→14:48)
[2021-05-14] MEDS ORDERED: AMIODARONE 200 MG TAB PO SCH (09:00)
--- NOTE | 2021-05-14 10:43 | P.DS ---
Providers Date of admission: 05/02/21 19:46 Attending physician: Blair Iyer MD Consults: 05/02/21 20:44 Consult Physician Urgent Consulting Provider: Edin Quinn Consult Reason/Comments: Pneumonia Do you want consulting provider notified?: Yes 05/02/21 22:08 Consult Physician Routine Consulting Provider: Filemon Bland Consult Reason/Comments: dialysis Do you want consulting provider notified?: Yes, Notify in am 05/03/21 17:50 Consult Physician Urgent Consulting Provider: Love Jernigan Consult Reason/Comments: new onset afib rvr, pt thinks poss hx also, low 100's Do you want consulting provider notified?: Yes 05/13/21 07:58 Consult Physician Routine Consulting Provider: Giovani Cleaning Consult Reason/Comments: change in cardiac rhythm Do you want consulting provider notified?: Yes Primary care physician: Ventura Duran Assessment: diagnoses: -Sepsis most probably secondary to urinary tract infection patient , possible pneumonia, infectious disease evaluated the patient and continued cefdinir PO per ID team . -Atrial fibrillation with rapid ventricular rate cardiology evaluated the patient patient is on eliquis, metoprolol 75 mg 3 times a day, need cardioversion with -Shortness of breath and pulmonary edema secondary to end-stage renal disease,improving -Acute on chronic systolic CHF with ejection fraction 40-45%, improved -Moderate tricuspid regurgitation -COPD with mild acute exacerbation patient is on inhaled steroids inhalational treatments , c/w oral prednisone -Chronic respiratory failure on home oxygen which will be continued, she is on 2 L/M at home -Pulmonary hypertension secondary to most probably secondary to COPD -Chronic kidney disease/end-stage renal disease secondary to hypertensive nephrosclerosis and also diabetic nephropathy -Hypertension -Gastroesophageal reflux disease hospital course: Patient is a 81-year-old the pleasant female came in with dyspnea with whitish sputum production. Patient was found to be febrile patient denied any dysuria increased to urinary frequency. Patient urine is significantly abnormal patient was started on Rocephin and doxycycline with concerns of pneumonia although there is no pneumonia on the chest x-ray such as chest x-ray service history of pulmonary edema with bilateral pleural effusions. Patient does have history of end-stage renal disease (dependent and patient dialysis access is a left arm graft. Patient has been evaluated by infectious disease team and she was started on cefepime, patient showed interval improvement in her breathing is easier. No cough. No chest pain. No abdominal pain or diarrhea. No vomiting. She tolerates diet. No dysuria or change in frequency. No fever. Bilateral leg swelling. She still getting hemodialysis She was started on a prednisone 20 mg daily which could be tapered off over few days She is to be continued on 2 L/m of oxygen via nasal cannula. Evaluated the patient for A. fib, she has some paroxysmal organized atrial t achycardia. She is currently on Eliquis. And metoprolol 75 mg. Her amiodarone was stopped due to liver toxicity, extension service specialist recommended that she follow up with Dr. Chavarria in the office for cardioversion She has also cardiomyopathy with ejection fraction of 40-45%, with moderate tricuspid regurgitation, her breathing improved as above. She is hemodynamically stable She feels fine and willing to go to rehab today. She was cleared for discharge by cardiology and infectious disease team and nephrology teams Problems and management plan were discussed with the patient and he verbalized understanding and acceptance Patient was found stable and can be discharged home however he needs follow-up as an outpatient. Patient was instructed to follow up with PCP Dr. Duran within one week and patient agrees Patient also will need follow-up with Dr. Chavarria in 1 to 2 weeks for cardioversion Physical exam Gen: patient is a AAOx3, no distress CVS: S1-S2, RRR, no murmur Lungs: B/L CTA, no wheezing Abdomen: soft, no distention, no tenderness, positive bowel sounds Extremity: no leg edema or induration Time spent more than 35 minutes Patient Condition at Discharge: Fair Plan - Discharge Summary Discharge Rx Participant: No New Discharge Prescriptions: No Action Ergocalciferol (Vitamin D2) [Vitamin D2] 50,000 unit PO Q28D oxyCODONE HCL/ACETAMINOPHEN [Percocet 5-325 mg] 1 tab PO DAILY PRN PRN Reason: Pain Temazepam 30 mg PO HS Tiotropium Buckner [Spiriva] 1 cap INHALATION RT-DAILY Ipratropium/Albuterol Sulfate [Combivent Respimat Inhaler] 1 - 2 puff INHALATION RT-QID PRN PRN Reason: Dyspnea Fluticasone/Salmeterol [Advair 250-50 Diskus] 1 puff INHALATION RT-BID Aspirin 81 mg PO DAILY Pantoprazole Sodium [Protonix] 20 mg PO DAILY Lidocaine-Prilocaine Cream [Emla Cream 2.5%/2.5%] 1 applic TOPICAL MOWEFR Furosemide [Lasix] 40 mg PO DAILY Brigette-Lynn Multivitamin 1 tab PO DAILY Discharge Medication List Ergocalciferol (Vitamin D2) [Vitamin D2] 50,000 unit PO Q28D 11/16/17 [History] Temazepam 30 mg PO HS 01/04/19 [History] Tiotropium Buckner [Spiriva] 1 cap INHALATION RT-DAILY 01/04/19 [History] oxyCODONE HCL/ACETAMINOPHEN [Percocet 5-325 mg] 1 tab PO DAILY PRN 01/04/19 [History] Aspirin 81 mg PO DAILY 04/06/19 [History] Fluticasone/Salmeterol [Advair 250-50 Diskus] 1 puff INHALATION RT-BID 04/06/19 [History] Ipratropium/Albuterol Sulfate [Combivent Respimat Inhaler] 1 - 2 puff INHALATION RT-QID PRN 04/06/19 [History] Furosemide [Lasix] 40 mg PO DAILY 05/02/21 [History] Lidocaine-Prilocaine Cream [Emla Cream 2.5%/2.5%] 1 applic TOPICAL MOWEFR 05/02/21 [History] Pantoprazole Sodium [Protonix] 20 mg PO DAILY 05/02/21 [History] Brigette-Lynn Multivitamin 1 tab PO DAILY 05/02/21 [History] Follow up Appointment(s)/Referral(s): William Chavarria MD [STAFF PHYSICIAN] - 05/26/21 3:00 pm ([facility] LOCATION) Ventura Duran DO [Primary Care Provider] - 05/27/21 1:15 pm
--- NOTE | 2021-05-14 12:46 | P.PN ---
Subjective Patient is seen in follow-up for end-stage renal disease. She is maintained on hemodialysis on Wednesday schedule. Feels better today. Currently on 3 L nasal cannula. Patient is oxygen dependent at home. No chest pain. Vital signs are stable. General: The patient appeared well nourished and normally developed. HEENT: Head exam is unremarkable. Neck is without jugular venous distension. LUNGS: Breath sounds decreased. HEART: Rate and Rhythm are regular. ABDOMEN: Soft, no distention. EXTREMITITES: 1+ edema. Objective - Vital Signs Vital signs: Vital Signs Temp 98.0 F 05/14/21 07:08 Pulse 77 05/14/21 07:08 Resp 13 05/14/21 07:08 BP 126/77 05/14/21 07:08 Pulse Ox 98 05/14/21 07:08 Intake & Output 05/13/21 05/14/21 05/14/21 18:59 06:59 18:59 Intake Total 240 Output Total 1999 Balance 240 -1999 Intake: Oral 240 Output: Hemodialysis 1999 Other: Voiding Method Bedside Commode # Voids 1 - Labs CBC & Chem 7: 05/12/21 06:14 05/13/21 03:55 Assessment and Plan Plan: Assessment: 1. End-stage renal disease maintained on hemodialysis on Wednesday schedule. 2. Acute on chronic diastolic CHF with moderate to severe mitral and tricuspid regurgitation. 3. Pulmonary hypertension. 4. Pneumonia maintained on antibiotics. 5. Chronic kidney disease mineral bone disease. Phosphorus level 3.8. 6. Hypertension with chronic kidney disease. 7. A. fib maintained on amiodarone, metoprolol and anticoagulation. 8. Volume overload. Plan: Hemodialysis today - challenge ultrafiltration is able to tolerate.
[2021-05-14 13:13] LABS: African American GFR (CKD) 8.5 (60.0-200.0); Albumin 3.2 g/dL (3.80-4.90); Albumin/Globulin Ratio 1.03 (1.60-3.17); Anion Gap 16.1 mmol/L (4.00-12.00); BUN/Creat Ratio 8.63 Ratio (12.00-20.00); Calcium 8.4 mg/dL (8.7-10.3); Carbon Dioxide 21.9 mmol/L (21.6-31.8); Globulin 3.1 g/dL (1.6-3.3); Non-African American GFR(CKD) 7.4 (60.0-200.0); Potassium 3.9 mmol/L (3.5-5.5); Total Bilirubin 0.5 mg/dL (0.3-1.2); Total Protein 6.3 g/dL (6.2-8.2)
[2021-05-14 13:14] LABS: Basophils # (A) 0.01 X 10*3/uL (0.00-0.10); Basophils % (A) 0.1 %; Eosinophils # (A) 0.01 X 10*3/uL (0.04-0.35); Eosinophils % (A) 0.1 %; HCT 36.2 % (37.2-46.3); HGB 11.9 g/dL (12.0-15.0); Lymphocytes # (A) 0.82 X 10*3/uL (0.90-5.00); Lymphocytes % (A) 8.7 %; MCH 34.1 pg (27.0-32.0); MCHC 32.9 g/dL (32.0-37.0); MCV 103.7 fL (80.0-97.0); Mean Platelet Volume 10.8 fL (9.5-12.2); Monocytes # (A) 0.46 X 10*3/uL (0.20-1.00); Monocytes % (A) 4.9 %; Neutrophils # (A) 8.04 X 10*3/uL (1.80-7.70); Neutrophils % (A) 85.4 %; Platelet Count 75 X 10*3/uL (140-440); RBC 3.49 X 10*6/uL (4.10-5.20); RDW 19.7 % (11.5-14.5); WBC 9.42 X 10*3/uL (4.50-10.00)
[2021-05-14 13:15] LABS: Macrocytosis (M) 2+
--- NOTE | 2021-05-14 17:02 | PN ---
PROGRESS NOTE DATE OF SERVICE: 05/14/2021. REASON FOR FOLLOWUP: Pneumonia. INTERVAL HISTORY: The patient is afebrile. The patient is breathing comfortably. Denies having any chest pain, shortness of breath or cough. No abdominal pain or diarrhea. PHYSICAL EXAMINATION: Blood pressure 126/77, pulse of 77, temperature 98, she is 98% on 2 L. General description is an elderly female up in the chair in no distress. Respiratory system reveals unlabored breathing, decreased breath sounds. No wheeze. Heart S1, S2. Regular rhythm. LABS: Hemoglobin is 11.1, white count 9.42, BUN of 44, creatinine 5.1. DIAGNOSTIC IMPRESSION: Patient admitted to hospital with shortness of breath, multifactorial, possible component of pneumonia. Has received antibiotic therapy, use of oral Ceftin on discharge and close outpatient followup. MMODL / IJN: [id number] /
== END 2021-05-14 18:33 | DRG 871 ==
LOC: EC 18:08 → 4SSUR 19:46 → UNDODISIN 21:35 → 4SSUR 21:37
PROVIDERS: ADMIT Internal Medicine; ATTEND Internal Medicine
DX: A41.9 Sepsis, unspecified organism (principal); I50.43 Acute on chronic combined systolic (congestive) and diastolic (congestive) heart failure; J18.9 Pneumonia, unspecified organism; N18.6 End stage renal disease; I13.2 Hypertensive heart and chronic kidney disease with heart failure and with stage 5 chronic kidney disease, or end stage renal disease; I47.1 Supraventricular tachycardia; I48.21 Permanent atrial fibrillation; J44.0 Chronic obstructive pulmonary disease with (acute) lower respiratory infection; J44.1 Chronic obstructive pulmonary disease with (acute) exacerbation; J98.11 Atelectasis; N39.0 Urinary tract infection, site not specified; J96.10 Chronic respiratory failure, unspecified whether with hypoxia or hypercapnia; E11.22 Type 2 diabetes mellitus with diabetic chronic kidney disease; Z99.81 Dependence on supplemental oxygen; F32.9 Major depressive disorder, single episode, unspecified; I08.1 Rheumatic disorders of both mitral and tricuspid valves; I27.20 Pulmonary hypertension, unspecified; Z99.2 Dependence on renal dialysis; E83.9 Disorder of mineral metabolism, unspecified; M54.30 Sciatica, unspecified side; H26.9 Unspecified cataract; Z20.822 Contact with and (suspected) exposure to COVID-19; K21.9 Gastro-esophageal reflux disease without esophagitis; Z79.01 Long term (current) use of anticoagulants; Z79.82 Long term (current) use of aspirin; Z79.899 Other long term (current) drug therapy; Z87.440 Personal history of urinary (tract) infections; Z87.891 Personal history of nicotine dependence; Z96.641 Presence of right artificial hip joint; Z88.1 Allergy status to other antibiotic agents; Z88.2 Allergy status to sulfonamides
CPT/HCPCS: 36415; 71045; 71046; 80048; 80053; 81001; 83605; 83735; 83880; 84100; 84145; 84484; 85025; 85027; 85379; 85610; 85730; 86140; 86706; 87040; 87086; 87340; 87449; 87635; 90935; 93005; 93306; 94640; 94760; 96361; 96374; 96375; 99285

== ENCOUNTER 2021-05-23 02:15 | Emergency (ER) | payer MEDICARE ==
--- NOTE | 2021-05-23 02:27 | ED ---
Weakness HPI - General Stated complaint: Weakness Time Seen by Provider: 05/23/21 02:21 Source: RN notes reviewed, old records reviewed Mode of arrival: EMS Limitations: no limitations - History of Present Illness Initial comments: This is an 81-year-old female presented by EMS. Patient presents with her daughter for being for the most part unresponsive all day. Patient had dialysis yesterday her normal day and today became recently week was unable to get around inside throughout most of the day daughter also concerned that patient was doing more than just sleeping that she was unarousable or difficult to arouse at times. Patient has no fevers. Patient has complex recent medical history that includes severe pneumonia with inpatient hospitalization and rehabilitation. Just moved back home 3 days ago MD Complaint: generalized weakness, lack of energy, difficulty walking -: days(s) (1) Location: generalized Severity: severe Severity scale (1-10): 10 Quality: constant Consistency: constant Improves with: none Worsens with: none Context: recent illness, history of similar Associated Symptoms: loss of appetite - Related Data Home Medications Medication Instructions Recorded Confirmed Ergocalciferol (Vitamin D2) 50,000 unit PO Q28D 11/16/17 05/02/21 [Vitamin D2] Tiotropium [place] [Spiriva] 1 cap INHALATION RT-DAILY 01/04/19 05/02/21 Fluticasone/Salmeterol [Advair 1 puff INHALATION RT-BID 04/06/19 05/02/21 250-50 Diskus] Ipratropium/Albuterol Sulfate 1 - 2 puff INHALATION RT-QID PRN 04/06/19 05/02/21 [Combivent Respimat Inhaler] Furosemide [Lasix] 40 mg PO DAILY 05/02/21 05/02/21 Lidocaine-Prilocaine Cream [Emla 1 applic TOPICAL MOWEFR 05/02/21 05/02/21 Cream 2.5%/2.5%] Pantoprazole Sodium [Protonix] 20 mg PO DAILY 05/02/21 05/02/21 Brigette-Lynn Multivitamin 1 tab PO DAILY 05/02/21 05/02/21 Previous Rx's Medication Instructions Recorded Acetaminophen Tab [Tylenol] 325 mg PO Q6HR PRN tab 05/14/21 Apixaban [Eliquis] 2.5 mg PO BID tablet 05/14/21 Cefdinir [Omnicef] 300 mg PO DAILY 4 Days #4 cap 05/14/21 Metoprolol Tartrate [Lopressor] 75 mg PO TID tab 05/14/21 Sennosides [Senokot] 8.6 mg PO BID PRN tab 05/14/21 Temazepam 30 mg PO HS #2 cap 05/14/21 guaiFENesin SYRUP 100MG/5ML 200 mg PO Q6H PRN ml 05/14/21 [Robitussin] oxyCODONE HCL/ACETAMINOPHEN 1 tab PO DAILY PRN #2 tab 05/14/21 [Percocet 5-325 mg] predniSONE 10 mg PO DIRECTED #9 tab 05/14/21 Allergies Allergy/AdvReac Type Severity Reaction Status Date / Time erythromycin base Allergy Unknown Unknown Verified 05/23/21 02:33 meloxicam Allergy Unknown Unknown Verified 05/23/21 02:33 nitrofurantoin Allergy Unknown Unknown Verified 05/23/21 02:33 [From Macrobid] nitrofurantoin Allergy Unknown Unknown Verified 05/23/21 02:33 macrocrystalline [From Macrobid] Sulfa (Sulfonamide Allergy Unknown Unknown Verified 05/23/21 02:33 Antibiotics) Review of Systems ROS Statement: Those systems with pertinent positive or pertinent negative responses have been documented in the HPI. ROS Other: All systems not noted in ROS Statement are negative. Past Medical History Past Medical History: COPD, Diabetes Mellitus, Dialysis, Eye Disorder, GERD/Reflux, Osteoarthritis (OA), Renal Disease Additional Past Medical History / Comment(s): Right Cataract, DIABETES (DIET CONTROLLED), CONSTIPATION. Hx UTI's, SCIATICA, hemodialysis Wed-Wed-Wed., uses oxygen @2l, very SOB per pt, swollen hands & feet, back pain between shoulder blades, irreg. heart rate per pt. hemodialysis fistula lt arm History of Any Multi-Drug Resistant Organisms: None Reported Past Surgical History: Hernia Repair, Joint Replacement Additional Past Surgical History / Comment(s): Right hip replacement, dialysis catheter insertion Past Anesthesia/Blood Transfusion Reactions: No Reported Reaction Past Psychological History: Depression Smoking Status: Former smoker Past Alcohol Use History: None Reported Additional Past Alcohol Use History / Comment(s): Quit smoking 8 yrs ago, smoked since age 14, 2 PPD. Past Drug Use History: None Reported - Past Family History Mother Family Medical History: No Reported History General Exam General appearance: alert, in no apparent distress Head exam: Present: atraumatic, normocephalic, normal inspection Eye exam: Present: normal appearance, PERRL, EOMI. Absent: scleral icterus, conjunctival injection, periorbital swelling ENT exam: Present: normal exam, mucous membranes moist Neck exam: Present: normal inspection. Absent: tenderness, meningismus, lymphadenopathy Respiratory exam: Present: normal lung sounds bilaterally. Absent: respiratory distress, wheezes, rales, rhonchi, stridor Cardiovascular Exam: Present: regular rate, normal rhythm, normal heart sounds. Absent: systolic murmur, diastolic murmur, rubs, gallop, clicks GI/Abdominal exam: Present: soft, normal bowel sounds. Absent: distended, tenderness, guarding, rebound, rigid Extremities exam: Present: normal inspection, full ROM, normal capillary refill. Absent: tenderness, pedal edema, joint swelling, calf tenderness Back exam: Present: normal inspection Neurological exam: Present: alert, oriented X3, CN II-XII intact Psychiatric exam: Present: normal affect, normal mood Skin exam: Present: warm, dry, intact, normal color. Absent: rash Course Vital Signs 05/23/21 02:22 Temperature 97.9 F Pulse Rate 101 H Respiratory 18 Rate Blood Pressure 116/70 O2 Sat by Pulse 98 Oximetry - Reevaluation(s) Reevaluation #1: 05/23/21 03:17 Medical records reviewed Reevaluation #2: 05/23/21 04:39 Patient does continue to dose off here in the ER 05/23/21 04:39 Patient is arousable here in the ER Reevaluation #3: 05/23/21 04:39 Spoke with patient and family regarding results, findings, questions answered Reevaluation #4: 05/23/21 04:39 Spoke patient regarding possibility of admission, she prefers discharge and will be discharged home Medical Decision Making - Medical Decision Making 81 female to the ER for evaluation some dehydration weakness, dry heaving. Lab test within normal limits patient can be discharged home - Lab Data Result diagrams: 05/23/21 02:47 05/23/21 02:47 Lab Results 05/23/21 05/23/21 05/23/21 Range/Units 02:47 02:47 02:47 WBC 7.7 (3.8-10.6) k/uL RBC 3.30 L (3.80-5.40) m/uL Hgb 11.6 (11.4-16.0) gm/dL Hct 35.5 (34.0-46.0) % MCV 107.6 H D (80.0-100.0) fL MCH 35.0 (25.0-35.0) pg MCHC 32.5 (31.0-37.0) g/dL RDW 20.0 H (11.5-15.5) % Plt Count 134 L (150-450) k/uL MPV 8.0 Neutrophils % 81 % Lymphocytes % 10 % Monocytes % 5 % Eosinophils % 2 % Basophils % 0 % Neutrophils # 6.3 (1.3-7.7) k/uL Lymphocytes # 0.8 L (1.0-4.8) k/uL Monocytes # 0.4 (0-1.0) k/uL Eosinophils # 0.1 (0-0.7) k/uL Basophils # 0.0 (0-0.2) k/uL Manual Slide Review Performed Hypochromasia Slight Anisocytosis Moderate Macrocytosis Marked A Sodium 132 L (137-145) mmol/L Potassium 3.7 (3.5-5.1) mmol/L Chloride 96 L (98-107) mmol/L Carbon Dioxide 28 (22-30) mmol/L Anion Gap 8 mmol/L BUN 32 H (7-17) mg/dL Creatinine 4.13 H (0.52-1.04) mg/dL Est GFR (CKD-EPI)AfAm 11 (>60 ml/min/1.73 sqM) Est GFR (CKD-EPI)NonAf 10 (>60 ml/min/1.73 sqM) Glucose 93 (74-99) mg/dL Plasma Lactic Acid Saad 1.2 (0.7-2.0) mmol/L Calcium 8.1 L (8.4-10.2) mg/dL Phosphorus 5.3 H (2.5-4.5) mg/dL Magnesium 2.1 (1.6-2.3) mg/dL Total Bilirubin 0.5 (0.2-1.3) mg/dL AST 49 H (14-36) U/L ALT 74 H (4-34) U/L Alkaline Phosphatase 125 (38-126) U/L Creatine Kinase 23 L (30-135) U/L Troponin I (0.000-0.034) ng/mL Total Protein 5.8 L (6.3-8.2) g/dL Albumin 3.1 L (3.5-5.0) g/dL TSH 1.880 (0.465-4.680) mIU/L 05/23/21 Range/Units 02:47 WBC (3.8-10.6) k/uL RBC (3.80-5.40) m/uL Hgb (11.4-16.0) gm/dL Hct (34.0-46.0) % MCV (80.0-100.0) fL MCH (25.0-35.0) pg MCHC (31.0-37.0) g/dL RDW (11.5-15.5) % Plt Count (150-450) k/uL MPV Neutrophils % % Lymphocytes % % Monocytes % % Eosinophils % % Basophils % % Neutrophils # (1.3-7.7) k/uL Lymphocytes # (1.0-4.8) k/uL Monocytes # (0-1.0) k/uL Eosinophils # (0-0.7) k/uL Basophils # (0-0.2) k/uL Manual Slide Review Hypochromasia Anisocytosis Macrocytosis Sodium (137-145) mmol/L Potassium (3.5-5.1) mmol/L Chloride (98-107) mmol/L Carbon Dioxide (22-30) mmol/L Anion Gap mmol/L BUN (7-17) mg/dL Creatinine (0.52-1.04) mg/dL Est GFR (CKD-EPI)AfAm (>60 ml/min/1.73 sqM) Est GFR (CKD-EPI)NonAf (>60 ml/min/1.73 sqM) Glucose (74-99) mg/dL Plasma Lactic Acid Saad (0.7-2.0) mmol/L Calcium (8.4-10.2) mg/dL Phosphorus (2.5-4.5) mg/dL Magnesium (1.6-2.3) mg/dL Total Bilirubin (0.2-1.3) mg/dL AST (14-36) U/L ALT (4-34) U/L Alkaline Phosphatase (38-126) U/L Creatine Kinase (30-135) U/L Troponin I 0.027 (0.000-0.034) ng/mL Total Protein (6.3-8.2) g/dL Albumin (3.5-5.0) g/dL TSH (0.465-4.680) mIU/L - Radiology Data Radiology results: report reviewed (Chest x-ray is improved from prior), image reviewed Disposition Clinical Impression: Dehydration, Weakness Disposition: HOME SELF-CARE Condition: Good Instructions (If sedation given, give patient instructions): Weakness (ED), Fatigue (ED) Is patient prescribed a controlled substance at d/c from ED?: No Referrals: Ventura Duran DO [Primary Care Provider] - 1-2 days
[2021-05-23 02:32] VITALS: TEMP 97.9
[2021-05-23 03:15] LABS: Anisocytosis Moderate; Basophils % (A) 0 %; Eosinophils # (A) 0.1 k/uL (0-0.7); Eosinophils % (A) 2 %; HCT 35.5 % (34.0-46.0); HGB 11.6 gm/dL (11.4-16.0); Hypochromasia Slight; Lymphocytes # (A) 0.8 k/uL (1.0-4.8); Lymphocytes % (A) 10 %; MCHC 32.5 g/dL (31.0-37.0); Macrocytosis Marked; Monocytes # (A) 0.4 k/uL (0-1.0); Monocytes % (A) 5 %; Neutrophils # (A) 6.3 k/uL (1.3-7.7); Neutrophils % (A) 81 %; Platelet Count 134 k/uL (150-450); WBC 7.7 k/uL (3.8-10.6)
--- NOTE | 2021-05-23 03:26 | XR ---
EXAMINATION TYPE: XR chest 2V DATE OF EXAM: 05/23/2021 COMPARISON: 05/10/2021 HISTORY: Weakness TECHNIQUE: FINDINGS: Heart is moderately enlarged. There is blunting of the costophrenic angles and more on the right side. There is mild congestion. Bony thorax is intact. IMPRESSION: There is mild chronic congestive heart failure. There is increased pleural fluid compared to old exam.
[2021-05-23 03:29] LABS: MCV 107.6 fL (80.0-100.0)
[2021-05-23 03:44] LABS: Albumin 3.1 g/dL (3.5-5.0); Calcium 8.1 mg/dL (8.4-10.2); Magnesium 2.1 mg/dL (1.6-2.3); Phosphorus 5.3 mg/dL (2.5-4.5); Potassium 3.7 mmol/L (3.5-5.1); Total Bilirubin 0.5 mg/dL (0.2-1.3); Total Protein 5.8 g/dL (6.3-8.2)
[2021-05-23] MEDS ORDERED: SODIUM CHLORIDE 0.9% 500 ML 500 ML IV STA (04:40)
[2021-05-23 05:02] VITALS: BP 115/79; PULSE 94; RESP 16
== END 2021-05-23 05:22 | disposition home or self-care (01) ==
LOC: EC 02:15
DX: E86.0 Dehydration (principal); I50.9 Heart failure, unspecified; J44.9 Chronic obstructive pulmonary disease, unspecified; E11.36 Type 2 diabetes mellitus with diabetic cataract; K21.9 Gastro-esophageal reflux disease without esophagitis; M19.90 Unspecified osteoarthritis, unspecified site; F32.9 Major depressive disorder, single episode, unspecified; Z87.440 Personal history of urinary (tract) infections; Z87.891 Personal history of nicotine dependence; Z79.01 Long term (current) use of anticoagulants; Z79.51 Long term (current) use of inhaled steroids; Z79.52 Long term (current) use of systemic steroids; Z88.1 Allergy status to other antibiotic agents; Z88.2 Allergy status to sulfonamides; Z88.8 Allergy status to other drugs, medicaments and biological substances; Z96.641 Presence of right artificial hip joint; Z99.2 Dependence on renal dialysis
CPT/HCPCS: 71046; 80053; 82550; 83605; 83735; 83880; 84100; 84443; 84484; 85025; 99285

== ENCOUNTER 2021-05-26 11:05 | Inpatient (IN) | payer MEDICARE ==
[2021-05-26] MEDS ORDERED: SODIUM CHLORIDE 0.9% 500 ML 500 ML IV STA (11:28)
--- NOTE | 2021-05-26 11:34 | ED ---
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 Patient is having a hard time staying awake but is easily arousable, answers your questions, then falls back asleep. She denies any pain, she does admit to some shortness of breath. No chest pain, no abdominal pain, no nausea or vomiting. She does not recall the last time she had dialysis, she has a fistula port in her left arm. According to daughter, her dialysis is MWF, last time was wednesday. The daughter states she is prescribed Percocet, she took a half a tablet last night and then a half a tablet this morning, the daughter did give her these, and patient denies taking any more. She denies any fever. She believes she still at her doctor's office. There are no further complaints. Upon arrival to the ER, she is afebrile, 97% on 3 L, blood pressure as low as 77/52. He received half a liter bolus in the EMS prior to arrival. - Related Data Home Medications Medication Instructions Recorded Confirmed Brigette-Lynn Multivitamin 1 tab PO W/SUPPER 05/02/21 05/26/21 Apixaban [Eliquis] 2.5 mg PO BID-W/MEALS 05/26/21 05/26/21 Auryxia 210 mg PO W/SUPPER 05/26/21 05/26/21 Metoprolol Tartrate [Lopressor] 75 mg PO BID-W/MEALS 05/26/21 05/26/21 Pantoprazole [Protonix] 40 mg PO DAILY@0630 05/26/21 05/26/21 Venlafaxine HCl ER [Effexor Xr] 37.5 mg PO DAILY 05/26/21 05/26/21 oxyCODONE HCL/ACETAMINOPHEN 1 tab PO Q6HR PRN 05/26/21 05/26/21 [Percocet 7.5-325 mg] rOPINIRole HCL [Requip] 0.25 mg PO HS 05/26/21 05/26/21 rOPINIRole HCL [Requip] 0.25 mg PO MOWEFR PRN 05/26/21 05/26/21 Previous Rx's Medication Instructions Recorded Temazepam 30 mg PO HS #2 cap 05/14/21 Allergies Allergy/AdvReac Type Severity Reaction Status Date / Time erythromycin base Allergy Unknown Unknown Verified 05/26/21 14:14 meloxicam Allergy Unknown Unknown Verified 05/26/21 14:14 nitrofurantoin Allergy Unknown Unknown Verified 05/26/21 14:14 [From Macrobid] nitrofurantoin Allergy Unknown Unknown Verified 05/26/21 14:14 macrocrystalline [From Macrobid] Sulfa (Sulfonamide Allergy Unknown Unknown Verified 05/26/21 14:14 Antibiotics) Review of Systems ROS Statement: Those systems with pertinent positive or pertinent negative responses have been documented in the HPI. ROS Other: All systems not noted in ROS Statement are negative. Past Medical History Past Medical History: COPD, Diabetes Mellitus, Dialysis, Eye Disorder, GERD/Reflux, Osteoarthritis (OA), Renal Disease Additional Past Medical History / Comment(s): Right Cataract, DIABETES (DIET CONTROLLED), CONSTIPATION. Hx UTI's, SCIATICA, hemodialysis Mon-Wed-Fri., uses oxygen @2l, very SOB per pt, swollen hands & feet, back pain between shoulder blades, irreg. heart rate per pt. hemodialysis fistula lt arm History of Any Multi-Drug Resistant Organisms: None Reported Past Surgical History: Hernia Repair, Joint Replacement Additional Past Surgical History / Comment(s): Right hip replacement, dialysis catheter insertion Past Anesthesia/Blood Transfusion Reactions: No Reported Reaction Past Psychological History: Depression Smoking Status: Former smoker Past Alcohol Use History: None Reported Past Drug Use History: None Reported - Past Family History Mother Family Medical History: No Reported History General Exam - General Exam Comments Initial Comments: GENERAL: Patient is well-developed and well-nourished. Patient is a lethargic, easily arousable with name called, in no acute distress. HEAD: Atraumatic, normocephalic. EYES: Pupils equal round and reactive to light, extraocular movements intact, sclera anicteric, conjunctiva are normal. Eyelids were unremarkable. ENT: TMs normal, nares patent, oropharynx clear without exudates. Moist mucous membranes. NECK: Normal range of motion, supple without lymphadenopathy or JVD. LUNGS: Unlabored respirations. Scattered wheezes and rhonchi bilaterally HEART: Regular rate and rhythm without murmurs, rubs or gallops. ABDOMEN: Soft, nontender, normoactive bowel sounds. No guarding, no rebound. No masses appreciated. : Deferred MUSCULOSKELETAL: Normal extremities with adequate strength and normal range of motion, no pitting or edema. No clubbing or cyanosis. NEUROLOGICAL: Patient is alert and oriented x 2. Motor and sensory are also intact. Cranial nerves II through XII grossly intact. Symmetrical smile. PSYCH: Normal mood, normal affect. SKIN: Warm, Dry, normal turgor, no rashes or lesions noted. Course Vital Signs 05/26/21 05/26/21 05/26/21 11:13 13:12 14:16 Temperature 97.6 F Pulse Rate 97 74 Respiratory 20 21 20 Rate Blood Pressure 77/52 90/67 O2 Sat by Pulse 97 90 L Oximetry 05/26/21 05/26/21 15:11 15:57 Temperature Pulse Rate 97 Respiratory 16 Rate Blood Pressure 99/74 89/63 O2 Sat by Pulse 96 Oximetry EKG Findings - EKG Comments: EKG Findings:: Atrial flutter with variable AV block, low voltage QRS, incomplete RBB, nonspecific T-wave abnormalities, no signs of acute ST segment elevation. Ventricular rate 92, QRS duration 100, QT 380. Medical Decision Making - Medical Decision Making Patient is an 81-year-old female with history of COPD, diabetes, kidney disease on dialysis MWF, last on Wednesday, denting from geography department chair's office for her lethargic and weakness. Upon arrival she was hypotensive at 77/52, 97% on 3 L. She is easily arousable but then quickly falls asleep after answering her questions. Patient was a very hard stick, took a long time for blood work, shows a normal white count, INR is 1.4. Creatinine is 5.74 BUN 35, GFR 6. Lactic acid is 2.5, troponin is elevated 0.039. BNP is almost 98,000, urine does show evidence of infection with greater than 182 WBCs and clumps. Rapid Covid is negative. Patient given a total of 1 L of fluids during her stay to help with blood pressure, we also gave her dose of Narcan which did seem to arouse her more. Patient then came a little bit agitated, we gave her half milligram of Ativan which did seem to calm her down. Her blood pressure is been more stable with the last 199/74. Patient will be admitted for weakness, needing dialysis, pulmonary edema, UTI. Did give her 1 g Rocephin for the UTI, urine cultures pending. Patient except by Dr. Iyer, case discussed with Dr. Bright. - Lab Data Result diagrams: 05/26/21 12:10 05/26/21 11:28 Lab Results 05/26/21 05/26/21 05/26/21 Range/Units 11:28 11:28 11:28 WBC (3.8-10.6) k/uL RBC (3.80-5.40) m/uL Hgb (11.4-16.0) gm/dL Hct (34.0-46.0) % MCV (80.0-100.0) fL MCH (25.0-35.0) pg MCHC (31.0-37.0) g/dL RDW (11.5-15.5) % Plt Count (150-450) k/uL MPV Neutrophils % % Lymphocytes % % Monocytes % % Eosinophils % % Basophils % % Neutrophils # (1.3-7.7) k/uL Lymphocytes # (1.0-4.8) k/uL Monocytes # (0-1.0) k/uL Eosinophils # (0-0.7) k/uL Basophils # (0-0.2) k/uL Manual Slide Review Hypochromasia Anisocytosis Macrocytosis PT 14.0 H (9.0-12.0) sec INR 1.4 H (<1.2) Sodium 133 L (137-145) mmol/L Potassium 4.4 (3.5-5.1) mmol/L Chloride 97 L (98-107) mmol/L Carbon Dioxide 22 (22-30) mmol/L Anion Gap 14 mmol/L BUN 35 H (7-17) mg/dL Creatinine 5.74 H (0.52-1.04) mg/dL Est GFR (CKD-EPI)AfAm 7 (>60 ml/min/1.73 sqM) Est GFR (CKD-EPI)NonAf 6 (>60 ml/min/1.73 sqM) Glucose 55 L (74-99) mg/dL Lactic Ac Sepsis Rflx Plasma Lactic Acid Saad (0.7-2.0) mmol/L Calcium 8.5 (8.4-10.2) mg/dL Phosphorus 6.5 H (2.5-4.5) mg/dL Magnesium 2.2 (1.6-2.3) mg/dL Total Bilirubin 0.9 (0.2-1.3) mg/dL AST 67 H (14-36) U/L ALT 60 H (4-34) U/L Alkaline Phosphatase 122 (38-126) U/L Creatine Kinase 24 L (30-135) U/L Troponin I 0.039 H* (0.000-0.034) ng/mL NT-Pro-B Natriuret Pep pg/mL Total Protein 6.2 L (6.3-8.2) g/dL Albumin 3.4 L (3.5-5.0) g/dL Urine Color Urine Appearance (Clear) Urine pH (5.0-8.0) Ur Specific Arley (1.001-1.035) Urine Protein (Negative) Urine Glucose (UA) (Negative) Urine Ketones (Negative) Urine Blood (Negative) Urine Nitrite (Negative) Urine Bilirubin (Negative) Urine Urobilinogen (<2.0) mg/dL Ur Leukocyte Esterase (Negative) Urine RBC (0-5) /hpf Urine WBC (0-5) /hpf Urine WBC Clumps (None) /hpf Ur Squamous Epith Cells (0-4) /hpf Urine Bacteria (None) /hpf Urine Mucus (None) /hpf Coronavirus (PCR) (Not Detectd) 05/26/21 05/26/21 05/26/21 Range/Units 12:10 12:10 12:10 WBC 8.9 (3.8-10.6) k/uL RBC 3.43 L (3.80-5.40) m/uL Hgb 12.3 (11.4-16.0) gm/dL Hct 37.8 (34.0-46.0) % MCV 110.3 H (80.0-100.0) fL MCH 35.8 H (25.0-35.0) pg MCHC 32.4 (31.0-37.0) g/dL RDW 19.8 H (11.5-15.5) % Plt Count 107 L (150-450) k/uL MPV 8.2 Neutrophils % 84 % Lymphocytes % 8 % Monocytes % 6 % Eosinophils % 1 % Basophils % 0 % Neutrophils # 7.5 (1.3-7.7) k/uL Lymphocytes # 0.7 L (1.0-4.8) k/uL Monocytes # 0.5 (0-1.0) k/uL Eosinophils # 0.1 (0-0.7) k/uL Basophils # 0.0 (0-0.2) k/uL Manual Slide Review Performed Hypochromasia Moderate Anisocytosis Slight Macrocytosis Marked A PT (9.0-12.0) sec INR (<1.2) Sodium (137-145) mmol/L Potassium (3.5-5.1) mmol/L Chloride (98-107) mmol/L Carbon Dioxide (22-30) mmol/L Anion Gap mmol/L BUN (7-17) mg/dL Creatinine (0.52-1.04) mg/dL Est GFR (CKD-EPI)AfAm (>60 ml/min/1.73 sqM) Est GFR (CKD-EPI)NonAf (>60 ml/min/1.73 sqM) Glucose (74-99) mg/dL Lactic Ac Sepsis Rflx Plasma Lactic Acid Saad 2.5 H* (0.7-2.0) mmol/L Calcium (8.4-10.2) mg/dL Phosphorus (2.5-4.5) mg/dL Magnesium (1.6-2.3) mg/dL Total Bilirubin (0.2-1.3) mg/dL AST (14-36) U/L ALT (4-34) U/L Alkaline Phosphatase (38-126) U/L Creatine Kinase (30-135) U/L Troponin I (0.000-0.034) ng/mL NT-Pro-B Natriuret Pep pg/mL Total Protein (6.3-8.2) g/dL Albumin (3.5-5.0) g/dL Urine Color Light Red Urine Appearance Turbid H (Clear) Urine pH 5.5 (5.0-8.0) Ur Specific Arley 1.020 (1.001-1.035) Urine Protein 2+ H (Negative) Urine Glucose (UA) Negative (Negative) Urine Ketones Negative (Negative) Urine Blood Large H (Negative) Urine Nitrite Negative (Negative) Urine Bilirubin 1+ H (Negative) Urine Urobilinogen <2.0 (<2.0) mg/dL Ur Leukocyte Esterase Large H (Negative) Urine RBC 49 H (0-5) /hpf Urine WBC >182 H (0-5) /hpf Urine WBC Clumps Many H (None) /hpf Ur Squamous Epith Cells 5 H (0-4) /hpf Urine Bacteria Few H (None) /hpf Urine Mucus Rare H (None) /hpf Coronavirus (PCR) (Not Detectd) 05/26/21 05/26/21 05/26/21 Range/Units 12:10 12:10 13:10 WBC (3.8-10.6) k/uL RBC (3.80-5.40) m/uL Hgb (11.4-16.0) gm/dL Hct (34.0-46.0) % MCV (80.0-100.0) fL MCH (25.0-35.0) pg MCHC (31.0-37.0) g/dL RDW (11.5-15.5) % Plt Count (150-450) k/uL MPV Neutrophils % % Lymphocytes % % Monocytes % % Eosinophils % % Basophils % % Neutrophils # (1.3-7.7) k/uL Lymphocytes # (1.0-4.8) k/uL Monocytes # (0-1.0) k/uL Eosinophils # (0-0.7) k/uL Basophils # (0-0.2) k/uL Manual Slide Review Hypochromasia Anisocytosis Macrocytosis PT (9.0-12.0) sec INR (<1.2) Sodium (137-145) mmol/L Potassium (3.5-5.1) mmol/L Chloride (98-107) mmol/L Carbon Dioxide (22-30) mmol/L Anion Gap mmol/L BUN (7-17) mg/dL Creatinine (0.52-1.04) mg/dL Est GFR (CKD-EPI)AfAm (>60 ml/min/1.73 sqM) Est GFR (CKD-EPI)NonAf (>60 ml/min/1.73 sqM) Glucose (74-99) mg/dL Lactic Ac Sepsis Rflx Y Plasma Lactic Acid Saad (0.7-2.0) mmol/L Calcium (8.4-10.2) mg/dL Phosphorus (2.5-4.5) mg/dL Magnesium (1.6-2.3) mg/dL Total Bilirubin (0.2-1.3) mg/dL AST (14-36) U/L ALT (4-34) U/L Alkaline Phosphatase (38-126) U/L Creatine Kinase (30-135) U/L Troponin I (0.000-0.034) ng/mL NT-Pro-B Natriuret Pep 33915 pg/mL Total Protein (6.3-8.2) g/dL Albumin (3.5-5.0) g/dL Urine Color Urine Appearance (Clear) Urine pH (5.0-8.0) Ur Specific Arley (1.001-1.035) Urine Protein (Negative) Urine Glucose (UA) (Negative) Urine Ketones (Negative) Urine Blood (Negative) Urine Nitrite (Negative) Urine Bilirubin (Negative) Urine Urobilinogen (<2.0) mg/dL Ur Leukocyte Esterase (Negative) Urine RBC (0-5) /hpf Urine WBC (0-5) /hpf Urine WBC Clumps (None) /hpf Ur Squamous Epith Cells (0-4) /hpf Urine Bacteria (None) /hpf Urine Mucus (None) /hpf Coronavirus (PCR) Not Detected (Not Detectd) Disposition Clinical Impression: Weakness, Kidney failure, UTI (urinary tract infection), Pulmonary edema, Hypotension Disposition: [facility] Condition: Fair Referrals: Ventura Duran DO [Primary Care Provider] - 1-2 days Decision Date: 05/26/21 Decision Time: 15:10
[2021-05-26 12:40] LABS: Anisocytosis Slight; Basophils % (A) 0 %; Eosinophils # (A) 0.1 k/uL (0-0.7); Eosinophils % (A) 1 %; HCT 37.8 % (34.0-46.0); HGB 12.3 gm/dL (11.4-16.0); Hypochromasia Moderate; Lymphocytes # (A) 0.7 k/uL (1.0-4.8); Lymphocytes % (A) 8 %; MCH 35.8 pg (25.0-35.0); MCHC 32.4 g/dL (31.0-37.0); MCV 110.3 fL (80.0-100.0); Macrocytosis Marked; Mean Platelet Volume 8.2; Monocytes # (A) 0.5 k/uL (0-1.0); Monocytes % (A) 6 %; Neutrophils # (A) 7.5 k/uL (1.3-7.7); Neutrophils % (A) 84 %; Platelet Count 107 k/uL (150-450); RBC 3.43 m/uL (3.80-5.40); RDW 19.8 % (11.5-15.5); WBC 8.9 k/uL (3.8-10.6)
--- NOTE | 2021-05-26 12:42 | XR ---
EXAMINATION TYPE: XR chest 2V DATE OF EXAM: 05/26/2021 COMPARISON: 05/23/2021 HISTORY: Weakness FINDINGS: There are bilateral pleural effusions with cardiomegaly and bibasilar infiltrate. There is a diffuse interstitial pattern. Through a sclerotic change aorta. IMPRESSION: 1. Bilateral infiltrate and pleural effusion correlate for pneumonia versus CHF.
[2021-05-26] MEDS ORDERED: NALOXONE 0.4 MG/ML 1 ML VIAL IVP STA (13:06)
[2021-05-26 13:47] LABS: Appearance,Urine Turbid (Clear); Bacteria,Urine Few /hpf; Bilirubin,Urine 1+ (Negative); Blood,Urine Large (Negative); Color,Urine Light Red; Glucose,Urine (UA) Negative (Negative); Ketones,Urine Negative (Negative); Leukocyte Esterase,Urine Large (Negative); Mucus,Urine Rare /hpf; Nitrite,Urine Negative (Negative); PH, Urine 5.5 (5.0-8.0); Protein,Urine 2+ (Negative); RBC,Urine 49 /hpf (0-5); Squamous Epithelial Cell,Urine 5 /hpf (0-4); Urobilinogen,Urine <2.0 mg/dL (<2.0); WBC,Urine >182 /hpf (0-5)
[2021-05-26] MEDS ORDERED: LORazepam 2 MG/ML INJ IV STA (13:54)
[2021-05-26 14:43] LABS: Albumin 3.4 g/dL (3.5-5.0); Calcium 8.5 mg/dL (8.4-10.2); Magnesium 2.2 mg/dL (1.6-2.3); Phosphorus 6.5 mg/dL (2.5-4.5); Potassium 4.4 mmol/L (3.5-5.1); Total Bilirubin 0.9 mg/dL (0.2-1.3); Total Protein 6.2 g/dL (6.3-8.2)
[2021-05-26 14:51] LABS: INR 1.4 (<1.2)
[2021-05-26] MEDS ORDERED: cefTRIAXone IN SWFI 1,000 MG/10 ML SYRINGE IVP STA (15:03)
[2021-05-26] MEDS ORDERED: ACETAMINOPHEN TAB 325 MG TAB PO PRN (15:07)
[2021-05-26] MEDS ORDERED: ONDANSETRON 4 MG/2 ML VIAL IVP PRN (15:07)
[2021-05-26] MEDS ORDERED: NALOXONE 0.4 MG/ML 1 ML VIAL IV PRN (15:07)
[2021-05-26 20:11] LABS: Glucose,Whole Blood 56 mg/dL (75-99)
[2021-05-26] MEDS ORDERED: DEXTROSE 50% SYRINGE 50 ML IVP PRN (20:13)
[2021-05-26] MEDS ORDERED: DEXTROSE 50% SYRINGE 50 ML IVP STA (20:13)
[2021-05-26 20:27] LABS: Glucose,Whole Blood 60 mg/dL (75-99)
[2021-05-26 20:43] LABS: Glucose,Whole Blood 67 mg/dL (75-99)
[2021-05-26 20:58] LABS: Glucose,Whole Blood 92 mg/dL (75-99)
[2021-05-26] MEDS: PIPERACILLIN-TAZOBACTAM 3.375 GM in SODIUM CHLORIDE 0.9% 100 ML IVPB SCH (21:06)
[2021-05-26] MEDS: DEXTROSE 5%-0.9% NACL 1,000 ML IV SCH (21:19)
--- NOTE | 2021-05-26 21:21 | P.HPIM ---
History of Present Illness This is a pleasant 81 years old female who presents with With past medical history of COPD, diabetes mellitus, osteoarthritis, end-stage renal disease on hemodialysis chronic oxygen dependent on 2 L/m atrial fibrillation. She was r ecently discharged from the hospital after prolonged stay from 05/02-05/14 for sepsis secondary to urinary tract infection and possible pneumonia, atrial fibrillation's with RVR and acute on chronic systolic CHF with COPD exacerbation. At that time she was discharged on cefdinir to rehab. She came back from rehab 3 days ago. 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 On admission she was hypotensive with a blood pressure is 77/52, afebrile, slightly tachypneic 20-21 and tachycardic, hypoglycemic with oxygen 56-67, given D50 she received a bolus of 500 mL in the emergency room and her blood pressure is 93/60. her WBC IS 8.9K, hB 12.3, Platelet count is 107k, INR is 1.4, Na 133, K 4.4 creatinine is 5.7, Elevated lactic acid at 2.5 came back to normal at 1.7 elevated troponin 0.039 and high ProBNP 60474, liver enz AST AND ALT slightly elevated 67 and 60 respectively urinalysis is suspecious for infection burnham virus non detected EKG atial flutter at [address]-T changes CXR:bilateral infilterates for CHF vs Pneumonia in ED she recieved ceftriaxon and NS 500 ml nephrology and cardiology team were consulted in the evening pt became more awake and interactive with good oxygen saturation in 90s%, 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 Hx UTI's, SCIATICA, hemodialysis Mon-Wed-Wed., uses oxygen @2l, very SOB per pt, swollen hands & feet, back pain between shoulder blades, irreg. heart rate per pt. hemodialysis fistula lt arm History of Any Multi-Drug Resistant Organisms: None Reported Past Surgical History: Hernia Repair, Joint Replacement Additional Past Surgical History / Comment(s): Right hip replacement, dialysis catheter insertion Past Anesthesia/Blood Transfusion Reactions: No Reported Reaction Past Psychological History: Depression Smoking Status: Former smoker Past Alcohol Use History: None Reported Additional Past Alcohol Use History / Comment(s): Quit smoking 8 yrs ago, smoked since age 14, 2 PPD. Past Drug Use History: None Reported - Past Family History Mother Family Medical History: No Reported History Medications and Allergies Home Medications Medication Instructions Recorded Confirmed Type Brigette-Lynn Multivitamin 1 tab PO W/SUPPER 05/02/21 05/26/21 History Temazepam 30 mg PO HS #2 cap 05/14/21 05/26/21 Rx Apixaban [Eliquis] 2.5 mg PO BID-W/MEALS 05/26/21 05/26/21 History Auryxia 210 mg PO W/SUPPER 05/26/21 05/26/21 History Metoprolol Tartrate [Lopressor] 75 mg PO BID-W/MEALS 05/26/21 05/26/21 History Pantoprazole [Protonix] 40 mg PO DAILY@0630 05/26/21 05/26/21 History Venlafaxine HCl ER [Effexor Xr] 37.5 mg PO DAILY 05/26/21 05/26/21 History oxyCODONE HCL/ACETAMINOPHEN 1 tab PO Q6HR PRN 05/26/21 05/26/21 History [Percocet 7.5-325 mg] rOPINIRole HCL [Requip] 0.25 mg PO HS 05/26/21 05/26/21 History rOPINIRole HCL [Requip] 0.25 mg PO MOWEFR PRN 05/26/21 05/26/21 History Allergies Allergy/AdvReac Type Severity Reaction Status Date / Time erythromycin base Allergy Unknown Unknown Verified 05/26/21 14:14 meloxicam Allergy Unknown Unknown Verified 05/26/21 14:14 nitrofurantoin Allergy Unknown Unknown Verified 05/26/21 14:14 [From Macrobid] nitrofurantoin Allergy Unknown Unknown Verified 05/26/21 14:14 macrocrystalline [From Macrobid] Sulfa (Sulfonamide Allergy Unknown Unknown Verified 05/26/21 14:14 Antibiotics) Physical Exam Vitals: Vital Signs Temp Pulse Pulse Resp BP BP Pulse Ox 05/26/21 18:22 94 17 05/26/21 18:20 94 17 93/60 100 05/26/21 15:57 97 16 89/63 96 05/26/21 15:11 99/74 05/26/21 14:16 74 20 90/67 90 L 05/26/21 13:12 21 05/26/21 11:13 97.6 F 97 20 77/52 97 Intake and Output 05/26/21 05/26/21 05/26/21 06:59 14:59 22:59 Other: Voiding Method Bedside Commode Weight 70.307 kg 70.307 kg -GENERAL: The patient is confused, arousable, very lethargic, not in any acute distress. Well developed, well nourished. HEENT: Pupils are round and equally reacting to light. EOMI. No scleral icterus. No conjunctival pallor. Normocephalic, atraumatic. No pharyngeal erythema. No thyromegaly. CARDIOVASCULAR: S1 and S2 present. No murmurs, rubs, or gallops. PULMONARY: Chest is clear to auscultation, no wheezing or crackles. ABDOMEN: Soft, nontender, nondistended, normoactive bowel sounds. No palpable organomegaly. MUSCULOSKELETAL: No joint swelling or deformity. EXTREMITIES: No cyanosis, clubbing, or pedal edema. NEUROLOGICAL: Gross neurological examination did not reveal any focal deficits. SKIN: No rashes. no petechiae. Results CBC & Chem 7: 05/26/21 12:10 05/26/21 11:28 Labs: Abnormal Lab Results - Last 24 Hours (Table) 05/26/21 05/26/21 05/26/21 Range/Units 11:28 11:28 11:28 RBC (3.80-5.40) m/uL MCV (80.0-100.0) fL MCH (25.0-35.0) pg RDW (11.5-15.5) % Plt Count (150-450) k/uL Lymphocytes # (1.0-4.8) k/uL Macrocytosis PT 14.0 H (9.0-12.0) sec INR 1.4 H (<1.2) Sodium 133 L (137-145) mmol/L Chloride 97 L (98-107) mmol/L BUN 35 H (7-17) mg/dL Creatinine 5.74 H (0.52-1.04) mg/dL Glucose 55 L (74-99) mg/dL POC Glucose (mg/dL) (75-99) mg/dL Plasma Lactic Acid Saad (0.7-2.0) mmol/L Phosphorus 6.5 H (2.5-4.5) mg/dL AST 67 H (14-36) U/L ALT 60 H (4-34) U/L Creatine Kinase 24 L (30-135) U/L Troponin I 0.039 H* (0.000-0.034) ng/mL Total Protein 6.2 L (6.3-8.2) g/dL Albumin 3.4 L (3.5-5.0) g/dL Urine Appearance (Clear) Urine Protein (Negative) Urine Blood (Negative) Urine Bilirubin (Negative) Ur Leukocyte Esterase (Negative) Urine RBC (0-5) /hpf Urine WBC (0-5) /hpf Urine WBC Clumps (None) /hpf Ur Squamous Epith Cells (0-4) /hpf Urine Bacteria (None) /hpf Urine Mucus (None) /hpf 05/26/21 05/26/21 05/26/21 Range/Units 12:10 12:10 12:10 RBC 3.43 L (3.80-5.40) m/uL MCV 110.3 H (80.0-100.0) fL MCH 35.8 H (25.0-35.0) pg RDW 19.8 H (11.5-15.5) % Plt Count 107 L (150-450) k/uL Lymphocytes # 0.7 L (1.0-4.8) k/uL Macrocytosis Marked A PT (9.0-12.0) sec INR (<1.2) Sodium (137-145) mmol/L Chloride (98-107) mmol/L BUN (7-17) mg/dL Creatinine (0.52-1.04) mg/dL Glucose (74-99) mg/dL POC Glucose (mg/dL) (75-99) mg/dL Plasma Lactic Acid Saad 2.5 H* (0.7-2.0) mmol/L Phosphorus (2.5-4.5) mg/dL AST (14-36) U/L ALT (4-34) U/L Creatine Kinase (30-135) U/L Troponin I (0.000-0.034) ng/mL Total Protein (6.3-8.2) g/dL Albumin (3.5-5.0) g/dL Urine Appearance Turbid H (Clear) Urine Protein 2+ H (Negative) Urine Blood Large H (Negative) Urine Bilirubin 1+ H (Negative) Ur Leukocyte Esterase Large H (Negative) Urine RBC 49 H (0-5) /hpf Urine WBC >182 H (0-5) /hpf Urine WBC Clumps Many H (None) /hpf Ur Squamous Epith Cells 5 H (0-4) /hpf Urine Bacteria Few H (None) /hpf Urine Mucus Rare H (None) /hpf 05/26/21 Range/Units 20:09 RBC (3.80-5.40) m/uL MCV (80.0-100.0) fL MCH (25.0-35.0) pg RDW (11.5-15.5) % Plt Count (150-450) k/uL Lymphocytes # (1.0-4.8) k/uL Macrocytosis PT (9.0-12.0) sec INR (<1.2) Sodium (137-145) mmol/L Chloride (98-107) mmol/L BUN (7-17) mg/dL Creatinine (0.52-1.04) mg/dL Glucose (74-99) mg/dL POC Glucose (mg/dL) 56 L (75-99) mg/dL Plasma Lactic Acid Saad (0.7-2.0) mmol/L Phosphorus (2.5-4.5) mg/dL AST (14-36) U/L ALT (4-34) U/L Creatine Kinase (30-135) U/L Troponin I (0.000-0.034) ng/mL Total Protein (6.3-8.2) g/dL Albumin (3.5-5.0) g/dL Urine Appearance (Clear) Urine Protein (Negative) Urine Blood (Negative) Urine Bilirubin (Negative) Ur Leukocyte Esterase (Negative) Urine RBC (0-5) /hpf Urine WBC (0-5) /hpf Urine WBC Clumps (None) /hpf Ur Squamous Epith Cells (0-4) /hpf Urine Bacteria (None) /hpf Urine Mucus (None) /hpf Microbiology - Last 24 Hours (Table) 05/26/21 12:10 Urine Culture - Preliminary Urine,Voided Thrombosis Risk Factor Assmnt - Choose All That Apply Each Risk Factor Represents 3 Points: Age 75 years or older Other congenital or acquired thrombophilia - If yes, enter type in comment: No Thrombosis Risk Factor Assessment Total Risk Factor Score: 3 Thrombosis Risk Factor Assessment Level: Moderate Risk Assessment and Plan Assessment: -Severe Sepsis most probably secondary to urinary tract infection patient , possible pneumonia, infectious disease evaluated the patient and continued cefdinir PO per ID team . -Atrial fibrillation with rate controlled, is on eliquis, metoprolol 75 mg 3 times a day, supposed to get cardioversion with -Hypotension and hypoglycemia -metabolic encephalopathy -chronic systolic CHF with ejection fraction 40-45%, improved -Moderate tricuspid regurgitation -COPD with mild acute exacerbation -Chronic respiratory failure on home oxygen which will be continued, she is on 2 L/M at home -Pulmonary hypertension most probably secondary to COPD -Chronic kidney disease/end-stage renal disease secondary to hypertensive nephrosclerosis and also diabetic nephropathy -History of Gastroesophageal reflux disease Plan: This is a pleasant 81 years old female who presents with severe sepsis, hypoglycemic, hypotensive Give 500 mL of normal saline bolus. Continue with gentle hydration with D5 normal saline at 50 mL per hour D50 Zosyn and panculture Call infectious disease, nephrology and cardiology consult Labs and medication were reviewed.. Continue same treatment. Continue with symptomatic treatment. Resume home medication. Monitor lytes and vitals. DVT and GI prophylaxis. Further recommendationsas per clinical course of the patient DVT prophylaxis: Subcutaneous heparin GI Prophylaxis: Pepcid PT/OT: Pending Prognosis is very guarded given her multiple complex medical condition and second hospitalization with severe sepsis in less than a month. She was recently treated for severe sepsis after prolonged hospitalization with broad- spectrum antibiotics and infectious disease, cardiology and nephrology consult. Discharge to rehab and was discharged from rehab to her home she came back to the hospital with severe sepsis again in 2-3 days. Patient does not improve we will discuss with family about more comfortable and less aggressive measures
[2021-05-27] MEDS: PIPERACILLIN-TAZOBACTAM 3.375 GM in SODIUM CHLORIDE 0.9% 100 ML IVPB SCH ×3 (03:46→23:46)
[2021-05-27 05:59] LABS: Glucose,Whole Blood 84 mg/dL (75-99)
[2021-05-27] MEDS: APIXABAN 2.5 MG TABLET PO SCH ×2 (06:27→20:28)
[2021-05-27] MEDS: PANTOPRAZOLE 40 MG TABLET PO SCH (06:27)
[2021-05-27] MEDS ORDERED: MIDODRINE 5 MG TAB PO SCH ×2 (07:30→12:30)
[2021-05-27 08:01] LABS: Anisocytosis Slight; Basophils % (A) 0 %; Eosinophils # (A) 0.1 k/uL (0-0.7); Eosinophils % (A) 1 %; HCT 40.1 % (34.0-46.0); HGB 12.6 gm/dL (11.4-16.0); Hypochromasia Marked; Lymphocytes # (A) 1.3 k/uL (1.0-4.8); Lymphocytes % (A) 14 %; MCHC 31.3 g/dL (31.0-37.0); Macrocytosis Marked; Monocytes # (A) 0.6 k/uL (0-1.0); Monocytes % (A) 7 %; Neutrophils # (A) 7.3 k/uL (1.3-7.7); Neutrophils % (A) 76 %; Platelet Count 135 k/uL (150-450); RBC 3.59 m/uL (3.80-5.40); RDW 19.7 % (11.5-15.5); WBC 9.6 k/uL (3.8-10.6)
[2021-05-27 08:18] LABS: MCV 111.8 fL (80.0-100.0)
[2021-05-27 08:26] LABS: Calcium 8.6 mg/dL (8.4-10.2); Total Bilirubin 0.9 mg/dL (0.2-1.3)
[2021-05-27] MEDS: VENLAFAXINE HCL ER 37.5 MG CAP PO SCH (08:51)
--- NOTE | 2021-05-27 09:02 | P.NPCON ---
History of Present Illness - Reason for Consult end stage renal disease - History of Present Illness Reason for consultation: End-stage renal disease History of present illness: The patient is a 81-year-old female seen in renal consultation for end-stage renal disease. Patient is maintained on hemodialysis on Wednesday schedule. Patient had a recent admission at this facility in the last 1 month due to pneumonia and A. fib with RVR. She went to rehab and was subsequently discharged home. She was seen by cardiology yesterday and was advised to go to the hospital due to lethargy and weakness. She did not receive hemodialysis yesterday. She received normal saline bolus and is currently maintained on D5 normal saline at 50 mL an hour. Patient doesn't quite remember why she was brought to the hospital. Her blood pressure remained on the lower side. She is on 3 L nasal cannula. No fever. No vomiting or diarrhea. Denies any syncopal episodes. Vital signs are stable. General: The patient appeared well nourished and normally developed. HEENT: Head exam is unremarkable. Neck is without jugular venous distension. LUNGS: Breath sounds decreased. HEART: Rate and Rhythm are regular. ABDOMEN: Soft, no distention. EXTREMITITES: No edema. Past Medical History Past Medical History: COPD, Diabetes Mellitus, Dialysis, Eye Disorder, G ERD/Reflux, Osteoarthritis (OA), Renal Disease Additional Past Medical History / Comment(s): Right Cataract, DIABETES (DIET CONTROLLED), CONSTIPATION. Hx UTI's, SCIATICA, hemodialysis Wed-Wed-Wed., uses oxygen @2l, very SOB per pt, swollen hands & feet, back pain between shoulder blades, irreg. heart rate per pt. hemodialysis fistula lt arm History of Any Multi-Drug Resistant Organisms: None Reported Past Surgical History: Hernia Repair, Joint Replacement Additional Past Surgical History / Comment(s): Right hip replacement, dialysis catheter insertion Past Anesthesia/Blood Transfusion Reactions: No Reported Reaction Past Psychological History: Depression Smoking Status: Former smoker Past Alcohol Use History: None Reported Additional Past Alcohol Use History / Comment(s): Quit smoking 8 yrs ago, smoked since age 14, 2 PPD. Past Drug Use History: None Reported - Past Family History Mother Family Medical History: No Reported History Medications and Allergies Home Medications Medication Instructions Recorded Confirmed Type Brigette-Lynn Multivitamin 1 tab PO W/SUPPER 05/02/21 05/26/21 History Temazepam 30 mg PO HS #2 cap 05/14/21 05/26/21 Rx Apixaban [Eliquis] 2.5 mg PO BID-W/MEALS 05/26/21 05/26/21 History Auryxia 210 mg PO W/SUPPER 05/26/21 05/26/21 History Metoprolol Tartrate [Lopressor] 75 mg PO BID-W/MEALS 05/26/21 05/26/21 History Pantoprazole [Protonix] 40 mg PO DAILY@0630 05/26/21 05/26/21 History Venlafaxine HCl ER [Effexor Xr] 37.5 mg PO DAILY 05/26/21 05/26/21 History oxyCODONE HCL/ACETAMINOPHEN 1 tab PO Q6HR PRN 05/26/21 05/26/21 History [Percocet 7.5-325 mg] rOPINIRole HCL [Requip] 0.25 mg PO HS 05/26/21 05/26/21 History rOPINIRole HCL [Requip] 0.25 mg PO MOWEFR PRN 05/26/21 05/26/21 History Allergies Allergy/AdvReac Type Severity Reaction Status Date / Time erythromycin base Allergy Unknown Unknown Verified 05/26/21 14:14 meloxicam Allergy Unknown Unknown Verified 05/26/21 14:14 nitrofurantoin Allergy Unknown Unknown Verified 05/26/21 14:14 [From Macrobid] nitrofurantoin Allergy Unknown Unknown Verified 05/26/21 14:14 macrocrystalline [From Macrobid] Sulfa (Sulfonamide Allergy Unknown Unknown Verified 05/26/21 14:14 Antibiotics) Physical Exam Vitals: Vital Signs Temp Pulse Pulse Resp BP BP Pulse Ox 05/27/21 04:00 93 18 82/53 96 05/27/21 00:00 96 18 112/73 100 05/26/21 20:00 97.8 F 101 H 18 96/66 96 05/26/21 18:22 94 17 05/26/21 18:20 94 17 93/60 100 05/26/21 15:57 97 16 89/63 96 05/26/21 15:11 99/74 05/26/21 14:16 74 20 90/67 90 L 05/26/21 13:12 21 05/26/21 11:13 97.6 F 97 20 77/52 97 Intake and Output 05/26/21 05/27/21 05/27/21 22:59 06:59 14:59 Intake Total 480 240 Balance 480 240 Intake: Intake, IV Titration 480 Amount Sodium Chloride 0.9% 500 480 ml 500 ml @ 999 mls/hr IV .Q31M STA Rx#:[id number] Oral 240 Other: Voiding Method Toilet Toilet # Voids 1 1 Weight 70.307 kg Results - Lab Results Most recent lab results Calcium 8.5 mg/dL (8.4-10.2) 05/26/21 11:28 Phosphorus 6.5 mg/dL (2.5-4.5) H 05/26/21 11:28 Magnesium 2.2 mg/dL (1.6-2.3) 05/26/21 11:28 05/27/21 07:13 05/26/21 11:28 Assessment and Plan Plan: Assessment: 1. End-stage renal disease maintained on hemodialysis on Wednesday ay schedule. 2. Severe sepsis secondary to UTI versus pneumonia. On antibiotics. Infectious disease following. 3. A. fib. On anticoagulation. Cardiology following. 4. Chronic systolic CHF with ejection fraction of 40-45% with moderate tricuspid regurgitation. 5. Diabetes with hypoglycemia. 6. Chronic kidney disease mineral bone disease. Plan: Hemodialysis today as she missed yesterday's treatment and another treatment tomorrow per her outpatient schedule. Check phosphorus level. Hep-Lock IV fluids as oral intake improves and hypoglycemia resolves. Increase dose of midodrine to 10 mg 3 times daily. To be held for systolic blood pressure greater than 110. Thank you for the consultation. I will continue to follow the patient with you during her hospital stay.
[2021-05-27 09:11] LABS: Albumin 3.3 g/dL (3.5-5.0); Magnesium 2.2 mg/dL (1.6-2.3); Potassium 4.8 mmol/L (3.5-5.1); Total Protein 6.1 g/dL (6.3-8.2)
--- NOTE | 2021-05-27 11:26 | P.PN ---
Objective - Vital Signs Vital signs: Vital Signs Temp 98.1 F 05/27/21 08:00 Pulse 100 05/27/21 08:00 Resp 20 05/27/21 08:00 BP 93/62 05/27/21 08:00 Pulse Ox 100 05/27/21 08:00 Intake & Output 05/26/21 05/27/21 05/27/21 18:59 06:59 18:59 Intake Total 480 240 Balance 480 240 Weight 70.307 kg Intake: Intake, IV Titration 480 Amount Sodium Chloride 0.9% 500 480 ml 500 ml @ 999 mls/hr IV .Q31M STA Rx#:[id number] Oral 240 Other: Voiding Method Bedside Commode Toilet Toilet # Voids 1 1 - Exam This is a pleasant 81 years old female who presents with With past medical history of COPD, diabetes mellitus, osteoarthritis, end-stage renal disease on hemodialysis chronic oxygen dependent on 2 L/m atrial fibrillation. She was recently discharged from the hospital after prolonged stay from 05/02-05/14 for sepsis secondary to urinary tract infection and possible pneumonia, atrial fibrillation's with RVR and acute on chronic systolic CHF with COPD exacerbation. At that time she was discharged on cefdinir to rehab. She came back from rehab 3 days ago. Last night her daughter but does not she is slower than usual, this morning she went to her appointment with [facility] administrator Dr. Mcmillan and she was very lethargic progressively got worse when she got home, she was difficult to arouse and the daughter called 911 and brought her to the emergency room also patient missed her hemodialysis today because of her illness Patient very weak and lethargic, arousable but go back to sleep, she is poor historian, daughter at bedside. On admission she was hypotensive with a blood pressure is 77/52, afebrile, slightly tachypneic 20-21 and tachycardic, hypoglycemic with oxygen 56-67, given D50 she received a bolus of 500 mL in the emergency room and her blood pressure is 93/60. her WBC IS 8.9K, hB 12.3, Platelet count is 107k, INR is 1.4, Na 133, K 4.4 creatinine is 5.7, Elevated lactic acid at 2.5 came back to normal at 1.7 elevated troponin 0.039 and high ProBNP 98819, liver enz AST AND ALT slightly elevated 67 and 60 respectively urinalysis is suspecious for infection burnham virus non detected EKG atial flutter at [address]-T changes CXR:bilateral infilterates for CHF vs Pneumonia in ED she recieved ceftriaxon and NS 500 ml nephrology and cardiology team were consulted in the evening pt became more awake and interactive with good oxygen saturation in 90s%, per child health associate RN 05/27/2021 Patient is fully awake and oriented and appropriate today, he was not sure why she came to the hospital probably because she was confused then, patient was updated about her clinical condition. Concurrently denies any symptoms, no chest pain or dyspnea or coughing. No dysuria. She is saturating 100% on 3 L oxygen via nasal cannula. Her blood pressure still low normal 93/62, Labs look stable. Liver enzymes slightly elevated. No leukocytosis. Creatinine is elevated because of missed hemodialysis Patient is going for hemodialysis today and tomorrow. She is kept on D5 normal saline at 50 mL/h Medial drain was increased to 10 g 3 times a day. Also she is on Zosyn. Check hemoglobin A1c, a gallstone and is pending - Labs CBC & Chem 7: 05/27/21 07:13 05/27/21 07:13 Labs: Abnormal Lab Results - Last 24 Hours (Table) 05/26/21 05/26/21 05/26/21 Range/Units 11:28 11:28 11:28 RBC (3.80-5.40) m/uL MCV (80.0-100.0) fL MCH (25.0-35.0) pg RDW (11.5-15.5) % Plt Count (150-450) k/uL Lymphocytes # (1.0-4.8) k/uL Macrocytosis PT 14.0 H (9.0-12.0) sec INR 1.4 H (<1.2) Sodium 133 L (137-145) mmol/L Chloride 97 L (98-107) mmol/L BUN 35 H (7-17) mg/dL Creatinine 5.74 H (0.52-1.04) mg/dL Glucose 55 L (74-99) mg/dL POC Glucose (mg/dL) (75-99) mg/dL Plasma Lactic Acid Saad (0.7-2.0) mmol/L Phosphorus 6.5 H (2.5-4.5) mg/dL AST 67 H (14-36) U/L ALT 60 H (4-34) U/L Creatine Kinase 24 L (30-135) U/L Troponin I 0.039 H* (0.000-0.034) ng/mL Total Protein 6.2 L (6.3-8.2) g/dL Albumin 3.4 L (3.5-5.0) g/dL Urine Appearance (Clear) Urine Protein (Negative) Urine Blood (Negative) Urine Bilirubin (Negative) Ur Leukocyte Esterase (Negative) Urine RBC (0-5) /hpf Urine WBC (0-5) /hpf Urine WBC Clumps (None) /hpf Ur Squamous Epith Cells (0-4) /hpf Urine Bacteria (None) /hpf Urine Mucus (None) /hpf 05/26/21 05/26/21 05/26/21 Range/Units 12:10 12:10 12:10 RBC 3.43 L (3.80-5.40) m/uL MCV 110.3 H (80.0-100.0) fL MCH 35.8 H (25.0-35.0) pg RDW 19.8 H (11.5-15.5) % Plt Count 107 L (150-450) k/uL Lymphocytes # 0.7 L (1.0-4.8) k/uL Macrocytosis Marked A PT (9.0-12.0) sec INR (<1.2) Sodium (137-145) mmol/L Chloride (98-107) mmol/L BUN (7-17) mg/dL Creatinine (0.52-1.04) mg/dL Glucose (74-99) mg/dL POC Glucose (mg/dL) (75-99) mg/dL Plasma Lactic Acid Saad 2.5 H* (0.7-2.0) mmol/L Phosphorus (2.5-4.5) mg/dL AST (14-36) U/L ALT (4-34) U/L Creatine Kinase (30-135) U/L Troponin I (0.000-0.034) ng/mL Total Protein (6.3-8.2) g/dL Albumin (3.5-5.0) g/dL Urine Appearance Turbid H (Clear) Urine Protein 2+ H (Negative) Urine Blood Large H (Negative) Urine Bilirubin 1+ H (Negative) Ur Leukocyte Esterase Large H (Negative) Urine RBC 49 H (0-5) /hpf Urine WBC >182 H (0-5) /hpf Urine WBC Clumps Many H (None) /hpf Ur Squamous Epith Cells 5 H (0-4) /hpf Urine Bacteria Few H (None) /hpf Urine Mucus Rare H (None) /hpf 05/26/21 05/26/21 05/26/21 Range/Units 20:09 20:26 20:40 RBC (3.80-5.40) m/uL MCV (80.0-100.0) fL MCH (25.0-35.0) pg RDW (11.5-15.5) % Plt Count (150-450) k/uL Lymphocytes # (1.0-4.8) k/uL Macrocytosis PT (9.0-12.0) sec INR (<1.2) Sodium (137-145) mmol/L Chloride (98-107) mmol/L BUN (7-17) mg/dL Creatinine (0.52-1.04) mg/dL Glucose (74-99) mg/dL POC Glucose (mg/dL) 56 L 60 L 67 L (75-99) mg/dL Plasma Lactic Acid Saad (0.7-2.0) mmol/L Phosphorus (2.5-4.5) mg/dL AST (14-36) U/L ALT (4-34) U/L Creatine Kinase (30-135) U/L Troponin I (0.000-0.034) ng/mL Total Protein (6.3-8.2) g/dL Albumin (3.5-5.0) g/dL Urine Appearance (Clear) Urine Protein (Negative) Urine Blood (Negative) Urine Bilirubin (Negative) Ur Leukocyte Esterase (Negative) Urine RBC (0-5) /hpf Urine WBC (0-5) /hpf Urine WBC Clumps (None) /hpf Ur Squamous Epith Cells (0-4) /hpf Urine Bacteria (None) /hpf Urine Mucus (None) /hpf 05/27/21 05/27/21 05/27/21 Range/Units 07:13 07:13 07:13 RBC 3.59 L (3.80-5.40) m/uL MCV (80.0-100.0) fL MCH (25.0-35.0) pg RDW 19.7 H (11.5-15.5) % Plt Count 135 L (150-450) k/uL Lymphocytes # (1.0-4.8) k/uL Macrocytosis Marked A PT (9.0-12.0) sec INR (<1.2) Sodium 134 L (137-145) mmol/L Chloride 97 L (98-107) mmol/L BUN 42 H (7-17) mg/dL Creatinine 6.58 H (0.52-1.04) mg/dL Glucose 70 L (74-99) mg/dL POC Glucose (mg/dL) (75-99) mg/dL Plasma Lactic Acid Saad (0.7-2.0) mmol/L Phosphorus 7.7 H (2.5-4.5) mg/dL AST 62 H (14-36) U/L ALT 56 H (4-34) U/L Creatine Kinase (30-135) U/L Troponin I (0.000-0.034) ng/mL Total Protein 6.1 L (6.3-8.2) g/dL Albumin 3.3 L (3.5-5.0) g/dL Urine Appearance (Clear) Urine Protein (Negative) Urine Blood (Negative) Urine Bilirubin (Negative) Ur Leukocyte Esterase (Negative) Urine RBC (0-5) /hpf Urine WBC (0-5) /hpf Urine WBC Clumps (None) /hpf Ur Squamous Epith Cells (0-4) /hpf Urine Bacteria (None) /hpf Urine Mucus (None) /hpf /01/12 Range/Units 09:19 RBC (3.80-5.40) m/uL MCV (80.0-100.0) fL MCH (25.0-35.0) pg RDW (11.5-15.5) % Plt Count (150-450) k/uL Lymphocytes # (1.0-4.8) k/uL Macrocytosis PT (9.0-12.0) sec INR (<1.2) Sodium (137-145) mmol/L Chloride (98-107) mmol/L BUN (7-17) mg/dL Creatinine (0.52-1.04) mg/dL Glucose (74-99) mg/dL POC Glucose (mg/dL) (75-99) mg/dL Plasma Lactic Acid Saad (0.7-2.0) mmol/L Phosphorus (2.5-4.5) mg/dL AST (14-36) U/L ALT (4-34) U/L Creatine Kinase (30-135) U/L Troponin I 0.071 H* (0.000-0.034) ng/mL Total Protein (6.3-8.2) g/dL Albumin (3.5-5.0) g/dL Urine Appearance (Clear) Urine Protein (Negative) Urine Blood (Negative) Urine Bilirubin (Negative) Ur Leukocyte Esterase (Negative) Urine RBC (0-5) /hpf Urine WBC (0-5) /hpf Urine WBC Clumps (None) /hpf Ur Squamous Epith Cells (0-4) /hpf Urine Bacteria (None) /hpf Urine Mucus (None) /hpf Microbiology - Last 24 Hours (Table) 05/26/21 12:10 Urine Culture - Preliminary Urine,Voided Assessment and Plan Assessment: -Severe Sepsis most probably secondary to urinary tract infection patient , possible pneumonia, infectious disease evaluated the patient and continued cefdinir PO per ID team . -Atrial fibrillation with rate controlled, is on eliquis, metoprolol 75 mg 3 times a day, supposed to get cardioversion with -Hypotension and hypoglycemia -metabolic encephalopathy -chronic systolic CHF with ejection fraction 40-45%, improved -Moderate tricuspid regurgitation -COPD with mild acute exacerbation -Chronic respiratory failure on home oxygen which will be continued, she is on 2 L/M at home -Pulmonary hypertension most probably secondary to COPD -Chronic kidney disease/end-stage renal disease secondary to hypertensive nephrosclerosis and also diabetic nephropathy -History of Gastroesophageal reflux disease Plan: This is a pleasant 81 years old female who presents with severe sepsis, hypoglycemic, hypotensive Continue with gentle hydration with D5 normal saline at 50 mL per hour Zosyn and panculture Call infectious disease, nephrology and cardiology consult Labs and medication were reviewed.. Continue same treatment. Continue with symptomatic treatment. Resume home medication. Monitor lytes and vitals. DVT and GI prophylaxis. Further recommendationsas per clinical course of the patient DVT prophylaxis: Subcutaneous heparin GI Prophylaxis: Pepcid PT/OT: Pending Prognosis is very guarded given her multiple complex medical condition and second hospitalization with severe sepsis in less than a month. She was re cently treated for severe sepsis after prolonged hospitalization with broad- spectrum antibiotics and infectious disease, cardiology and nephrology consult. Discharge to rehab and was discharged from rehab to her home she came back to the hospital with severe sepsis again in 2-3 days. Patient does not improve we will discuss with family about more comfortable and less aggressive measures
[2021-05-27 12:06] LABS: Glucose,Whole Blood 81 mg/dL (75-99)
--- NOTE | 2021-05-27 12:12 | P.CRDCN ---
History of Present Illness History of present illness: HISTORY OF PRESENTING ILLNESS This is a pleasant 81 years old female with a past medical history of non- obstructive coronary artery disease, chronic persistant atrial fibrillation, hypertension, dyslipidemia, COPD, type 2 diabetes mellitus, osteoarthritis, end- stage renal disease on hemodialysis MWF, former smoker. She follows in the office with Dr. Chavarria. We have been asked to see in consultation for atrial fibrillation. Patient is seen and examined at bedside. She does not remember wh at brought her to the hospital. She states that her daughter told her that she was at her cardiology appointment with Dr. Chavarria, she is very lethargic and weak. Yesterday patient progressively got worse, when her daughter took her home she states it was difficult to arouse the patient and the daughter called 911 and she is brought to the emergency department. Patient states she does not remember the events that occurred yesterday. She denies having symptom sof chest pain, palpitations, lower extremity edema, weakness, lightheadedness, syncope. She was recently discharged from the hospital after prolonged stay from 05/02-05/14 for sepsis secondary to urinary tract infection and possible pneumonia. Cardiology saw her due to atrial fibrillation with RVR and acute on chronic systolic CHF/COPD exacerbation. Patient's beta cristi was increased to metoprolol tartrate 75mg TID and she was discharged on oral anticoagulation. Her echo in the hospital revealed impaired LV function with EF of 40-45% At that time she was discharged on antibiotics to [facility]. She states she did get dialysis Wed day. Dialysis was missed yesterday due to patient being admitted to hospital. At patient's appointment yesterday with Dr. Chavarria he decreased her metoprolol to 25mg BID. DIAGNOSTICS EKG atrial fibrillation heart rate 92, incomplete right bundle branch block, non specific STT wave abnormalities. Most recent echocardiogram 05/05/2021 revealed an EF 40-45%, RV is mild to moderately enlarged, mild mitral regurgitation, moderate tricuspid regurgitation, moderate pulmonary hypertension with an RVSP 62 mmHg, small pleural effusion Last Cardiac Catheterization 03/2019 which revealed intermediate lesion involving the mid first obtuse marginal branch of the left circumflex appeared to be 60%, proximal LAD appear to have mild disease only. Left circumflex appeared to have mild disease only. Telemetry tracings indicate ventricular fibrillation with controlled ventricular rates heart rate in the 90s. Chest xray bilateral infiltrate and pleural effusion correlate for pneumonia versus CHF. Laboratory reviewed, proBNP 97,900 previous 05/23/2021 94,700, WBC 9.6, hemoglobin 12.6, platelets 135, sodium 134, potassium 4.8, BUN 42, serum creatinine 6.5, magnesium 2.2, AST 62, ALT 56 Current home medications include Effexor 37.5 mg daily, when necessary Percocet, metoprolol tartrate 75 mg twice a day, Eliquis 2.5 mg twice a day REVIEW OF SYSTEMS At the time of my exam: CONSTITUTIONAL: Denies fever or chills. CARDIOVASCULAR: Denies chest pain, shortness of breath, orthopnea, PND or palpitations. RESPIRATORY: Denies cough. GASTROINTESTINAL: Denies abdominal pain, diarrhea, constipation, nausea or vomiting. MUSCULOSKELETAL: Denies myalgias. NEUROLOGIC: Denies numbness, tingling, headacbe or weakness. ENDOCRINE: Denies fatigue, weight change, polydipsia or polyurina. GENITOURINARY: Denies burning, hematuria or urgency with micturation. HEMATOLOGIC: Denies history of anemia or bleeding. PHYSICAL EXAMINATION Blood pressure 82/53 heart rate 93 afebrile and maintaining oxygen saturation 96% on 3 L nasal cannula CONSTITUTIONAL: No apparent distress. HEENT: Head is normocephalic. Pupils are equal, round. Sclerae anicteric. Mucous membranes of the mouth are moist. No JVD. No carotid bruit. CHEST EXAMINATION: Lungs are clear to auscultation. No chest wall tenderness is noted on palpation or with deep breathing. HEART EXAMINATION: Irregular rate and rhythm. S1, S2 heard. Systolic murmur noted at apex ABDOMEN: Soft, nontender. Positive bowel sounds. EXTREMITIES: 2+ peripheral pulses, no lower extremity edema and no calf tenderness. SKIN: bilateral legs and arms ecchymosis NEUROLOGIC EXAMINATION: Patient is awake, alert and oriented x3. ASSESSMENT Non-obstructive coronary artery disease Chronic persistant atrial fibrillation on Eliquis Elevated troponin, no consistent with acute coronary syndrome History of Hypertension- hypotensive, most likely due to increased metoprolol tartrate to 75mg TID Dyslipidemia COPD Type 2 diabetes mellitus Osteoarthritis End-stage renal disease on hemodialysis MWF PLAN We will decrease metoprolol tartrate to 25mg BID Continue to monitor patient on cardiac telemetry, monitor blood pressure. Continue Eliquis Nephrology consulted - plan for hemodialysis Follow up with Dr. Chavarria on discharge Further recommendations based on clinical course Thank you kindly for this consultation. Nurse Practitioner note has been reviewed, I agree with a documented findings and plan of care. Patient was seen and examined. Past Medical History Past Medical History: COPD, Diabetes Mellitus, Dialysis, Eye Disorder, GERD/Reflux, Osteoarthritis (OA), Renal Disease Additional Past Medical History / Comment(s): Right Cataract, DIABETES (DIET CONTROLLED), CONSTIPATION. Hx UTI's, SCIATICA, hemodialysis Wed-Wed-Wed., uses oxygen @2l, very SOB per pt, swollen hands & feet, back pain between shoulder blades, irreg. heart rate per pt. hemodialysis fistula lt arm History of Any Multi-Drug Resistant Organisms: None Reported Past Surgical History: Hernia Repair, Joint Replacement Additional Past Surgical History / Comment(s): Right hip replacement, dialysis catheter insertion Past Anesthesia/Blood Transfusion Reactions: No Reported Reaction Past Psychological History: Depression Smoking Status: Former smoker Past Alcohol Use History: None Reported Additional Past Alcohol Use History / Comment(s): Quit smoking 8 yrs ago, smoked since age 14, 2 PPD. Past Drug Use History: None Reported - Past Family History Mother Family Medical History: No Reported History Medications and Allergies Home Medications Medication Instructions Recorded Confirmed Type Brigette-Lynn Multivitamin 1 tab PO W/SUPPER 05/02/21 05/26/21 History Temazepam 30 mg PO HS #2 cap 05/14/21 05/26/21 Rx Apixaban [Eliquis] 2.5 mg PO BID-W/MEALS 05/26/21 05/26/21 History Auryxia 210 mg PO W/SUPPER 05/26/21 05/26/21 History Metoprolol Tartrate [Lopressor] 75 mg PO BID-W/MEALS 05/26/21 05/26/21 History Pantoprazole [Protonix] 40 mg PO DAILY@0630 05/26/21 05/26/21 History Venlafaxine HCl ER [Effexor Xr] 37.5 mg PO DAILY 05/26/21 05/26/21 History oxyCODONE HCL/ACETAMINOPHEN 1 tab PO Q6HR PRN 05/26/21 05/26/21 History [Percocet 7.5-325 mg] rOPINIRole HCL [Requip] 0.25 mg PO HS 05/26/21 05/26/21 History rOPINIRole HCL [Requip] 0.25 mg PO MOWEFR PRN 05/26/21 05/26/21 History Allergies Allergy/AdvReac Type Severity Reaction Status Date / Time erythromycin base Allergy Unknown Unknown Verified 05/26/21 14:14 meloxicam Allergy Unknown Unknown Verified 05/26/21 14:14 nitrofurantoin Allergy Unknown Unknown Verified 05/26/21 14:14 [From Macrobid] nitrofurantoin Allergy Unknown Unknown Verified 05/26/21 14:14 macrocrystalline [From Macrobid] Sulfa (Sulfonamide Allergy Unknown Unknown Verified 05/26/21 14:14 Antibiotics) Physical Exam Vitals: Vital Signs Temp Pulse Pulse Resp BP BP Pulse Ox 05/27/21 04:00 93 18 82/53 96 05/27/21 00:00 96 18 112/73 100 05/26/21 20:00 97.8 F 101 H 18 96/66 96 05/26/21 18:22 94 17 05/26/21 18:20 94 17 93/60 100 05/26/21 15:57 97 16 89/63 96 05/26/21 15:11 99/74 05/26/21 14:16 74 20 90/67 90 L 05/26/21 13:12 21 05/26/21 11:13 97.6 F 97 20 77/52 97 Intake and Output 05/26/21 05/27/21 05/27/21 22:59 06:59 14:59 Intake Total 480 240 Balance 480 240 Intake: Intake, IV Titration 480 Amount Sodium Chloride 0.9% 500 480 ml 500 ml @ 999 mls/hr IV .Q31M STA Rx#:[id number] Oral 240 Other: Voiding Method Toilet Toilet # Voids 1 1 Weight 70.307 kg Results 05/27/21 07:13 05/27/21 07:13 Cardiac Enzymes 05/26/21 05/26/21 Range/Units 11:28 11:28 AST 67 H (14-36) U/L Troponin I 0.039 H* (0.000-0.034) ng/mL Coagulation 05/26/21 Range/Units 11:28 PT 14.0 H (9.0-12.0) sec CBC 05/26/21 05/27/21 Range/Units 12:10 07:13 WBC 8.9 9.6 (3.8-10.6) k/uL RBC 3.43 L 3.59 L (3.80-5.40) m/uL Hgb 12.3 12.6 (11.4-16.0) gm/dL Hct 37.8 40.1 (34.0-46.0) % Plt Count 107 L 135 L (150-450) k/uL Comprehensive Metabolic Panel 05/26/21 Range/Units 11:28 Sodium 133 L (137-145) mmol/L Potassium 4.4 (3.5-5.1) mmol/L Chloride 97 L (98-107) mmol/L Carbon Dioxide 22 (22-30) mmol/L BUN 35 H (7-17) mg/dL Creatinine 5.74 H (0.52-1.04) mg/dL Glucose 55 L (74-99) mg/dL Calcium 8.5 (8.4-10.2) mg/dL AST 67 H (14-36) U/L ALT 60 H (4-34) U/L Alkaline Phosphatase 122 (38-126) U/L Total Protein 6.2 L (6.3-8.2) g/dL Albumin 3.4 L (3.5-5.0) g/dL Current Medications Generic Name Dose Route Start Last Admin Trade Name Freq PRN Reason Stop Dose Admin Acetaminophen 650 mg 05/26/21 15:07 Acetaminophen Tab 325 Mg Tab PO Q6HR PRN Mild Pain or Fever > 100.5 Alprazolam 0.25 mg 05/26/21 15:07 Alprazolam 0.25 Mg Tab PO Q6HR PRN Anxiety Apixaban 2.5 mg 05/27/21 07:30 05/27/21 06:27 Apixaban 2.5 Mg Tablet PO 2.5 mg BID-W/MEALS JONAS Administration Protocol Dextrose/Water 50 ml 05/26/21 20:13 Dextrose 50% Syringe 50 Ml IVP Q2HR PRN Hypoglycemia Piperacillin Sod/Tazobactam 100 mls @ 25 mls/hr 05/26/21 19:45 05/27/21 03:46 Sod 3.375 gm/ Sodium Chloride IVPB 25 mls/hr Q8H JONAS Administration Dextrose/Sodium Chloride 1,000 mls @ 50 mls/hr 05/26/21 21:00 05/26/21 21:19 Dextrose 5%-Ns Iv Soln IV 50 mls/hr .Q20H JONAS Administration Midodrine 10 mg 05/27/21 12:30 Midodrine 5 Mg Tab PO 05/27/21 12:31 AC-TID JONAS Naloxone HCl 0.2 mg 05/26/21 15:07 Naloxone 0.4 Mg/Ml 1 Ml Vial IV Q2M PRN Opioid Reversal Pantoprazole Sodium 40 mg 05/27/21 06:30 05/27/21 06:27 Pantoprazole 40 Mg Tablet PO 40 mg DAILY@0630 JONAS Administration Ropinirole HCl 0.25 mg 05/27/21 21:00 Ropinirole Hcl 0.25 Mg Tab PO HS JONAS Ropinirole HCl 0.25 mg 05/26/21 21:11 Ropinirole Hcl 0.25 Mg Tab PO MOWEFR PRN before dialysis Venlafaxine HCl 37.5 mg 05/27/21 09:00 05/27/21 08:51 Venlafaxine Hcl Er 37.5 Mg Cap PO 37.5 mg DAILY JONAS Administration Intake and Output 05/26/21 05/27/21 05/27/21 22:59 06:59 14:59 Intake Total 480 240 Balance 480 240 Intake: Intake, IV Titration 480 Amount Sodium Chloride 0.9% 500 480 ml 500 ml @ 999 mls/hr IV .Q31M STA Rx#:[id number] Oral 240 Other: Voiding Method Toilet Toilet # Voids 1 1 Weight 70.307 kg 05/27/21 07:13 05/26/21 11:28
[2021-05-27 13:35] LABS: Hemoglobin A1C 4.8 % (4.0-6.0)
[2021-05-27] MEDS: DEXTROSE 5%-0.9% NACL 1,000 ML IV SCH (18:45)
[2021-05-27 18:52] LABS: Glucose,Whole Blood 97 mg/dL (75-99)
--- NOTE | 2021-05-27 20:22 | CT ---
EXAMINATION TYPE: CT brain wo con DATE OF EXAM: 05/27/2021 COMPARISON: None HISTORY: Confusion CT DLP: mGycm Automated exposure control for dose reduction was used. There is cerebral cortical atrophy. There is no mass effect nor midline shift. There is no sign of in tracranial hemorrhage. There is mild hypodensity in the periventricular white matter. Calvarium is in tact. Skull base is intact. IMPRESSION: atrophy and chronic small vessel ischemia. No acute intracranial abnormality.
[2021-05-27 20:31] LABS: Glucose,Whole Blood 74 mg/dL (75-99)
[2021-05-27] MEDS: METOPROLOL TARTRATE 25 MG TAB PO SCH (20:35)
[2021-05-28 06:06] LABS: Glucose,Whole Blood 94 mg/dL (75-99)
[2021-05-28] MEDS: APIXABAN 2.5 MG TABLET PO SCH ×2 (06:29→17:36)
[2021-05-28] MEDS: PANTOPRAZOLE 40 MG TABLET PO SCH (06:29)
--- NOTE | 2021-05-28 06:44 | CONS ---
CONSULTATION DATE OF SERVICE: 05/27/2021. REASON FOR CONSULTATION: Pneumonia and UTI. HISTORY OF PRESENT ILLNESS: The patient is an 81 -year-old female with past medical history significant for COPD, history of diabetes, history of end-stage renal disease on dialysis Wednesday, Wednesday, Wednesday. this facility the patient was treated for an episode of pneumonia. The patient did plan to see her welding machine operator submerged arc yesterday morning for a followup. The patient was noticed to be weak and lethargic. The patient was noticed to have a hard time staying awake and falling asleep. With these symptoms, the patient was seen by Cardiology subsequent has been referred to the ER for further evaluation. On arrival to the ER, the patient was afebrile and no fever the last 24-48 hours. The patient did have mild hypoxemia, . Subsequently, 93% on 2 L nasal cannula. Patient did have a normal white count. No left shift. Did have elevated BUN and creatinine. Troponin was mildly elevated. Procalcitonin was 1.49. The patient did have a positive UA. However this a dialysis patient. Chest x-ray with bilateral infiltrate infusion correlate for pneumonia. The patient started on Zosyn. Has been admitted to the hospital. Infectious Disease was consulted for further management of antibiotic therapy. When asked specifically, the patient has been complaining of feeling weak and tired. No energy. The patient denies having any chest pain. Did have a cough, not bringing any sputum. No nausea, vomiting. No abdominal pain. No significant burning or frequency of urine. REVIEW OF SYSTEMS: Positive points have been mentioned in HPI. Rest of the systems are negative. PAST MEDICAL HISTORY: COPD, diabetes mellitus, end-stage disease on dialysis, gastroesophageal reflux disease, osteoarthritis. PAST SURGICAL HISTORY: Dialysis fistula placement, hernia repair, right hip replacement. SOCIAL HISTORY: Remote history of smoking. No drinking or drug use. FAMILY HISTORY: No pertinent findings noticed. ALLERGIES: ERYTHROMYCIN, NITROFURANTOIN, SULFA. MEDICATIONS: Include the patient is currently on:Tylenol, Xanax, Eliquis, Lopressor, Narcan, Protonix, Zosyn, Requip, Effexor. PHYSICAL EXAMINATION: Blood pressure is 114/81 with a pulse of 90. Temperature 97.4. She is 93% on 3 L nasal cannula. General description is an elderly female lying in bed in no distress. HEENT: Examination shows slight pallor. No scleral icterus. Oral mucous membrane is dry. NECK: Trachea central. No thyromegaly. LUNGS unlabored breathing, decreased breath sounds in the base. No wheeze. HEART: S1, S2. Regular rate and rhythm. ABDOMEN: Soft, no tenderness. No guarding. No rigidity. EXTREMITIES: No edema of the feet. SKIN examination: No rash or mass palpable. NEUROLOGICAL: Patient is awake, alert, oriented times two. Mood and affect normal. LABS: Hemoglobin is 12.6, white count 9.6. Creatinine 6.58. Procalcitonin is 1.49. Liver enzymes are normal. Urine is positive. Urine culture with group D Enterococcus. DIAGNOSTIC IMPRESSION AND PLAN: Patient admitted to the hospital with weakness, lethargy, no energy. Did have minimal cough with evidence of bilateral infiltrate. Did have elevated procalcitonin. Concern for possible pneumonia in this patient with a history of dialysis, has been in and out of the hospital. We will need to cover for the possible resistant gram-negative with likely pathogen. PLAN: 1. We will try to obtain a sputum for Gram stain and culture. 2. Continue Zosyn 3.375 q12h. 3. We will follow on clinical condition and culture to further adjust medication if needed. Thank you for this consultation. Will follow this patient along with you. MMANDREL / IJN: [id number] /
[2021-05-28] MEDS ORDERED: MIDODRINE 5 MG TAB PO ONE ×3 (09:00→22:12)
[2021-05-28] MEDS: METOPROLOL TARTRATE 25 MG TAB PO SCH ×3 (09:08→19:36)
[2021-05-28] MEDS: VENLAFAXINE HCL ER 37.5 MG CAP PO SCH (09:09)
--- NOTE | 2021-05-28 09:33 | P.PN ---
Subjective Patient is seen in follow-up for end-stage liver disease. She is maintained on hemodialysis on Wednesday schedule. Tolerating dialysis well. Blood pressures the lower side. No chest pain or shortness of breath. Vital signs are stable. Blood pressure on the lower side. General: The patient appeared well nourished and normally developed. HEENT: Head exam is unremarkable. LUNGS: Breath sounds decreased. HEART: Rate and Rhythm are regular. ABDOMEN: Soft, no distention. EXTREMITITES: Trace edema. Objective - Vital Signs Vital signs: Vital Signs Temp 98.6 F 05/28/21 04:00 Pulse 67 05/28/21 04:00 Resp 16 05/28/21 04:00 BP 95/61 05/28/21 04:00 Pulse Ox 96 05/28/21 04:00 Intake & Output 05/27/21 05/28/21 05/28/21 18:59 06:59 18:59 Intake Total 240 240 Output Total 850 Balance 240 -850 240 Weight 69.9 kg Intake: Oral 240 240 Output: Urine 350 Hemodialysis 500 Other: Voiding Method Toilet Toilet # Voids 0 2 # Bowel Movements 0 1 - Labs CBC & Chem 7: 05/27/21 07:13 05/27/21 07:13 Labs: Abnormal Lab Results - Last 24 Hours (Table) 05/27/21 05/27/21 05/27/21 Range/Units 07:13 07:13 07:13 MCV 111.8 H (80.0-100.0) fL POC Glucose (mg/dL) (75-99) mg/dL Phosphorus 7.7 H (2.5-4.5) mg/dL Troponin I (0.000-0.034) ng/mL Procalcitonin 1.49 H (0.02-0.09) ng/mL 05/27/21 05/27/21 Range/Units 09:19 20:30 MCV (80.0-100.0) fL POC Glucose (mg/dL) 74 L (75-99) mg/dL Phosphorus (2.5-4.5) mg/dL Troponin I 0.071 H* (0.000-0.034) ng/mL Procalcitonin (0.02-0.09) ng/mL Microbiology - Last 24 Hours (Table) 05/26/21 21:40 Blood Culture - Preliminary Blood No Growth after 24 hours 05/26/21 12:10 Urine Culture - Preliminary Urine,Voided Group D Enterococcus Assessment and Plan Plan: Assessment: 1. End-stage renal disease maintained on hemodialysis on Wednesday schedule. 2. Severe sepsis secondary to UTI and ?pneumonia. On antibiotics. Infectious disease following. Urine culture positive for group D enterococcus. 3. A. fib. On anticoagulation. Cardiology following. 4. Chronic systolic CHF with ejection fraction of 40-45% with moderate tricuspid regurgitation. 5. Diabetes with hypoglycemia. Blood sugar 94 this morning. 6. Chronic kidney disease mineral bone disease. Plan: Currently seen while undergoing hemodialysis. Next treatment on Wednesday. 10 mg midodrine once now due to low blood pressure during dialysis. Add PhosLo with meals.
[2021-05-28 12:28] LABS: Glucose,Whole Blood 89 mg/dL (75-99)
[2021-05-28] MEDS: CALCIUM ACETATE 667 MG TAB PO SCH ×2 (13:08→17:35)
[2021-05-28] MEDS: PIPERACILLIN-TAZOBACTAM 3.375 GM in SODIUM CHLORIDE 0.9% 100 ML IVPB SCH (13:08)
[2021-05-28] MEDS: DEXTROSE 5%-0.9% NACL 1,000 ML IV SCH (13:09)
--- NOTE | 2021-05-28 13:15 | P.PN ---
Subjective This is a pleasant 81 years old female with a past medical history of non- obstructive coronary artery disease, chronic persistant atrial fibrillation, hypertension, dyslipidemia, COPD, type 2 diabetes mellitus, osteoarthritis, end- stage renal disease on hemodialysis MWF, former smoker. She follows in the office with Dr. Chavarria. We have been asked to see in consultation for atrial fibrillation. On exam 05/27/21 patient alert and oriented x 3. She does not remember what brought her to the hospital. She states that her daughter told her that she was at her cardiology appointment with Dr. Chavarria, she is very lethargic and weak. Yesterday patient progressively got worse, when her daughter took her home she states it was difficult to arouse the patient and the daughter called 911 and she is brought to the emergency department. At patient's appointment yesterday with Dr. Chavarria he decreased her metoprolol to 25mg BID. She was recently discharged from the hospital after prolonged stay from 05/02-05/14 for sepsis secondary to urinary tract infection and possible pneumonia. Cardiology saw her due to atrial fibrillation with RVR and acute on chronic systolic CHF/COPD exacerbation. Patient's beta cristi was increased to metoprolol tartrate 75mg TID and she was discharged on oral anticoagulation. Her echo in the hospital revealed impaired LV function with EF of 40-45% At that time she was discharged on antibiotics to [facility]. She states she did get dialysis Wednesday. Dialysis was missed yesterday due to patient being admitted to hospital. DIAGNOSTICS Most recent echocardiogram 05/05/2021 revealed an EF 40-45%, RV is mild to moderately enlarged, mild mitral regurgitation, moderate tricuspid regurgitation, moderate pulmonary hypertension with an RVSP 62 mmHg, small pleural effusion Last Cardiac Catheterization 03/2019 which revealed intermediate lesion involving the mid first obtuse marginal branch of the left circumflex appeared to be 60%, proximal LAD appear to have mild disease only. Left circumflex appeared to have mild disease only. 05/28/2021: Patient seen and examined at bedside this morning, no acute distress. Currently undergoing hemodialysis. Patient is alert but appears confused, compared to yesterday, she is just saying "no" when asked how shes feeling or any symptoms. Patient underwent CT brain yesterday which revealed atrophy and chronic small vessel ischemia. No acute intracranial abnormality. Blood pressure 106/56, heart rate 109, afebrile, maintaining oxygen saturations on 3 L nasal cannula. Telemetry reviewed patient in atrial fibrillation HR 100-120s. Laboratory data reviewed, not resulted back yet. Patient currently maintained on Eliquis 2.5 mg twice a day, metoprolol titrate 25 mg twice a day, IV Zosyn, Effexor 37.5 mg daily PHYSICAL EXAMINATION CONSTITUTIONAL: No apparent distress. HEENT: Head is normocephalic. Neck supple No JVD. CHEST EXAMINATION: Lungs are clear to auscultation. No chest wall tenderness is noted on palpation or with deep breathing. HEART EXAMINATION: Irregular rate and rhythm. S1, S2 heard. Systolic murmur noted at apex ABDOMEN: Soft, nontender. Positive bowel sounds. EXTREMITIES: 2+ peripheral pulses, no lower extremity edema and no calf tenderness. NEUROLOGIC EXAMINATION: Patient is awake, alert and confused. ASSESSMENT Altered Mental status UTI Non-obstructive coronary artery disease Chronic persistant atrial fibrillation on Eliquis Elevated troponin, no consistent with acute coronary syndrome History of Hypertension- hypotensive, most likely due to increased metoprolol tartrate to 75mg TID Dyslipidemia COPD Type 2 diabetes mellitus Osteoarthritis End-stage renal disease on hemodialysis MWF PLAN We will increase metoprolol tartrate to 25mg TID Infectious disease following- started on IV Zosyn Neurology consulted Continue to monitor patient on cardiac telemetry, monitor blood pressure. Continue Eliquis Nephrology following Follow up with Dr. Chavarria on discharge Further recommendations based on clinical course Nurse Practitioner note has been reviewed, I agree with a documented findings and plan of care. Patient was seen and examined. Objective - Vital Signs Vital signs: Vital Signs Temp 98.6 F 05/28/21 04:00 Pulse 109 H 05/28/21 08:00 Resp 16 05/28/21 04:00 BP 106/56 05/28/21 08:00 Pulse Ox 96 05/28/21 04:00 Intake & Output 05/27/21 05/28/21 05/28/21 18:59 06:59 18:59 Intake Total 240 240 Output Total 850 Balance 240 -850 240 Weight 69.9 kg Intake: Oral 240 240 Output: Urine 350 Hemodialysis 500 Other: Voiding Method Toilet Toilet # Voids 0 2 # Bowel Movements 0 1 - Labs CBC & Chem 7: 05/27/21 07:13 05/27/21 07:13 Labs: Abnormal Lab Results - Last 24 Hours (Table) 05/27/21 05/27/21 05/27/21 Range/Units 07:13 07:13 20:30 MCV 111.8 H (80.0-100.0) fL POC Glucose (mg/dL) 74 L (75-99) mg/dL Procalcitonin 1.49 H (0.02-0.09) ng/mL Microbiology - Last 24 Hours (Table) 05/26/21 21:40 Blood Culture - Preliminary Blood No Growth after 24 hours 05/26/21 12:10 Urine Culture - Preliminary Urine,Voided Group D Enterococcus
--- NOTE | 2021-05-28 13:23 | P.CNNES ---
History of Present Illness Consult date: 05/28/21 Requesting physician: Blair E Shireen Reason for Consult: new onset confusion History of Present Illness: This is an 81-year-old woman with history of atrial fibrillation on Eliquis, end-stage renal disease on dialysis, diabetes mellitus, also arthritis, COPD who is oxygen dependent on 2 L, chronic systolic congestive heart failure presented to the emergency department on via EMS from her operational test mechanic for ge neralized weakness and lethargy. Neurology is consulted for new onset confusion. History is obtained from medical record as well as the patient's friend (Winnie) was at bedside. Per the patient's friend she stated that the patient he usually alert oriented 3 and that she speaks normally but she n oticed the change in her speech yesterday early in afternoon and she seems somewhat confused. It seems that the patient is not making sense per the patient's friend. Per the patient nurse she has not noticed any focal weakness. Per the patient friend the patient does not have any history of stroke or TIAs or seizures in the past. Patient is on Eliquis for her atrial fibrillation. During the hospital stay it was felt that the patient has sepsis due to urinary tract infection and possible pneumonia. She is on Zosyn. Regarding atrial fibrillation she is on Eliquis and she's supposed to get cardioversion with her operational test mechanic. During the hospital stay the patient has been having got blood pressure in the 90s over 60s. Also the sugar on presentation 56 and had episodes in the 50s to 60s and the last the low sugar was the on 05/27/2021 around the nighttime and was 74. The patient's friend she stated that the patient denies of any alcohol use, tobacco use or any illicit drug use. Patient's home medication consist of him out was 2.5 mg 1 tablet twice a day, Protonix, ropinirole, Effexor, oxycodone, temazepam. Workup in the hospital consisted of: Initial vital signs is blood pressure of 77/52, heart rate of 97, temperature of 97.6 Fahrenheit oral, repair of 20, pulse ox of 97% on 3 to use of nasal cannula. She has been afebrile since the hospital stay. She continues to have the blood pressure in the 90s over 60s and the last one that was in the 90s over 60s was around 4:00 in the morning today. White blood cell on presentation is 8.9 and repeat is 9.6 thousand which is co nsidered within normal limits. MCV is 110 in the repeat is 111, platelets 107 and the the repeat his 135 which is considered low. Chemistry panel is the sodium is 134 which is mildly low, AST of 62 and ALT of 56 which is considered is slightly elevated than normal. Creatinine is 6.58 which she has underlying advanced age-related disease on dialysis at. HA1c is 4.8 which is considered within normal limits. Calcium is 8.6 and a foster 7.7 which is considered elevated. Urine analysis is suggestive of urinary tract infection. CT of the head on 05/27/2021 is reported as atrophy and chronic small vessel ischemia. No acute intracranial abnormality. Review of Systems Review of system is limited by the parent positive and negative as per HPI. Past Medical History Past Medical History: COPD, Diabetes Mellitus, Dialysis, Eye Disorder, GERD/Reflux, Osteoarthritis (OA), Renal Disease Additional Past Medical History / Comment(s): Right Cataract, DIABETES (DIET CONTROLLED), CONSTIPATION. Hx UTI's, SCIATICA, hemodialysis Mon-Wed-Wed., uses oxygen @2l, very SOB per pt, swollen hands & feet, back pain between shoulder blades, irreg. heart rate per pt. hemodialysis fistula lt arm History of Any Multi-Drug Resistant Organisms: None Reported Past Surgical History: Hernia Repair, Joint Replacement Additional Past Surgical History / Comment(s): Right hip replacement, dialysis catheter insertion Past Anesthesia/Blood Transfusion Reactions: No Reported Reaction Past Psychological History: Depression Smoking Status: Former smoker Past Alcohol Use History: None Reported Additional Past Alcohol Use History / Comment(s): Quit smoking 8 yrs ago, smoked since age 14, 2 PPD. Past Drug Use History: None Reported - Past Family History Mother Family Medical History: No Reported History Medications and Allergies Home Medications Medication Instructions Recorded Confirmed Type Brigette-Lynn Multivitamin 1 tab PO W/SUPPER 05/02/21 05/26/21 History Temazepam 30 mg PO HS #2 cap 05/14/21 05/26/21 Rx Apixaban [Eliquis] 2.5 mg PO BID-W/MEALS 05/26/21 05/26/21 History Auryxia 210 mg PO W/SUPPER 05/26/21 05/26/21 History Pantoprazole [Protonix] 40 mg PO DAILY@0630 05/26/21 05/26/21 History Venlafaxine HCl ER [Effexor Xr] 37.5 mg PO DAILY 05/26/21 05/26/21 History oxyCODONE HCL/ACETAMINOPHEN 1 tab PO Q6HR PRN 05/26/21 05/26/21 History [Percocet 7.5-325 mg] rOPINIRole HCL [Requip] 0.25 mg PO HS 05/26/21 05/26/21 History rOPINIRole HCL [Requip] 0.25 mg PO MOWEFR PRN 05/26/21 05/26/21 History Allergies Allergy/AdvReac Type Severity Reaction Status Date / Time erythromycin base Allergy Unknown Unknown Verified 05/26/21 14:14 meloxicam Allergy Unknown Unknown Verified 05/26/21 14:14 nitrofurantoin Allergy Unknown Unknown Verified 05/26/21 14:14 [From Macrobid] nitrofurantoin Allergy Unknown Unknown Verified 05/26/21 14:14 macrocrystalline [From Macrobid] Sulfa (Sulfonamide Allergy Unknown Unknown Verified 05/26/21 14:14 Antibiotics) Physical Examination - Vital Signs Vital Signs: Vital Signs Temp Pulse Resp BP Pulse Ox 05/28/21 08:00 109 H 106/56 05/28/21 04:00 98.6 F 67 16 95/61 96 05/28/21 02:00 100 18 05/28/21 00:00 97.3 F L 100 18 101/67 100 05/27/21 20:00 97.4 F L 106 H 20 90/50 100 05/27/21 19:07 97.4 F L 92 16 114/81 05/27/21 15:18 98.0 F 93 20 117/80 93 L Intake and Output 05/27/21 05/28/21 05/28/21 22:59 06:59 14:59 Intake Total 240 Output Total 500 350 Balance -500 -350 240 Intake: Oral 240 Output: Urine 350 Hemodialysis 500 Other: Voiding Method Toilet # Voids 0 2 # Bowel Movements 0 1 Weight 69.9 kg GENERAL: The patient is lying in bed and is not in acute distress. CHEST: The heart rate is regular rate rhythm. No murmurs to auscultation. No carotid bruit bilaterally. LUNG: Clear to auscultation bilaterally no wheezing noted throughout. Not labored breathing. ABDOMEN/GI: Bowel sounds present in all 4 quadrants. No tenderness to palpation throughout. NEUROLOGICAL: Higher mental function: The patient is awake, alert oriented to self. She would not respond to place and time. , She followed simple commands (verbally: upon asking her to show thumbs up and closing and opening eyes. Sometime she had to be shown what to do). She has presevation of speech stating it was pen and kept on saying pen to other objects (paper, watch). I felt she had aphasia and seem motor component. Had difficulty repeating phrases. No neglect. Cranial nerves: The pupils are round, equal and reactive to light. Visual momin are full to confrontation throughout. Extraocular movement is tracking throughout the room without nystagmus. The facial strength is normal throughout. Mild dysarthria noted. Rest of cranial nerves could not be assessed because of her cooperation. Motor: The strength is moving all extremities above gravity without drift. Normal tone and bulk. Cerebellum: Normal finger to nose bilaterally. Sensation: Sensation to touch is hard to assess because of patient's cooperation. Reflexes (right/left): 2+ in uppers and 1+ in lowers. Plantars are upgoing bilaterally. Results Alejandra virus is nondetected. - Laboratory Findings CBC and BMP: 05/27/21 07:13 05/27/21 07:13 Abnormal Lab Findings: Abnormal Labs 05/26/21 05/26/21 05/26/21 11:28 11:28 11:28 RBC MCV MCH RDW Plt Count Lymphocytes # Macrocytosis PT 14.0 H INR 1.4 H Sodium 133 L Chloride 97 L BUN 35 H Creatinine 5.74 H Glucose 55 L POC Glucose (mg/dL) Plasma Lactic Acid Saad Phosphorus 6.5 H AST 67 H ALT 60 H Creatine Kinase 24 L Troponin I 0.039 H* Total Protein 6.2 L Albumin 3.4 L Procalcitonin Urine Appearance Urine Protein Urine Blood Urine Bilirubin Ur Leukocyte Esterase Urine RBC Urine WBC Urine WBC Clumps Ur Squamous Epith Cells Urine Bacteria Urine Mucus 05/26/21 05/26/21 05/26/21 12:10 12:10 12:10 RBC 3.43 L MCV 110.3 H MCH 35.8 H RDW 19.8 H Plt Count 107 L Lymphocytes # 0.7 L Macrocytosis Marked A PT INR Sodium Chloride BUN Creatinine Glucose POC Glucose (mg/dL) Plasma Lactic Acid Saad 2.5 H* Phosphorus AST ALT Creatine Kinase Troponin I Total Protein Albumin Procalcitonin Urine Appearance Turbid H Urine Protein 2+ H Urine Blood Large H Urine Bilirubin 1+ H Ur Leukocyte Esterase Large H Urine RBC 49 H Urine WBC >182 H Urine WBC Clumps Many H Ur Squamous Epith Cells 5 H Urine Bacteria Few H Urine Mucus Rare H 05/26/21 05/26/21 05/26/21 20:09 20:26 20:40 RBC MCV MCH RDW Plt Count Lymphocytes # Macrocytosis PT INR Sodium Chloride BUN Creatinine Glucose POC Glucose (mg/dL) 56 L 60 L 67 L Plasma Lactic Acid Saad Phosphorus AST ALT Creatine Kinase Troponin I Total Protein Albumin Procalcitonin Urine Appearance Urine Protein Urine Blood Urine Bilirubin Ur Leukocyte Esterase Urine RBC Urine WBC Urine WBC Clumps Ur Squamous Epith Cells Urine Bacteria Urine Mucus 05/27/21 05/27/21 05/27/21 07:13 07:13 07:13 RBC 3.59 L MCV 111.8 H MCH RDW 19.7 H Plt Count 135 L Lymphocytes # Macrocytosis Marked A PT INR Sodium 134 L Chloride 97 L BUN 42 H Creatinine 6.58 H Glucose 70 L POC Glucose (mg/dL) Plasma Lactic Acid Saad Phosphorus AST 62 H ALT 56 H Creatine Kinase Troponin I Total Protein 6.1 L Albumin 3.3 L Procalcitonin 1.49 H Urine Appearance Urine Protein Urine Blood Urine Bilirubin Ur Leukocyte Esterase Urine RBC Urine WBC Urine WBC Clumps Ur Squamous Epith Cells Urine Bacteria Urine Mucus 05/27/21 05/27/21 05/27/21 07:13 09:19 20:30 RBC MCV MCH RDW Plt Count Lymphocytes # Macrocytosis PT INR Sodium Chloride BUN Creatinine Glucose POC Glucose (mg/dL) 74 L Plasma Lactic Acid Saad Phosphorus 7.7 H AST ALT Creatine Kinase Troponin I 0.071 H* Total Protein Albumin Procalcitonin Urine Appearance Urine Protein Urine Blood Urine Bilirubin Ur Leukocyte Esterase Urine RBC Urine WBC Urine WBC Clumps Ur Squamous Epith Cells Urine Bacteria Urine Mucus Assessment and Plan Assessment: * Aphasia (seems motor) with difficulty repeating sentences: Is concerning for stroke. If negative for stroke possibly due to stroke-mimickers (hypoglycemic episode and has underlying UTI). No IV tpa since outside [facility] (last normal is on 05/27/2021 in AM). * Encephalopathy seems due to septic encephalopathy as well as component of metabolic (has hypoglycemic episodes and slight elevated LFT's) * Episodes of hypoglycemia during the hospital stay (50's to 60's) is supposed to get cardioversion by her operational test mechanic * Sepsis due to acute urinary tract infection (came in with hypotension) * Atrial fibrillation on Eliquis * End-stage renal disease on the hemodialysis * Diabetes mellitus seems controlled * Chronic systolic congestive heart failure with ejection fraction of 40-45%. * COPD on home oxygen 2L Plan: * I ordered MRI the brain urgent, carotid duplex. And ordered 2-D echo as well as lipid panel. * She is currently on Eliquis 2.5 mg twice a day. I'll not add any additional antiplatelets to avoid any risk of bleed. If there is a stroke then the will make appropriate modification of the medications. I'll add Lipitor 40 mg daily at bedtime for secondary stroke prophylaxis. * I ordered a routine EEG. I'll not start the patient on an antiepileptic drug unless there is epileptiform discharges or seizure on EEG. * Ordered vitamin B12, folate levels. TSH: 1.88 (05/23/2021) therefore no need to be repeated. * Consulted the PT OT and BUSINESS OFFICE SPECIALIST. * Every 4 hours neuro checks and a continuous carotid monitoring * Please avoid any hypotension and hypoglycemia and we'll defer the management to the primary team. * Cardiology team is on board as well as nephrology team is on board. * We'll defer the rest of medical management to the primary team * For DVT prophylaxis: On eliquis. The plan was discussed with the patient's friend (Winnie) was at bedside and the patient's nurse. Thank you for the consultation. Azam Stephens M.D. Neuro-hospitalist Time with Patient: Greater than 30
[2021-05-28] MEDS ORDERED: DEXTROSE 50% SYRINGE 50 ML IVP STA (13:24)
--- NOTE | 2021-05-28 13:33 | P.PN ---
Subjective This is a pleasant 81 years old female who presents with With past medical history of COPD, diabetes mellitus, osteoarthritis, end-stage renal disease on hemodialysis chronic oxygen dependent on 2 L/m atrial fibrillation. She was recently discharged from the hospital after prolonged stay from 05/02-05/14 for sepsis secondary to urinary tract infection and possible pneumonia, atrial fibrillation's with RVR and acute on chronic systolic CHF with COPD exacerbation. At that time she was discharged on cefdinir to rehab. She came back from rehab 3 days ago. Last night her daughter but does not she is slower than usual, this morning she went to her appointment with fish smoker Dr. Mcmillan and she was very lethargic progressively got worse when she got home, she was difficult to arouse and the daughter called 911 and brought her to the emergency room also patient missed her hemodialysis today because of her illness Patient very weak and lethargic, arousable but go back to sleep, she is poor historian, daughter at bedside. On admission she was hypotensive with a blood pressure is 77/52, afebrile, slightly tachypneic 20-21 and tachycardic, hypoglycemic with oxygen 56-67, given D50 she received a bolus of 500 mL in the emergency room and her blood pressure is 93/60. her WBC IS 8.9K, hB 12.3, Platelet count is 107k, INR is 1.4, Na 133, K 4.4 creatinine is 5.7, Elevated lactic acid at 2.5 came back to normal at 1.7 elevated troponin 0.039 and high ProBNP 17068, liver enz AST AND ALT slightly elevated 67 and 60 respectively urinalysis is suspecious for infection burnham virus non detected EKG atial flutter at [address]-T changes CXR:bilateral infilterates for CHF vs Pneumonia in ED she recieved ceftriaxon and NS 500 ml nephrology and cardiology team were consulted in the evening pt became more awake and interactive with good oxygen saturation in 90s%, per shift leader RN 05/27/2021 Patient is fully awake and oriented and appropriate today, he was not sure why she came to the hospital probably because she was confused then, patient was updated about her clinical condition. Concurrently denies any symptoms, no chest pain or dyspnea or coughing. No dysuria. She is saturating 100% on 3 L oxygen via nasal cannula. Her blood pressure still low normal 93/62, Labs look stable. Liver enzymes slightly elevated. No leukocytosis. Creatinine is elevated because of missed hemodialysis Patient is going for hemodialysis today and tomorrow. She is kept on D5 normal saline at 50 mL/h Medial drain was increased to 10 g 3 times a day. Also she is on Zosyn. Check hemoglobin A1c, a gallstone and is pending 05/28/2021 Patient yesterday was almost has normal mentation when I saw her, she was oriented to time place and person. However today she is back confused again. She keeps pain" oh my GOD" even if I ask her about her name. However she is able to follow simple commands. Vitas looks stable and her blood pressure is 160/56. However glucose this morning was low at 70. She remains on Zosyn. PROcalcitonin is elevated at 1.49. Also she is on Eliquis. Metoprolol 25 mg twice a day was added and medODRINE was stopped. Because of her periods of confusion neurology consult was obtained. However metabolic encephalopathy secondary to periods of hypoglycemia was suspected. Objective - Vital Signs Vital signs: Vital Signs Temp 98.6 F 05/28/21 04:00 Pulse 109 H 05/28/21 08:00 Resp 16 05/28/21 04:00 BP 106/56 05/28/21 08:00 Pulse Ox 96 05/28/21 04:00 Intake & Output 05/27/21 05/28/21 05/28/21 18:59 06:59 18:59 Intake Total 240 240 Output Total 850 Balance 240 -850 240 Weight 69.9 kg Intake: Oral 240 240 Output: Urine 350 Hemodialysis 500 Other: Voiding Method Toilet Toilet # Voids 0 2 # Bowel Movements 0 1 - Exam This is a pleasant 81 years old female who presents with With past medical history of COPD, diabetes mellitus, osteoarthritis, end-stage renal disease on hemodialysis chronic oxygen dependent on 2 L/m atrial fibrillation. She was recently discharged from the hospital after prolonged stay from 05/02-05/14 for sepsis secondary to urinary tract infection and possible pneumonia, atrial fibrillation's with RVR and acute on chronic systolic CHF with COPD exacerbation. At that time she was discharged on cefdinir to rehab. She came back from rehab 3 days ago. Last night her daughter but does not she is slower than usual, this morning she went to her appointment with fish smoker Dr. Mcmillan and she was very lethargic progressively got worse when she got home, she was difficult to arouse and the daughter called 911 and brought her to the emergency room also patient missed her hemodialysis today because of her illness Patient very weak and lethargic, arousable but go back to sleep, she is poor historian, daughter at bedside. On admission she was hypotensive with a blood pressure is 77/52, afebrile, slightly tachypneic 20-21 and tachycardic, hypoglycemic with oxygen 56-67, given D50 she received a bolus of 500 mL in the emergency room and her blood pressure is 93/60. her WBC IS 8.9K, hB 12.3, Platelet count is 107k, INR is 1.4, Na 133, K 4.4 creatinine is 5.7, Elevated lactic acid at 2.5 came back to normal at 1.7 elevated troponin 0.039 and high ProBNP 74810, liver enz AST AND ALT slightly elevated 67 and 60 respectively urinalysis is suspecious for infection burnham virus non detected EKG atial flutter at [address]-T changes CXR:bilateral infilterates for CHF vs Pneumonia in ED she recieved ceftriaxon and NS 500 ml nephrology and cardiology team were consulted in the evening pt became more awake and interactive with good oxygen saturation in 90s%, per shift leader RN 05/27/2021 Patient is fully awake and oriented and appropriate today, he was not sure why she came to the hospital probably because she was confused then, patient was u pdated about her clinical condition. Concurrently denies any symptoms, no chest pain or dyspnea or coughing. No dysuria. She is saturating 100% on 3 L oxygen via nasal cannula. Her blood pressure still low normal 93/62, Labs look stable. Liver enzymes slightly elevated. No leukocytosis. Creat inine is elevated because of missed hemodialysis Patient is going for hemodialysis today and tomorrow. She is kept on D5 normal saline at 50 mL/h Medial drain was increased to 10 g 3 times a day. Also she is on Zosyn. Check hemoglobin A1c, a gallstone and is pending - Labs CBC & Chem 7: 05/27/21 07:13 05/27/21 07:13 Labs: Abnormal Lab Results - Last 24 Hours (Table) 05/27/21 05/27/21 Range/Units 07:13 20:30 POC Glucose (mg/dL) 74 L (75-99) mg/dL Procalcitonin 1.49 H (0.02-0.09) ng/mL Microbiology - Last 24 Hours (Table) 05/26/21 21:40 Blood Culture - Preliminary Blood No Growth after 24 hours 05/26/21 12:10 Urine Culture - Preliminary Urine,Voided Group D Enterococcus Assessment and Plan Assessment: -Severe Sepsis most probably secondary to urinary tract infection patient , possible pneumonia, urine culture is chronic rib D enterococcus -Atrial fibrillation with rate controlled, is on eliquis, metoprolol 75 mg 3 times a day, supposed to get cardioversion with -Hypotension and hypoglycemia -metabolic encephalopathy , secondary to hypoglycemia and sepsis. Neurological causes -chronic systolic CHF with ejection fraction 40-45%, improved -Moderate tricuspid regurgitation -COPD with mild acute exacerbation -Chronic respiratory failure on home oxygen which will be continued, she is on 2 L/M at home -Pulmonary hypertension most probably secondary to COPD -Chronic kidney disease/end-stage renal disease secondary to hypertensive nephrosclerosis and also diabetic nephropathy -History of Gastroesophageal reflux disease Plan: This is a pleasant 81 years old female who presents with severe sepsis, hypoglycemic, hypotensive which is improved now After flow discontinued Zosyn and follow-up urine culture results Call infectious disease, nephrology and cardiology consult Labs and medication were reviewed.. Continue same treatment. Continue with symptomatic treatment. Resume home medication. Monitor lytes and vitals. DVT and GI prophylaxis. Further recommendationsas per clinical course of the patient DVT prophylaxis: Subcutaneous heparin GI Prophylaxis: Pepcid PT/OT: Pending
[2021-05-28 14:28] LABS: Glucose,Whole Blood 92 mg/dL (75-99)
--- NOTE | 2021-05-28 15:11 | EEG ---
ELECTROENCEPHALOGRAM REPORT DATE OF SERVICE: 05/28/2021. CLINICAL HISTORY: This is an 81-year-old woman with multiple medical problems who has altered mental status. Video EEG is obtained to evaluate for seizure activity. RELEVANT MEDICATION: The patient is not on any antiepileptic drugs. DESCRIPTION: Wakefulness is only obtained. During wakefulness, there is a posterior dominant rhythm of low to moderate voltage of 7-7.5 hertz that is poorly sustained, poorly modulated. There is no physiological sleep architecture seen. There is no focal slowing seen. There is a moderate amount of myogenic artifact throughout the study. Interictal and ictal are none. ACTIVATION PROCEDURE: Photic stimulation and hyperventilation are not performed. CLINICAL INTERPRETATION: This is an abnormal routine EEG. The background slowing is suggestive of mild encephalopathy of unspecified etiology. There are no focal slowing, epileptiform discharges or seizure on the EEG. Clinical correlation is recommended. VIN / ELEUTERIO: [id number] / MTDD
--- NOTE | 2021-05-28 16:22 | PN ---
PROGRESS NOTE DATE OF SERVICE: 05/28/2021. REASON FOR FOLLOWUP: Pneumonia. INTERVAL HISTORY: The patient is afebrile. The patient is currently breathing slightly comfortably. The patient denies having any chest pain. Did have shortness of breath and cough, not bringing up any sputum. No nausea, no vomiting. No abdominal pain. No diarrhea. PHYSICAL EXAMINATION: Blood pressure is 110/75 with a pulse of 83, temperature 98.6, she is 92% on 3 L nasal cannula. General description is an elderly female lying in bed in no distress. Respiratory system: Unlabored breathing, decreased breath sounds in the base, with no wheeze. Heart: S1, S2. Regular rate and rhythm. Abdomen: Soft, no tenderness. LABS: No new labs have been obtained today. DIAGNOSTIC IMPRESSION AND PLAN: Patient admitted to the hospital with shortness of breath and cough which is multifactorial with evidence of possible pneumonia. Patient is covered with Zosyn to continue while waiting for the culture to finalize and monitor clinical course closely. MMODL / IJN: [id number] /
--- NOTE | 2021-05-28 16:22 | US ---
EXAMINATION TYPE: US carotid duplex BILAT DATE OF EXAM: 05/28/2021 COMPARISON: NONE CLINICAL HISTORY: stroke. TIA exam limitations due to torturous vessels EXAM MEASUREMENTS: RIGHT: Peak Systolic Velocity (PSV) cm/sec ----- Right CCA: 53.3 ----- Right ICA: 65.1 ----- Right ECA: 39.0 ICA/CCA ratio: 1.2 RIGHT: End Diastole cm/sec ----- Right CCA: 23.3 ----- Right ICA: 26.0 ----- Right ECA: 11.6 LEFT: Peak Systolic Velocity (PSV) cm/sec ----- Left CCA: 59.9 ----- Left ICA: 83.3 ----- Left ECA: 52.0 ICA/CCA ratio: 1.4 LEFT: End Diastole cm/sec ----- Left CCA: 26.0 ----- Left ICA: 40.3 ----- Left ECA: 23.3 VERTEBRALS (direction of flow): Right Vertebral: Antegrade Left Vertebral: Antegrade Rhythm: Normal Bilateral plaque visualized. IMPRESSION: 1. Atheromatous plaquing present bilaterally without significant flow-limiting stenosis. NASCET criteria was used in interpretation of this exam? Criteria for Assigning % of Stenosis / Diameter reduction (Estimation based on the indirect measurements of the internal carotid artery velocities (ICA PSV). 1. Normal (no stenosis)=ICA PSV < 125 cm/s: ratio < 2.0: ICA EDV<40 cm/s. 2. Less than 50% stenosis=ICA PSV < 125 cm/s: ratio < 2.0: ICA EDV<40 cm/s. 3. 50 to 69% stenosis=ICA PSV of 125 to 230 cm/s: ration 2.0 ? 4.0: ICA EDV 40-100 cm/s. 4. Greater than 70% stenosis to near occlusion= ICA PSV > 230 cm/s: ratio > 4.0: ICA EDV > 100 cm/s. 5. Near occlusion= ICA PSV velocities may be low or undetectable: variable ratio and ICA EDV. 6. Total occlusion=unable to detect flow.
[2021-05-28] MEDS: DEXTROSE 10% IN WATER 1,000 ML with SODIUM CHLORIDE 4MEQ/ML VIAL 153.8 MEQ IV SCH (16:33)
[2021-05-28 17:09] LABS: Glucose,Whole Blood 84 mg/dL (75-99)
[2021-05-28 18:12] LABS: Anisocytosis Moderate; Basophils % (A) 0 %; Eosinophils # (A) 0.2 k/uL (0-0.7); Eosinophils % (A) 2 %; HGB 12.4 gm/dL (11.4-16.0); Hypochromasia Marked; Lymphocytes # (A) 0.8 k/uL (1.0-4.8); Lymphocytes % (A) 12 %; MCH 35.4 pg (25.0-35.0); Macrocytosis Marked; Mean Platelet Volume 7.5; Monocytes # (A) 0.3 k/uL (0-1.0); Monocytes % (A) 4 %; Neutrophils # (A) 5.6 k/uL (1.3-7.7); Neutrophils % (A) 80 %; Platelet Count 134 k/uL (150-450); RBC 3.51 m/uL (3.80-5.40); RDW 20.5 % (11.5-15.5)
[2021-05-28 18:21] LABS: Albumin 3.1 g/dL (3.5-5.0); Calcium 8.3 mg/dL (8.4-10.2); Potassium 3.5 mmol/L (3.5-5.1); Total Bilirubin 0.5 mg/dL (0.2-1.3); Total Protein 5.9 g/dL (6.3-8.2)
[2021-05-28 18:36] LABS: T4, Free (Free Thyroxine) 1.01 ng/dL (0.78-2.19)
[2021-05-28] MEDS: ATORVASTATIN 40 MG TAB PO SCH (19:36)
[2021-05-28 19:56] LABS: Glucose,Whole Blood 143 mg/dL (75-99)
[2021-05-28] MEDS ORDERED: MIDODRINE 5 MG TAB PO PRN ×2 (21:57→22:12)
[2021-05-29 00:11] LABS: Glucose,Whole Blood 115 mg/dL (75-99)
[2021-05-29] MEDS: PIPERACILLIN-TAZOBACTAM 3.375 GM in SODIUM CHLORIDE 0.9% 100 ML IVPB SCH ×3 (00:30→23:17)
[2021-05-29 04:20] LABS: Glucose,Whole Blood 88 mg/dL (75-99)
[2021-05-29 06:19] LABS: Chol/HDL Ratio 2.67; Cholesterol 112 mg/dL (0-200); LDL Cholesterol,Calculated 45.4 mg/dL (0.0-131.0)
[2021-05-29] MEDS: APIXABAN 2.5 MG TABLET PO SCH ×2 (06:28→17:30)
[2021-05-29] MEDS: PANTOPRAZOLE 40 MG TABLET PO SCH (06:28)
[2021-05-29] MEDS: CALCIUM ACETATE 667 MG TAB PO SCH ×3 (06:28→17:19)
--- NOTE | 2021-05-29 07:09 | ECHOF ---
Referral Reason:stroke MEASUREMENTS -------- HEIGHT: 162.6 cm WEIGHT: 69.9 kg BP: RVIDd: 3.9 cm (< 3.3) IVSd: 1.1 cm (0.6 - 1.1) LVIDd: 4.1 cm (3.9 - 5.3) LVPWd: 1.0 cm (0.6 - 1.1) IVSs: 1.3 cm LVIDs: 2.9 cm LVPWs: 1.3 cm LAESV Index (A-L): 30.81 ml/m Ao Diam: 3.0 cm (2.0 - 3.7) AV Cusp: 1.0 cm (1.5 - 2.6) LA Diam: 4.3 cm (2.7 - 3.8) MV EXCURSION: 12.495 mm (> 18.000) MV EF SLOPE: 53 mm/s (70 - 150) EPSS: 0.8 cm MV E Donny: 1.10 m/s MV DecT: 183 ms MV A Donny: 0.60 m/s MV E/A Ratio: 1.84 AV maxP.68 mmHg AV meanP.00 mmHg RAP: 5.00 mmHg RVSP: 70.11 mmHg FINDINGS -------- Atrial fibrillation. This was a technically difficult study with suboptimal views. The left ventricular size is normal. Left ventricular wall thickness is normal. Overall left vent ricular systolic function is mildly impaired with, an EF between 45 - 50 %. The right ventricle is mild to moderately enlarged. LA is midly dilated 29-33ml/m2. The right atrial size is normal. Lumason used There is moderate aortic valve sclerosis. There is mild aortic stenosis present. Peak/mean gradie nt across the Aortic Valve is 17.68mmHg / 7.00mmHg. Mild mitral annular calcification present. [id number] mitral regurgitation is present. The tricuspid valve appears structurally normal. Moderate tricuspid regurgitation present. There is severe pulmonary hypertension. The right ventricular systolic pressure, as measured by Doppler, is 70.11mmHg. The pulmonic valve was not well visualized. There is no pulmonic regurgitation present. The aortic root size is normal. IVC Not well visulized. There is no pericardial effusion. CONCLUSIONS -------- 1. Atrial fibrillation. 2. This was a technically difficult study with suboptimal views. 3. Left ventricular wall thickness is normal. 4. Overall left ventricular systolic function is mildly impaired with, an EF between 45 - 50 %. 5. The right ventricle is mild to moderately enlarged. 6. LA is midly dilated 29-33ml/m2. 7. There is moderate aortic valve sclerosis. 8. There is mild aortic stenosis present. 9. Peak/mean gradient across the Aortic Valve is 17.68mmHg / 7.00mmHg. 10. Mild mitral annular calcification present. 11. Jkdt-oy-wjtmkfve mitral regurgitation is present. 12. Moderate tricuspid regurgitation present. 13. There is severe pulmonary hypertension. 14. There is no pericardial effusion. ANODE REBUILDER: Fabiola Smith RDCS
[2021-05-29 08:15] LABS: Glucose,Whole Blood 97 mg/dL (75-99)
[2021-05-29] MEDS: METOPROLOL TARTRATE 25 MG TAB PO SCH ×3 (08:48→20:00)
[2021-05-29] MEDS: VENLAFAXINE HCL ER 37.5 MG CAP PO SCH (08:48)
[2021-05-29 08:59] LABS: Folate, Serum >24.0 ng/mL
--- NOTE | 2021-05-29 09:48 | P.PN ---
Subjective Patient is seen in follow-up for end-stage renal disease. She is maintained on hemodialysis on Wednesday schedule. No problems with dialysis yesterday. Blood pressure is stable. No chest pain or shortness of breath. Vital signs are stable. Blood pressure on the lower side. General: The patient appeared well nourished and normally developed. HEENT: Head exam is unremarkable. LUNGS: Breath sounds decreased. HEART: Rate and Rhythm are regular. ABDOMEN: Soft, no distention. EXTREMITITES: Trace edema. Objective - Vital Signs Vital signs: Vital Signs Temp 97.7 F 05/29/21 08:00 Pulse 118 H 05/29/21 08:00 Resp 20 05/29/21 08:00 BP 119/77 05/29/21 08:00 Pulse Ox 95 05/29/21 08:00 Intake & Output 05/28/21 05/29/21 05/29/21 18:59 06:59 18:59 Intake Total 240 Output Total 1 2 Balance 239 -2 Weight 69.9 kg 70.3 kg Intake: Oral 240 Output: Stool 1 2 Other: Voiding Method Toilet # Voids 1 1 # Bowel Movements 1 - Labs CBC & Chem 7: 05/28/21 17:51 05/28/21 17:51 Labs: Abnormal Lab Results - Last 24 Hours (Table) 05/28/21 05/28/21 05/28/21 Range/Units 17:51 17:51 17:51 RBC 3.51 L (3.80-5.40) m/uL MCV 114.0 H (80.0-100.0) fL MCH 35.4 H (25.0-35.0) pg RDW 20.5 H (11.5-15.5) % Plt Count 134 L (150-450) k/uL Lymphocytes # 0.8 L (1.0-4.8) k/uL Macrocytosis Marked A Creatinine 2.54 H (0.52-1.04) mg/dL Glucose 117 H (74-99) mg/dL POC Glucose (mg/dL) (75-99) mg/dL Calcium 8.3 L (8.4-10.2) mg/dL ALT 38 H (4-34) U/L Total Protein 5.9 L (6.3-8.2) g/dL Albumin 3.1 L (3.5-5.0) g/dL Vitamin B12 1092.0 H (200.0-944.0) pg/mL 05/28/21 05/29/21 Range/Units 19:54 00:10 RBC (3.80-5.40) m/uL MCV (80.0-100.0) fL MCH (25.0-35.0) pg RDW (11.5-15.5) % Plt Count (150-450) k/uL Lymphocytes # (1.0-4.8) k/uL Macrocytosis Creatinine (0.52-1.04) mg/dL Glucose (74-99) mg/dL POC Glucose (mg/dL) 143 H 115 H (75-99) mg/dL Calcium (8.4-10.2) mg/dL ALT (4-34) U/L Total Protein (6.3-8.2) g/dL Albumin (3.5-5.0) g/dL Vitamin B12 (200.0-944.0) pg/mL Microbiology - Last 24 Hours (Table) 05/26/21 12:10 Urine Culture - Final Urine,Voided Enterococcus faecium VRE Tami albicans 05/26/21 21:40 Blood Culture - Preliminary Blood No Growth after 48 hours Assessment and Plan Plan: Assessment: 1. End-stage renal disease maintained on hemodialysis on Wednesday schedule. 2. Severe sepsis secondary to UTI and ?pneumonia. On antibiotics. Infectious disease following. Urine culture positive for VRE and tami 3. A. fib. On anticoagulation. Cardiology following. 4. Chronic systolic CHF with ejection fraction of 40-45% with moderate tricuspid regurgitation. 5. Diabetes with hypoglycemia. Blood sugar 97 this morning. 6. Chronic kidney disease mineral bone disease maintained on PhosLo. Plan: Hemodialysis tomorrow.
--- NOTE | 2021-05-29 10:02 | XR ---
EXAMINATION TYPE: XR chest 1V DATE OF EXAM: 05/29/2021 COMPARISON: 05/26/2021 HISTORY: Redness of breath TECHNIQUE: Single frontal view of the chest is obtained. FINDINGS: Cardiomegaly and diffuse interstitial pattern and bilateral trachea and small effusion. Di ffuse osteopenia and arthropathy of the shoulders. Atherosclerotic change aorta. IMPRESSION: 1. Correlate for CHF otherwise consider pneumonia.
--- NOTE | 2021-05-29 11:18 | P.PN ---
Subjective This is a pleasant 81 years old female who presents with With past medical history of COPD, diabetes mellitus, osteoarthritis, end-stage renal disease on hemodialysis chronic oxygen dependent on 2 L/m atrial fibrillation. She was recently discharged from the hospital after prolonged stay from 05/02-05/14 for sepsis secondary to urinary tract infection and possible pneumonia, atrial fibrillation's with RVR and acute on chronic systolic CHF with COPD exacerbation. At that time she was discharged on cefdinir to rehab. She came back from rehab 3 days ago. Last night her daughter but does not she is slower than usual, this morning she went to her appointment with physical medicine physician Dr. Mcmillan and she was very lethargic progressively got worse when she got home, she was difficult to arouse and the daughter called 911 and brought her to the emergency room also patient missed her hemodialysis today because of her illness Patient very weak and lethargic, arousable but go back to sleep, she is poor historian, daughter at bedside. On admission she was hypotensive with a blood pressure is 77/52, afebrile, slightly tachypneic 20-21 and tachycardic, hypoglycemic with oxygen 56-67, given D50 she received a bolus of 500 mL in the emergency room and her blood pressure is 93/60. her WBC IS 8.9K, hB 12.3, Platelet count is 107k, INR is 1.4, Na 133, K 4.4 creatinine is 5.7, Elevated lactic acid at 2.5 came back to normal at 1.7 elevated troponin 0.039 and high ProBNP 37163, liver enz AST AND ALT slightly elevated 67 and 60 respectively urinalysis is suspecious for infection burnham virus non detected EKG atial flutter at [address]-T changes CXR:bilateral infilterates for CHF vs Pneumonia in ED she recieved ceftriaxon and NS 500 ml nephrology and cardiology team were consulted in the evening pt became more awake and interactive with good oxygen saturation in 90s%, per second shift supervisor RN 05/27/2021 Patient is fully awake and oriented and appropriate today, he was not sure why she came to the hospital probably because she was confused then, patient was updated about her clinical condition. Concurrently denies any symptoms, no chest pain or dyspnea or coughing. No dysuria. She is saturating 100% on 3 L oxygen via nasal cannula. Her blood pressure still low normal 93/62, Labs look stable. Liver enzymes slightly elevated. No leukocytosis. Creatinine is elevated because of missed hemodialysis Patient is going for hemodialysis today and tomorrow. She is kept on D5 normal saline at 50 mL/h Medial drain was increased to 10 g 3 times a day. Also she is on Zosyn. Check hemoglobin A1c, a gallstone and is pending 05/28/2021 Patient yesterday was almost has normal mentation when I saw her, she was oriented to time place and person. However today she is back confused again. She keeps pain" oh my GOD" even if I ask her about her name. However she is able to follow simple commands. Vitas looks stable and her blood pressure is 160/56. However glucose this morning was low at 70. She remains on Zosyn. PROcalcitonin is elevated at 1.49. Also she is on Eliquis. Metoprolol 25 mg twice a day was added and medODRINE was stopped. Because of her periods of confusion neurology consult was obtained. However metabolic encephalopathy secondary to periods of hypoglycemia was suspected. 05/29/2021 Patient today is more awake however she still confused to time place and person, her altered mental status is most likely secondary to delirium related to her sepsis. As her urine culture came back with VRE that's resistant to Zosyn she is receiving already, currently she is on Zosyn. Infectious disease team on the case. Patient sugar was low on admission 50s and 60s, which is improved since admission, she has only one reading of 74 ( reference range of 75-99) I don't think patient mental status was also due to hypoglycemia other than since admission. However she is currently kept on D10 normal saline to help her with blood pressure and blood glucose monitoring. She is not on insulin or any di abetic medication I think her initial improvement on admission was after her low glucose and hypotension been corrected, however she remains confused because of delirium secondary to resistant bacteria from UTI. However neurologist has been consulted, EEG and carotid Dopplers were unremarkable to explain patient's symptoms. MRI of the brain is still pending. However patient is on Eliquis since admission which is a home medication, its renal dose at 2.5 mg twice a day. TSH and free T4 are normal at 4.3 and 1.0. Vitamin B12 is more than 1000. Lipid profile is acceptable. Liver enzymes not elevated. Creatinine 2.5 but electrolytes are normal. WBC, hemoglobin and platelets are stable and within the reference range except for mild thrombocytopenia at 134k. Repeat chest x-ray from today reviewed by me showing bilateral basal consolidation which could be CHF, pneumonia, being excluded however patient with no significant dyspnea or chest pain. No coughing. The post chemo the case and patient called for hemodialysis tomorrow Active Medications Generic Name Dose Route Start Last Admin Trade Name Freq PRN Reason Stop Dose Admin Acetaminophen 650 mg 05/26/21 15:07 Acetaminophen Tab 325 Mg Tab PO Q6HR PRN Mild Pain or Fever > 100.5 Alprazolam 0.25 mg 05/26/21 15:07 Alprazolam 0.25 Mg Tab PO Q6HR PRN Anxiety Apixaban 2.5 mg 05/27/21 07:30 05/29/21 06:28 Apixaban 2.5 Mg Tablet PO 2.5 mg BID-W/MEALS JONAS Administration Protocol Atorvastatin Calcium 40 mg 05/28/21 21:00 05/28/21 19:36 Atorvastatin 40 Mg Tab PO 40 mg HS JONAS Administration Calcium Acetate 667 mg 05/28/21 12:30 05/29/21 06:28 Calcium Acetate 667 Mg Tab PO 667 mg TID-W/MEALS JONAS Administration Dextrose/Water 50 ml 05/26/21 20:13 Dextrose 50% Syringe 50 Ml IVP Q2HR PRN Hypoglycemia Piperacillin Sod/Tazobactam 100 mls @ 25 mls/hr 05/28/21 00:00 05/29/21 00:30 Sod 3.375 gm/ Sodium Chloride IVPB 25 mls/hr Q12H JONAS Administration Sodium Chloride 153.8 meq/ 1,038.45 mls @ 50 mls/hr 05/28/21 15:00 05/28/21 16:33 Dextrose/Water IV 50 mls/hr .[id number] JONAS Administration Metoprolol Tartrate 25 mg 05/28/21 16:00 05/29/21 08:48 Metoprolol Tartrate 25 Mg Tab PO 25 mg TID JONAS Administration Naloxone HCl 0.2 mg 05/26/21 15:07 Naloxone 0.4 Mg/Ml 1 Ml Vial IV Q2M PRN Opioid Reversal Pantoprazole Sodium 40 mg 05/27/21 06:30 05/29/21 06:28 Pantoprazole 40 Mg Tablet PO 40 mg DAILY@0630 JONAS Administration Ropinirole HCl 0.25 mg 05/27/21 21:00 05/28/21 19:36 Ropinirole Hcl 0.25 Mg Tab PO 0.25 mg HS JONAS Administration Ropinirole HCl 0.25 mg 05/26/21 21:11 Ropinirole Hcl 0.25 Mg Tab PO MOWEFR PRN before dialysis Venlafaxine HCl 37.5 mg 05/27/21 09:00 05/29/21 08:48 Venlafaxine Hcl Er 37.5 Mg Cap PO 37.5 mg DAILY JONAS Administration Objective - Vital Signs Vital signs: Vital Signs Temp 97.7 F 05/29/21 08:00 Pulse 118 H 05/29/21 08:00 Resp 20 05/29/21 08:00 BP 119/77 05/29/21 08:00 Pulse Ox 95 05/29/21 08:00 Intake & Output 05/28/21 05/29/21 05/29/21 18:59 06:59 18:59 Intake Total 240 Output Total 1 2 Balance 239 -2 Weight 69.9 kg 70.3 kg Intake: Oral 240 Output: Stool 1 2 Other: Voiding Method Toilet # Voids 1 1 # Bowel Movements 1 - Exam This is a pleasant 81 years old female who presents with With past medical history of COPD, diabetes mellitus, osteoarthritis, end-stage renal disease on hemodialysis chronic oxygen dependent on 2 L/m atrial fibrillation. She was recently discharged from the hospital after prolonged stay from 05/02-05/14 for sepsis secondary to urinary tract infection and possible pneumonia, atrial fibrillation's with RVR and acute on chronic systolic CHF with COPD exacerbation. At that time she was discharged on cefdinir to rehab. She came back from rehab 3 days ago. Last night her daughter but does not she is slower than usual, this morning she went to her appointment with physical medicine physician Dr. Mcmillan and she was very lethargic progressively got worse when she got home, she was difficult to arouse and the daughter called 911 and brought her to the emergency room also patient missed her hemodialysis today because of her illness Patient very weak and lethargic, arousable but go back to sleep, she is poor h istorian, daughter at bedside. On admission she was hypotensive with a blood pressure is 77/52, afebrile, slightly tachypneic 20-21 and tachycardic, hypoglycemic with oxygen 56-67, given D50 she received a bolus of 500 mL in the emergency room and her blood pressure is 93/60. her WBC IS 8.9K, hB 12.3, Platelet count is 107k, INR is 1.4, Na 133, K 4.4 creatinine is 5.7, Elevated lactic acid at 2.5 came back to normal at 1.7 elevated troponin 0.039 and high ProBNP 31387, liver enz AST AND ALT slightly elevated 67 and 60 respectively urinalysis is suspecious for infection burnham virus non detected EKG atial flutter at [address]-T changes CXR:bilateral infilterates for CHF vs Pneumonia in ED she recieved ceftriaxon and NS 500 ml nephrology and cardiology team were consulted in the evening pt became more awake and interactive with good oxygen saturation in 90s%, per second shift supervisor RN 05/27/2021 Patient is fully awake and oriented and appropriate today, he was not sure why she came to the hospital probably because she was confused then, patient was updated about her clinical condition. Concurrently denies any symptoms, no chest pain or dyspnea or coughing. No dysuria. She is saturating 100% on 3 L oxygen via nasal cannula. Her blood pressure still low normal 93/62, Labs look stable. Liver enzymes slightly elevated. No leukocytosis. Creatinine is elevated because of missed hemodialysis Patient is going for hemodialysis today and tomorrow. She is kept on D5 normal saline at 50 mL/h Medial drain was increased to 10 g 3 times a day. Also she is on Zosyn. Check hemoglobin A1c, a gallstone and is pending - Labs CBC & Chem 7: 05/28/21 17:51 05/28/21 17:51 Labs: Abnormal Lab Results - Last 24 Hours (Table) 05/28/21 05/28/21 05/28/21 Range/Units 17:51 17:51 17:51 RBC 3.51 L (3.80-5.40) m/uL MCV 114.0 H (80.0-100.0) fL MCH 35.4 H (25.0-35.0) pg RDW 20.5 H (11.5-15.5) % Plt Count 134 L (150-450) k/uL Lymphocytes # 0.8 L (1.0-4.8) k/uL Macrocytosis Marked A Creatinine 2.54 H (0.52-1.04) mg/dL Glucose 117 H (74-99) mg/dL POC Glucose (mg/dL) (75-99) mg/dL Calcium 8.3 L (8.4-10.2) mg/dL ALT 38 H (4-34) U/L Total Protein 5.9 L (6.3-8.2) g/dL Albumin 3.1 L (3.5-5.0) g/dL Vitamin B12 1092.0 H (200.0-944.0) pg/mL 05/28/21 05/29/21 Range/Units 19:54 00:10 RBC (3.80-5.40) m/uL MCV (80.0-100.0) fL MCH (25.0-35.0) pg RDW (11.5-15.5) % Plt Count (150-450) k/uL Lymphocytes # (1.0-4.8) k/uL Macrocytosis Creatinine (0.52-1.04) mg/dL Glucose (74-99) mg/dL POC Glucose (mg/dL) 143 H 115 H (75-99) mg/dL Calcium (8.4-10.2) mg/dL ALT (4-34) U/L Total Protein (6.3-8.2) g/dL Albumin (3.5-5.0) g/dL Vitamin B12 (200.0-944.0) pg/mL Microbiology - Last 24 Hours (Table) 05/26/21 12:10 Urine Culture - Final Urine,Voided Enterococcus faecium VRE Tami albicans 05/26/21 21:40 Blood Culture - Preliminary Blood No Growth after 48 hours Assessment and Plan Assessment: -Severe Sepsis most probably secondary to urinary tract infection patient , possible pneumonia, urine culture is chronic rib D enterococcus which is VRE and tami albicans -Atrial fibrillation with rate controlled, is on eliquis, metoprolol 75 mg 3 times a day per Cardiology team recommendation, supposed to get cardioversion with -Hypotension and hypoglycemia, currently improved blood pressure and glucose levels are stable -Altered mental status, most likely secondary to sepsis, it has also multifacto rial effect for example hypoglycemia and hypotension on admission, since admissions her sugars been corrected and his blood pressure was stable. -chronic systolic CHF with ejection fraction 40-45% -Moderate tricuspid regurgitation -COPD with mild acute exacerbation -Chronic respiratory failure on home oxygen which will be continued, she is on 2 L/M at home -Pulmonary hypertension most probably secondary to COPD -Chronic kidney disease/end-stage renal disease secondary to hypertensive nephrosclerosis and also diabetic nephropathy -History of Gastroesophageal reflux disease Plan: This is a pleasant 81 years old female who presents with severe sepsis, hypoglycemic, hypotensive which is improved now Continue with D5 half normal saline with close monitoring of the blood pressure and glucose level Change antibiotics per infectious disease team Heel Top Lift Splitter still recommending metoprolol 25 mg 3 times a day. We will defer the management of heart rate and blood pressure to cardiology team. Per the case was discussed with physical medicine physician team and they are aware about other medical problems Hemodialysis tomorrow per Nephrology team several consultants on the case including Call infectious disease, nephrology and cardiology consult Labs and medication were reviewed.. Continue same treatment. Continue with symptomatic treatment. Resume home medication. Monitor lytes and vitals. DVT and GI prophylaxis. Further recommendationsas per clinical course of the patient DVT prophylaxis: Subcutaneous heparin GI Prophylaxis: Pepcid PT/OT: Recurrent subacute rehab Again prognosis is guarded given multiple admissions with severe resistant bacteria, multiple medical problems. Discussed with staff i discussed the case with her daughter Ms. Denise Gonzales and discussed together resistant bacteria in the urine and needs to change antibiotics, her sugar and blood pressure, the MRI to rule out stroke, her medication with the Eliquis. And her prognosis, her advanced complex medical case and the need to go to rehab upon discharge, she verbalized understanding and acceptance to the management plan and all her questions were answered to her satisfaction
[2021-05-29 12:18] LABS: Glucose,Whole Blood 137 mg/dL (75-99)
--- NOTE | 2021-05-29 13:20 | P.PN ---
Subjective This is a pleasant 81 years old female with a past medical history of non- obstructive coronary artery disease, chronic persistant atrial fibrillation, hypertension, dyslipidemia, COPD, type 2 diabetes mellitus, osteoarthritis, end- stage renal disease on hemodialysis MWF, former smoker. She follows in the office with Dr. Chavarria. We have been asked to see in consultation for atrial fibrillation. On exam 05/27/21 patient alert and oriented x 3. She does not remember what brought her to the hospital. She states that her daughter told her that she was at her cardiology appointment with Dr. Chavarria, she is very lethargic and weak. Yesterday patient progressively got worse, when her daughter took her home she states it was difficult to arouse the patient and the daughter called 911 and she is brought to the emergency department. At patient's appointment yesterday with Dr. Chavarria he decreased her metoprolol to 25mg BID. She was recently discharged from the hospital after prolonged stay from 05/02-05/14 for sepsis secondary to urinary tract infection and possible pneumonia. Cardiology saw her due to atrial fibrillation with RVR and acute on chronic systolic CHF/COPD exacerbation. Patient's beta cristi was increased to metoprolol tartrate 75mg TID and she was discharged on oral anticoagulation. Her echo in the hospital revealed impaired LV function with EF of 40-45% At that time she was discharged on antibiotics to [facility]. She states she did get dialysis Wednesday. Dialysis was missed yesterday due to patient being admitted to hospital. DIAGNOSTICS Most recent echocardiogram 05/05/2021 revealed an EF 40-45%, RV is mild to moderately enlarged, mild mitral regurgitation, moderate tricuspid regurgitation, moderate pulmonary hypertension with an RVSP 62 mmHg, small pleural effusion Last Cardiac Catheterization 03/2019 which revealed intermediate lesion involving the mid first obtuse marginal branch of the left circumflex appeared to be 60%, proximal LAD appear to have mild disease only. Left circumflex appeared to have mild disease only. 05/29/2021: Patient seen and examined at bedside this morning, no acute distress. She is up walking with physical therapy. She continues to be confused. She is alert and oriented to person. Patient underwent CT brain which revealed atrophy and chronic small vessel ischemia. No acute intracranial abnormality. Patient underwent hemodialysis yesterday with 500 mL was removed. Blood pressure 112/70, heart rate 111, afebrile, maintaining saturations 100% on 3 L nasal cannula. Telemetry reviewed patient in atrial fibrillation HR 100-120s. Laboratory data reviewed, not resulted back yet. Patient currently maintained on Eliquis 2.5 mg twice a day, metoprolol titrate 25 mg TID, IV Zosyn, Effexor 37.5 mg daily. Repeat chest x-ray revealed diffuse interstitial pattern in bilateral tracheal and small effusion, cardiomegaly. PHYSICAL EXAMINATION CONSTITUTIONAL: No apparent distress. HEENT: Head is normocephalic. Neck supple No JVD. CHEST EXAMINATION: Lungs are clear to auscultation. No chest wall tenderness is noted on palpation or with deep breathing. HEART EXAMINATION: Irregular rate and rhythm. S1, S2 heard. Systolic murmur noted at apex ABDOMEN: Soft, nontender. Positive bowel sounds. EXTREMITIES: 2+ peripheral pulses, no lower extremity edema and no calf tenderness. NEUROLOGIC EXAMINATION: Patient is awake, alert and confused. ASSESSMENT Altered Mental status UTI - urine culture +VRE and tami albicans Non-obstructive coronary artery disease Chronic persistant atrial fibrillation on Eliquis Elevated troponin, no consistent with acute coronary syndrome History of Hypertension- hypotensive, most likely due to increased metoprolol t artrate to 75mg TID Dyslipidemia COPD Type 2 diabetes mellitus Osteoarthritis End-stage renal disease on hemodialysis MWF PLAN We will continue metoprolol tartrate to 25mg TID at this time Infectious disease following- started on IV Zosyn Neurology following, plan for MRI brain Continue to monitor patient on cardiac telemetry, monitor blood pressure. Continue Eliquis Nephrology following Follow up with Dr. Chavarria on discharge Further recommendations based on clinical course Nurse Practitioner note has been reviewed, I agree with a documented findings and plan of care. Patient was seen and examined. Objective - Vital Signs Vital signs: Vital Signs Temp 97.4 F L 05/29/21 11:59 Pulse 111 H 05/29/21 11:59 Resp 20 05/29/21 11:59 BP 112/70 05/29/21 11:59 Pulse Ox 100 05/29/21 11:59 Intake & Output 05/28/21 05/29/21 05/29/21 18:59 06:59 18:59 Intake Total 240 240 Output Total 1 2 Balance 239 -2 240 Weight 69.9 kg 70.3 kg Intake: Oral 240 240 Output: Stool 1 2 Other: Voiding Method Toilet # Voids 1 1 2 # Bowel Movements 1 - Labs CBC & Chem 7: 05/28/21 17:51 05/28/21 17:51 Labs: Abnormal Lab Results - Last 24 Hours (Table) 05/28/21 05/28/21 05/28/21 Range/Units 17:51 17:51 17:51 RBC 3.51 L (3.80-5.40) m/uL MCV 114.0 H (80.0-100.0) fL MCH 35.4 H (25.0-35.0) pg RDW 20.5 H (11.5-15.5) % Plt Count 134 L (150-450) k/uL Lymphocytes # 0.8 L (1.0-4.8) k/uL Macrocytosis Marked A Creatinine 2.54 H (0.52-1.04) mg/dL Glucose 117 H (74-99) mg/dL POC Glucose (mg/dL) (75-99) mg/dL Calcium 8.3 L (8.4-10.2) mg/dL ALT 38 H (4-34) U/L Total Protein 5.9 L (6.3-8.2) g/dL Albumin 3.1 L (3.5-5.0) g/dL Vitamin B12 1092.0 H (200.0-944.0) pg/mL 05/28/21 05/29/21 05/29/21 Range/Units 19:54 00:10 12:07 RBC (3.80-5.40) m/uL MCV (80.0-100.0) fL MCH (25.0-35.0) pg RDW (11.5-15.5) % Plt Count (150-450) k/uL Lymphocytes # (1.0-4.8) k/uL Macrocytosis Creatinine (0.52-1.04) mg/dL Glucose (74-99) mg/dL POC Glucose (mg/dL) 143 H 115 H 137 H (75-99) mg/dL Calcium (8.4-10.2) mg/dL ALT (4-34) U/L Total Protein (6.3-8.2) g/dL Albumin (3.5-5.0) g/dL Vitamin B12 (200.0-944.0) pg/mL Microbiology - Last 24 Hours (Table) 05/26/21 12:10 Urine Culture - Final Urine,Voided Enterococcus faecium VRE Tami albicans 05/26/21 21:40 Blood Culture - Preliminary Blood No Growth after 48 hours
--- NOTE | 2021-05-29 14:40 | P.PN ---
Subjective Progress Note Date: 05/29/21 Patient seen at bedside and the she is accompanied with her friend as well as 2 daughters and they stated that that she continues to be the same today compared to yesterday she continues to have difficulty getting her words out. They stated that she's walking appropriately to the bathroom with her usual walker but without any issues. Her daughter stated that the patient has been missing her Eliquis at home and that misses doses are on and off and they presume that she missed doses over the weekend. Objective - Vital Signs Vital signs: Vital Signs Temp 97.4 F L 05/29/21 11:59 Pulse 111 H 05/29/21 11:59 Resp 20 05/29/21 11:59 BP 112/70 05/29/21 11:59 Pulse Ox 100 05/29/21 11:59 Intake & Output 05/28/21 05/29/21 05/29/21 18:59 06:59 18:59 Intake Total 240 240 Output Total 1 2 Balance 239 -2 240 Weight 69.9 kg 70.3 kg Intake: Oral 240 240 Output: Stool 1 2 Other: Voiding Method Toilet # Voids 1 1 2 # Bowel Movements 1 - Exam GENERAL: The patient is lying in bed and is not in acute distress. NEUROLOGICAL: Higher mental function: The patient is awake, alert oriented to self. She would not respond to place and time. , She followed simple commands (verbally: upon asking her to show thumbs up and closing and opening eyes. Sometime she had to be shown what to do). She has presevation of speech stating remote repeatedly. I felt she had aphasia and seem motor component. Had difficulty repeating phrases. No neglect. Cranial nerves: The pupils are round, equal and reactive to light. Visual momin are full to confrontation throughout. Extraocular movement is tracking throughout the room without nystagmus. The facial strength is normal throughout. Mild dysarthria noted. Rest of cranial nerves could not be assessed because of her cooperation. Motor: The strength is moving all extremities above gravity without drift. Normal tone and bulk. Cerebellum: Normal finger to nose bilaterally. Sensation: Sensation to touch is hard to assess because of patient's cooperation. Reflexes (right/left): 2+ in uppers and 1+ in lowers. Plantars are upgoing bilaterally. WORK-UP: HA1c is 4.8 which is considered within normal limits. Urine analysis is suggestive of urinary tract infection. Lipid panel is triglyceride of 123, cholesterol of 112, LDL of 45 and HDL of 42. Vitamin B12 is 1092 which is unremarkable. Serum folate is more than 24. Which is considered within normal limits TSH is 4.370 and a free T4 is 1.01 which is considered within normal limits. EEG on 05/28/2021 is the abnormal. The background slowing suggestive of mild encephalopathy of unspecified etiology. There are no focal slowing, epileptiform discharges or seizure in the EEG. Clinical correlation is recommended. 2-D echo was reported as left ventricle systolic function is mildly impaired with ejection fraction 45-50%. Left atrium is mildly dilated. Mild to moderate mitral regurgitation is present that. Moderate tricuspid regurgitation is present. Severe pulmonary hypertension. CT of the head on 05/27/2021 is reported as atrophy and chronic small vessel ischemia. No acute intracranial abnormality. Carotid duplex is reported as atheromatous plaquing present bilaterally without significant flow limiting stenosis. - Labs CBC & Chem 7: 05/28/21 17:51 05/28/21 17:51 Labs: Abnormal Lab Results - Last 24 Hours (Table) 05/28/21 05/28/21 05/28/21 Range/Units 17:51 17:51 17:51 RBC 3.51 L (3.80-5.40) m/uL MCV 114.0 H (80.0-100.0) fL MCH 35.4 H (25.0-35.0) pg RDW 20.5 H (11.5-15.5) % Plt Count 134 L (150-450) k/uL Lymphocytes # 0.8 L (1.0-4.8) k/uL Macrocytosis Marked A Creatinine 2.54 H (0.52-1.04) mg/dL Glucose 117 H (74-99) mg/dL POC Glucose (mg/dL) (75-99) mg/dL Calcium 8.3 L (8.4-10.2) mg/dL ALT 38 H (4-34) U/L Total Protein 5.9 L (6.3-8.2) g/dL Albumin 3.1 L (3.5-5.0) g/dL Vitamin B12 1092.0 H (200.0-944.0) pg/mL RBC Folate (280 - 791) ng/mL 05/28/21 05/28/21 05/29/21 Range/Units 17:51 19:54 00:10 RBC (3.80-5.40) m/uL MCV (80.0-100.0) fL MCH (25.0-35.0) pg RDW (11.5-15.5) % Plt Count (150-450) k/uL Lymphocytes # (1.0-4.8) k/uL Macrocytosis Creatinine (0.52-1.04) mg/dL Glucose (74-99) mg/dL POC Glucose (mg/dL) 143 H 115 H (75-99) mg/dL Calcium (8.4-10.2) mg/dL ALT (4-34) U/L Total Protein (6.3-8.2) g/dL Albumin (3.5-5.0) g/dL Vitamin B12 (200.0-944.0) pg/mL RBC Folate >1,362 H (280 - 791) ng/mL 05/29/21 Range/Units 12:07 RBC (3.80-5.40) m/uL MCV (80.0-100.0) fL MCH (25.0-35.0) pg RDW (11.5-15.5) % Plt Count (150-450) k/uL Lymphocytes # (1.0-4.8) k/uL Macrocytosis Creatinine (0.52-1.04) mg/dL Glucose (74-99) mg/dL POC Glucose (mg/dL) 137 H (75-99) mg/dL Calcium (8.4-10.2) mg/dL ALT (4-34) U/L Total Protein (6.3-8.2) g/dL Albumin (3.5-5.0) g/dL Vitamin B12 (200.0-944.0) pg/mL RBC Folate (280 - 791) ng/mL Microbiology - Last 24 Hours (Table) 05/26/21 12:10 Urine Culture - Final Urine,Voided Enterococcus faecium VRE Tami albicans 05/26/21 21:40 Blood Culture - Preliminary Blood No Growth after 48 hours Assessment and Plan Assessment: * Aphasia (seems motor) with difficulty repeating sentences: Is likely acute ischemic stroke Seems cardioembolic (per daughters she is non-compliant and misses her eliquis medication). No IV tpa since outside window and is on Eliquis. * Encephalopathy seems due to septic encephalopathy as well as component of metabolic (has hypoglycemic episodes and slight elevated LFT's) * Episodes of hypoglycemia during the hospital stay (50's to 60's) is supposed to get cardioversion by her service greeter--hypoglycemic events resolved * Sepsis due to acute urinary tract infection (came in with hypotension) * Atrial fibrillation on Eliquis * End-stage renal disease on the hemodialysis * Diabetes mellitus seems controlled * Chronic systolic congestive heart failure with ejection fraction of 40-45%. * COPD on home oxygen 2L Plan: * I ordered MRI the brain urgent and still pending. * She is currently on Eliquis 2.5 mg twice a day (Notified the family about possible risk of bleed with acute ischemic stroke vs possible recurrance of stroke without eliquis and and want eliquis to be resumed) . I'll not add any additional antiplatelets to avoid any risk of bleed (patient did not fail eliquis since she has been missing medication). Continue Lipitor 40 mg daily at bedtime for secondary stroke prophylaxis. LDL goal in stroke is <70. * Consulted the PT OT and RN [facility]. * Every 4 hours neuro checks and a continuous carotid monitoring * Please avoid any hypotension and hypoglycemia and we'll defer the management to the primary team. * Cardiology team is on board as well as nephrology team is on board. * We'll defer the rest of medical management to the primary team * For DVT prophylaxis: On eliquis. The plan was discussed with the patient's two daughters and her nurse. Azam Stephens M.D. Neuro-hospitalist Time with Patient: Less than 30
--- NOTE | 2021-05-29 15:49 | MR ---
"EXAMINATION TYPE: MR brain wo con DATE OF EXAM: 05/29/2021 COMPARISON: CT brain from 2 days ago HISTORY: Mental status changes. TECHNIQUE: Multiplanar, multisequence imaging of the brain and brainstem is performed without IV cont rast. FINDINGS: Diffusion weighted images demonstrate areas of increased signal on diffusion-weighted images posterio r left frontal lobe predominantly subcortical with some deeper extension images 128 through 192 that showed diminished signal on ADC mapping and increased T2 signal extending from level of basal ganglia through coronal radiata and superiorly to this. There is background fairly moderate diffuse ventricular and sulcal prominence and scattered focal are as of T2 hyperintensity throughout the white matter bilaterally. Midline structures demonstrate normal morphology. The craniocervical junction appears within normal limits. Normal vascular flow voids are present. Artifact at level of nasal bridge is present. Asymmet elías flattened right lens could reflect product of prior cataract surgery. IMPRESSION: 1. Acute infarct posterior left frontal lobe over roughly 4.0 cm craniocaudal length. 2. Background moderate diffuse cerebral atrophy and chronic small vessel ischemic changes. A Yellow level critical message alert has been initiated for Blair Iyer MD via the [employer] 36 0 | Critical Results System on 05/29/2021 3:46 PM. This message alert has been sent to Blair Iyer MD via the preferences provided by the clinician for the receipt of Radiology Critical Findings. Mess age ID [id number]."
[2021-05-29 17:07] LABS: Glucose,Whole Blood 86 mg/dL (75-99)
--- NOTE | 2021-05-29 17:08 | PN ---
PROGRESS NOTE DATE OF SERVICE: 05/29/2021 REASON FOR FOLLOWUP: 1. Pneumonia. 2. Positive urine culture. INTERVAL HISTORY: Patient is afebrile. The patient is currently breathing comfortably on nasal cannula oxygen. The patient denies having any chest pain. No worsening cough. No abdominal pain. Patient is dialysis dependent and makes urine here and there. Denies any urinary symptoms at this point. PHYSICAL EXAMINATION: Blood pressure 112/70 with a pulse of 111. Temperature is 97.4. She is 100% on 3 L nasal cannula. General description is an elderly female up in the chair in no distress. Respiratory system: Unlabored breathing, decreased breath sounds in the base, with no wheeze. Heart S1, S2. Regular rate and rhythm. Abdomen soft, no tenderness. LABS: Urine culture with VRE and Tami albicans. Blood culture has been negative. DIAGNOSTIC IMPRESSION AND PLAN: 1. Patient admitted to the hospital with shortness of breath and cough with concerning for pneumonia, possible Gram-negative. Patient covered with Zosyn to continue. 2. Patient with positive urine culture with VRE and Tami, possible colonization. Patient clinically not behaving as a symptomatic urinary tract infection. Hence, no need for further workup at this point. This was explained to the daughter as well as to the admitting physician. MMODL / IJN: [id number] /
[2021-05-29] MEDS: ATORVASTATIN 40 MG TAB PO SCH (20:00)
[2021-05-29 20:03] LABS: Glucose,Whole Blood 99 mg/dL (75-99)
[2021-05-29] MEDS: DEXTROSE 10% IN WATER 1,000 ML with SODIUM CHLORIDE 4MEQ/ML VIAL 153.8 MEQ IV SCH (22:09)
[2021-05-29 23:53] LABS: Glucose,Whole Blood 116 mg/dL (75-99)
[2021-05-30 04:45] LABS: Glucose,Whole Blood 90 mg/dL (75-99)
[2021-05-30] MEDS: CALCIUM ACETATE 667 MG TAB PO SCH ×3 (06:29→17:41)
[2021-05-30] MEDS: PANTOPRAZOLE 40 MG TABLET PO SCH (06:29)
[2021-05-30] MEDS: APIXABAN 2.5 MG TABLET PO SCH ×2 (06:29→17:40)
[2021-05-30 08:26] LABS: Glucose,Whole Blood 114 mg/dL (75-99)
[2021-05-30 08:33] LABS: Potassium 4.1 mmol/L (3.5-5.1)
[2021-05-30] MEDS: VENLAFAXINE HCL ER 37.5 MG CAP PO SCH (09:03)
[2021-05-30] MEDS: METOPROLOL TARTRATE 25 MG TAB PO SCH ×3 (09:03→20:04)
[2021-05-30] MEDS: DEXTROSE 10% IN WATER 1,000 ML with SODIUM CHLORIDE 4MEQ/ML VIAL 153.8 MEQ IV SCH (09:03)
--- NOTE | 2021-05-30 10:23 | P.PN ---
Subjective Patient is seen in follow-up for end-stage renal disease. She is maintained on hemodialysis on Wednesday schedule. Blood pressure is stable. No chest pain or shortness of breath. On antibiotics for UTI. Vital signs are stable. General: The patient appeared well nourished and normally developed. HEENT: Head exam is unremarkable. LUNGS: Breath sounds decreased. HEART: Rate and Rhythm are regular. ABDOMEN: Soft, no distention. EXTREMITITES: Trace edema. Objective - Vital Signs Vital signs: Vital Signs Temp 98.3 F 05/30/21 08:38 Pulse 111 H 05/30/21 08:38 Resp 16 05/30/21 08:38 BP 111/77 05/30/21 08:38 Pulse Ox 96 05/30/21 08:38 Intake & Output 05/29/21 05/30/21 05/30/21 18:59 06:59 18:59 Intake Total 240 Output Total 2 Balance 240 -2 Weight 73.5 kg Intake: Oral 240 Output: Stool 2 Other: Voiding Method Toilet # Voids 2 1 # Bowel Movements 1 - Labs CBC & Chem 7: 05/28/21 17:51 05/30/21 07:57 Labs: Abnormal Lab Results - Last 24 Hours (Table) 05/28/21 05/29/21 05/29/21 Range/Units 17:51 12:07 23:51 Creatinine (0.52-1.04) mg/dL Glucose (74-99) mg/dL POC Glucose (mg/dL) 137 H 116 H (75-99) mg/dL RBC Folate >1,362 H (280 - 791) ng/mL 05/30/21 05/30/21 Range/Units 07:57 08:15 Creatinine 4.03 H (0.52-1.04) mg/dL Glucose 251 H (74-99) mg/dL POC Glucose (mg/dL) 114 H (75-99) mg/dL RBC Folate (280 - 791) ng/mL Microbiology - Last 24 Hours (Table) 05/26/21 21:40 Blood Culture - Preliminary Blood No Growth after 72 hours 05/26/21 12:10 Urine Culture - Final Urine,Voided Enterococcus faecium VRE Tami albicans Assessment and Plan Plan: Assessment: 1. End-stage renal disease maintained on hemodialysis on Wednesday schedule. 2. Severe sepsis secondary to UTI and ?pneumonia. On antibiotics. Infectious disease following. Urine culture positive for VRE and tami 3. A. fib. On anticoagulation. Cardiology following. 4. Chronic systolic CHF with ejection fraction of 40-45% with moderate t ricuspid regurgitation. 5. Diabetes with hypoglycemia. Blood sugar 97 this morning. 6. Chronic kidney disease mineral bone disease maintained on PhosLo. 7. Acute left frontal lobe infarct noted on MRI brain. Neurology following. Plan: Hemodialysis today.
[2021-05-30 12:20] LABS: Glucose,Whole Blood 150 mg/dL (75-99)
[2021-05-30] MEDS: PIPERACILLIN-TAZOBACTAM 3.375 GM in SODIUM CHLORIDE 0.9% 100 ML IVPB SCH ×2 (13:48→23:23)
--- NOTE | 2021-05-30 13:55 | P.PN ---
Subjective This is a pleasant 81 years old female with a past medical history of non- obstructive coronary artery disease, chronic persistant atrial fibrillation, hypertension, dyslipidemia, COPD, type 2 diabetes mellitus, osteoarthritis, end- stage renal disease on hemodialysis MWF, former smoker. She follows in the office with Dr. Chavarria. We have been asked to see in consultation for atrial fibrillation. On exam 05/27/21 patient alert and oriented x 3. She does not remember what brought her to the hospital. She states that her daughter told her that she was at her cardiology appointment with Dr. Chavarria, she is very lethargic and weak. Yesterday patient progressively got worse, when her daughter took her home she states it was difficult to arouse the patient and the daughter called 911 and she is brought to the emergency department. At patient's appointment yesterday with Dr. Chavarria he decreased her metoprolol to 25mg BID. She was recently discharged from the hospital after prolonged stay from 05/02-05/14 for sepsis secondary to urinary tract infection and possible pneumonia. Cardiology saw her due to atrial fibrillation with RVR and acute on chronic systolic CHF/COPD exacerbation. Patient's beta cristi was increased to metoprolol tartrate 75mg TID and she was discharged on oral anticoagulation. Her echo in the hospital revealed impaired LV function with EF of 40-45% At that time she was discharged on antibiotics to [facility]. She states she did get dialysis Wednesday. Dialysis was missed yesterday due to patient being admitted to hospital. DIAGNOSTICS Most recent echocardiogram 05/05/2021 revealed an EF 40-45%, RV is mild to moderately enlarged, mild mitral regurgitation, moderate tricuspid regurgitation, moderate pulmonary hypertension with an RVSP 62 mmHg, small pleural effusion Last Cardiac Catheterization 03/2019 which revealed intermediate lesion involving the mid first obtuse marginal branch of the left circumflex appeared to be 60%, proximal LAD appear to have mild disease only. Left circumflex appeared to have mild disease only. 05/28/2021: Morning patient had acute new onset confusion and aphasia. Patient underwent CT brain 05/27 which revealed atrophy and chronic small vessel ischemia. No acute intracranial abnormality. 05/29/21: Patient continued to be confused. Neurology was consulted. Patient underwent MRI which revealed acute infarct posterior left frontal lobe. Moderate diffuse cerebral atrophy and chronic small vessel ischemic changes. 05/30/2021: Patient seen and examined at bedside this morning, no acute distress. She continues to be confused. She is alert and oriented to person. She appears comfortable. Denies chest pain or shortness of breath. Blood pressure 117/82, heart rate 114, afebrile, maintaining oxygen saturations 99% on 3 L nasal cannula. Patient's last dialysis was on 05/28 with 500 mg removed. Telemetry reviewed patient in atrial fibrillation HR [id number]. Laboratory data reviewed, sodium 140, potassium 4.1, BUN 15, serum creatinine 4.03. Patient currently maintained on Eliquis 2.5 mg twice a day, metoprolol titrate 25 mg TID, IV Zosyn, Effexor 37.5 mg daily. PHYSICAL EXAMINATION CONSTITUTIONAL: No apparent distress. HEENT: Head is normocephalic. Neck supple No JVD. CHEST EXAMINATION: Lungs are clear to auscultation. No chest wall tenderness is noted on palpation or with deep breathing. HEART EXAMINATION: Irregular rate and rhythm. S1, S2 heard. Systolic murmur noted at apex ABDOMEN: Soft, nontender. Positive bowel sounds. EXTREMITIES: 2+ peripheral pulses, no lower extremity edema and no calf tenderness. NEUROLOGIC EXAMINATION: Patient is awake, alert and confused. ASSESSMENT Altered Mental status Aphasia Acute infarct posterior left frontal lobe - seen on MRI on 05/29 UTI - urine culture +VRE and maxwell albicans Non-obstructive coronary artery disease Chronic persistant atrial fibrillation on Eliquis Elevated troponin, no consistent with acute coronary syndrome History of Hypertension- hypotensive, most likely due to increased metoprolol tartrate to 75mg TID Dyslipidemia COPD Type 2 diabetes mellitus Osteoarthritis End-stage renal disease on hemodialysis MWF PLAN Per family, patient does miss her eliquis medication sometimes at home. We will continue metoprolol tartrate to 25mg TID at this time Infectious disease following- started on IV Zosyn Continue Eliquis Neurology following Nephrology following Continue to monitor patient on cardiac telemetry, monitor blood pressure. Follow up with Dr. Chavarria on discharge Further recommendations based on clinical course Nurse Practitioner note has been reviewed, I agree with a documented findings and plan of care. Patient was seen and examined. Objective - Vital Signs Vital signs: Vital Signs Temp 98.2 F 05/30/21 13:44 Pulse 114 H 05/30/21 13:44 Resp 16 05/30/21 13:44 BP 117/82 05/30/21 13:44 Pulse Ox 99 05/30/21 13:44 Intake & Output 05/29/21 05/30/21 05/30/21 18:59 06:59 18:59 Intake Total 240 Output Total 2 Balance 240 -2 Weight 73.5 kg 73.5 kg Intake: Oral 240 Output: Stool 2 Other: Voiding Method Toilet # Voids 2 1 # Bowel Movements 1 - Labs CBC & Chem 7: 05/28/21 17:51 05/30/21 07:57 Labs: Abnormal Lab Results - Last 24 Hours (Table) 05/29/21 05/30/21 05/30/21 Range/Units 23:51 07:57 08:15 Creatinine 4.03 H (0.52-1.04) mg/dL Glucose 251 H (74-99) mg/dL POC Glucose (mg/dL) 116 H 114 H (75-99) mg/dL 05/30/21 Range/Units 12:09 Creatinine (0.52-1.04) mg/dL Glucose (74-99) mg/dL POC Glucose (mg/dL) 150 H (75-99) mg/dL Microbiology - Last 24 Hours (Table) 05/26/21 21:40 Blood Culture - Preliminary Blood No Growth after 72 hours
--- NOTE | 2021-05-30 14:02 | P.PN ---
Subjective Progress Note Date: 05/30/21 The patient seen at bedside and the she is accompanied with her daughter as well as her best friend and that the daughter states that she still has the difficulty getting her words out but seems somewhat better today at. There are no focal slowing, she is not complaining of any headache or and any new paul rological deficits. Objective - Vital Signs Vital signs: Vital Signs Temp 98.2 F 05/30/21 13:44 Pulse 114 H 05/30/21 13:44 Resp 16 05/30/21 13:44 BP 117/82 05/30/21 13:44 Pulse Ox 99 05/30/21 13:44 Intake & Output 05/29/21 05/30/21 05/30/21 18:59 06:59 18:59 Intake Total 240 Output Total 2 Balance 240 -2 Weight 73.5 kg 73.5 kg Intake: Oral 240 Output: Stool 2 Other: Voiding Method Toilet # Voids 2 1 # Bowel Movements 1 - Exam GENERAL: The patient is lying in bed and is not in acute distress. NEUROLOGICAL: Higher mental function: The patient is awake, alert oriented to self. She would not respond to place and time. She followed simple commands (verbally: upon asking her to show thumbs up and closing and opening eyes. Sometime she had to be shown what to do). She was able to name objects appropriately (watch, pne and glasess) which is better today compared to yesterday. She still has presevation of speech. Motor component. Had difficulty repeating phrases. No neglect. Cranial nerves: The pupils are round, equal and reactive to light. Visual momin are full to confrontation throughout. Extraocular movement is tracking throughout the room without nystagmus. The facial strength is normal throughout. Mild dysarthria noted. Rest of cranial nerves could not be as sessed because of her cooperation. Motor: The strength is moving all extremities above gravity without drift. Normal tone and bulk. Cerebellum: Normal finger to nose bilaterally. Sensation: Sensation to touch is hard to assess because of patient's cooperation. Reflexes (right/left): 2+ in uppers and 1+ in lowers. Plantars are upgoing bilaterally. WORK-UP: HA1c is 4.8 which is considered within normal limits. Urine analysis is suggestive of urinary tract infection. Lipid panel is triglyceride of 123, cholesterol of 112, LDL of 45 and HDL of 42. Vitamin B12 is 1092 which is unremarkable. Serum folate is more than 24. Which is considered within normal limits TSH is 4.370 and a free T4 is 1.01 which is considered within normal limits. EEG on 05/28/2021 is the abnormal. The background slowing suggestive of mild encephalopathy of unspecified etiology. There are no focal slowing, epileptiform discharges or seizure in the EEG. Clinical correlation is recommended. 2-D echo was reported as left ventricle systolic function is mildly impaired with ejection fraction 45-50%. Left atrium is mildly dilated. Mild to moderate mitral regurgitation is present that. Moderate tricuspid regurgitation is present. Severe pulmonary hypertension. CT of the head on 05/27/2021 is reported as atrophy and chronic small vessel ischemia. No acute intracranial abnormality. Carotid duplex is reported as atheromatous plaquing present bilaterally without significant flow limiting stenosis. MRI of the brain on 05/30 is reported as acute infarct over the posterior left frontal lobe over roughly 4.0 cm craniocaudal length. Background moderate the diffuse cerebral atrophy and chronic small vessel ischemic change. - Labs CBC & Chem 7: 05/28/21 17:51 05/30/21 07:57 Labs: Abnormal Lab Results - Last 24 Hours (Table) 05/29/21 05/30/21 05/30/21 Range/Units 23:51 07:57 08:15 Creatinine 4.03 H (0.52-1.04) mg/dL Glucose 251 H (74-99) mg/dL POC Glucose (mg/dL) 116 H 114 H (75-99) mg/dL 05/30/21 Range/Units 12:09 Creatinine (0.52-1.04) mg/dL Glucose (74-99) mg/dL POC Glucose (mg/dL) 150 H (75-99) mg/dL Microbiology - Last 24 Hours (Table) 05/26/21 21:40 Blood Culture - Preliminary Blood No Growth after 72 hours Assessment and Plan Assessment: * Acute ischemic stroke (broca aphasia) and has ischemia over left frontal. Seems cardioembolic (per daughters she is non-compliant and misses her eliquis medication). No IV tpa since outside window and is on Eliquis. ---Today her language is somewhat better compared to the last two days. * Episodes of hypoglycemia during the hospital stay (50's to 60's) is supposed to get cardioversion by her expressive music therapist--hypoglycemic events resolved * Sepsis due to acute urinary tract infection (came in with hypotension) * Atrial fibrillation on Eliquis * End-stage renal disease on the hemodialysis * Diabetes mellitus seems controlled * Chronic systolic congestive heart failure with ejection fraction of 40-45%. * COPD on home oxygen 2L Plan: * She is currently on Eliquis 2.5 mg twice a day. I'll not add any additional antiplatelets to avoid any risk of bleed (patient did not fail eliquis since she has been missing medication). Continue Lipitor 40 mg daily at bedtime for secondary stroke prophylaxis. LDL goal in stroke is <70. * Consulted the PT OT and TA[employer]ANDY [employer]. * Every 4 hours neuro checks and a continuous carotid monitoring * Please avoid any hypotension and hypoglycemia and we'll defer the management to the primary team. * Cardiology team is on board as well as nephrology team is on board. * We'll defer the rest of medical management to the primary team * For DVT prophylaxis: On eliquis. * Upon discharge, the patient needs to follow-up with a neurologist as outpatient within 1-2 weeks. The plan was discussed with the patient daughter who is at bedside. There is no further neurological work-up. Neurology will sign off. Please reconsult neurology if needed. Azam Stephens M.D. Neuro-hospitalist Time with Patient: Less than 30
--- NOTE | 2021-05-30 14:32 | P.CONS ---
History of Present Illness - Chief Complaint Gait disturbance, aphasia - History of Present Illness I had the opportunity to see patient for inpatient rehab consultation with regard to gait disturbance. She was admitted to [facility] May 26 with speech disturbance and weakness. Daughter reports history of recent hospitalization for pneumonia perhaps 1 month ago. She returned home but was weak and spent most of her time sleeping.'s admitted this time with a aphasia appears to be no 2 or 3 days duration. Seen in consultation by Dr. Bland for end-stage renal failure requiring hemodialysis. Seen by cardiology for CAD, atrial fibrillation and CHF. Seen by Dr. Azam Stephens for encephalopathy and a aphasia. Chest x-ray with bilateral infiltrates and effusions. Head CT with atrophy and chronic paramjit nge. Carotid Doppler of bilateral athero-plaques. Brain MRI with acute left frontal infarct and diffuse cerebral atrophy. Seen by speech therapy assess swallowing notes moderate swallow difficulty but recommending pured and thin liquid. PT reports minimal assistance supervision for bed mobility and for gait 36 feet with roller walker. Safety awareness poor. OT reports supervision for upper dressing and minimal assistance for lower dressing, bathing, toileting and functional mobility/transfers. Previous functional history as elicited from daughter: 81-year-old right-handed white female is lives in second-floor apartment, elevator, alone. Retired. Prior to a month ago was independent with own cooking, laundry, sponge bath and gait with 4 wheeled walker. Over the last month, patient has been predominantly sleepy and but unable to manage for own needs such as nutrition, m edication, etc. Daughter reports the patient has been ambulatory in room including going to bathroom. Daughter reports that there is no support and will need a alternative discharge plan. PCP Dr. Duran. Denies tobacco or alcohol. Review of Systems Review of systems: ENT: Denies sneezes or discharge. Eyes: Denies discharge or photophobia. Cardiac: Denies chest pain or palpitation. Pulmonary: Denies cough or shortness of breath. Breast: Denies discharge or lumps. Gastrointestinal: Denies nausea, emesis, constipation, diarrhea. Genitourinary: Denies discharge or frequency. Musculoskeletal: Denies muscle or bone aches. Neurologic: General weakness and lethargy, speech disturbance.. Endocrine: Denies shakes or sweats. Oncology: Denies cancers. Dermatologic: Denies rash, itching, pruritus. ALLERGY/immunology: Denies sneezes, rashes. Past Medical History Past Medical History: COPD, Diabetes Mellitus, Dialysis, Eye Disorder, GERD/Reflux, Osteoarthritis (OA), Renal Disease Additional Past Medical History / Comment(s): Right Cataract, DIABETES (DIET CONTROLLED), CONSTIPATION. Hx UTI's, SCIATICA, hemodialysis Mon-Wed-Wed., uses oxygen @2l, very SOB per pt, swollen hands & feet, back pain between shoulder blades, irreg. heart rate per pt. hemodialysis fistula lt arm History of Any Multi-Drug Resistant Organisms: VRE Year Discovered:: 05/26/21 MDRO Source:: VRE URINE Past Surgical History: Hernia Repair, Joint Replacement Additional Past Surgical History / Comment(s): Right hip replacement, dialysis catheter insertion Past Anesthesia/Blood Transfusion Reactions: No Reported Reaction Past Psychological History: Depression Smoking Status: Former smoker Past Alcohol Use History: None Reported Additional Past Alcohol Use History / Comment(s): Quit smoking 8 yrs ago, smoked since age 14, 2 PPD. Past Drug Use History: None Reported - Past Family History Mother Family Medical History: No Reported History Medications and Allergies Home Medications Medication Instructions Recorded Confirmed Type Brigette-Lynn Multivitamin 1 tab PO W/SUPPER 05/02/21 05/26/21 History Temazepam 30 mg PO HS #2 cap 05/14/21 05/26/21 Rx Apixaban [Eliquis] 2.5 mg PO BID-W/MEALS 05/26/21 05/26/21 History Auryxia 210 mg PO W/SUPPER 05/26/21 05/26/21 History Pantoprazole [Protonix] 40 mg PO DAILY@0630 05/26/21 05/26/21 History Venlafaxine HCl ER [Effexor Xr] 37.5 mg PO DAILY 05/26/21 05/26/21 History oxyCODONE HCL/ACETAMINOPHEN 1 tab PO Q6HR PRN 05/26/21 05/26/21 History [Percocet 7.5-325 mg] rOPINIRole HCL [Requip] 0.25 mg PO HS 05/26/21 05/26/21 History rOPINIRole HCL [Requip] 0.25 mg PO MOWEFR PRN 05/26/21 05/26/21 History Allergies Allergy/AdvReac Type Severity Reaction Status Date / Time erythromycin base Allergy Unknown Unknown Verified 05/26/21 14:14 meloxicam Allergy Unknown Unknown Verified 05/26/21 14:14 nitrofurantoin Allergy Unknown Unknown Verified 05/26/21 14:14 [From Macrobid] nitrofurantoin Allergy Unknown Unknown Verified 05/26/21 14:14 macrocrystalline [From Macrobid] Sulfa (Sulfonamide Allergy Unknown Unknown Verified 05/26/21 14:14 Antibiotics) Physical Exam Vitals: Vital Signs Temp Pulse Resp BP Pulse Ox 05/30/21 13:44 98.2 F 114 H 16 117/82 99 05/30/21 08:38 98.3 F 111 H 16 111/77 96 05/30/21 03:12 97.8 F 108 H 18 107/76 100 05/30/21 01:40 18 05/29/21 23:37 97.6 F 117 H 18 105/75 100 05/29/21 20:00 20 05/29/21 19:49 98.3 F 118 H 20 99/66 99 05/29/21 16:50 97.4 F L 116 H 20 113/73 97 Intake and Output 05/29/21 05/30/21 05/30/21 22:59 06:59 14:59 Output Total 1 1 Balance -1 -1 Output: Stool 1 1 Other: Voiding Method Toilet Toilet # Voids 1 # Bowel Movements 1 Weight 73.5 kg 73.5 kg Skin: Atrophic, intact. General: Medium build and comfortable appearance. Head: Normocephalic, atraumatic. Eyes: Symmetric. Pupils equal round. Ears: Symmetric. Hearing within normal limits. Mouth: Clear. Neck: Supple. Carotid without bruit. Cardiac: Regular rate and rhythm. Lungs: Clear anteriorly and posteriorly. Abdomen: Soft active nontender. Extremities: Normal tone. Neurological: Mental status: Sleepy, lethargic. Aphasic. Cranial nerves: Symmetric facial tone and trapezius. Motor: Active movement all 4 limbs but less than antigravity. Sensation: Intact throughout. DTRs: Symmetric and equal throughout. Mobility: Currently very sleepy and require definite physical assistance for any bed mobility. Results CBC & Chem 7: 05/28/21 17:51 05/30/21 07:57 Labs: Abnormal Lab Results - Last 24 Hours (Table) 05/29/21 05/30/21 05/30/21 Range/Units 23:51 07:57 07:57 Creatinine 4.03 H (0.52-1.04) mg/dL Glucose 251 H (74-99) mg/dL POC Glucose (mg/dL) 116 H (75-99) mg/dL Procalcitonin 0.87 H (0.02-0.09) ng/mL 05/30/21 05/30/21 Range/Units 08:15 12:09 Creatinine (0.52-1.04) mg/dL Glucose (74-99) mg/dL POC Glucose (mg/dL) 114 H 150 H (75-99) mg/dL Procalcitonin (0.02-0.09) ng/mL Microbiology - Last 24 Hours (Table) 05/26/21 21:40 Blood Culture - Preliminary Blood No Growth after 72 hours Assessment and Plan (1) Weakness Current Visit: Yes Status: Acute Code(s): R53.1 - WEAKNESS SNOMED Code(s): 45745302 Plan: Impression: 1. Gait disturbance due to stroke result in a aphasia and generalized weakness. 2. End-stage renal failure cranial hemodialysis. 3. Cardiac disease including CABG, AF, CHF. 4. Encephalopathy. 5. Diabetes. 6. Osteoarthritis. 7. Reflux. 8. Eye disorder. Comments and plan: At this time PT, OT, CRANIOLOGIST ongoing. Daughter reports that there is no support for home and patient is obviously unable to return to home alone. Daughter stresses that alternative discharge plan must be found for patient. At this time I believe patient will require SNF placement.
[2021-05-30 16:35] LABS: Glucose,Whole Blood 93 mg/dL (75-99)
[2021-05-30] MEDS ORDERED: METOPROLOL TARTRATE 25 MG TAB PO STA (17:07)
--- NOTE | 2021-05-30 17:14 | PN ---
PROGRESS NOTE DATE OF SERVICE: 05/30/2021 REASON FOR FOLLOWUP: Pneumonia and positive urine culture. INTERVAL HISTORY: Patient is afebrile. The patient is breathing comfortably. The patient is slightly more awake and alert today. No nausea, no vomiting. No abdominal pain. No diarrhea. PHYSICAL EXAMINATION: Blood pressure 120/82 with a pulse of 126. Temperature is 97.6. She is 97% on room air. General description is an elderly female up in the bed in no distress. Respiratory system: Unlabored breathing, decreased breath sounds in the base, with no wheeze. Heart S1, S2. Regular rate and rhythm. Abdomen soft, no tenderness. LABS: BUN 15, creatinine 4.00. Procalcitonin 0.87. DIAGNOSTIC IMPRESSION/PLAN: 1. Patient admitted to the hospital with shortness of breath and cough which is multifactorial in this patient who did have a component of pneumonia, possible Gram- negative. Clinically responding to Zosyn to continue. 2. Positive cultures more likely colonization contamination. Clinically doubt urinary tract infection. No need for systemic antibiotic therapy for the same. MMODL / IJN: [id number] /
--- NOTE | 2021-05-30 18:03 | P.PN ---
Subjective Progress Note Date: 05/30/21 81 years old female who presents with With past medical history of COPD, diabetes mellitus, osteoarthritis, end-stage renal disease on hemodialysis chronic oxygen dependent on 2 L/m atrial fibrillation. She was recently discharged from the hospital after prolonged stay from 05/02-05/14 for sepsis secondary to urinary tract infection and possible pneumonia, atrial fibrillation's with RVR and acute on chronic systolic CHF with COPD exacerbation. At that time she was discharged on cefdinir to rehab. She came back from rehab 3 days ago. Last night her daughter but does not she is slower than usual, this morning she went to her appointment with oil seal assembler Dr. Mcmillan and she was very lethargic progressively got worse when she got home, she was difficult to arouse and the daughter called 911 and brought her to the emergency room also patient missed her hemodialysis today because of her illness Patient very weak and lethargic, arousable but go back to sleep, she is poor historian, daughter at bedside. On admission she was hypotensive with a blood pressure is 77/52, afebrile, slightly tachypneic 20-21 and tachycardic, hypoglycemic with oxygen 56-67, given D50 she received a bolus of 500 mL in the emergency room and her blood pressure is 93/60. her WBC IS 8.9K, hB 12.3, Platelet count is 107k, INR is 1.4, Na 133, K 4.4 creatinine is 5.7, Elevated lactic acid at 2.5 came back to normal at 1.7 elevated troponin 0.039 and high ProBNP [id number], liver enz AST AND ALT slightly elevated 67 and 60 respectively urinalysis is suspecious for infection burnham virus non detected EKG atial flutter at [address]-T changes CXR:bilateral infilterates for CHF vs Pneumonia in ED she recieved ceftriaxon and NS 500 ml nephrology and cardiology team were consulted in the evening pt became more awake and interactive with good oxygen saturation in 90s%, per shipping manager RN Objective - Vital Signs Vital signs: Vital Signs Temp 98.3 F 05/30/21 08:38 Pulse 111 H 05/30/21 08:38 Resp 16 05/30/21 08:38 BP 111/77 05/30/21 08:38 Pulse Ox 96 05/30/21 08:38 Intake & Output 05/29/21 05/30/21 05/30/21 18:59 06:59 18:59 Intake Total 240 Output Total 2 Balance 240 -2 Weight 73.5 kg 73.5 kg Intake: Oral 240 Output: Stool 2 Other: Voiding Method Toilet # Voids 2 1 # Bowel Movements 1 - Exam - Constitutional General appearance: Present: average body habitus, cooperative, no acute distress - EENT Eyes: Present: anicteric sclerae, EOMI, PERRLA, normal appearance ENT: Present: hearing grossly normal, normal oropharynx Ears: bilateral: normal - Neck Neck: Present: normal ROM. Absent: lymphadenopathy, rigidity, thyromegaly Carotids: negative: bruit present Thyroid: bilateral: normal size, negative: enlarged, nodule - Respiratory Respiratory: bilateral: CTA, negative: rales, rhonchi, wheezing - Cardiovascular Rhythm: regular Heart sounds: normal: S1, S2 Abnormal Heart Sounds: Absent: systolic murmur, diastolic murmur - Gastrointestinal General gastrointestinal: Present: normal bowel sounds, soft. Absent: distended, organomegaly, tenderness - Genitourinary Genitourinary Comment(s): deferred - Integumentary Integumentary: Present: normal turgor. Absent: jaundiced, rash, ulcer - Neurologic Neurologic: Present: CNII-XII intact. Absent: focal deficits - Musculoskeletal Musculoskeletal: Present: gait normal, strength equal bilaterally - Psychiatric Psychiatric: Present: A&O x's 3, appropriate affect, intact judgment & insight - Labs CBC & Chem 7: 05/28/21 17:51 05/30/21 07:57 Labs: Abnormal Lab Results - Last 24 Hours (Table) 05/28/21 05/29/21 05/30/21 Range/Units 17:51 23:51 07:57 Creatinine 4.03 H (0.52-1.04) mg/dL Glucose 251 H (74-99) mg/dL POC Glucose (mg/dL) 116 H (75-99) mg/dL RBC Folate >1,362 H (280 - 791) ng/mL 05/30/21 05/30/21 Range/Units 08:15 12:09 Creatinine (0.52-1.04) mg/dL Glucose (74-99) mg/dL POC Glucose (mg/dL) 114 H 150 H (75-99) mg/dL RBC Folate (280 - 791) ng/mL Microbiology - Last 24 Hours (Table) 05/26/21 21:40 Blood Culture - Preliminary Blood No Growth after 72 hours Assessment and Plan Assessment: -Severe Sepsis most probably secondary to urinary tract infection patient , possible pneumonia, urine culture is chronic rib 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 -chronic systolic CHF with ejection fraction 40-45% -Moderate tricuspid regurgitation -COPD with mild acute exacerbation -Chronic respiratory failure on home oxygen which will be continued, she is on 2 L/M at home -Pulmonary hypertension most probably secondary to COPD -Chronic kidney disease/end-stage renal disease secondary to hypertensive nephrosclerosis and also diabetic nephropathy -History of Gastroesophageal reflux disease Plan: This is a pleasant 81 years old female who presents with severe sepsis, hypoglycemic, hypotensive which is improved now Continue with D5 half normal saline with close monitoring of the blood pressure and glucose level Change antibiotics per infectious disease team Global Compensation Manager still recommending metoprolol 25 mg 3 times a day. We will defer the management of heart rate and blood pressure to cardiology team. Per the case was discussed with oil seal assembler team and they are aware about other medical problems Hemodialysis tomorrow per Nephrology team several consultants on the case including Call infectious disease, nephrology and cardiology consult Labs and medication were reviewed.. Continue same treatment. Continue with symptomatic treatment. Resume home medication. Monitor lytes and vitals. DVT and GI prophylaxis. Further recommendationsas per clinical course of the patient DVT prophylaxis: Subcutaneous heparin GI Prophylaxis: Pepcid PT/OT: Recurrent subacute rehab Again prognosis is guarded given multiple admissions with severe resistant bacteria, multiple medical problems. Discussed with staff i discussed the case with her daughter Ms. Denise Gonzales and discussed together resistant bacteria in the urine and needs to change antibiotics, her sugar and blood pressure, the MRI to rule out stroke, her medication with the Eliquis. And her prognosis, her advanced complex medical case and the need to go to rehab upon discharge, she verbalized understanding and acceptance to the management plan and all her questions were answered to her satisfaction
[2021-05-30] MEDS: ATORVASTATIN 40 MG TAB PO SCH (20:04)
[2021-05-30 20:17] LABS: Glucose,Whole Blood 138 mg/dL (75-99)
[2021-05-30] MEDS: ALPRAZolam 0.25 MG TAB PO PRN (20:50)
[2021-05-30 23:52] LABS: Glucose,Whole Blood 140 mg/dL (75-99)
[2021-05-31 03:54] LABS: Glucose,Whole Blood 101 mg/dL (75-99)
[2021-05-31] MEDS: CALCIUM ACETATE 667 MG TAB PO SCH ×3 (06:32→17:12)
[2021-05-31] MEDS: PANTOPRAZOLE 40 MG TABLET PO SCH (06:32)
[2021-05-31] MEDS: APIXABAN 2.5 MG TABLET PO SCH ×2 (06:32→17:12)
[2021-05-31] MEDS: METOPROLOL TARTRATE 25 MG TAB PO SCH ×3 (07:10→20:29)
[2021-05-31] MEDS: VENLAFAXINE HCL ER 37.5 MG CAP PO SCH (09:04)
[2021-05-31] MEDS: DEXTROSE 10% IN WATER 1,000 ML with SODIUM CHLORIDE 4MEQ/ML VIAL 153.8 MEQ IV SCH (09:04)
[2021-05-31] MEDS: PIPERACILLIN-TAZOBACTAM 3.375 GM in SODIUM CHLORIDE 0.9% 100 ML IVPB SCH ×2 (09:04→22:58)
[2021-05-31 09:39] LABS: Glucose,Whole Blood 104 mg/dL (75-99)
[2021-05-31] MEDS: AMIODARONE 200 MG TAB PO SCH ×3 (10:44→20:29)
[2021-05-31 12:07] LABS: Glucose,Whole Blood 102 mg/dL (75-99)
[2021-05-31 12:42] LABS: Calcium 9.2 mg/dL (8.4-10.2); Potassium 3.7 mmol/L (3.5-5.1)
--- NOTE | 2021-05-31 12:47 | PN ---
PROGRESS NOTE Patient is seen for followup for end-stage renal disease. She is maintained on a Wednesday, Wednesday, Wednesday schedule. This morning patient is seen. She is comfortable, denies any significant complaints. She had about 1 L of ultrafiltration yesterday with hemodialysis. PHYSICAL EXAMINATION: Blood pressure was 110/68, heart rate 111 per minute. Patient is afebrile. She does not appear to have significant lower extremity edema. KINDERGARTEN TEACHER exam grossly intact. Lungs and heart are not examined. LABS: On 05/30/2021 shows potassium 4.1, sodium 140. ASSESSMENT: 1. End-stage renal disease on hemodialysis on a Wednesday, Wednesday, Wednesday schedule. 2. Sepsis secondary to urinary tract infection and possible pneumonia maintained on antibiotics. Urine culture positive for VRE and Tami. 3. Atrial fibrillation, controlled ventricular response. 4. Chronic systolic congestive heart failure, ejection fraction 40-45% with moderate tricuspid regurgitation. 5. Chronic kidney disease mineral bone disorder. 6. New acute left frontal lobe infarct noted on MRI, being followed by Neurology. PLAN: Next dialysis on 06/02/2021. MMODL / IJN: [id number] /
[2021-05-31 12:52] LABS: Anisocytosis Moderate; HCT 44.3 % (34.0-46.0); HGB 13.5 gm/dL (11.4-16.0); Hypochromasia Marked; MCH 34.8 pg (25.0-35.0); MCHC 30.4 g/dL (31.0-37.0); MCV 114.4 fL (80.0-100.0); Macrocytosis Marked; Platelet Count 101 k/uL (150-450); Poikilocytosis Slight; RBC 3.87 m/uL (3.80-5.40); RDW 20.7 % (11.5-15.5)
--- NOTE | 2021-05-31 13:20 | P.PN ---
Subjective Progress Note Date: 05/31/21 HISTORY OF PRESENT ILLNESS: This is a pleasant 81 years old female with a past medical history of non- obstructive coronary artery disease, chronic persistant atrial fibrillation, hy pertension, dyslipidemia, COPD, type 2 diabetes mellitus, osteoarthritis, end- stage renal disease on hemodialysis MWF, former smoker. She follows in the office with Dr. Chavarria. We have been asked to see in consultation for atrial fibrillation. On exam 05/27/21 patient alert and oriented x 3. She does not remember what brought her to the hospital. She states that her daughter told her that she was at her cardiology appointment with Dr. Chavarria, she is very lethargic and weak. Yesterday patient progressively got worse, when her daughter took her home she states it was difficult to arouse the patient and the daughter called 911 and she is brought to the emergency department. At patient's appointment yesterday with Dr. Chavarria he decreased her metoprolol to 25mg BID. She was recently discharged from the hospital after prolonged stay from 05/02-05/14 for sepsis secondary to urinary tract infection and possible pneumonia. Cardiology saw her due to atrial fibrillation with RVR and acute on chronic sy stolic CHF/COPD exacerbation. Patient's beta cristi was increased to metoprolol tartrate 75mg TID and she was discharged on oral anticoagulation. Her echo in the hospital revealed impaired LV function with EF of 40-45% At that time she was discharged on antibiotics to [facility]. She states she did get dialysis Wednesday. Dialysis was missed yesterday due to patient being admitted to hospital. DIAGNOSTICS Most recent echocardiogram 05/05/2021 revealed an EF 40-45%, RV is mild to moderately enlarged, mild mitral regurgitation, moderate tricuspid regurgitation, moderate pulmonary hypertension with an RVSP 62 mmHg, small pleural effusion Last Cardiac Catheterization 03/2019 which revealed intermediate lesion involving the mid first obtuse marginal branch of the left circumflex appeared to be 60%, proximal LAD appear to have mild disease only. Left circumflex appeared to have mild disease only. 05/28/2021: Morning patient had acute new onset confusion and aphasia. Patient underwent CT brain 05/27 which revealed atrophy and chronic small vessel ischemia. No acute intracranial abnormality. 05/29/21: Patient continued to be confused. Neurology was consulted. Patient underwent MRI which revealed acute infarct posterior left frontal lobe. Moderate diffuse cerebral atrophy and chronic small vessel ischemic changes. 05/30/2021: Patient seen and examined at bedside this morning, no acute distress. She continues to be confused. She is alert and oriented to person. She appears comfortable. Denies chest pain or shortness of breath. Blood pressure 117/82, heart rate 114, afebrile, maintaining oxygen saturations 99% on 3 L nasal cannula. Patient's last dialysis was on 05/28 with 500 mg removed. Telemetry reviewed patient in atrial fibrillation HR [id number]. Laboratory data reviewed, sodium 140, potassium 4.1, BUN 15, serum creatinine 4.03. Patient curr ently maintained on Eliquis 2.5 mg twice a day, metoprolol titrate 25 mg TID, IV Zosyn, Effexor 37.5 mg daily. 05/31/2021 Patient examined this morning at the bedside. Patient appears slightly lethargic and confused. Patient remains in atrial fibrillation with heart rate in the 120s. Blood pressure 110/60. She denies chest pain or pressure. She is currently receiving metoprolol 25 mg 3 times a day. She is anticoagulated with Eliquis. PHYSICAL EXAM: VITAL SIGNS: Reviewed. GENERAL: Well-developed in no acute distress. NECK: Supple. No JVD or thyromegaly LUNGS: Respirations even and unlabored. Lungs essentially clear to auscultation bilaterally. HEART: Irregular rate and rhythm. S1 and S2 heard. Systolic murmur noted. EXTREMITIES: Normal range of motion. No clubbing or cyanosis. Peripheral pulses intact. No lower extremity edema ASSESSMENT: Altered Mental status Aphasia Acute infarct posterior left frontal lobe - seen on MRI on 05/29 UTI - urine culture +VRE and maxwell albicans Non-obstructive coronary artery disease Chronic persistant atrial fibrillation on Eliquis Elevated troponin, no consistent with acute coronary syndrome History of Hypertension- hypotensive, most likely due to increased metoprolol tartrate to 75mg TID Dyslipidemia COPD Type 2 diabetes mellitus Osteoarthritis End-stage renal disease on hemodialysis MWF PLAN: Continue current cardiac medications Continue to monitor telemetry Continue current dose of metoprolol Add amiodarone 200mg 3 times a day Further recommendations pending patient course Nurse practitioner note has been reviewed by physician. Signing provider agrees with the documented findings, assessment, and plan of care. Objective - Vital Signs Vital signs: Vital Signs Temp 97.2 F L 05/31/21 12:04 Pulse 111 H 05/31/21 12:05 Resp 19 05/31/21 12:05 BP 110/68 05/31/21 10:49 Pulse Ox 93 L 05/31/21 12:04 Intake & Output 05/30/21 05/31/21 05/31/21 18:59 06:59 18:59 Intake Total 1180 0 Output Total 1000 1 2 Balance 180 -1 -2 Weight 73.5 kg 64.5 kg Intake: Intake, IV Titration 100 Amount Piperacillin-Tazobactam 3 100 .375 gm In Sodium Chloride 0.9% 100 ml @ 25 mls/hr IVPB Q12H [facility] Rx# :[id number] Oral 1080 0 Output: Stool 1 2 Hemodialysis 1000 Other: Voiding Method Toilet Toilet # Voids 1 0 1 # Bowel Movements 1 1 - Labs CBC & Chem 7: 05/31/21 12:04 05/31/21 12:04 Labs: Abnormal Lab Results - Last 24 Hours (Table) 05/30/21 05/30/21 05/30/21 Range/Units 07:57 20:15 23:50 MCV (80.0-100.0) fL MCHC (31.0-37.0) g/dL RDW (11.5-15.5) % Plt Count (150-450) k/uL Macrocytosis Chloride (98-107) mmol/L Carbon Dioxide (22-30) mmol/L Creatinine (0.52-1.04) mg/dL Glucose (74-99) mg/dL POC Glucose (mg/dL) 138 H 140 H (75-99) mg/dL C-Reactive Protein (<1.0) mg/dL Procalcitonin 0.87 H (0.02-0.09) ng/mL 05/31/21 05/31/21 05/31/21 Range/Units 03:53 09:38 12:04 MCV 114.4 H (80.0-100.0) fL MCHC 30.4 L (31.0-37.0) g/dL RDW 20.7 H (11.5-15.5) % Plt Count 101 L (150-450) k/uL Macrocytosis Marked A Chloride (98-107) mmol/L Carbon Dioxide (22-30) mmol/L Creatinine (0.52-1.04) mg/dL Glucose (74-99) mg/dL POC Glucose (mg/dL) 101 H 104 H (75-99) mg/dL C-Reactive Protein (<1.0) mg/dL Procalcitonin (0.02-0.09) ng/mL 05/31/21 05/31/21 Range/Units 12:04 12:05 MCV (80.0-100.0) fL MCHC (31.0-37.0) g/dL RDW (11.5-15.5) % Plt Count (150-450) k/uL Macrocytosis Chloride 111 H (98-107) mmol/L Carbon Dioxide 21 L (22-30) mmol/L Creatinine 3.43 H (0.52-1.04) mg/dL Glucose 100 H (74-99) mg/dL POC Glucose (mg/dL) 102 H (75-99) mg/dL C-Reactive Protein 2.0 H (<1.0) mg/dL Procalcitonin (0.02-0.09) ng/mL Microbiology - Last 24 Hours (Table) 05/26/21 21:40 Blood Culture - Preliminary Blood No Growth after 96 hours
[2021-05-31 14:15] LABS: Band Neutrophils % 1 %; Eosinophils # (M) 0.07 k/uL (0-0.7); Myelocytes # (M) 0.07 k/uL (0); Myelocytes % 1 %; Neutrophils % (M) 82 %; Nucleated Red Blood Cells 3 /100 WBC (0-0); Total Cells Counted 200
[2021-05-31 14:16] LABS: Lymphocytes # (M) 0.66 k/uL (1.0-4.8); Monocytes # (M) 0.46 k/uL (0-1.0); WBC 6.6 k/uL (3.8-10.6)
--- NOTE | 2021-05-31 16:05 | PN ---
PROGRESS NOTE DATE OF SERVICE: 05/31/2021 REASON FOR FOLLOWUP: Pneumonia. INTERVAL HISTORY: The patient is afebrile. The patient is breathing comfortably. The patient denies having any chest pain. No shortness of breath or any worsening cough. No abdominal pain or diarrhea. PHYSICAL EXAMINATION: Blood pressure is 110/68 with a pulse of 111, temp is 97.9%. She is 93% on 3 L nasal cannula. General description is an elderly female up in the chair in no distress. Respiratory system: Unlabored breathing, decreased breath sounds. No wheeze or crackle. Heart S1, S2. Regular rate and rhythm. Abdomen soft, no tenderness. LABS: Hemoglobin is 13.1, white count 6.6, BUN of 12, creatinine 3.43. DIAGNOSTIC IMPRESSION AND PLAN: 1. Patient with a component of pneumonia, question of gram-negative. Patient responding to Zosyn, to continue. Transition to a short course of oral Avelox on discharge/. 2. Positive urine culture, more likely colonization or contamination, no need for any therapy for the same. MMODL / IJN: [id number] /
[2021-05-31 16:08] LABS: Glucose,Whole Blood 169 mg/dL (75-99)
[2021-05-31] MEDS: ALPRAZolam 0.25 MG TAB PO PRN (20:29)
[2021-05-31] MEDS: ATORVASTATIN 40 MG TAB PO SCH (20:29)
[2021-05-31] MEDS: SYMBICORT 80-4.5 MCG INHALER INHALATION SCH (20:30)
[2021-05-31] MEDS: IPRATROPIUM 0.5 MG/2.5 ML NEBU INHALATION SCH (20:30)
[2021-06-01 00:10] LABS: Glucose,Whole Blood 127 mg/dL (75-99)
[2021-06-01] MEDS: DEXTROSE 10% IN WATER 1,000 ML with SODIUM CHLORIDE 4MEQ/ML VIAL 153.8 MEQ IV SCH (03:30)
[2021-06-01 05:41] LABS: Glucose,Whole Blood 115 mg/dL (75-99)
[2021-06-01] MEDS: APIXABAN 2.5 MG TABLET PO SCH ×2 (06:18→17:39)
[2021-06-01] MEDS: PANTOPRAZOLE 40 MG TABLET PO SCH (06:18)
[2021-06-01] MEDS: CALCIUM ACETATE 667 MG TAB PO SCH ×3 (06:19→17:39)
[2021-06-01 08:06] LABS: Glucose,Whole Blood 163 mg/dL (75-99)
[2021-06-01] MEDS: IPRATROPIUM 0.5 MG/2.5 ML NEBU INHALATION SCH ×4 (08:30→20:07)
[2021-06-01] MEDS: SYMBICORT 80-4.5 MCG INHALER INHALATION SCH ×2 (08:30→20:07)
[2021-06-01 08:49] LABS: Calcium 9.2 mg/dL (8.4-10.2); Potassium 3.8 mmol/L (3.5-5.1)
[2021-06-01] MEDS: METOPROLOL TARTRATE 25 MG TAB PO SCH ×3 (08:58→21:16)
[2021-06-01] MEDS: AMIODARONE 200 MG TAB PO SCH ×3 (08:58→21:16)
[2021-06-01] MEDS: VENLAFAXINE HCL ER 37.5 MG CAP PO SCH (08:58)
[2021-06-01 09:49] LABS: Anisocytosis Moderate; HCT 43.9 % (34.0-46.0); HGB 13.4 gm/dL (11.4-16.0); Hypochromasia Marked; MCHC 30.6 g/dL (31.0-37.0); MCV 114.4 fL (80.0-100.0); Macrocytosis Marked; Poikilocytosis Slight; RBC 3.84 m/uL (3.80-5.40); RDW 20.5 % (11.5-15.5)
[2021-06-01 10:56] LABS: Eosinophils # (M) 0.08 k/uL (0-0.7); Neutrophils % (M) 75 %; Nucleated Red Blood Cells 1 /100 WBC (0-0); Total Cells Counted 200
[2021-06-01 10:57] LABS: Lymphocytes # (M) 1.09 k/uL (1.0-4.8); Monocytes # (M) 0.86 k/uL (0-1.0); Neutrophils # (M) 5.85 k/uL (1.3-7.7); WBC 7.8 k/uL (3.8-10.6)
[2021-06-01 11:01] LABS: Platelet Count 94 k/uL (150-450)
--- NOTE | 2021-06-01 11:29 | P.PN ---
Subjective Progress Note Date: 05/31/21 Principal diagnosis: Acute CVA- acute left frontal infarct Severe sepsis secondary to UTI/possible pneumonia Hypoglycemia Hypotension possibly related to sepsis 81 years old female who presents with With past medical history of COPD, diabetes mellitus, osteoarthritis, end-stage renal disease on hemodialysis chronic oxygen dependent on 2 L/m atrial fibrillation. She was recently discharged from the hospital after prolonged stay from 05/02-05/14 for sepsis secondary to urinary tract infection and possible pneumonia, atrial fibrillation's with RVR and acute on chronic systolic CHF with COPD exacerbation. At that time she was discharged on cefdinir to rehab. She came back from rehab 3 days ago. Last night her daughter but does not she is slower than usual, this morning she went to her appointment with bag washer Dr. Mcmillan and she was very lethargic progressively got worse when she got home, she was difficult to arouse and the daughter called 911 and brought her to the emergency room also patient missed her hemodialysis today because of her illness Patient very weak and lethargic, arousable but go back to sleep, she is poor historian, daughter at bedside. On admission she was hypotensive with a blood pressure is 77/52, afebrile, slightly tachypneic 20-21 and tachycardic, hypoglycemic with oxygen 56-67, given D50 she received a bolus of 500 mL in the emergency room and her blood pressure is 93/60. her WBC IS 8.9K, hB 12.3, Platelet count is 107k, INR is 1.4, Na 133, K 4.4 creatinine is 5.7, Elevated lactic acid at 2.5 came back to normal at 1.7 elevated troponin 0.039 and high ProBNP 32365, liver enz AST AND ALT slightly elevated 67 and 60 respectively urinalysis is suspecious for infection burnham virus non detected EKG atial flutter at [address]-T changes CXR:bilateral infilterates for CHF vs Pneumonia in ED she recieved ceftriaxon and NS 500 ml nephrology and cardiology team were consulted in the evening pt became more awake and interactive with good oxygen saturation in 90s%, per overnight babysitter RN 05/31/2021 Patient is seen and evaluated with family at bedside; family reports patient's lack of medical insurance; patient has been recommended inpatient rehab Vital signs are reviewed and are stable . Blood pressure 110/68, pulse 111, temperature 97.9 and O2 saturation of 93% on 3 L Laboratory review shows a hemoglobin of 13.1, WBC 6.6, BUN/creatinine of 12/20.43 Patient remains on IV Zosyn for Pneumonia possibly gram-negative; ID on board and recommending to transition to oral antibiotics in form of Avelox at time of discharge; positive urine culture most likely contamination per ID nor therapy is recommended PT, OT, RELATIONS SPECIALIST ongoing. Daughter reports that there is no support for home. Patient is recommended SNF placement. Objective - Vital Signs Vital signs: Vital Signs Temp 97.2 F L 05/31/21 10:49 Pulse 111 H 05/31/21 10:49 Resp 19 05/31/21 10:49 BP 110/68 05/31/21 10:49 Pulse Ox 93 L 05/31/21 10:49 Intake & Output 05/30/21 05/31/21 05/31/21 18:59 06:59 18:59 Intake Total 1180 0 Output Total 1000 1 1 Balance 180 -1 -1 Weight 73.5 kg 64.5 kg Intake: Intake, IV Titration 100 Amount Piperacillin-Tazobactam 3 100 .375 gm In Sodium Chloride 0.9% 100 ml @ 25 mls/hr IVPB Q12H [facility] Rx# :[id number] Oral 1080 0 Output: Stool 1 1 Hemodialysis 1000 Other: Voiding Method Toilet Toilet # Voids 1 0 # Bowel Movements 1 1 - Exam - Constitutional General appearance: Present: average body habitus, cooperative, no acute distress - EENT Eyes: Present: anicteric sclerae, EOMI, PERRLA, normal appearance ENT: Present: hearing grossly normal, normal oropharynx Ears: bilateral: normal - Neck Neck: Present: normal ROM. Absent: lymphadenopathy, rigidity, thyromegaly Carotids: negative: bruit present Thyroid: bilateral: normal size, negative: enlarged, nodule - Respiratory Respiratory: bilateral: CTA, negative: rales, rhonchi, wheezing - Cardiovascular Rhythm: regular Heart sounds: normal: S1, S2 Abnormal Heart Sounds: Absent: systolic murmur, diastolic murmur - Gastrointestinal General gastrointestinal: Present: normal bowel sounds, soft. Absent: distended, organomegaly, tenderness - Genitourinary Genitourinary Comment(s): deferred - Integumentary Integumentary: Present: normal turgor. Absent: jaundiced, rash, ulcer - Neurologic Neurologic: Present: CNII-XII intact. Absent: focal deficits - Musculoskeletal Musculoskeletal: Present: gait normal, strength equal bilaterally - Psychiatric Psychiatric: Present: A&O x's 3, appropriate affect, intact judgment & insight - Labs CBC & Chem 7: 06/01/21 07:51 06/01/21 07:51 Labs: Abnormal Lab Results - Last 24 Hours (Table) 05/30/21 05/30/21 05/30/21 Range/Units 07:57 12:09 20:15 POC Glucose (mg/dL) 150 H 138 H (75-99) mg/dL Procalcitonin 0.87 H (0.02-0.09) ng/mL 05/30/21 05/31/21 05/31/21 Range/Units 23:50 03:53 09:38 POC Glucose (mg/dL) 140 H 101 H 104 H (75-99) mg/dL Procalcitonin (0.02-0.09) ng/mL Microbiology - Last 24 Hours (Table) 05/26/21 21:40 Blood Culture - Preliminary Blood No Growth after 96 hours Assessment and Plan Assessment: -Severe Sepsis most probably secondary to urinary tract infection patient , possible pneumonia, urine culture is 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 -chronic systolic CHF with ejection fraction 40-45% -Moderate tricuspid regurgitation -COPD with mild acute exacerbation -Chronic respiratory failure on home oxygen which will be continued, she is on 2 L/M at home -Pulmonary hypertension most probably secondary to COPD -Chronic kidney disease/end-stage renal disease secondary to hypertensive nephrosclerosis and also diabetic nephropathy -History of Gastroesophageal reflux disease Plan: This is a pleasant 81 years old female who presents with severe sepsis, hypoglycemic, hypotensive which is improved now Continue with D5 half normal saline with close monitoring of the blood pressure and glucose level Change antibiotics per infectious disease team Online Retailer still recommending metoprolol 25 mg 3 times a day. We will defer the management of heart rate and blood pressure to cardiology team. Per the case was discussed with bag washer team and they are aware about other medical problems Hemodialysis tomorrow per Nephrology team several consultants on the case including Call infectious disease, nephrology and cardiology consult Labs and medication were reviewed.. Continue same treatment. Continue with symptomatic treatment. Resume home medication. Monitor lytes and vitals. DVT and GI prophylaxis. Further recommendationsas per clinical course of the micheal ent DVT prophylaxis: Subcutaneous heparin GI Prophylaxis: Pepcid PT/OT: Recurrent subacute rehab Again prognosis is guarded given multiple admissions with severe resistant bacteria, multiple medical problems. Discussed with staff i discussed the case with her daughter Ms. Denise Gonzales and discussed together resistant bacteria in the urine and needs to change antibiotics, her sugar and blood pressure, the MRI to rule out stroke, her medication with the Eliquis. And her prognosis, her advanced complex medical case and the need to go to rehab upon discharge, she verbalized understanding and acceptance to the management plan and all her questions were answered to her satisfaction
[2021-06-01 11:47] LABS: Glucose,Whole Blood 153 mg/dL (75-99)
[2021-06-01 11:53] LABS: Glucose,Whole Blood 187 mg/dL (75-99)
[2021-06-01] MEDS: PIPERACILLIN-TAZOBACTAM 3.375 GM in SODIUM CHLORIDE 0.9% 100 ML IVPB SCH ×2 (12:09→23:44)
--- NOTE | 2021-06-01 14:36 | P.PN ---
Subjective Progress Note Date: 06/01/21 HISTORY OF PRESENT ILLNESS: This is a pleasant 81 years old female with a past medical history of non- obstructive coronary artery disease, chronic persistant atrial fibrillation, hy pertension, dyslipidemia, COPD, type 2 diabetes mellitus, osteoarthritis, end- stage renal disease on hemodialysis MWF, former smoker. She follows in the office with Dr. Chavarria. We have been asked to see in consultation for atrial fibrillation. On exam 05/27/21 patient alert and oriented x 3. She does not remember what brought her to the hospital. She states that her daughter told her that she was at her cardiology appointment with Dr. Chavarria, she is very lethargic and weak. Yesterday patient progressively got worse, when her daughter took her home she states it was difficult to arouse the patient and the daughter called 911 and she is brought to the emergency department. At patient's appointment yesterday with Dr. Chavarria he decreased her metoprolol to 25mg BID. She was recently discharged from the hospital after prolonged stay from 05/02-05/14 for sepsis secondary to urinary tract infection and possible pneumonia. Cardiology saw her due to atrial fibrillation with RVR and acute on chronic sy stolic CHF/COPD exacerbation. Patient's beta cristi was increased to metoprolol tartrate 75mg TID and she was discharged on oral anticoagulation. Her echo in the hospital revealed impaired LV function with EF of 40-45% At that time she was discharged on antibiotics to [facility]. She states she did get dialysis Wednesday. Dialysis was missed yesterday due to patient being admitted to hospital. DIAGNOSTICS Most recent echocardiogram 05/05/2021 revealed an EF 40-45%, RV is mild to moderately enlarged, mild mitral regurgitation, moderate tricuspid regurgitation, moderate pulmonary hypertension with an RVSP 62 mmHg, small pleural effusion Last Cardiac Catheterization 03/2019 which revealed intermediate lesion involving the mid first obtuse marginal branch of the left circumflex appeared to be 60%, proximal LAD appear to have mild disease only. Left circumflex appeared to have mild disease only. 05/28/2021: Morning patient had acute new onset confusion and aphasia. Patient underwent CT brain 05/27 which revealed atrophy and chronic small vessel ischemia. No acute intracranial abnormality. 05/29/21: Patient continued to be confused. Neurology was consulted. Patient underwent MRI which revealed acute infarct posterior left frontal lobe. Moderate diffuse cerebral atrophy and chronic small vessel ischemic changes. 05/30/2021: Patient seen and examined at bedside this morning, no acute distress. She continues to be confused. She is alert and oriented to person. She appears comfortable. Denies chest pain or shortness of breath. Blood pressure 117/82, heart rate 114, afebrile, maintaining oxygen saturations 99% on 3 L nasal cannula. Patient's last dialysis was on 05/28 with 500 mg removed. Telemetry reviewed patient in atrial fibrillation HR [id number]. Laboratory data reviewed, sodium 140, potassium 4.1, BUN 15, serum creatinine 4.03. Patient curr ently maintained on Eliquis 2.5 mg twice a day, metoprolol titrate 25 mg TID, IV Zosyn, Effexor 37.5 mg daily. 05/31/2021 Patient examined this morning at the bedside. Patient appears slightly lethargic and confused. Patient remains in atrial fibrillation with heart rate in the 120s. Blood pressure 110/60. She denies chest pain or pressure. She is currently receiving metoprolol 25 mg 3 times a day. She is anticoagulated with Eliquis. 06/01/2021 Patient examined this morning at the bedside. Patient remains in atrial fibrillation with a heart rate around 110. Amiodarone was added to patient's medication regimen yesterday. Patient's blood pressures are running on the lower side with a systolic around 100. PHYSICAL EXAM: VITAL SIGNS: Reviewed. GENERAL: Well-developed in no acute distress. NECK: Supple. No JVD or thyromegaly LUNGS: Respirations even and unlabored. Lungs essentially clear to auscultation bilaterally. HEART: Irregular rate and rhythm. S1 and S2 heard. Systolic murmur noted. EXTREMITIES: Normal range of motion. No clubbing or cyanosis. Peripheral pulses intact. No lower extremity edema ASSESSMENT: Altered Mental status Aphasia Acute infarct posterior left frontal lobe - seen on MRI on 05/29 UTI - urine culture +VRE and maxwell albicans Non-obstructive coronary artery disease Chronic persistant atrial fibrillation on Eliquis Elevated troponin, no consistent with acute coronary syndrome History of Hypertension- hypotensive, most likely due to increased metoprolol tartrate to 75mg TID Dyslipidemia COPD Type 2 diabetes mellitus Osteoarthritis End-stage renal disease on hemodialysis MWF PLAN: Continue current cardiac medications Continue to monitor telemetry Continue current dose of metoprolol Continue amiodarone 200mg 3 times a day Further recommendations pending patient course Nurse practitioner note has been reviewed by physician. Signing provider agrees with the documented findings, assessment, and plan of care. Objective - Vital Signs Vital signs: Vital Signs Temp 97.4 F L 06/01/21 08:00 Pulse 111 H 06/01/21 08:00 Resp 19 06/01/21 08:00 BP 108/85 06/01/21 08:00 Pulse Ox 94 L 06/01/21 08:00 Intake & Output 05/31/21 06/01/21 06/01/21 18:59 06:59 18:59 Intake Total 354 598 Output Total 2 2 1 Balance 352 -2 597 Intake: Oral 354 598 Output: Stool 2 2 1 Other: Voiding Method Toilet Toilet Toilet # Voids 1 # Bowel Movements 1 1 - Labs CBC & Chem 7: 06/01/21 07:51 06/01/21 07:51 Labs: Abnormal Lab Results - Last 24 Hours (Table) 05/31/21 05/31/21 05/31/21 Range/Units 12:04 16:06 20:00 MCV (80.0-100.0) fL MCHC (31.0-37.0) g/dL RDW (11.5-15.5) % Plt Count (150-450) k/uL Nucleated RBCs (0-0) /100 WBC Macrocytosis Chloride (98-107) mmol/L Carbon Dioxide (22-30) mmol/L Creatinine (0.52-1.04) mg/dL Glucose (74-99) mg/dL POC Glucose (mg/dL) 169 H 187 H (75-99) mg/dL Procalcitonin 0.64 H (0.02-0.09) ng/mL 06/01/21 06/01/21 06/01/21 Range/Units 00:04 05:39 07:51 MCV 114.4 H (80.0-100.0) fL MCHC 30.6 L (31.0-37.0) g/dL RDW 20.5 H (11.5-15.5) % Plt Count 94 L (150-450) k/uL Nucleated RBCs 1 H (0-0) /100 WBC Macrocytosis Marked A Chloride (98-107) mmol/L Carbon Dioxide (22-30) mmol/L Creatinine (0.52-1.04) mg/dL Glucose (74-99) mg/dL POC Glucose (mg/dL) 127 H 115 H (75-99) mg/dL Procalcitonin (0.02-0.09) ng/mL 06/01/21 06/01/21 06/01/21 Range/Units 07:51 08:04 11:46 MCV (80.0-100.0) fL MCHC (31.0-37.0) g/dL RDW (11.5-15.5) % Plt Count (150-450) k/uL Nucleated RBCs (0-0) /100 WBC Macrocytosis Chloride 109 H (98-107) mmol/L Carbon Dioxide 21 L (22-30) mmol/L Creatinine 3.93 H (0.52-1.04) mg/dL Glucose 125 H (74-99) mg/dL POC Glucose (mg/dL) 163 H 153 H (75-99) mg/dL Procalcitonin (0.02-0.09) ng/mL Microbiology - Last 24 Hours (Table) 05/26/21 21:40 Blood Culture - Preliminary Blood No Growth after 120 hours
[2021-06-01 16:00] LABS: Glucose,Whole Blood 134 mg/dL (75-99)
[2021-06-01] MEDS: SODIUM CHLORIDE 0.9% 1,000 ML IV SCH (16:00)
--- NOTE | 2021-06-01 17:45 | P.PN ---
Subjective Progress Note Date: 06/01/21 Principal diagnosis: Acute CVA- acute left frontal infarct Severe sepsis secondary to UTI/possible pneumonia Hypoglycemia Hypotension possibly related to sepsis 81 years old female who presents with With past medical history of COPD, diabetes mellitus, osteoarthritis, end-stage renal disease on hemodialysis chronic oxygen dependent on 2 L/m atrial fibrillation. She was recently discharged from the hospital after prolonged stay from 05/02-05/14 for sepsis secondary to urinary tract infection and possible pneumonia, atrial fibrillation's with RVR and acute on chronic systolic CHF with COPD exacerbation. At that time she was discharged on cefdinir to rehab. She came back from rehab 3 days ago. Last night her daughter but does not she is slower than usual, this morning she went to her appointment with regional operations director Dr. Mcmillan and she was very lethargic progressively got worse when she got home, she was difficult to arouse and the daughter called 911 and brought her to the emergency room also patient missed her hemodialysis today because of her illness Patient very weak and lethargic, arousable but go back to sleep, she is poor historian, daughter at bedside. On admission she was hypotensive with a blood pressure is 77/52, afebrile, slightly tachypneic 20-21 and tachycardic, hypoglycemic with oxygen 56-67, given D50 she received a bolus of 500 mL in the emergency room and her blood pressure is 93/60. her WBC IS 8.9K, hB 12.3, Platelet count is 107k, INR is 1.4, Na 133, K 4.4 creatinine is 5.7, Elevated lactic acid at 2.5 came back to normal at 1.7 elevated troponin 0.039 and high ProBNP 74469, liver enz AST AND ALT slightly elevated 67 and 60 respectively urinalysis is suspecious for infection burnham virus non detected EKG atial flutter at [address]-T changes CXR:bilateral infilterates for CHF vs Pneumonia in ED she recieved ceftriaxon and NS 500 ml nephrology and cardiology team were consulted in the evening pt became more awake and interactive with good oxygen saturation in 90s%, per sugar presser RN 05/31/2021 Patient is seen and evaluated with family at bedside; family reports patient's lack of medical insurance; patient has been recommended inpatient rehab Vital signs are reviewed and are stable . Blood pressure 110/68, pulse 111, temperature 97.9 and O2 saturation of 93% on 3 L Laboratory review shows a hemoglobin of 13.1, WBC 6.6, BUN/creatinine of 12/20.43 Patient remains on IV Zosyn for Pneumonia possibly gram-negative; ID on board and recommending to transition to oral antibiotics in form of Avelox at time of discharge; positive urine culture most likely contamination per ID nor therapy is recommended PT, OT, MANAGER IMMUNOLOGY ongoing. Daughter reports that there is no support for home. Patient is recommended SNF placement. 06/01/2021 Patient is seen and evaluated with family members at bedside; denies any specific complaints at this time Vital signs are reviewed and remained stable Patient remains on aspirin and statin therapy for acute left frontal lobe infarct; has been evaluated by PT/OT and is recommended skilled rehab Atrial fibrillation; heart rate does jump up to 110; cardiology recommending to continue with current dose of metoprolol and amiodarone 200 mg 3 times a day UTI; urine culture reveals twice a day and Tami; ID on board; await further recommendations for IV antibiotics Objective - Vital Signs Vital signs: Vital Signs Temp 97.4 F L 06/01/21 08:00 Pulse 111 H 06/01/21 08:00 Resp 19 06/01/21 08:00 BP 108/85 06/01/21 08:00 Pulse Ox 94 L 06/01/21 08:00 Intake & Output 05/31/21 06/01/21 06/01/21 18:59 06:59 18:59 Intake Total 354 360 Output Total 2 2 1 Balance 352 -2 359 Intake: Oral 354 360 Output: Stool 2 2 1 Other: Voiding Method Toilet Toilet Toilet # Voids 1 # Bowel Movements 1 - Exam - Constitutional General appearance: Present: average body habitus, cooperative, no acute distress - EENT Eyes: Present: anicteric sclerae, EOMI, PERRLA, normal appearance ENT: Present: hearing grossly normal, normal oropharynx Ears: bilateral: normal - Neck Neck: Present: normal ROM. Absent: lymphadenopathy, rigidity, thyromegaly Carotids: negative: bruit present Thyroid: bilateral: normal size, negative: enlarged, nodule - Respiratory Respiratory: bilateral: CTA, negative: rales, rhonchi, wheezing - Cardiovascular Rhythm: regular Heart sounds: normal: S1, S2 Abnormal Heart Sounds: Absent: systolic murmur, diastolic murmur - Gastrointestinal General gastrointestinal: Present: normal bowel sounds, soft. Absent: distended, organomegaly, tenderness - Genitourinary Genitourinary Comment(s): deferred - Integumentary Integumentary: Present: normal turgor. Absent: jaundiced, rash, ulcer - Neurologic Neurologic: Present: CNII-XII intact. Absent: focal deficits - Musculoskeletal Musculoskeletal: Present: gait normal, strength equal bilaterally - Psychiatric Psychiatric: Present: A&O x's 3, appropriate affect, intact judgment & insight - Labs CBC & Chem 7: 06/01/21 07:51 06/01/21 07:51 Labs: Abnormal Lab Results - Last 24 Hours (Table) 05/31/21 05/31/21 05/31/21 Range/Units 12:04 12:04 16:06 MCV (80.0-100.0) fL MCHC (31.0-37.0) g/dL RDW (11.5-15.5) % Plt Count (150-450) k/uL Lymphocytes # (Manual) 0.66 L (1.0-4.8) k/uL Myelocytes # (Manual) 0.07 H (0) k/uL Nucleated RBCs 3 H (0-0) /100 WBC Macrocytosis Chloride (98-107) mmol/L Carbon Dioxide (22-30) mmol/L Creatinine (0.52-1.04) mg/dL Glucose (74-99) mg/dL POC Glucose (mg/dL) 169 H (75-99) mg/dL Procalcitonin 0.64 H (0.02-0.09) ng/mL 05/31/21 06/01/21 06/01/21 Range/Units 20:00 00:04 05:39 MCV (80.0-100.0) fL MCHC (31.0-37.0) g/dL RDW (11.5-15.5) % Plt Count (150-450) k/uL Lymphocytes # (Manual) (1.0-4.8) k/uL Myelocytes # (Manual) (0) k/uL Nucleated RBCs (0-0) /100 WBC Macrocytosis Chloride (98-107) mmol/L Carbon Dioxide (22-30) mmol/L Creatinine (0.52-1.04) mg/dL Glucose (74-99) mg/dL POC Glucose (mg/dL) 187 H 127 H 115 H (75-99) mg/dL Procalcitonin (0.02-0.09) ng/mL 06/01/21 06/01/21 06/01/21 Range/Units 07:51 07:51 08:04 MCV 114.4 H (80.0-100.0) fL MCHC 30.6 L (31.0-37.0) g/dL RDW 20.5 H (11.5-15.5) % Plt Count 94 L (150-450) k/uL Lymphocytes # (Manual) (1.0-4.8) k/uL Myelocytes # (Manual) (0) k/uL Nucleated RBCs 1 H (0-0) /100 WBC Macrocytosis Marked A Chloride 109 H (98-107) mmol/L Carbon Dioxide 21 L (22-30) mmol/L Creatinine 3.93 H (0.52-1.04) mg/dL Glucose 125 H (74-99) mg/dL POC Glucose (mg/dL) 163 H (75-99) mg/dL Procalcitonin (0.02-0.09) ng/mL 06/01/21 Range/Units 11:46 MCV (80.0-100.0) fL MCHC (31.0-37.0) g/dL RDW (11.5-15.5) % Plt Count (150-450) k/uL Lymphocytes # (Manual) (1.0-4.8) k/uL Myelocytes # (Manual) (0) k/uL Nucleated RBCs (0-0) /100 WBC Macrocytosis Chloride (98-107) mmol/L Carbon Dioxide (22-30) mmol/L Creatinine (0.52-1.04) mg/dL Glucose (74-99) mg/dL POC Glucose (mg/dL) 153 H (75-99) mg/dL Procalcitonin (0.02-0.09) ng/mL Microbiology - Last 24 Hours (Table) 05/26/21 21:40 Blood Culture - Preliminary Blood No Growth after 120 hours Assessment and Plan Assessment: -Severe Sepsis most probably secondary to urinary tract infection patient , possible pneumonia, urine culture is chronic rib D enterococcus which is VRE and tami albicans -Atrial fibrillation with rate controlled, is on eliquis, metoprolol 75 mg 3 times a day per Cardiology team recommendation, supposed to get cardioversion with -Hypotension and hypoglycemia, currently improved blood pressure and glucose levels are stable -Altered mental status, most likely secondary to sepsis, it has also multifactorial effect for example hypoglycemia and hypotension on admission, since admissions her sugars been corrected and his blood pressure was stable. -chronic systolic CHF with ejection fraction 40-45% -Moderate tricuspid regurgitation -COPD with mild acute exacerbation -Chronic respiratory failure on home oxygen which will be continued, she is on 2 L/M at home -Pulmonary hypertension most probably secondary to COPD -Chronic kidney disease/end-stage renal disease secondary to hypertensive nephrosclerosis and also diabetic nephropathy -History of Gastroesophageal reflux disease Plan: This is a pleasant 81 years old female who presents with severe sepsis, hypoglycemic, hypotensive which is improved now Continue with D5 half normal saline with close monitoring of the blood pressure and glucose level Change antibiotics per infectious disease team Senior Care Manager still recommending metoprolol 25 mg 3 times a day. We will defer the management of heart rate and blood pressure to cardiology team. Per the case was discussed with regional operations director team and they are aware about other medical problems Hemodialysis tomorrow per Nephrology team several consultants on the case including Call infectious disease, nephrology and cardiology consult Labs and medication were reviewed.. Continue same treatment. Continue with symptomatic treatment. Resume home medication. Monitor lytes and vitals. DVT and GI prophylaxis. Further recommendationsas per clinical course of the patient DVT prophylaxis: Subcutaneous heparin GI Prophylaxis: Pepcid PT/OT: Recurrent subacute rehab Again prognosis is guarded given multiple admissions with severe resistant bacteria, multiple medical problems. Discussed with staff i discussed the case with her daughter Ms. Denise Gonzales and discussed together resistant bacteria in the urine and needs to change antibiotics, her sugar and blood pressure, the MRI to rule out stroke, her medication with the Eliquis. And her prognosis, her advanced complex medical case and the need to go to rehab upon discharge, she verbalized understanding and acceptance to the management plan and all her questions were answered to her satisfaction
--- NOTE | 2021-06-01 17:52 | PN ---
PROGRESS NOTE DATE OF SERVICE: 06/01/2021. REASON FOR FOLLOW UP: Pneumonia. INTERVAL HISTORY: Patient is afebrile. The patient is breathing comfortably. The patient is sleepy and lethargic today per the daughter at the bedside. No vomiting or diarrhea has been reported. PHYSICAL EXAMINATION: Blood pressure 108/85 with a pulse of 73, temperature 97.4. She is 94% on 3 L. General description is an elderly female lying in bed in no distress. Respiratory system: Unlabored breathing, decreased breath sounds at bases. No wheeze. Heart: S1, S2. Regular rate and rhythm. Abdomen: Soft, no tenderness. LABS: Hemoglobin 13.4, white count 7.8. BUN of 17, creatinine 0.93. DIAGNOSTIC IMPRESSION AND PLAN: 1. Patient admitted to the hospital with shortness of breath in this patient who did have evidence of bilateral lower lobe pneumonia, possible Gram-negative. The patient has clinically responded to the Zosyn and did have a drop in procalcitonin. She will continue Zosyn to finish a 7-10 day course of therapy. 2. Positive blood culture likely contamination colonization, no need for any treatment for the same. MMODL / IJN: [id number] /
[2021-06-01 20:01] LABS: Glucose,Whole Blood 118 mg/dL (75-99)
[2021-06-01] MEDS: ATORVASTATIN 40 MG TAB PO SCH (21:16)
[2021-06-01 23:49] LABS: Glucose,Whole Blood 110 mg/dL (75-99)
[2021-06-02 03:54] LABS: Glucose,Whole Blood 83 mg/dL (75-99)
[2021-06-02] MEDS: PANTOPRAZOLE 40 MG TABLET PO SCH (06:52)
[2021-06-02] MEDS: APIXABAN 2.5 MG TABLET PO SCH ×2 (06:52→20:56)
[2021-06-02] MEDS: CALCIUM ACETATE 667 MG TAB PO SCH ×3 (06:52→17:21)
[2021-06-02] MEDS: IPRATROPIUM 0.5 MG/2.5 ML NEBU INHALATION SCH ×4 (07:33→21:21)
[2021-06-02] MEDS: SYMBICORT 80-4.5 MCG INHALER INHALATION SCH ×2 (07:33→21:20)
[2021-06-02 08:11] LABS: Glucose,Whole Blood 87 mg/dL (75-99)
[2021-06-02] MEDS: VENLAFAXINE HCL ER 37.5 MG CAP PO SCH (08:56)
[2021-06-02] MEDS: METOPROLOL TARTRATE 25 MG TAB PO SCH (08:56)
[2021-06-02] MEDS: AMIODARONE 200 MG TAB PO SCH ×3 (08:56→20:57)
[2021-06-02 09:47] LABS: Anisocytosis Moderate; Basophils # (A) 0.1 k/uL (0-0.2); Basophils % (A) 1 %; Eosinophils # (A) 0.1 k/uL (0-0.7); Eosinophils % (A) 2 %; HCT 45.8 % (34.0-46.0); HGB 13.4 gm/dL (11.4-16.0); Hypochromasia Marked; Lymphocytes # (A) 0.9 k/uL (1.0-4.8); Lymphocytes % (A) 11 %; MCH 34.2 pg (25.0-35.0); MCHC 29.3 g/dL (31.0-37.0); MCV 116.9 fL (80.0-100.0); Macrocytosis Marked; Mean Platelet Volume 9.3; Monocytes # (A) 0.5 k/uL (0-1.0); Monocytes % (A) 7 %; Neutrophils % (A) 77 %; Poikilocytosis Slight; RBC 3.92 m/uL (3.80-5.40); RDW 20.4 % (11.5-15.5); WBC 7.8 k/uL (3.8-10.6)
[2021-06-02 09:53] LABS: Calcium 9.2 mg/dL (8.4-10.2)
[2021-06-02 09:54] LABS: Potassium 4.3 mmol/L (3.5-5.1)
[2021-06-02 09:55] LABS: Platelet Count 93 k/uL (150-450)
[2021-06-02] MEDS ORDERED: METOPROLOL TARTRATE 25 MG TAB PO STA (10:04)
[2021-06-02] MEDS: SODIUM CHLORIDE 0.9% 1,000 ML IV SCH (11:29)
--- NOTE | 2021-06-02 11:35 | P.PN ---
Subjective Progress Note Date: 06/02/21 HISTORY OF PRESENT ILLNESS: This is a pleasant 81 years old female with a past medical history of non- obstructive coronary artery disease, chronic persistant atrial fibrillation, hy pertension, dyslipidemia, COPD, type 2 diabetes mellitus, osteoarthritis, end- stage renal disease on hemodialysis MWF, former smoker. She follows in the office with Dr. Chavarria. We have been asked to see in consultation for atrial fibrillation. On exam 05/27/21 patient alert and oriented x 3. She does not remember what brought her to the hospital. She states that her daughter told her that she was at her cardiology appointment with Dr. Chavarria, she is very lethargic and weak. Yesterday patient progressively got worse, when her daughter took her home she states it was difficult to arouse the patient and the daughter called 911 and she is brought to the emergency department. At patient's appointment yesterday with Dr. Chavarria he decreased her metoprolol to 25mg BID. She was recently discharged from the hospital after prolonged stay from 05/02-05/14 for sepsis secondary to urinary tract infection and possible pneumonia. Cardiology saw her due to atrial fibrillation with RVR and acute on chronic sy stolic CHF/COPD exacerbation. Patient's beta cristi was increased to metoprolol tartrate 75mg TID and she was discharged on oral anticoagulation. Her echo in the hospital revealed impaired LV function with EF of 40-45% At that time she was discharged on antibiotics to [facility]. She states she did get dialysis Wednesday. Dialysis was missed yesterday due to patient being admitted to hospital. DIAGNOSTICS Most recent echocardiogram 05/05/2021 revealed an EF 40-45%, RV is mild to moderately enlarged, mild mitral regurgitation, moderate tricuspid regurgitation, moderate pulmonary hypertension with an RVSP 62 mmHg, small pleural effusion Last Cardiac Catheterization 03/2019 which revealed intermediate lesion involving the mid first obtuse marginal branch of the left circumflex appeared to be 60%, proximal LAD appear to have mild disease only. Left circumflex appeared to have mild disease only. 05/28/2021: Morning patient had acute new onset confusion and aphasia. Patient underwent CT brain 05/27 which revealed atrophy and chronic small vessel ischemia. No acute intracranial abnormality. 05/29/21: Patient continued to be confused. Neurology was consulted. Patient underwent MRI which revealed acute infarct posterior left frontal lobe. Moderate diffuse cerebral atrophy and chronic small vessel ischemic changes. 05/30/2021: Patient seen and examined at bedside this morning, no acute distress. She continues to be confused. She is alert and oriented to person. She appears comfortable. Denies chest pain or shortness of breath. Blood pressure 117/82, heart rate 114, afebrile, maintaining oxygen saturations 99% on 3 L nasal cannula. Patient's last dialysis was on 05/28 with 500 mg removed. Telemetry reviewed patient in atrial fibrillation HR [id number]. Laboratory data reviewed, sodium 140, potassium 4.1, BUN 15, serum creatinine 4.03. Patient curr ently maintained on Eliquis 2.5 mg twice a day, metoprolol titrate 25 mg TID, IV Zosyn, Effexor 37.5 mg daily. 05/31/2021 Patient examined this morning at the bedside. Patient appears slightly lethargic and confused. Patient remains in atrial fibrillation with heart rate in the 120s. Blood pressure 110/60. She denies chest pain or pressure. She is currently receiving metoprolol 25 mg 3 times a day. She is anticoagulated with Eliquis. 06/01/2021 Patient examined this morning at the bedside. Patient remains in atrial fibrillation with a heart rate around 110. Amiodarone was added to patient's medication regimen yesterday. Patient's blood pressures are running on the lower side with a systolic around 100. 06/02/2021 Patient examined this morning at the bedside. Patient denies chest pain or pressure. She denies shortness of breath. Telemetry reveals atrial fibrillation with heart rate around [id number]. Patient systolic blood pressures are ranging from 96-115. She is on 3 L nasal cannula with oxygen saturations greater than 92%. She remains on IV antibiotics for urinary tract infection. PHYSICAL EXAM: VITAL SIGNS: Reviewed. GENERAL: Well-developed in no acute distress. NECK: Supple. No JVD or thyromegaly LUNGS: Respirations even and unlabored. Lungs essentially clear to auscultation bilaterally. HEART: Tachycardic. Irregular rate and rhythm. S1 and S2 heard. Systolic murmur noted. EXTREMITIES: Normal range of motion. No clubbing or cyanosis. Peripheral pulses intact. Trace bilateral lower extremity edema ASSESSMENT: Altered Mental status Aphasia Acute infarct posterior left frontal lobe - seen on MRI on 05/29 UTI - urine culture +VRE and maxwell albicans Non-obstructive coronary artery disease Chronic persistant atrial fibrillation on Eliquis Elevated troponin, no consistent with acute coronary syndrome Hypertension Dyslipidemia COPD Type 2 diabetes mellitus Osteoarthritis End-stage renal disease on hemodialysis MWF PLAN: Continue current cardiac medications Continue to monitor telemetry Increase metoprolol to 50 mg twice a day Continue amiodarone 200mg 3 times a day Further recommendations pending patient course Nurse practitioner note has been reviewed by physician. Signing provider agrees with the documented findings, assessment, and plan of care. Objective - Vital Signs Vital signs: Vital Signs Temp 97.5 F L 06/02/21 08:00 Pulse 113 H 06/02/21 08:00 Resp 19 06/02/21 08:00 BP 115/71 06/02/21 08:00 Pulse Ox 99 06/02/21 08:00 Intake & Output 06/01/21 06/02/21 06/02/21 18:59 06:59 18:59 Intake Total 716 240 Output Total 2 351 Balance 714 -111 Weight 70.5 kg Intake: Oral 716 240 Output: Urine 350 Stool 2 1 Other: Voiding Method Toilet Toilet Toilet # Voids 1 1 # Bowel Movements 1 1 - Labs CBC & Chem 7: 06/02/21 08:49 06/02/21 08:49 Labs: Abnormal Lab Results - Last 24 Hours (Table) 05/31/21 06/01/21 06/01/21 Range/Units 20:00 11:46 15:57 MCV (80.0-100.0) fL MCHC (31.0-37.0) g/dL RDW (11.5-15.5) % Plt Count (150-450) k/uL Lymphocytes # (1.0-4.8) k/uL Macrocytosis Chloride (98-107) mmol/L Carbon Dioxide (22-30) mmol/L BUN (7-17) mg/dL Creatinine (0.52-1.04) mg/dL Glucose (74-99) mg/dL POC Glucose (mg/dL) 187 H 153 H 134 H (75-99) mg/dL 06/01/21 06/01/21 06/02/21 Range/Units 19:59 23:48 08:49 MCV 116.9 H (80.0-100.0) fL MCHC 29.3 L (31.0-37.0) g/dL RDW 20.4 H (11.5-15.5) % Plt Count 93 L (150-450) k/uL Lymphocytes # 0.9 L (1.0-4.8) k/uL Macrocytosis Marked A Chloride (98-107) mmol/L Carbon Dioxide (22-30) mmol/L BUN (7-17) mg/dL Creatinine (0.52-1.04) mg/dL Glucose (74-99) mg/dL POC Glucose (mg/dL) 118 H 110 H (75-99) mg/dL 06/02/21 Range/Units 08:49 MCV (80.0-100.0) fL MCHC (31.0-37.0) g/dL RDW (11.5-15.5) % Plt Count (150-450) k/uL Lymphocytes # (1.0-4.8) k/uL Macrocytosis Chloride 111 H (98-107) mmol/L Carbon Dioxide 15 L (22-30) mmol/L BUN 20 H (7-17) mg/dL Creatinine 4.65 H (0.52-1.04) mg/dL Glucose 105 H (74-99) mg/dL POC Glucose (mg/dL) (75-99) mg/dL Microbiology - Last 24 Hours (Table) 05/26/21 21:40 Blood Culture - Final Blood No Growth after 144 hours
[2021-06-02 11:55] LABS: Glucose,Whole Blood 108 mg/dL (75-99)
[2021-06-02] MEDS: PIPERACILLIN-TAZOBACTAM 3.375 GM in SODIUM CHLORIDE 0.9% 100 ML IVPB SCH (12:22)
--- NOTE | 2021-06-02 15:09 | PN ---
PROGRESS NOTE Patient is seen for followup for end-stage renal disease. This morning, patient is sitting up in bed. She is comfortable. Patient denies any significant complaints. Her blood pressure is on the lower side. She is not significantly short of breath. The patient is maintained on IV fluids which will be discontinued. PHYSICAL EXAMINATION: On examination today, blood pressure was 115/71, heart rate 113 per minute. She is afebrile. Examination of the heart S1, S2. Examination of the lungs, bilateral breath sounds are heard. Abdomen is soft, nontender. Examination of lower extremities shows edema 1+ bilaterally. TOURIST GUIDE exam grossly intact. LABS: From today show sodium 140, potassium 4.3, chloride 111, CO2 is 15, BUN 20, creatinine 4.65, hemoglobin 13.4. ASSESSMENT: 1. End-stage renal disease, on hemodialysis on a Wednesday, Wednesday, Wednesday schedule. 2. Volume overload. We will stop IV fluids and increase UF as tolerated with hemodialysis today. 3. Metabolic acidosis. Expect improvement with hemodialysis today. 4. Generalized debility. 5. Chronic systolic congestive heart failure, ejection fraction 40-45% with moderate tricuspid regurgitation. 6. Chronic kidney disease, mineral bone disorder. 7. New acute left frontal lobe infarct noted on MRI. PLAN: Hemodialysis today, increase UF as tolerated. Discontinue IV fluids. MMODL / IJN: [id number] /
[2021-06-02 16:42] LABS: Glucose,Whole Blood 137 mg/dL (75-99)
[2021-06-02 20:07] LABS: Glucose,Whole Blood 150 mg/dL (75-99)
[2021-06-02] MEDS: ATORVASTATIN 40 MG TAB PO SCH (20:56)
[2021-06-02] MEDS: METOPROLOL TARTRATE 50 MG TAB PO SCH (20:58)
[2021-06-03] MEDS: PIPERACILLIN-TAZOBACTAM 3.375 GM in SODIUM CHLORIDE 0.9% 100 ML IVPB SCH ×2 (00:06→12:38)
[2021-06-03 00:16] LABS: Glucose,Whole Blood 113 mg/dL (75-99)
--- NOTE | 2021-06-03 00:21 | P.PN ---
Subjective Progress Note Date: 06/02/21 Acute CVA- acute left frontal infarct Severe sepsis secondary to UTI/possible pneumonia Hypoglycemia Hypotension possibly related to sepsis 81 years old female who presents with With past medical history of COPD, diabetes mellitus, osteoarthritis, end-stage renal disease on hemodialysis chronic oxygen dependent on 2 L/m atrial fibrillation. She was recently discharged from the hospital after prolonged stay from 05/02-05/14 for sepsis secondary to urinary tract infection and possible pneumonia, atrial fibrillation's with RVR and acute on chronic systolic CHF with COPD exacerbation. At that time she was discharged on cefdinir to rehab. She came back from rehab 3 days ago. Last night her daughter but does not she is slower than usual, this morning she went to her appointment with slip mixer Dr. Mcmillan and she was very lethargic progressively got worse when she got home, she was difficult to arouse and the daughter called 911 and brought her to the emergency room also patient missed her hemodialysis today because of her illness Patient very weak and lethargic, arousable but go back to sleep, she is poor historian, daughter at bedside. On admission she was hypotensive with a blood pressure is 77/52, afebrile, slightly tachypneic 20-21 and tachycardic, hypoglycemic with oxygen 56-67, given D50 she received a bolus of 500 mL in the emergency room and her blood pressure is 93/60. her WBC IS 8.9K, hB 12.3, Platelet count is 107k, INR is 1.4, Na 133, K 4.4 creatinine is 5.7, Elevated lactic acid at 2.5 came back to normal at 1.7 elevated troponin 0.039 and high ProBNP 73839, liver enz AST AND ALT slightly elevated 67 and 60 respectively urinalysis is suspecious for infection burnham virus non detected EKG atial flutter at [address]-T changes CXR:bilateral infilterates for CHF vs Pneumonia in ED she recieved ceftriaxon and NS 500 ml nephrology and cardiology team were consulted in the evening pt became more awake and interactive with good oxygen saturation in 90s%, per shift production associate RN 05/31/2021 Patient is seen and evaluated with family at bedside; family reports patient's lack of medical insurance; patient has been recommended inpatient rehab Vital signs are reviewed and are stable . Blood pressure 110/68, pulse 111, temperature 97.9 and O2 saturation of 93% on 3 L Laboratory review shows a hemoglobin of 13.1, WBC 6.6, BUN/creatinine of 12/20.43 Patient remains on IV Zosyn for Pneumonia possibly gram-negative; ID on board and recommending to transition to oral antibiotics in form of Avelox at time of discharge; positive urine culture most likely contamination per ID nor therapy is recommended PT, OT, FILM COATER ongoing. Daughter reports that there is no support for home. Patient is recommended SNF placement. 06/01/2021 Patient is seen and evaluated with family members at bedside; denies any specific complaints at this time Vital signs are reviewed and remained stable Patient remains on aspirin and statin therapy for acute left frontal lobe infarct; has been evaluated by PT/OT and is recommended skilled rehab Atrial fibrillation; heart rate does jump up to 110; cardiology recommending to continue with current dose of metoprolol and amiodarone 200 mg 3 times a day UTI; urine culture reveals twice a day and Tami; ID on board; await further recommendations for IV antibiotics 06/02/2021 Patient is seen this morning with daughter at the bedside and awake and responding appropriately. Patient is lethargic and delayed in response. Cardiology and nephrology following. Patient continues on hemodialysis Mon/Wed/Fri and will receive dialysis today. Patient continues to be weak and social work following with possible [facility] once stabilized and discharged. Patient continues on IV antibiotics in the form of Zosyn with infectious disease following. Continued on eliquis and aspirin. Patient continues to be tachy with afib and metoprolol increased. Patient also on amiodarone. Review of systems: Constitutional: reports of fatigue, no reports of fever, or chills Cardiovascular: No reports of chest pain or palpitations Respiratory: reports continued shortness of breath GI: No reports of nausea, vomiting, or diarrhea : No reports of dysuria or retention Neurovascular: reports generalized weakness All medications have been reviewed Physical exam: Gen: This is a 81 year old female awake, alert and oriented to 1-2 with delayed responses, well developed, well nourished HEENT: Head is atraumatic, normocephalic. Pupils equal, round. Sclerae is anicteric. NECK: Supple. No JVD. No lymphadenopathy. No thyromegaly. LUNGS: diminished breath sounds with some scattered rhonchi noted. No intercostal retractions. HEART: S1, S2 muffled, tachycardic, irregularly irregular ABDOMEN: Soft. Bowel sounds are present. No masses. No tenderness. EXTREMITIES: No pedal edema. No calf tenderness. NEUROLOGICAL: Patient is awake, alert and oriented x2. diffusely weak. Assessment and plan: -Severe Sepsis most probably secondary to urinary tract infection with possible pneumonia, urine culture is enterococcus faecium which is VRE and tami albicans, continued on Zosyn with infectious disease following -Atrial fibrillation with rate controlled, is on eliquis, metoprolol 75 mg 3 times a day along with amiodarone, cardiology following. -Acute CVA- acute left frontal infarct as noted on mri of the brain -Hypotension and hypoglycemia, currently improved blood pressure and glucose levels are stable -Altered mental status, most likely secondary to sepsis, it has also multifactorial effect for example hypoglycemia and hypotension on admission, since admissions her sugars been corrected and his blood pressure was stable. possibly secondary to acute CVA -chronic systolic CHF with ejection fraction 40-45% -Moderate tricuspid regurgitation -COPD with mild acute exacerbation -Chronic respiratory failure on home oxygen which will be continued, she is on 2 L/M at home -Pulmonary hypertension most probably secondary to COPD -Chronic kidney disease/end-stage renal disease on hemodialysis Wed/Wed/ Wed secondary to hypertensive nephrosclerosis and also diabetic nephropathy -History of Gastroesophageal reflux disease -GI prophylaxis -DVT prophylaxis: on eliquis -NO code Plan: Continue current medications and cardiology, nephrology, and infectious disease following. Patient continues to be weak and experiencing occasional delay in response. Patient normally lives alone with recent ECF placement and family at the bedside states she is unable to care for herself and possibly going to [facility] with social work following. Patient continues on Zosyn and will continue to complete a 7-10 day course given VRE. Will discuss with infectious disease about requiring outpatient treatment once stabilized and discharged. Continue to encourage oral intake and continue with meal supplements. Patient has selective oral intake per daughter at the bedside. Needs constant encouragement. Continue to encourage increased activity as tolerated. Will have hemodialysis with ultrafiltration today. Continue M/W/ schedule. Objective - Vital Signs Vital signs: Vital Signs Temp 97.5 F L 06/02/21 08:00 Pulse 113 H 06/02/21 08:00 Resp 19 06/02/21 08:00 BP 115/71 06/02/21 08:00 Pulse Ox 99 06/02/21 08:00 Intake & Output 06/01/21 06/02/21 06/02/21 18:59 06:59 18:59 Intake Total 716 240 Output Total 2 351 Balance 714 -111 Weight 70.5 kg Intake: Oral 716 240 Output: Urine 350 Stool 2 1 Other: Voiding Method Toilet Toilet Toilet # Voids 1 1 # Bowel Movements 1 - Labs CBC & Chem 7: 06/02/21 08:49 06/02/21 08:49 Labs: Abnormal Lab Results - Last 24 Hours (Table) 05/31/21 06/01/21 06/01/21 Range/Units 20:00 07:51 11:46 MCV 114.4 H (80.0-100.0) fL MCHC 30.6 L (31.0-37.0) g/dL RDW 20.5 H (11.5-15.5) % Plt Count 94 L (150-450) k/uL Nucleated RBCs 1 H (0-0) /100 WBC Macrocytosis Marked A POC Glucose (mg/dL) 187 H 153 H (75-99) mg/dL 06/01/21 06/01/21 06/01/21 Range/Units 15:57 19:59 23:48 MCV (80.0-100.0) fL MCHC (31.0-37.0) g/dL RDW (11.5-15.5) % Plt Count (150-450) k/uL Nucleated RBCs (0-0) /100 WBC Macrocytosis POC Glucose (mg/dL) 134 H 118 H 110 H (75-99) mg/dL Microbiology - Last 24 Hours (Table) 05/26/21 21:40 Blood Culture - Final Blood No Growth after 144 hours
[2021-06-03 04:11] LABS: Glucose,Whole Blood 94 mg/dL (75-99)
[2021-06-03] MEDS: PANTOPRAZOLE 40 MG TABLET PO SCH (06:46)
[2021-06-03] MEDS: APIXABAN 2.5 MG TABLET PO SCH ×2 (06:46→17:20)
[2021-06-03] MEDS: CALCIUM ACETATE 667 MG TAB PO SCH ×3 (06:46→17:20)
[2021-06-03 07:33] LABS: Glucose,Whole Blood 98 mg/dL (75-99)
[2021-06-03] MEDS: SYMBICORT 80-4.5 MCG INHALER INHALATION SCH ×2 (07:36→20:18)
[2021-06-03] MEDS: IPRATROPIUM 0.5 MG/2.5 ML NEBU INHALATION SCH ×4 (07:36→20:19)
[2021-06-03] MEDS: VENLAFAXINE HCL ER 37.5 MG CAP PO SCH (08:09)
[2021-06-03] MEDS: METOPROLOL TARTRATE 50 MG TAB PO SCH ×3 (08:09→20:52)
[2021-06-03] MEDS: AMIODARONE 200 MG TAB PO SCH ×3 (08:10→20:52)
--- NOTE | 2021-06-03 08:16 | PN ---
PROGRESS NOTE DATE OF SERVICE: 06/02/2021 REASON FOR FOLLOWUP: Pneumonia. INTERVAL HISTORY: The patient is afebrile. The patient is more awake and alert today. She is breathing comfortably. Denies having any chest pain or worsening cough. No abdominal pain. No diarrhea. The patient is not making any urine and does not have any urinary symptoms. PHYSICAL EXAMINATION: Blood pressure 117/86, pulse of 124, temperature 97.5. She is 93% on 2 L nasal cannula. General description is an elderly female up in the chair in no distress. Respiratory system: Unlabored breathing, decreased breath sounds in the base, with no wheeze. Heart S1, S2. Regular rate and rhythm. Abdomen: Soft. No tenderness. LABS: Hemoglobin is 13.4, white count 7.2, BUN of 20, creatinine 4.65. DIAGNOSTIC IMPRESSION AND PLAN: 1. Patient admitted to the hospital with shortness of breath, multifactorial, possible atrial fibrillation with RVR and secondary congestive heart failure. However, underlying pneumonia on the basis of elevated procalcitonin. Patient is covered with Zosyn, finish a 7-day course of therapy. 2. Patient with positive culture with VRE more likely contamination or colonization as the patient hardly makes any urine and does not have any urinary symptoms. No need for any specific treatment for the same. This was explained to the daughter in layman's terms. MMODL / IJN: [id number] /
[2021-06-03 11:33] LABS: Glucose,Whole Blood 89 mg/dL (75-99)
--- NOTE | 2021-06-03 12:43 | P.PN ---
Subjective Progress Note Date: 06/03/21 HISTORY OF PRESENT ILLNESS: This is a pleasant 81 years old female with a past medical history of non- obstructive coronary artery disease, chronic persistant atrial fibrillation, hy pertension, dyslipidemia, COPD, type 2 diabetes mellitus, osteoarthritis, end- stage renal disease on hemodialysis MWF, former smoker. She follows in the office with Dr. Chavarria. We have been asked to see in consultation for atrial fibrillation. On exam 05/27/21 patient alert and oriented x 3. She does not remember what brought her to the hospital. She states that her daughter told her that she was at her cardiology appointment with Dr. Chavarria, she is very lethargic and weak. Yesterday patient progressively got worse, when her daughter took her home she states it was difficult to arouse the patient and the daughter called 911 and she is brought to the emergency department. At patient's appointment yesterday with Dr. Chavarria he decreased her metoprolol to 25mg BID. She was recently discharged from the hospital after prolonged stay from 05/02-05/14 for sepsis secondary to urinary tract infection and possible pneumonia. Cardiology saw her due to atrial fibrillation with RVR and acute on chronic sy stolic CHF/COPD exacerbation. Patient's beta cristi was increased to metoprolol tartrate 75mg TID and she was discharged on oral anticoagulation. Her echo in the hospital revealed impaired LV function with EF of 40-45% At that time she was discharged on antibiotics to [facility]. She states she did get dialysis Wednesday. Dialysis was missed yesterday due to patient being admitted to hospital. DIAGNOSTICS Most recent echocardiogram 05/05/2021 revealed an EF 40-45%, RV is mild to moderately enlarged, mild mitral regurgitation, moderate tricuspid regurgitation, moderate pulmonary hypertension with an RVSP 62 mmHg, small pleural effusion Last Cardiac Catheterization 03/2019 which revealed intermediate lesion involving the mid first obtuse marginal branch of the left circumflex appeared to be 60%, proximal LAD appear to have mild disease only. Left circumflex appeared to have mild disease only. 05/28/2021: Morning patient had acute new onset confusion and aphasia. Patient underwent CT brain 05/27 which revealed atrophy and chronic small vessel ischemia. No acute intracranial abnormality. 05/29/21: Patient continued to be confused. Neurology was consulted. Patient underwent MRI which revealed acute infarct posterior left frontal lobe. Moderate diffuse cerebral atrophy and chronic small vessel ischemic changes. 05/30/2021: Patient seen and examined at bedside this morning, no acute distress. She continues to be confused. She is alert and oriented to person. She appears comfortable. Denies chest pain or shortness of breath. Blood pressure 117/82, heart rate 114, afebrile, maintaining oxygen saturations 99% on 3 L nasal cannula. Patient's last dialysis was on 05/28 with 500 mg removed. Telemetry reviewed patient in atrial fibrillation HR [id number]. Laboratory data reviewed, sodium 140, potassium 4.1, BUN 15, serum creatinine 4.03. Patient curr ently maintained on Eliquis 2.5 mg twice a day, metoprolol titrate 25 mg TID, IV Zosyn, Effexor 37.5 mg daily. 05/31/2021 Patient examined this morning at the bedside. Patient appears slightly lethargic and confused. Patient remains in atrial fibrillation with heart rate in the 120s. Blood pressure 110/60. She denies chest pain or pressure. She is currently receiving metoprolol 25 mg 3 times a day. She is anticoagulated with Eliquis. 06/01/2021 Patient examined this morning at the bedside. Patient remains in atrial fibrillation with a heart rate around 110. Amiodarone was added to patient's medication regimen yesterday. Patient's blood pressures are running on the lower side with a systolic around 100. 06/02/2021 Patient examined this morning at the bedside. Patient denies chest pain or pressure. She denies shortness of breath. Telemetry reveals atrial fibrillation with heart rate around [id number]. Patient systolic blood pressures are ranging from 96-115. She is on 3 L nasal cannula with oxygen saturations greater than 92%. She remains on IV antibiotics for urinary tract infection. 06/03/2021 Patient examined this morning at the bedside. Patient denies chest pain or pressure. She denies shortness of breath. She denies palpitations. Telemetry reveals atrial fibrillation with heart rate around [id number]. Blood pressure 125/83. She is on 2 L nasal cannula with oxygen saturations greater than 92%. PHYSICAL EXAM: VITAL SIGNS: Reviewed. GENERAL: Well-developed in no acute distress. NECK: Supple. No JVD or thyromegaly LUNGS: Respirations even and unlabored. Lungs essentially clear to auscultation bilaterally. HEART: Tachycardic. Irregular rate and rhythm. S1 and S2 heard. Systolic murmur noted. EXTREMITIES: Normal range of motion. No clubbing or cyanosis. Peripheral pulses intact. Trace bilateral lower extremity edema ASSESSMENT: Altered Mental status Aphasia Acute infarct posterior left frontal lobe - seen on MRI on 05/29 UTI - urine culture +VRE and maxwell albicans Non-obstructive coronary artery disease Chronic persistent atrial fibrillation on Eliquis Elevated troponin, not consistent with acute coronary syndrome Hypertension Dyslipidemia COPD Type 2 diabetes mellitus Osteoarthritis End-stage renal disease on hemodialysis MWF PLAN: Continue current cardiac medications Continue to monitor telemetry Increase metoprolol to 50 mg times a day Continue amiodarone 200mg 3 times a day Further recommendations pending patient course Nurse practitioner note has been reviewed by physician. Signing provider agrees with the documented findings, assessment, and plan of care. Objective - Vital Signs Vital signs: Vital Signs Temp 97.2 F L 06/03/21 12:00 Pulse 105 H 06/03/21 12:00 Resp 19 06/03/21 12:00 BP 114/77 06/03/21 12:00 Pulse Ox 100 06/03/21 12:00 Intake & Output 06/02/21 06/03/21 06/03/21 18:59 06:59 18:59 Intake Total 720 Output Total 352 1000 1 Balance 368 -1000 -1 Weight 70.5 kg 65 kg Intake: Oral 720 Output: Urine 350 0 Stool 2 1 Hemodialysis 1000 Other: Voiding Method Toilet Toilet Toilet # Voids 1 1 # Bowel Movements 1 1 2 - Labs CBC & Chem 7: 06/02/21 08:49 06/02/21 08:49 Labs: Abnormal Lab Results - Last 24 Hours (Table) 06/02/21 06/02/21 06/03/21 Range/Units 16:41 20:06 00:14 POC Glucose (mg/dL) 137 H 150 H 113 H (75-99) mg/dL
--- NOTE | 2021-06-03 16:24 | P.PN ---
Subjective Progress Note Date: 06/03/21 Acute CVA- acute left frontal infarct Severe sepsis secondary to UTI/possible pneumonia Hypoglycemia Hypotension possibly related to sepsis 81 years old female who presents with With past medical history of COPD, diabetes mellitus, osteoarthritis, end-stage renal disease on hemodialysis chronic oxygen dependent on 2 L/m atrial fibrillation. She was recently discharged from the hospital after prolonged stay from 05/02-05/14 for sepsis secondary to urinary tract infection and possible pneumonia, atrial fibrillation's with RVR and acute on chronic systolic CHF with COPD exacerbation. At that time she was discharged on cefdinir to rehab. She came back from rehab 3 days ago. Last night her daughter but does not she is slower than usual, this morning she went to her appointment with packing and final assembly supervisor Dr. Mcmillan and she was very lethargic progressively got worse when she got home, she was difficult to arouse and the daughter called 911 and brought her to the emergency room also patient missed her hemodialysis today because of her illness Patient very weak and lethargic, arousable but go back to sleep, she is poor historian, daughter at bedside. On admission she was hypotensive with a blood pressure is 77/52, afebrile, slightly tachypneic 20-21 and tachycardic, hypoglycemic with oxygen 56-67, given D50 she received a bolus of 500 mL in the emergency room and her blood pressure is 93/60. her WBC IS 8.9K, hB 12.3, Platelet count is 107k, INR is 1.4, Na 133, K 4.4 creatinine is 5.7, Elevated lactic acid at 2.5 came back to normal at 1.7 elevated troponin 0.039 and high ProBNP 03968, liver enz AST AND ALT slightly elevated 67 and 60 respectively urinalysis is suspecious for infection burnham virus non detected EKG atial flutter at [address]-T changes CXR:bilateral infilterates for CHF vs Pneumonia in ED she recieved ceftriaxon and NS 500 ml nephrology and cardiology team were consulted in the evening pt became more awake and interactive with good oxygen saturation in 90s%, per warehouse worker 2nd shift RN 05/31/2021 Patient is seen and evaluated with family at bedside; family reports patient's lack of medical insurance; patient has been recommended inpatient rehab Vital signs are reviewed and are stable . Blood pressure 110/68, pulse 111, temperature 97.9 and O2 saturation of 93% on 3 L Laboratory review shows a hemoglobin of 13.1, WBC 6.6, BUN/creatinine of 12/20.43 Patient remains on IV Zosyn for Pneumonia possibly gram-negative; ID on board and recommending to transition to oral antibiotics in form of Avelox at time of discharge; positive urine culture most likely contamination per ID nor therapy is recommended PT, OT, RETORT SETTER ongoing. Daughter reports that there is no support for home. Patient is recommended SNF placement. 06/01/2021 Patient is seen and evaluated with family members at bedside; denies any specific complaints at this time Vital signs are reviewed and remained stable Patient remains on aspirin and statin therapy for acute left frontal lobe infarct; has been evaluated by PT/OT and is recommended skilled rehab Atrial fibrillation; heart rate does jump up to 110; cardiology recommending to continue with current dose of metoprolol and amiodarone 200 mg 3 times a day UTI; urine culture reveals twice a day and Tami; ID on board; await further recommendations for IV antibiotics 06/02/2021 Patient is seen this morning with daughter at the bedside and awake and responding appropriately. Patient is lethargic and delayed in response. Cardiology and nephrology following. Patient continues on hemodialysis Mon/Wed/Fri and will receive dialysis today. Patient continues to be weak and social work following with possible [facility] once stabilized and discharged. Patient continues on IV antibiotics in the form of Zosyn with infectious disease following. Continued on eliquis and aspirin. Patient continues to be tachy with afib and metoprolol increased. Patient also on amiodarone. 06/03/2021 Patient is seen this morning and having increasing shortness of breath and nephrology following and planning on ultrafiltration hemodialysis today given her continued shortness of breath. Patient is maintained on IV Zosyn to continue and will require one week of antibiotics on discharge and will need to discuss with infectious disease about possible midline as she cannot receive IV Zosyn during dialysis given the frequency of required doses needed on Zosyn. Patient is now on metoprolol 50 mg 3 times a day along with oral amiodarone 200 mg 3 times a day and will continue with cardiology following closely. Review of systems: Constitutional: reports of fatigue, no reports of fever, or chills Cardiovascular: No reports of chest pain or palpitations Respiratory: reports continued shortness of breath that she feels is worse today GI: No reports of nausea, vomiting, or diarrhea : No reports of dysuria or retention Neurovascular: reports generalized weakness All medications have been reviewed Physical exam: Gen: This is a 81 year old female awake, alert and oriented to 1-2 with delayed responses, well developed, well nourished HEENT: Head is atraumatic, normocephalic. Pupils equal, round. Sclerae is anicteric. NECK: Supple. No JVD. No lymphadenopathy. No thyromegaly. LUNGS: diminished breath sounds with some scattered rhonchi noted. No intercostal retractions. HEART: S1, S2 muffled, tachycardic, irregularly irregular ABDOMEN: Soft. Bowel sounds are present. No masses. No tenderness. EXTREMITIES: No pedal edema. No calf tenderness. NEUROLOGICAL: Patient is awake, alert and oriented x2. diffusely weak. Assessment and plan: -Severe Sepsis most probably secondary to urinary tract infection with possible pneumonia, urine culture is enterococcus faecium which is VRE and tami albicans, continued on Zosyn with infectious disease following -Chronic persistent Atrial fibrillation is on eliquis, metoprolol 50 mg 3 times a day along with amiodarone 200 mg 3 times a day, cardiology following. -Acute CVA- acute left frontal infarct as noted on mri of the brain -Hypotension and hypoglycemia, currently improved blood pressure and glucose levels are stable -Altered mental status, most likely secondary to sepsis, it has also multifactorial effect for example hypoglycemia and hypotension on admission, since admissions her sugars been corrected and his blood pressure was stable. possibly secondary to acute CVA -chronic systolic CHF with ejection fraction 40-45% -Moderate tricuspid regurgitation -COPD with mild acute exacerbation -Chronic respiratory failure on home oxygen which will be continued, she is on 2 L/M at home -Pulmonary hypertension most probably secondary to COPD -Chronic kidney disease/end-stage renal disease on hemodialysis Mon/Wed/ Fri secondary to hypertensive nephrosclerosis and also diabetic nephropathy -History of Gastroesophageal reflux disease -GI prophylaxis -DVT prophylaxis: on eliquis -NO code Plan: Continue current medications and cardiology, nephrology, and infectious disease following. Patient continues to be weak and experiencing occasional delay in response. Patient normally lives alone with recent ECF placement and family at the bedside states she is unable to care for herself and possibly going to [facility] with social work following. Patient continues on Zosyn and will continue to complete a 7-10 day course given VRE. Will discuss with infectious disease about requiring outpatient treatment once stabilized and discharged. Patient may possibly need a midline if continued on Zosyn as she is not able to receive it during dialysis given its frequency of dosing and dialysis only 3 days per week. Continue to encourage oral intake and continue with meal supplements. Patient has selective oral intake per daughter at the bedside. Needs constant encouragement. Continue to encourage increased activity as tolerated. Will have hemodialysis with ultrafiltration again today or worsening shortness of breath. Continue M/W/F schedule. Objective - Vital Signs Vital signs: Vital Signs Temp 97.5 F L 06/03/21 07:58 Pulse 122 H 06/03/21 07:59 Resp 19 06/03/21 07:59 BP 125/83 06/03/21 07:58 Pulse Ox 96 06/03/21 07:58 Intake & Output 06/02/21 06/03/21 06/03/21 18:59 06:59 18:59 Intake Total 720 Output Total 352 1000 1 Balance 368 -1000 -1 Weight 70.5 kg 65 kg Intake: Oral 720 Output: Urine 350 0 Stool 2 1 Hemodialysis 1000 Other: Voiding Method Toilet Toilet Toilet # Voids 1 # Bowel Movements 1 1 1 - Labs CBC & Chem 7: 06/02/21 08:49 06/02/21 08:49 Labs: Abnormal Lab Results - Last 24 Hours (Table) 06/02/21 06/02/21 06/02/21 Range/Units 08:49 08:49 11:53 MCV 116.9 H (80.0-100.0) fL MCHC 29.3 L (31.0-37.0) g/dL RDW 20.4 H (11.5-15.5) % Plt Count 93 L (150-450) k/uL Lymphocytes # 0.9 L (1.0-4.8) k/uL Macrocytosis Marked A Chloride 111 H (98-107) mmol/L Carbon Dioxide 15 L (22-30) mmol/L BUN 20 H (7-17) mg/dL Creatinine 4.65 H (0.52-1.04) mg/dL Glucose 105 H (74-99) mg/dL POC Glucose (mg/dL) 108 H (75-99) mg/dL 06/02/21 06/02/21 06/03/21 Range/Units 16:41 20:06 00:14 MCV (80.0-100.0) fL MCHC (31.0-37.0) g/dL RDW (11.5-15.5) % Plt Count (150-450) k/uL Lymphocytes # (1.0-4.8) k/uL Macrocytosis Chloride (98-107) mmol/L Carbon Dioxide (22-30) mmol/L BUN (7-17) mg/dL Creatinine (0.52-1.04) mg/dL Glucose (74-99) mg/dL POC Glucose (mg/dL) 137 H 150 H 113 H (75-99) mg/dL
[2021-06-03 16:38] LABS: Glucose,Whole Blood 126 mg/dL (75-99)
--- NOTE | 2021-06-03 19:13 | PN ---
PROGRESS NOTE Patient is seen for followup for end-stage renal disease. She is currently sitting up in a bedside chair. Patient is comfortable. She is short of breath. She is quite weak. PHYSICAL EXAMINATION: On examination today, blood pressure was 125/83, heart rate 122 per minute. Patient is afebrile. Examination of the heart S1, S2. Examination of the lungs, bilateral breath sounds are heard. Bilateral crackles are heard. Abdomen is soft, nontender. Examination of lower extremities shows edema 1+ bilaterally. WRINGER AND SETTER exam grossly intact. LABS: From 06/02/2021 show potassium 4.3, hemoglobin 13.4 g/dL. ASSESSMENT: 1. End-stage renal disease, on hemodialysis on a Wednesday, Wednesday, Wednesday schedule. Patient will have an extra treatment today to increase ultrafiltration for volume overload. We will plan for a treatment again tomorrow as per her regular schedule. 2. Atrial fibrillation with an RVR, heart rate staying in the 120 range now. 3. Generalized debility. 4. Chronic kidney disease mineral bone disorder. 5. Chronic systolic congestive heart failure, ejection fraction 40-45% with moderate tricuspid regurgitation. PLAN: Hemodialysis today for about 2 hours mostly for ultrafiltration and we will plan for dialysis again tomorrow which is her regular day. MMODL / IJN: [id number] /
[2021-06-03 20:41] LABS: Glucose,Whole Blood 175 mg/dL (75-99)
[2021-06-03] MEDS: ATORVASTATIN 40 MG TAB PO SCH (20:51)
[2021-06-03] MEDS: ALPRAZolam 0.25 MG TAB PO PRN (20:53)
--- NOTE | 2021-06-03 22:50 | PN ---
PROGRESS NOTE DATE OF SERVICE: 06/03/2021 REASON FOR FOLLOWUP: 1. Pneumonia. 2. Positive urine culture. INTERVAL HISTORY: Patient is afebrile. The patient is breathing more comfortably. The patient denies having any chest pain. Minimal cough. No abdominal pain. No diarrhea. Oral intake remains to be poor. No urine output or urinary symptoms. PHYSICAL EXAMINATION: Blood pressure is 116/86, pulse of 108. Temperature 97.7. She is 95% on 2 L nasal cannula. General description is an elderly female up in the chair in no distress. Respiratory system: Unlabored breathing, decreased breath sounds in the base. No wheeze. Heart S1, S2. Regular rate and rhythm. Abdomen: Soft, no tenderness. LABS: No new labs have been obtained today. DIAGNOSTIC IMPRESSION AND PLAN: Patient admitted to the hospital with shortness of breath which is multifactorial in this patient pneumonia. Has received about 7 days of IV Zosyn that should be enough. Antibiotic can be safely discontinued and continue supportive care. MMODL / IJN: [id number] /
[2021-06-04 06:32] LABS: Glucose,Whole Blood 98 mg/dL (75-99)
[2021-06-04] MEDS: APIXABAN 2.5 MG TABLET PO SCH ×2 (06:35→17:13)
[2021-06-04] MEDS: PANTOPRAZOLE 40 MG TABLET PO SCH (06:36)
[2021-06-04] MEDS: CALCIUM ACETATE 667 MG TAB PO SCH ×3 (06:37→17:13)
[2021-06-04] MEDS: METOPROLOL TARTRATE 50 MG TAB PO SCH ×3 (08:38→19:50)
[2021-06-04] MEDS: AMIODARONE 200 MG TAB PO SCH ×3 (08:38→19:49)
[2021-06-04] MEDS: VENLAFAXINE HCL ER 37.5 MG CAP PO SCH (08:39)
[2021-06-04] MEDS: IPRATROPIUM 0.5 MG/2.5 ML NEBU INHALATION SCH ×4 (08:49→19:42)
[2021-06-04] MEDS: SYMBICORT 80-4.5 MCG INHALER INHALATION SCH ×2 (08:49→19:42)
[2021-06-04 11:37] LABS: Glucose,Whole Blood 135 mg/dL (75-99)
--- NOTE | 2021-06-04 13:24 | P.PN ---
Subjective Progress Note Date: 06/04/21 HISTORY OF PRESENT ILLNESS: This is a pleasant 81 years old female with a past medical history of non- obstructive coronary artery disease, chronic persistant atrial fibrillation, hy pertension, dyslipidemia, COPD, type 2 diabetes mellitus, osteoarthritis, end- stage renal disease on hemodialysis MWF, former smoker. She follows in the office with Dr. Chavarria. We have been asked to see in consultation for atrial fibrillation. On exam 05/27/21 patient alert and oriented x 3. She does not remember what brought her to the hospital. She states that her daughter told her that she was at her cardiology appointment with Dr. Chavarria, she is very lethargic and weak. Yesterday patient progressively got worse, when her daughter took her home she states it was difficult to arouse the patient and the daughter called 911 and she is brought to the emergency department. At patient's appointment yesterday with Dr. Chavarria he decreased her metoprolol to 25mg BID. She was recently discharged from the hospital after prolonged stay from 05/02-05/14 for sepsis secondary to urinary tract infection and possible pneumonia. Cardiology saw her due to atrial fibrillation with RVR and acute on chronic sy stolic CHF/COPD exacerbation. Patient's beta cristi was increased to metoprolol tartrate 75mg TID and she was discharged on oral anticoagulation. Her echo in the hospital revealed impaired LV function with EF of 40-45% At that time she was discharged on antibiotics to [facility]. She states she did get dialysis Wednesday. Dialysis was missed yesterday due to patient being admitted to hospital. DIAGNOSTICS Most recent echocardiogram 05/05/2021 revealed an EF 40-45%, RV is mild to moderately enlarged, mild mitral regurgitation, moderate tricuspid regurgitation, moderate pulmonary hypertension with an RVSP 62 mmHg, small pleural effusion Last Cardiac Catheterization 03/2019 which revealed intermediate lesion involving the mid first obtuse marginal branch of the left circumflex appeared to be 60%, proximal LAD appear to have mild disease only. Left circumflex appeared to have mild disease only. 05/28/2021: Morning patient had acute new onset confusion and aphasia. Patient underwent CT brain 05/27 which revealed atrophy and chronic small vessel ischemia. No acute intracranial abnormality. 05/29/21: Patient continued to be confused. Neurology was consulted. Patient underwent MRI which revealed acute infarct posterior left frontal lobe. Moderate diffuse cerebral atrophy and chronic small vessel ischemic changes. 05/30/2021: Patient seen and examined at bedside this morning, no acute distress. She continues to be confused. She is alert and oriented to person. She appears comfortable. Denies chest pain or shortness of breath. Blood pressure 117/82, heart rate 114, afebrile, maintaining oxygen saturations 99% on 3 L nasal cannula. Patient's last dialysis was on 05/28 with 500 mg removed. Telemetry reviewed patient in atrial fibrillation HR [id number]. Laboratory data reviewed, sodium 140, potassium 4.1, BUN 15, serum creatinine 4.03. Patient curr ently maintained on Eliquis 2.5 mg twice a day, metoprolol titrate 25 mg TID, IV Zosyn, Effexor 37.5 mg daily. 05/31/2021 Patient examined this morning at the bedside. Patient appears slightly lethargic and confused. Patient remains in atrial fibrillation with heart rate in the 120s. Blood pressure 110/60. She denies chest pain or pressure. She is currently receiving metoprolol 25 mg 3 times a day. She is anticoagulated with Eliquis. 06/01/2021 Patient examined this morning at the bedside. Patient remains in atrial fibrillation with a heart rate around 110. Amiodarone was added to patient's medication regimen yesterday. Patient's blood pressures are running on the lower side with a systolic around 100. 06/02/2021 Patient examined this morning at the bedside. Patient denies chest pain or pressure. She denies shortness of breath. Telemetry reveals atrial fibrillation with heart rate around [id number]. Patient systolic blood pressures are ranging from 96-115. She is on 3 L nasal cannula with oxygen saturations greater than 92%. She remains on IV antibiotics for urinary tract infection. 06/03/2021 Patient examined this morning at the bedside. Patient denies chest pain or pressure. She denies shortness of breath. She denies palpitations. Telemetry reveals atrial fibrillation with heart rate around [id number]. Blood pressure 125/83. She is on 2 L nasal cannula with oxygen saturations greater than 92%. 06/04/2021 Patient examined this morning at the bedside. Patient denies chest pain or pressure. She denies shortness of breath. Telemetry reveals atrial f ibrillation with heart rate around [id number]. Blood pressure improved today with a reading of 120/88. She is currently receiving metoprolol 50 mg 3 times a day and amiodarone 200 mg 3 times a day. PHYSICAL EXAM: VITAL SIGNS: Reviewed. GENERAL: Well-developed in no acute distress. NECK: Supple. No JVD or thyromegaly LUNGS: Respirations even and unlabored. Lungs essentially clear to auscultation bilaterally. HEART: Tachycardic. Irregular rate and rhythm. S1 and S2 heard. Systolic murmur noted. EXTREMITIES: Normal range of motion. No clubbing or cyanosis. Peripheral p ulses intact. Trace bilateral lower extremity edema ASSESSMENT: Altered Mental status Aphasia Acute infarct posterior left frontal lobe - seen on MRI on 05/29 UTI - urine culture +VRE and maxwell albicans Non-obstructive coronary artery disease Chronic persistent atrial fibrillation on Eliquis Elevated troponin, not consistent with acute coronary syndrome Hypertension Dyslipidemia COPD Type 2 diabetes mellitus Osteoarthritis End-stage renal disease on hemodialysis MWF PLAN: Continue current cardiac medications Continue to monitor telemetry Continue metoprolol to 50 mg times a day Continue amiodarone 200mg 3 times a day. Decrease amiodarone tomorrow to 200 mg twice a day Further recommendations pending patient course Nurse practitioner note has been reviewed by physician. Signing provider agrees with the documented findings, assessment, and plan of care. Objective - Vital Signs Vital signs: Vital Signs Temp 98.2 F 06/04/21 04:00 Pulse 114 H 06/04/21 08:00 Resp 18 06/04/21 08:00 BP 120/88 06/04/21 08:00 Pulse Ox 97 06/04/21 08:49 Intake & Output 06/03/21 06/04/21 06/04/21 18:59 06:59 18:59 Intake Total 0 Output Total 2001 Balance -2001 Weight 74.6 kg 74.6 kg Intake: Oral 0 Output: Stool 2 Hemodialysis 1999 Other: Voiding Method Toilet Toilet Toilet # Voids 1 # Bowel Movements 2 1 1 - Labs CBC & Chem 7: 06/02/21 08:49 06/02/21 08:49 Labs: Abnormal Lab Results - Last 24 Hours (Table) 06/03/21 06/03/21 06/04/21 Range/Units 16:37 20:39 11:35 POC Glucose (mg/dL) 126 H 175 H 135 H (75-99) mg/dL
--- NOTE | 2021-06-04 13:38 | PN ---
PROGRESS NOTE Patient is seen for followup for end-stage renal disease. This morning patient is lying in bed. She is comfortable, not in any acute distress. She was dialyzed yesterday and we had about 2 L of ultrafiltration. PHYSICAL EXAMINATION: On examination today, blood pressure is 120/88, heart rate 114 per minute. She is afebrile. Examination of the heart S1, S2. Examination of the lungs, bilateral breath sounds are heard. Abdomen is soft, nontender. Examination of lower extremities shows edema 1+ bilaterally. NURSE ADVOCATE exam grossly intact. LAB: Show on June 02, sodium 140, potassium 4.3, chloride 111, CO2 is 15, hemoglobin 13.4 g/dL. ASSESSMENT: 1. End-stage renal disease, on hemodialysis on a Wednesday, Wednesday, Wednesday schedule. Patient had extra treatment yesterday for ultrafiltration for volume overload. 2. Volume overload. We will dialyze the patient again today, plan for another 2-2.5 L today. 3. Atrial fibrillation with RVR heart rate staying about 100-120 beats per minute. 4. Generalized debility. PLAN: Repeat hemodialysis today and next treatment will be on 06/05/2021. MMODL / IJN: [id number] /
--- NOTE | 2021-06-04 14:13 | PN ---
PROGRESS NOTE DATE OF SERVICE: 06/04/2021 REASON FOR FOLLOWUP: Pneumonia. INTERVAL HISTORY: The patient is afebrile. The patient slightly more awake, alert, and also denies any chest pain. No cough. No abdominal pain. No diarrhea. Oral intake remains to be poor. PHYSICAL EXAMINATION: Blood pressure 120/80 with a pulse of 104, temperature 98.2. She is 99% on 2 L nasal cannula. General description is an elderly female lying in bed in no distress. Respiratory system: Unlabored breathing with decreased breath sounds in the bases. No wheeze. Heart S1, S2. Regular rate and rhythm. Abdomen: Soft, no tenderness. LABS: No new labs have been obtained today. DIAGNOSTIC IMPRESSION AND PLAN: Patient with shortness of breath with evidence of bilateral basilar infiltrate, elevated procalcitonin concerning for pneumonia. of IV Zosyn should be enough. Antibiotic can be safely discontinued with positive cultures more likely colonization, not behaving as actual urinary tract infection and no need for treatment for the same thing. MMODL / IJN: [id number] /
--- NOTE | 2021-06-04 15:56 | P.PN ---
Subjective Progress Note Date: 06/04/21 Acute CVA- acute left frontal infarct Severe sepsis secondary to UTI/possible pneumonia Hypoglycemia Hypotension possibly related to sepsis 81 years old female who presents with With past medical history of COPD, diabetes mellitus, osteoarthritis, end-stage renal disease on hemodialysis chronic oxygen dependent on 2 L/m atrial fibrillation. She was recently discharged from the hospital after prolonged stay from 05/02-05/14 for sepsis secondary to urinary tract infection and possible pneumonia, atrial fibrillation's with RVR and acute on chronic systolic CHF with COPD exacerbation. At that time she was discharged on cefdinir to rehab. She came back from rehab 3 days ago. Last night her daughter but does not she is slower than usual, this morning she went to her appointment with fence post driver Dr. Mcmillan and she was very lethargic progressively got worse when she got home, she was difficult to arouse and the daughter called 911 and brought her to the emergency room also patient missed her hemodialysis today because of her illness Patient very weak and lethargic, arousable but go back to sleep, she is poor historian, daughter at bedside. On admission she was hypotensive with a blood pressure is 77/52, afebrile, slightly tachypneic 20-21 and tachycardic, hypoglycemic with oxygen 56-67, given D50 she received a bolus of 500 mL in the emergency room and her blood pressure is 93/60. her WBC IS 8.9K, hB 12.3, Platelet count is 107k, INR is 1.4, Na 133, K 4.4 creatinine is 5.7, Elevated lactic acid at 2.5 came back to normal at 1.7 elevated troponin 0.039 and high ProBNP 12451, liver enz AST AND ALT slightly elevated 67 and 60 respectively urinalysis is suspecious for infection burnham virus non detected EKG atial flutter at [address]-T changes CXR:bilateral infilterates for CHF vs Pneumonia in ED she recieved ceftriaxon and NS 500 ml nephrology and cardiology team were consulted in the evening pt became more awake and interactive with good oxygen saturation in 90s%, per table games shift manager RN 05/31/2021 Patient is seen and evaluated with family at bedside; family reports patient's lack of medical insurance; patient has been recommended inpatient rehab Vital signs are reviewed and are stable . Blood pressure 110/68, pulse 111, temperature 97.9 and O2 saturation of 93% on 3 L Laboratory review shows a hemoglobin of 13.1, WBC 6.6, BUN/creatinine of 12/20.43 Patient remains on IV Zosyn for Pneumonia possibly gram-negative; ID on board and recommending to transition to oral antibiotics in form of Avelox at time of discharge; positive urine culture most likely contamination per ID nor therapy is recommended PT, OT, EGG TESTER ongoing. Daughter reports that there is no support for home. Patient is recommended SNF placement. 06/01/2021 Patient is seen and evaluated with family members at bedside; denies any specific complaints at this time Vital signs are reviewed and remained stable Patient remains on aspirin and statin therapy for acute left frontal lobe infarct; has been evaluated by PT/OT and is recommended skilled rehab Atrial fibrillation; heart rate does jump up to 110; cardiology recommending to continue with current dose of metoprolol and amiodarone 200 mg 3 times a day UTI; urine culture reveals twice a day and Tami; ID on board; await further recommendations for IV antibiotics 06/02/2021 Patient is seen this morning with daughter at the bedside and awake and responding appropriately. Patient is lethargic and delayed in response. Cardiology and nephrology following. Patient continues on hemodialysis Mon/Wed/Fri and will receive dialysis today. Patient continues to be weak and social work following with possible [facility] once stabilized and discharged. Patient continues on IV antibiotics in the form of Zosyn with infectious disease following. Continued on eliquis and aspirin. Patient continues to be tachy with afib and metoprolol increased. Patient also on amiodarone. 06/03/2021 Patient is seen this morning and having increasing shortness of breath and nephrology following and planning on ultrafiltration hemodialysis today given her continued shortness of breath. Patient is maintained on IV Zosyn to continue and will require one week of antibiotics on discharge and will need to discuss with infectious disease about possible midline as she cannot receive IV Zosyn during dialysis given the frequency of required doses needed on Zosyn. Patient is now on metoprolol 50 mg 3 times a day along with oral amiodarone 200 mg 3 times a day and will continue with cardiology following closely. 06/04/2021 A is seen lying in bed this morning no acute distress currently maintained on 3 L of oxygen via nasal cannula which is her baseline. Patient denies any worsening shortness of breath and appears comfortable. Patient is to receive hemodialysis again today with nephrology following closely. Patient is maintained on Wednesday/Wednesday/Wednesday schedule. Patient also being seen by cardiology as well. Patient continued on metoprolol 50 mg 3 times a day along with amiodarone 200 milligrams 3 times daily and working on tapering. Patient continues on IV Zosyn and will likely discontinue on discharge as she has been adequately treated. Review of systems: Constitutional: reports of fatigue, no reports of fever, or chills Cardiovascular: No reports of chest pain or palpitations Respiratory: No reports of worsening shortness of breath GI: No reports of nausea, vomiting, or diarrhea : No reports of dysuria or retention Neurovascular: reports generalized weakness All medications have been reviewed Physical exam: Gen: This is a 81 year old female awake, alert and oriented to 1-2 with delayed responses, well developed, well nourished HEENT: Head is atraumatic, normocephalic. Pupils equal, round. Sclerae is anicteric. NECK: Supple. No JVD. No lymphadenopathy. No thyromegaly. LUNGS: diminished breath sounds with some scattered rhonchi noted. No intercostal retractions. HEART: S1, S2 muffled, tachycardic, irregularly irregular ABDOMEN: Soft. Bowel sounds are present. No masses. No tenderness. EXTREMITIES: No pedal edema. No calf tenderness. NEUROLOGICAL: Patient is awake, alert and oriented x2. diffusely weak. Assessment and plan: -Severe Sepsis most probably secondary to urinary tract infection with possible pneumonia, urine culture is enterococcus faecium which is VRE and tami a lbicans, continued on Zosyn with infectious disease following, patient has been adequately treated and will discontinue IV Zosyn on discharge -Chronic persistent Atrial fibrillation is on eliquis, metoprolol 50 mg 3 times a day along with amiodarone 200 mg 3 times a day, cardiology following and will start tapering amiodarone. -Acute CVA- acute left frontal infarct as noted on mri of the brain -Hypotension and hypoglycemia, currently improved blood pressure and glucose levels are stable -Altered mental status, most likely secondary to sepsis, multifactorial secondary to hypoglycemia, acute CVA and hypotension on admission -chronic systolic CHF with ejection fraction 40-45% -Moderate tricuspid regurgitation -COPD with mild acute exacerbation -Chronic respiratory failure on home oxygen which will be continued, she is on 2 L/M at home -Pulmonary hypertension most probably secondary to COPD -Chronic kidney disease/end-stage renal disease on hemodialysis Wed/Wed/ Wed secondary to hypertensive nephrosclerosis and also diabetic nephropathy -History of Gastroesophageal reflux disease -GI prophylaxis -DVT prophylaxis: on eliquis -NO code Plan: Continue current medications and cardiology, nephrology, and infectious disease following. Patient receiving hemodialysis today as she is scheduled on Wednesday/Wednesday/Wednesday schedules and appears more comfortable today with no worsening shortness of breath noted. Patient continues to need encouragement with meals and not eating very much and daughter states this is chronic for her. Encouraged increased oral intake and continue with supplements. Social work following and patient will be going to [facility] once stabilized and discharged. Patient has been adequately treated with IV antibiotic therapy and will not require antibiotics upon discharge. Possible discharge in 24 hours. Objective - Vital Signs Vital signs: Vital Signs Temp 98.2 F 06/04/21 04:00 Pulse 110 H 06/04/21 04:00 Resp 24 06/04/21 04:00 BP 104/70 06/04/21 04:00 Pulse Ox 97 06/04/21 04:00 Intake & Output 06/03/21 06/04/21 06/04/21 18:59 06:59 18:59 Intake Total 0 Output Total 2001 Balance -2001 Weight 74.6 kg Intake: Oral 0 Output: Stool 2 Hemodialysis 1999 Other: Voiding Method Toilet Toilet # Voids 1 # Bowel Movements 2 1 - Labs CBC & Chem 7: 06/02/21 08:49 06/02/21 08:49 Labs: Abnormal Lab Results - Last 24 Hours (Table) 06/03/21 06/03/21 Range/Units 16:37 20:39 POC Glucose (mg/dL) 126 H 175 H (75-99) mg/dL
[2021-06-04 16:49] LABS: Glucose,Whole Blood 84 mg/dL (75-99)
[2021-06-04] MEDS: ATORVASTATIN 40 MG TAB PO SCH (19:50)
[2021-06-04] MEDS: AMOXIC-POT CLAV 500-125 MG 1 EACH TAB PO SCH (19:50)
[2021-06-04 20:06] LABS: Glucose,Whole Blood 157 mg/dL (75-99)
[2021-06-05 06:06] LABS: Glucose,Whole Blood 100 mg/dL (75-99)
[2021-06-05] MEDS: APIXABAN 2.5 MG TABLET PO SCH ×2 (06:25→16:49)
[2021-06-05] MEDS: PANTOPRAZOLE 40 MG TABLET PO SCH (06:25)
[2021-06-05] MEDS: CALCIUM ACETATE 667 MG TAB PO SCH ×3 (06:25→16:49)
[2021-06-05] MEDS: AMIODARONE 200 MG TAB PO SCH ×3 (08:40→20:37)
[2021-06-05] MEDS: METOPROLOL TARTRATE 50 MG TAB PO SCH ×3 (08:40→20:37)
[2021-06-05] MEDS: VENLAFAXINE HCL ER 37.5 MG CAP PO SCH (08:41)
[2021-06-05] MEDS: IPRATROPIUM 0.5 MG/2.5 ML NEBU INHALATION SCH ×4 (09:03→20:14)
[2021-06-05] MEDS: SYMBICORT 80-4.5 MCG INHALER INHALATION SCH ×2 (09:03→20:14)
[2021-06-05 11:57] LABS: Glucose,Whole Blood 128 mg/dL (75-99)
--- NOTE | 2021-06-05 12:57 | P.PN ---
Subjective Progress Note Date: 06/05/21 This is a pleasant 81-year-old female patient with a past medical history of nonobstructive CAD, chronic persistent atrial fibrillation, hypertension, dyslipidemia, COPD, type 2 diabetes mellitus, osteoarthritis, and end-stage renal disease on hemodialysis. She is a former smoker. She follows in the offi ce with Dr. Chavarria. We were asked to see the patient in consultation for atrial fibrillation with rapid ventricular response. She is currently on metoprolol tartrate 50 mg by mouth 3 times a day as well as amiodarone 200 mg by mouth 3 times a day. Heart rate remains poorly controlled. She remains in atrial tachycardia with variable conduction. Objective - Vital Signs Vital signs: Vital Signs Temp 97.9 F 06/05/21 08:00 Pulse 112 H 06/05/21 08:00 Resp 14 06/05/21 08:00 BP 128/71 06/05/21 08:00 Pulse Ox 93 L 06/04/21 12:00 Intake & Output 06/04/21 06/05/21 06/05/21 18:59 06:59 18:59 Intake Total 300 180 Output Total 1900 181 Balance -1600 -181 180 Weight 74.6 kg 73.5 kg Intake: Oral 0 180 Hemodialysis 300 Output: Urine 180 Stool 1 Hemodialysis 1900 Other: Voiding Method Toilet Toilet # Voids 0 1 # Bowel Movements 1 1 - Exam PHYSICAL EXAMINATION: HEENT: Head is atraumatic, normocephalic. Pupils equal, round. Neck is supple. There is no elevated jugular venous pressure. HEART EXAMINATION: Heart sounds irregular rate and rhythm with tachycardia, S1 and S2 with a systolic murmur. CHEST EXAMINATION: Lungs are clear to auscultation and precussion. No chest wall tenderness is noted on palpation or with deep breathing. ABDOMEN: Soft, nontender. Bowel sounds are heard. No organomegaly noted. EXTREMITIES: 2+ peripheral pulses with evidence of trace peripheral edema and no calf tenderness noted. NEUROLOGIC patient is awake, alert and oriented x3. . - Labs CBC & Chem 7: 06/02/21 08:49 06/02/21 08:49 Labs: Abnormal Lab Results - Last 24 Hours (Table) 06/04/21 06/05/21 06/05/21 Range/Units 20:05 06:04 11:56 POC Glucose (mg/dL) 157 H 100 H 128 H (75-99) mg/dL Assessment and Plan Assessment: #1 acute infarct posterior left frontal lobe resulting in altered mental status and aphasia #2 UTI #3 nonobstructive CAD #4 chronic persistent atrial fibrillation with poorly controlled ventricular rates #5 elevated troponin, not consistent with acute coronary syndrome #6 hypertension #7 hyperlipidemia #8 type 2 diabetes mellitus #9 end-stage renal disease on hemodialysis #10 COPD Plan: From collet making machine operator perspective medications were reviewed and we will continue metoprolol 50 mg 3 times a day and amiodarone 200 mg by mouth 3 times a day. Will repeat reevaluate in the morning and possibly decrease amiodarone at that time. We will continue to follow the patient provide further recommendations accordingly. GEAR DESIGN ENGINEER note has been reviewed, I agree with a documented findings and plan of care. Patient was seen and examined.
--- NOTE | 2021-06-05 13:53 | PN ---
PROGRESS NOTE Patient is seen for followup for end-stage renal disease. She is sitting in a sitting up in a bedside chair. She is comfortable, not in any acute distress. The patient has had two consecutive treatments of dialysis with 4 L removed over the last two days. Her volume status is improved. Breathing status is improved as well. PHYSICAL EXAMINATION: On examination today, blood pressure 128/71, heart rate 112 per minute. She is afebrile. Examination of the heart S1, S2. Examination of the lungs, bilateral breath sounds are heard. Decreased breath sounds at the bases. Abdomen is soft, nontender. Examination of lower extremities shows edema 1+ bilaterally. MANAGER STRATEGIC PARTNERSHIPS exam grossly intact. LABS: No recent labs available. ASSESSMENT: 1. End-stage renal disease, on hemodialysis on a Wednesday, Wednesday, Wednesday schedule. The patient had an extra treatment on Wednesday. She is doing better in terms of volume status. We will plan for a treatment again tomorrow on 06/06/2021. 2. Atrial fibrillation with RVR, currently improved. 3. Volume overload, currently improved. 4. Chronic kidney disease mineral bone disorder. 5. Urinary tract infection with urine culture growing VRE. PLAN: Hemodialysis in a.m. Continue current phosphate binders. Encourage increased oral intake and check labs. MMODL / IJN: [id number] /
--- NOTE | 2021-06-05 15:57 | PN ---
PROGRESS NOTE DATE OF SERVICE: 06/05/2021. REASON FOR FOLLOWUP: Aspiration pneumonia. INTERVAL HISTORY: Patient is afebrile. The patient is breathing comfortably. Patient denies having any chest pain or any worsening cough. No abdominal pain. No diarrhea. Oral intake remains to be poor. PHYSICAL EXAMINATION: Blood pressure is 128/71 with a pulse of 112, temp 97.9. She is 90% on 2 L nasal cannula. General description is an elderly female up in the chair in no distress. Respiratory system: Unlabored breathing, decreased breath sounds in the base. No wheeze. Heart S1, S2. Regular rate and rhythm. Abdomen: Soft. No tenderness. Extremities: No edema of the feet. LABS: No new labs have been obtained today. DIAGNOSTIC IMPRESSION AND PLAN: 1. Patient with concern for pneumonia in this patient has received adequate antibiotic therapy. No need for antibiotic on discharge. 2. Positive urine culture likely contamination and no need for antibiotic on discharge. MMODL / IJN: [id number] /
--- NOTE | 2021-06-05 16:37 | P.PN ---
Subjective Progress Note Date: 06/05/21 Acute CVA- acute left frontal infarct Severe sepsis secondary to UTI/possible pneumonia Hypoglycemia Hypotension possibly related to sepsis 81 years old female who presents with With past medical history of COPD, diabetes mellitus, osteoarthritis, end-stage renal disease on hemodialysis chronic oxygen dependent on 2 L/m atrial fibrillation. She was recently discharged from the hospital after prolonged stay from 05/02-05/14 for sepsis secondary to urinary tract infection and possible pneumonia, atrial fibrillation's with RVR and acute on chronic systolic CHF with COPD exacerbation. At that time she was discharged on cefdinir to rehab. She came back from rehab 3 days ago. Last night her daughter but does not she is slower than usual, this morning she went to her appointment with manager proposal Dr. Mcmillan and she was very lethargic progressively got worse when she got home, she was difficult to arouse and the daughter called 911 and brought her to the emergency room also patient missed her hemodialysis today because of her illness Patient very weak and lethargic, arousable but go back to sleep, she is poor historian, daughter at bedside. On admission she was hypotensive with a blood pressure is 77/52, afebrile, slightly tachypneic 20-21 and tachycardic, hypoglycemic with oxygen 56-67, given D50 she received a bolus of 500 mL in the emergency room and her blood pressure is 93/60. her WBC IS 8.9K, hB 12.3, Platelet count is 107k, INR is 1.4, Na 133, K 4.4 creatinine is 5.7, Elevated lactic acid at 2.5 came back to normal at 1.7 elevated troponin 0.039 and high ProBNP 23118, liver enz AST AND ALT slightly elevated 67 and 60 respectively urinalysis is suspecious for infection burnham virus non detected EKG atial flutter at [address]-T changes CXR:bilateral infilterates for CHF vs Pneumonia in ED she recieved ceftriaxon and NS 500 ml nephrology and cardiology team were consulted in the evening pt became more awake and interactive with good oxygen saturation in 90s%, per freight separator RN 05/31/2021 Patient is seen and evaluated with family at bedside; family reports patient's lack of medical insurance; patient has been recommended inpatient rehab Vital signs are reviewed and are stable . Blood pressure 110/68, pulse 111, temperature 97.9 and O2 saturation of 93% on 3 L Laboratory review shows a hemoglobin of 13.1, WBC 6.6, BUN/creatinine of 12/20.43 Patient remains on IV Zosyn for Pneumonia possibly gram-negative; ID on board and recommending to transition to oral antibiotics in form of Avelox at time of discharge; positive urine culture most likely contamination per ID nor therapy is recommended PT, OT, AUDIO VISUAL COLLECTIONS COORDINATOR ongoing. Daughter reports that there is no support for home. Patient is recommended SNF placement. 06/01/2021 Patient is seen and evaluated with family members at bedside; denies any specific complaints at this time Vital signs are reviewed and remained stable Patient remains on aspirin and statin therapy for acute left frontal lobe infarct; has been evaluated by PT/OT and is recommended skilled rehab Atrial fibrillation; heart rate does jump up to 110; cardiology recommending to continue with current dose of metoprolol and amiodarone 200 mg 3 times a day UTI; urine culture reveals twice a day and Tami; ID on board; await further recommendations for IV antibiotics 06/02/2021 Patient is seen this morning with daughter at the bedside and awake and responding appropriately. Patient is lethargic and delayed in response. Cardiology and nephrology following. Patient continues on hemodialysis Mon/Wed/Fri and will receive dialysis today. Patient continues to be weak and social work following with possible [facility] once stabilized and discharged. Patient continues on IV antibiotics in the form of Zosyn with infectious disease following. Continued on eliquis and aspirin. Patient continues to be tachy with afib and metoprolol increased. Patient also on amiodarone. 06/03/2021 Patient is seen this morning and having increasing shortness of breath and nephrology following and planning on ultrafiltration hemodialysis today given her continued shortness of breath. Patient is maintained on IV Zosyn to continue and will require one week of antibiotics on discharge and will need to discuss with infectious disease about possible midline as she cannot receive IV Zosyn during dialysis given the frequency of required doses needed on Zosyn. Patient is now on metoprolol 50 mg 3 times a day along with oral amiodarone 200 mg 3 times a day and will continue with cardiology following closely. 06/04/2021 A is seen lying in bed this morning no acute distress currently maintained on 3 L of oxygen via nasal cannula which is her baseline. Patient denies any worsening shortness of breath and appears comfortable. Patient is to receive hemodialysis again today with nephrology following closely. Patient is maintained on Wednesday/Wednesday/Wednesday schedule. Patient also being seen by cardiology as well. Patient continued on metoprolol 50 mg 3 times a day along with amiodarone 200 milligrams 3 times daily and working on tapering. Patient continues on IV Zosyn and will likely discontinue on discharge as she has been adequately treated. 06/05/2021 Patient is seen in follow-up this morning no acute overnight issues noted. Patient currently resting and easily arousable. Patient continues on 3 L and denies any worsening shortness of breath. Multiple medical consultations including cardiology, nephrology, and infectious disease following. Patient is maintained on oral antibiotics and will continue. Patient continues to be on metoprolol along with amiodarone and continues to be tachycardic and cardiology is following and making further adjustments and recommendations. No new medication adjustments today. Patient will have dialysis again tomorrow. Patient has been accepted to [facility] for continued PT/OT therapy and awaiting on insurance authorization. Review of systems: Constitutional: reports of fatigue, no reports of fever, or chills Cardiovascular: No reports of chest pain or palpitations Respiratory: No reports of worsening shortness of breath GI: No reports of nausea, vomiting, or diarrhea : No reports of dysuria or retention Neurovascular: reports generalized weakness All medications have been reviewed Physical exam: Gen: This is a 81 year old female awake, alert and oriented to 1-2 with delayed responses, well developed, well nourished HEENT: Head is atraumatic, normocephalic. Pupils equal, round. Sclerae is anicteric. NECK: Supple. No JVD. No lymphadenopathy. No thyromegaly. LUNGS: diminished breath sounds with some scattered rhonchi noted. No intercostal retractions. HEART: S1, S2 muffled, tachycardic, irregularly irregular ABDOMEN: Soft. Bowel sounds are present. No masses. No tenderness. EXTREMITIES: No pedal edema. No calf tenderness. NEUROLOGICAL: Patient is awake, alert and oriented x2. diffusely weak. Assessment and plan: -Severe Sepsis most probably secondary to urinary tract infection with possible pneumonia, urine culture is enterococcus faecium which is VRE and tami albicans, continued on Zosyn with infectious disease following, patient has been adequately treated and will discontinue IV Zosyn on a currently on Augmentin -Chronic persistent Atrial fibrillation uncontrolled rates currently, continues on eliquis, metoprolol 50 mg 3 times a day along with amiodarone 200 mg 3 times a day, cardiology following and appreciate further recommendations -Acute CVA- acute left frontal infarct as noted on mri of the brain -Hypotension and hypoglycemia, currently improved blood pressure and glucose levels are stable -Altered mental status, most likely secondary to sepsis, multifactorial secondary to hypoglycemia, acute CVA and hypotension on admission -chronic systolic CHF with ejection fraction 40-45% -Moderate tricuspid regurgitation -COPD with mild acute exacerbation -Chronic respiratory failure on home oxygen which will be continued, she is on 2 L/M at home -Pulmonary hypertension most probably secondary to COPD -Chronic kidney disease/end-stage renal disease on hemodialysis Wed/Wed/ Wed secondary to hypertensive nephrosclerosis and also diabetic nephropathy -History of Gastroesophageal reflux disease -GI prophylaxis -DVT prophylaxis: on eliquis -NO code Plan: Continue current medications and cardiology, nephrology, and infectious disease following. Patient intends to be tachycardic and cardiology following and appreciate recommendations. Patient continues to need encouragement with meals and not eating very much and daughter states this is chronic for her. Encouraged increased oral intake and continue with supplements. Social work following and patient will be going to [facility] once stabilized authorization is obtained. Patient on oral antibiotics of Augmentin and will continue. Documentation received from primary care provider of previous TSH testing recommending starting Synthroid although TSH here done on May 28 was 4.370 and free T4 is 1.01. Patient will likely receive hemodialysis on her scheduled day of Wednesday/Wednesday/Wednesday tomorrow. Social work following and awaiting on insurance authorization and we'll continue to monitor closely. Objective - Vital Signs Vital signs: Vital Signs Temp 97.9 F 06/05/21 08:00 Pulse 112 H 06/05/21 08:00 Resp 14 06/05/21 08:00 BP 128/71 06/05/21 08:00 Pulse Ox 93 L 06/04/21 12:00 Intake & Output 06/04/21 06/05/21 06/05/21 18:59 06:59 18:59 Intake Total 300 Output Total 1900 181 Balance -1600 -181 Weight 74.6 kg 73.5 kg Intake: Oral 0 Hemodialysis 300 Output: Urine 180 Stool 1 Hemodialysis 1900 Other: Voiding Method Toilet Toilet # Voids 0 # Bowel Movements 1 - Labs CBC & Chem 7: 06/02/21 08:49 06/02/21 08:49 Labs: Abnormal Lab Results - Last 24 Hours (Table) 06/04/21 06/04/21 06/05/21 Range/Units 11:35 20:05 06:04 POC Glucose (mg/dL) 135 H 157 H 100 H (75-99) mg/dL
[2021-06-05 17:02] LABS: Glucose,Whole Blood 180 mg/dL (75-99)
[2021-06-05 20:18] LABS: Glucose,Whole Blood 153 mg/dL (75-99)
[2021-06-05] MEDS: AMOXIC-POT CLAV 500-125 MG 1 EACH TAB PO SCH (20:37)
[2021-06-05] MEDS: ATORVASTATIN 40 MG TAB PO SCH (20:37)
[2021-06-06 00:48] LABS: Potassium 4.5 mmol/L (3.5-5.1)
[2021-06-06] MEDS: PANTOPRAZOLE 40 MG TABLET PO SCH (05:23)
[2021-06-06 06:58] LABS: Glucose,Whole Blood 93 mg/dL (75-99)
[2021-06-06] MEDS: APIXABAN 2.5 MG TABLET PO SCH ×2 (07:32→18:05)
[2021-06-06] MEDS: METOPROLOL TARTRATE 50 MG TAB PO SCH ×2 (07:34→18:04)
[2021-06-06] MEDS: AMIODARONE 200 MG TAB PO SCH (07:35)
[2021-06-06] MEDS: SYMBICORT 80-4.5 MCG INHALER INHALATION SCH (07:35)
[2021-06-06] MEDS: IPRATROPIUM 0.5 MG/2.5 ML NEBU INHALATION SCH ×3 (07:35→16:09)
[2021-06-06] MEDS: CALCIUM ACETATE 667 MG TAB PO SCH ×3 (07:36→18:05)
[2021-06-06] MEDS: VENLAFAXINE HCL ER 37.5 MG CAP PO SCH (07:40)
[2021-06-06 11:38] LABS: Glucose,Whole Blood 136 mg/dL (75-99)
--- NOTE | 2021-06-06 13:35 | P.PN ---
Subjective Progress Note Date: 06/06/21 HISTORY OF PRESENT ILLNESS: This is a pleasant 81 years old female with a past medical history of non- obstructive coronary artery disease, chronic persistant atrial fibrillation, hy pertension, dyslipidemia, COPD, type 2 diabetes mellitus, osteoarthritis, end- stage renal disease on hemodialysis MWF, former smoker. She follows in the office with Dr. Chavarria. We have been asked to see in consultation for atrial fibrillation. On exam 05/27/21 patient alert and oriented x 3. She does not remember what brought her to the hospital. She states that her daughter told her that she was at her cardiology appointment with Dr. Chavarria, she is very lethargic and weak. Yesterday patient progressively got worse, when her daughter took her home she states it was difficult to arouse the patient and the daughter called 911 and she is brought to the emergency department. At patient's appointment yesterday with Dr. Chavarria he decreased her metoprolol to 25mg BID. She was recently discharged from the hospital after prolonged stay from 05/02-05/14 for sepsis secondary to urinary tract infection and possible pneumonia. Cardiology saw her due to atrial fibrillation with RVR and acute on chronic sy stolic CHF/COPD exacerbation. Patient's beta cristi was increased to metoprolol tartrate 75mg TID and she was discharged on oral anticoagulation. Her echo in the hospital revealed impaired LV function with EF of 40-45% At that time she was discharged on antibiotics to [facility]. She states she did get dialysis Wednesday. Dialysis was missed yesterday due to patient being admitted to hospital. DIAGNOSTICS Most recent echocardiogram 05/05/2021 revealed an EF 40-45%, RV is mild to moderately enlarged, mild mitral regurgitation, moderate tricuspid regurgitation, moderate pulmonary hypertension with an RVSP 62 mmHg, small pleural effusion Last Cardiac Catheterization 03/2019 which revealed intermediate lesion involving the mid first obtuse marginal branch of the left circumflex appeared to be 60%, proximal LAD appear to have mild disease only. Left circumflex appeared to have mild disease only. 05/28/2021: Morning patient had acute new onset confusion and aphasia. Patient underwent CT brain 05/27 which revealed atrophy and chronic small vessel ischemia. No acute intracranial abnormality. 05/29/21: Patient continued to be confused. Neurology was consulted. Patient underwent MRI which revealed acute infarct posterior left frontal lobe. Moderate diffuse cerebral atrophy and chronic small vessel ischemic changes. 05/30/2021: Patient seen and examined at bedside this morning, no acute distress. She continues to be confused. She is alert and oriented to person. She appears comfortable. Denies chest pain or shortness of breath. Blood pressure 117/82, heart rate 114, afebrile, maintaining oxygen saturations 99% on 3 L nasal cannula. Patient's last dialysis was on 05/28 with 500 mg removed. Telemetry reviewed patient in atrial fibrillation HR [id number]. Laboratory data reviewed, sodium 140, potassium 4.1, BUN 15, serum creatinine 4.03. Patient curr ently maintained on Eliquis 2.5 mg twice a day, metoprolol titrate 25 mg TID, IV Zosyn, Effexor 37.5 mg daily. 05/31/2021 Patient examined this morning at the bedside. Patient appears slightly lethargic and confused. Patient remains in atrial fibrillation with heart rate in the 120s. Blood pressure 110/60. She denies chest pain or pressure. She is currently receiving metoprolol 25 mg 3 times a day. She is anticoagulated with Eliquis. 06/01/2021 Patient examined this morning at the bedside. Patient remains in atrial fibrillation with a heart rate around 110. Amiodarone was added to patient's medication regimen yesterday. Patient's blood pressures are running on the lower side with a systolic around 100. 06/02/2021 Patient examined this morning at the bedside. Patient denies chest pain or pressure. She denies shortness of breath. Telemetry reveals atrial fibrillation with heart rate around [id number]. Patient systolic blood pressures are ranging from 96-115. She is on 3 L nasal cannula with oxygen saturations greater than 92%. She remains on IV antibiotics for urinary tract infection. 06/03/2021 Patient examined this morning at the bedside. Patient denies chest pain or pressure. She denies shortness of breath. She denies palpitations. Telemetry reveals atrial fibrillation with heart rate around [id number]. Blood pressure 125/83. She is on 2 L nasal cannula with oxygen saturations greater than 92%. 06/04/2021 Patient examined this morning at the bedside. Patient denies chest pain or pressure. She denies shortness of breath. Telemetry reveals atrial f ibrillation with heart rate around [id number]. Blood pressure improved today with a reading of 120/88. She is currently receiving metoprolol 50 mg 3 times a day and amiodarone 200 mg 3 times a day. 06/06/2021 Patient examined at the bedside. Patient remains in atrial fibrillation with heart rates in the 90s. She denies chest pain or pressure. She denies short of breath. She reports a decreased appetite and states she has not been eating much. Patient possibly to be discharged today to ECF. PHYSICAL EXAM: VITAL SIGNS: Reviewed. GENERAL: Well-developed in no acute distress. NECK: Supple. No JVD or thyromegaly LUNGS: Respirations even and unlabored. Lungs essentially clear to auscultation bilaterally. HEART: Tachycardic. Irregular rate and rhythm. S1 and S2 heard. Systolic murmur noted. EXTREMITIES: Normal range of motion. No clubbing or cyanosis. Peripheral pulses intact. Trace bilateral lower extremity edema ASSESSMENT: Altered Mental status Aphasia Acute infarct posterior left frontal lobe - seen on MRI on 05/29 UTI - urine culture +VRE and maxwell albicans Non-obstructive coronary artery disease Chronic persistent atrial fibrillation on Eliquis Elevated troponin, not consistent with acute coronary syndrome Hypertension Dyslipidemia COPD Type 2 diabetes mellitus Osteoarthritis End-stage renal disease on hemodialysis MWF PLAN: Continue current cardiac medications Continue metoprolol to 50 mg times a day Continue amiodarone. Decrease amiodarone to 200 mg twice a day Patient is stable for discharge from a cardiac standpoint. We will sign off. Please reconsult if needed. Nurse practitioner note has been reviewed by physician. Signing provider agrees with the documented findings, assessment, and plan of care. Objective - Vital Signs Vital signs: Vital Signs Temp 97.5 F L 06/06/21 07:19 Pulse 102 H 06/06/21 07:19 Resp 20 06/06/21 08:30 BP 144/78 06/06/21 07:19 Pulse Ox 100 06/06/21 07:19 Intake & Output 06/05/21 06/06/21 06/06/21 18:59 06:59 18:59 Intake Total 420 Output Total 2 1 Balance 420 -2 -1 Weight 74.8 kg Intake: Oral 420 Output: Stool 2 1 Other: Voiding Method Toilet Toilet # Voids 1 2 # Bowel Movements 1 1 - Labs CBC & Chem 7: 06/02/21 08:49 06/05/21 23:39 Labs: Abnormal Lab Results - Last 24 Hours (Table) 06/05/21 06/05/21 06/05/21 Range/Units 11:56 16:58 20:16 Sodium (137-145) mmol/L BUN (7-17) mg/dL Creatinine (0.52-1.04) mg/dL Glucose (74-99) mg/dL POC Glucose (mg/dL) 128 H 180 H 153 H (75-99) mg/dL 06/05/21 Range/Units 23:39 Sodium 136 L (137-145) mmol/L BUN 23 H (7-17) mg/dL Creatinine 3.40 H (0.52-1.04) mg/dL Glucose 125 H (74-99) mg/dL POC Glucose (mg/dL) (75-99) mg/dL
--- NOTE | 2021-06-06 14:04 | P.DS ---
Providers Date of admission: 05/26/21 15:02 Expected date of discharge: 06/06/21 Attending physician: Blair Iyer MD Consults: 05/26/21 15:07 Consult Physician Urgent Consulting Provider: Filemon Bland Consult Reason/Comments: Needs dialysis Do you want consulting provider notified?: Yes 05/26/21 15:08 Consult Physician Urgent Consulting Provider: [facility] Consult Reason/Comments: A. fib, a flutter Do you want consulting provider notified?: Yes 05/26/21 19:50 Consult Physician Urgent Consulting Provider: Edin Quinn Consult Reason/Comments: uti vs pna Do you want consulting provider notified?: Yes 05/28/21 09:54 Consult Physician Urgent Consulting Provider: Azam Stephens Consult Reason/Comments: new onset confusion Do you want consulting provider notified?: Yes 05/30/21 13:53 Consult Physician Urgent Consulting Provider: Kerwin Walters Consult Reason/Comments: stroke Do you want consulting provider notified?: Yes Primary care physician: Ventura Duran Hospital Course: Diagnosis -Severe Sepsis most probably secondary to urinary tract infection with possible pneumonia -Chronic persistent Atrial fibrillation -Acute CVA- acute left frontal infarct as noted on mri of the brain -Hypotension and hypoglycemia, currently improved -Altered mental status, most likely secondary to sepsis, multifactorial secondary to hypoglycemia, acute CVA and hypotension on admission -chronic systolic CHF with ejection fraction 40-45% -Moderate tricuspid regurgitation -COPD with mild acute exacerbation -Chronic respiratory failure on home oxygen which will be continued, she is on 2 L/M at home -Pulmonary hypertension most probably secondary to COPD -Chronic kidney disease/end-stage renal disease on hemodialysis Wed/Wed/ Wed secondary to hypertensive nephrosclerosis and also diabetic nephropathy -History of Gastroesophageal reflux disease -GI prophylaxis -DVT prophylaxis: on eliquis -NO code Discharge disposition Patient is being discharged in a stable condition with guarded prognosis to [facility] for continued PT/OT therapy. Patient will follow-up with Dr. Workman in the outpatient setting upon discharge. Patient is to continue with hemodialysis as scheduled on Wednesday/Wednesday/Wednesday. Patient to follow-up outpatient with cardiology as well. Total time taken is greater than 35 minutes. Hospital course Acute CVA- acute left frontal infarct Severe sepsis secondary to UTI/possible pneumonia Hypoglycemia Hypotension possibly related to sepsis 81 years old female who presents with With past medical history of COPD, diabetes mellitus, osteoarthritis, end-stage renal disease on hemodialysis chronic oxygen dependent on 2 L/m atrial fibrillation. She was recently discharged from the hospital after prolonged stay from 05/02-05/14 for sepsis secondary to urinary tract infection and possible pneumonia, atrial fibrillation's with RVR and acute on chronic systolic CHF with COPD exacerbation. At that time she was discharged on cefdinir to rehab. She came back from rehab 3 days ago. Last night her daughter but does not she is slower than usual, this morning she went to her appointment with motel clerk Dr. Mcmillan and she was very lethargic progressively got worse when she got home, she was difficult to arouse and the daughter called 911 and brought her to the emergency room also patient missed her hemodialysis today because of her illness Patient very weak and lethargic, arousable but go back to sleep, she is poor historian, daughter at bedside. On admission she was hypotensive with a blood pressure is 77/52, afebrile, slightly tachypneic 20-21 and tachycardic, hypoglycemic with oxygen 56-67, given D50 she received a bolus of 500 mL in the emergency room and her blood pressure is 93/60. her WBC IS 8.9K, hB 12.3, Platelet count is 107k, INR is 1.4, Na 133, K 4.4 creatinine is 5.7, Elevated lactic acid at 2.5 came back to normal at 1.7 elevated troponin 0.039 and high ProBNP 06342, liver enz AST AND ALT slightly elevated 67 and 60 respectively urinalysis is suspecious for infection burnham virus non detected EKG atial flutter at [address]-T changes CXR:bilateral infilterates for CHF vs Pneumonia in ED she recieved ceftriaxon and NS 500 ml nephrology and cardiology team were consulted in the evening pt became more awake and interactive with good oxygen saturation in 90s%, per lieutenant shift supervisor RN 05/31/2021 Patient is seen and evaluated with family at bedside; family reports patient's lack of medical insurance; patient has been recommended inpatient rehab Vital signs are reviewed and are stable . Blood pressure 110/68, pulse 111, temperature 97.9 and O2 saturation of 93% on 3 L Laboratory review shows a hemoglobin of 13.1, WBC 6.6, BUN/creatinine of 12/20.43 Patient remains on IV Zosyn for Pneumonia possibly gram-negative; ID on board and recommending to transition to oral antibiotics in form of Avelox at time of discharge; positive urine culture most likely contamination per ID nor therapy is recommended PT, OT, SOLAR BUSINESS DEVELOPER ongoing. Daughter reports that there is no support for home. Patient is recommended SNF placement. 06/01/2021 Patient is seen and evaluated with family members at bedside; denies any specific complaints at this time Vital signs are reviewed and remained stable Patient remains on aspirin and statin therapy for acute left frontal lobe infarct; has been evaluated by PT/OT and is recommended skilled rehab Atrial fibrillation; heart rate does jump up to 110; cardiology recommending to continue with current dose of metoprolol and amiodarone 200 mg 3 times a day UTI; urine culture reveals twice a day and Tami; ID on board; await further recommendations for IV antibiotics 06/02/2021 Patient is seen this morning with daughter at the bedside and awake and responding appropriately. Patient is lethargic and delayed in response. Cardiology and nephrology following. Patient continues on hemodialysis Wed/Wed/Wed and will receive dialysis today. Patient continues to be weak and social work following with possible [facility] once stabilized and discharged. Patient continues on IV antibiotics in the form of Zosyn with infectious disease following. Continued on eliquis and aspirin. Patient continues to be tachy with afib and metoprolol increased. Patient also on amiodarone. 06/03/2021 Patient is seen this morning and having increasing shortness of breath and nephrology following and planning on ultrafiltration hemodialysis today given her continued shortness of breath. Patient is maintained on IV Zosyn to continue and will require one week of antibiotics on discharge and will need to discuss with infectious disease about possible midline as she cannot receive IV Zosyn during dialysis given the frequency of required doses needed on Zosyn. Patient is now on metoprolol 50 mg 3 times a day along with oral amiodarone 200 mg 3 times a day and will continue with cardiology following closely. 06/04/2021 A is seen lying in bed this morning no acute distress currently maintained on 3 L of oxygen via nasal cannula which is her baseline. Patient denies any worsening shortness of breath and appears comfortable. Patient is to receive hemodialysis again today with nephrology following closely. Patient is maintained on Wednesday/Wednesday/Wednesday schedule. Patient also being seen by cardiology as well. Patient continued on metoprolol 50 mg 3 times a day along with amiodarone 200 milligrams 3 times daily and working on tapering. Patient continues on IV Zosyn and will likely discontinue on discharge as she has been adequately treated. 06/05/2021 Patient is seen in follow-up this morning no acute overnight issues noted. Patient currently resting and easily arousable. Patient continues on 3 L and denies any worsening shortness of breath. Multiple medical consultations including cardiology, nephrology, and infectious disease following. Patient is maintained on oral antibiotics and will continue. Patient continues to be on metoprolol along with amiodarone and continues to be tachycardic and cardiology is following and making further adjustments and recommendations. No new medication adjustments today. Patient will have dialysis again tomorrow. Patient has been accepted to [facility] for continued PT/OT therapy and awaiting on insurance authorization. 06/06/2021 Patient is seen in follow-up this morning awaiting to receive hemodialysis on her normal schedule day. Patient was maintained on amiodarone 200 mg 3 times a day and has been decreased as heart rate is more controlled to 200 mg twice a day and recommend continuing for 1 week and then transition to 200 mg daily if heart rate is controlled and continue metoprolol as 50 mg 3 times a day. Patient will continue on Wednesday/Wednesday/Wednesday hemodialysis schedule. Patient will need cardiology outpatient follow-up. Patient will need continued encouragement on oral intake and recommending continuing with and sugars and live 3 times a day with meals. Currently no reports of chest pain, shortness of breath, or palpitations. Patient is afebrile. No reports of nausea or vomiting and patient is tolerating diet. Recommend to discuss possible palliative care or long-term placement if no improvement in rehab as patient does live alone and clinical status continues to deteriorate. Patient will be going to [facility] on the [place] today. Guarded prognosis. On exam vital signs are stable. Cardio S1, S2 are muffled. Respiratory system shows diminished breath sounds at the bases with no wheezing or rhonchi noted. Abdomen is soft and nontender. Nervous system shows diffuse weakness. Please refer to medication reconciliation sheet for a list of medications. Patient Condition at Discharge: Fair Plan - Discharge Summary Discharge Rx Participant: No New Discharge Prescriptions: New Ipratropium Nebulized [Atrovent Nebulized 0.2 MG/ML] 0.5 mg INHALATION RT-QID ml Metoprolol Tartrate [Lopressor] 50 mg PO TID tab Budesonide/Formoterol Fumarate [Symbicort 160-4.5 Mcg Inhaler] 1 puff IH BID #1 hfa.aer.ad ALPRAZolam [Xanax] 0.25 mg PO Q6HR PRN #6 tab PRN Reason: Anxiety Amiodarone [Cordarone] 200 mg PO BID tab Atorvastatin [Lipitor] 40 mg PO HS tab Calcium Acetate [PhosLo] 667 mg PO TID-W/MEALS tab Acetaminophen Tab [Tylenol] 650 mg PO Q6HR PRN tab PRN Reason: Mild Pain Or Fever > 100.5 Continue rOPINIRole HCL [Requip] 0.25 mg PO MOWEFR PRN PRN Reason: before dialysis rOPINIRole HCL [Requip] 0.25 mg PO HS Apixaban [Eliquis] 2.5 mg PO BID-W/MEALS Pantoprazole [Protonix] 40 mg PO DAILY@0630 Fluticasone/Salmeterol [Advair 250-50 Diskus] 1 inhalation PO BID Brigette-Lynn Multivitamin 1 tab PO W/SUPPER Auryxia 210 mg PO W/SUPPER Venlafaxine HCl ER [Effexor XR] 37.5 mg PO DAILY Discontinued Metoprolol Tartrate [Lopressor] 75 mg PO BID-W/MEALS Temazepam 30 mg PO HS #2 cap oxyCODONE HCL/ACETAMINOPHEN [Percocet 7.5-325 mg] 1 tab PO Q6HR PRN PRN Reason: Pain Tiotropium 18 Mcg/Puff [Spiriva] 1 puff INHALATION DAILY Discharge Medication List Brigette-Lynn Multivitamin 1 tab PO W/SUPPER 05/02/21 [History] Apixaban [Eliquis] 2.5 mg PO BID-W/MEALS 05/26/21 [History] Auryxia 210 mg PO W/SUPPER 05/26/21 [History] Pantoprazole [Protonix] 40 mg PO DAILY@0630 05/26/21 [History] Venlafaxine HCl ER [Effexor XR] 37.5 mg PO DAILY 05/26/21 [History] rOPINIRole HCL [Requip] 0.25 mg PO HS 05/26/21 [History] rOPINIRole HCL [Requip] 0.25 mg PO MOWEFR PRN 05/26/21 [History] Fluticasone/Salmeterol [Advair 250-50 Diskus] 1 inhalation PO BID 05/31/21 [History] ALPRAZolam [Xanax] 0.25 mg PO Q6HR PRN #6 tab 06/05/21 [Rx] Acetaminophen Tab [Tylenol] 650 mg PO Q6HR PRN tab 06/05/21 [Rx] Atorvastatin [Lipitor] 40 mg PO HS tab 06/05/21 [Rx] Budesonide/Formoterol Fumarate [Symbicort 160-4.5 Mcg Inhaler] 1 puff IH BID #1 hfa.aer.ad 06/05/21 [Rx] Calcium Acetate [PhosLo] 667 mg PO TID-W/MEALS tab 06/05/21 [Rx] Ipratropium Nebulized [Atrovent Nebulized 0.2 MG/ML] 0.5 mg INHALATION RT-QID ml 06/05/21 [Rx] Metoprolol Tartrate [Lopressor] 50 mg PO TID tab 06/05/21 [Rx] Amiodarone [Cordarone] 200 mg PO BID tab 06/06/21 [Rx] Follow up Appointment(s)/Referral(s): William Chavarria MD [STAFF PHYSICIAN] - 2 Weeks Ventura Duran DO [Primary Care Provider] - 1-2 days Activity/Diet/Wound Care/Special Instructions: Patient is going to [facility] on the [place] [facility] Activity as tolerated Continue medications as prescribed Continue with hemodialysis Wednesday/Wednesday/Wednesday Follow-up cardiology outpatient Follow-up primary care provider upon discharge Patient to continue on amiodarone 200 mg twice daily for 1 week and then decrease to 200 mg daily if heart rate remains controlled Discharge Disposition: TRANSFER TO SNF/ECF
--- NOTE | 2021-06-06 14:49 | PN ---
PROGRESS NOTE Patient is seen for followup for end-stage renal disease. She is lying in bed, comfortable, not in any acute distress. PHYSICAL EXAMINATION: Blood pressure 144/78, heart rate 102 per minute. She is afebrile. EXAMINATION OF THE HEART: S1 and S2. EXAMINATION OF LUNGS: Bilateral breath sounds are heard. ABDOMEN: Soft, nontender. LOWER EXTREMITIES: Examination of lower extremities shows edema 1+ bilaterally. MOLD OPERATOR EXAM: Grossly intact. LABS: Labs show sodium 136, potassium 4.5 yesterday on 06/05/2021. ASSESSMENT: 1. End-stage renal disease, on hemodialysis on a Wednesday, Wednesday, Wednesday schedule. 2. Volume overload, currently improved. 3. Atrial fibrillation with rapid ventricular response; heart rate staying about 110 to 115 beats per minute. 4. Urinary tract infection with urine culture growing Enterococcus faecium which is VRE. 5. Generalized debility. 6. Chronic kidney disease mineral bone disorder. PLAN: Hemodialysis today. Goal UF 1-2 liters. MMODL / IJN: [id number] /
[2021-06-06 15:21] VITALS: BMI 28.3
[2021-06-06 16:00] VITALS: BP 112/58; PULSE 63; RESP 18; TEMP 96.4
[2021-06-06 17:11] LABS: Glucose,Whole Blood 102 mg/dL (75-99)
--- NOTE | 2021-06-06 18:05 | PN ---
PROGRESS NOTE DATE OF SERVICE: 06/06/2021. REASON FOR FOLLOW UP: Pneumonia. INTERVAL HISTORY: Patient is afebrile. The patient is breathing comfortably. Patient overall oral intake remains to be poor. Denies having any difficulty swallowing. No chest pain, shortness of breath or cough. No abdominal pain or diarrhea. PHYSICAL EXAMINATION: Her blood pressure is 144/78 with a pulse of 102. Temp 97.5. She is 100% on 2 L nasal cannula. Patient is an elderly female up in the chair in no distress. Respiratory system: Unlabored breathing, decreased intensity of breath sounds. No wheeze. Heart: S1, S2. Regular rate and rhythm. Abdomen: Soft, no tenderness. LABS: BUN of 23, creatinine 3.4. DIAGNOSTIC IMPRESSION AND PLAN: 1. Patient admitted to the hospital with shortness of breath, multifactorial, did have component of pneumonia, adequately treated. No need for antibiotic on discharge. 2. Positive urine culture likely colonization or contamination. No need for any therapy for the same. MMODL / IJN: [id number] /
[2021-06-06] MEDS ORDERED: AMIODARONE 200 MG TAB PO SCH (21:00)
== END 2021-06-06 18:22 | DRG 871 ==
LOC: EC 11:05 → 3SCARD 15:02 → 3NCARDOBS 23:04 → 3SCARD 23:04 → 4SSUR 06-06 04:46
PROVIDERS: ADMIT Internal Medicine; ATTEND Internal Medicine
PROC: 5A1D70Z Performance of Urinary Filtration, Intermittent, Less than 6 Hours Per Day (ICD-10-PCS; principal; 2021-05-26)
DX: A41.9 Sepsis, unspecified organism (principal); N18.6 End stage renal disease; I50.23 Acute on chronic systolic (congestive) heart failure; G93.41 Metabolic encephalopathy; I63.9 Cerebral infarction, unspecified; J69.0 Pneumonitis due to inhalation of food and vomit; I49.01 Ventricular fibrillation; I48.19 Other persistent atrial fibrillation; I13.2 Hypertensive heart and chronic kidney disease with heart failure and with stage 5 chronic kidney disease, or end stage renal disease; J44.1 Chronic obstructive pulmonary disease with (acute) exacerbation; J96.11 Chronic respiratory failure with hypoxia; R47.01 Aphasia; B37.49 Other urogenital candidiasis; I48.92 Unspecified atrial flutter; E87.2 Acidosis; I47.1 Supraventricular tachycardia; J44.0 Chronic obstructive pulmonary disease with (acute) lower respiratory infection; Z20.822 Contact with and (suspected) exposure to COVID-19; R53.1 Weakness; R65.20 Severe sepsis without septic shock; Z87.891 Personal history of nicotine dependence; F32.9 Major depressive disorder, single episode, unspecified; Z99.2 Dependence on renal dialysis; E11.22 Type 2 diabetes mellitus with diabetic chronic kidney disease; I95.9 Hypotension, unspecified; M19.90 Unspecified osteoarthritis, unspecified site; Z99.81 Dependence on supplemental oxygen; K21.9 Gastro-esophageal reflux disease without esophagitis; Z87.01 Personal history of pneumonia (recurrent); Z79.01 Long term (current) use of anticoagulants; E11.649 Type 2 diabetes mellitus with hypoglycemia without coma; Z96.641 Presence of right artificial hip joint; R26.9 Unspecified abnormalities of gait and mobility; I25.10 Atherosclerotic heart disease of native coronary artery without angina pectoris; Z95.1 Presence of aortocoronary bypass graft; H57.9 Unspecified disorder of eye and adnexa; I27.20 Pulmonary hypertension, unspecified; E78.5 Hyperlipidemia, unspecified; B95.2 Enterococcus as the cause of diseases classified elsewhere; R77.8 Other specified abnormalities of plasma proteins; I08.1 Rheumatic disorders of both mitral and tricuspid valves; D69.6 Thrombocytopenia, unspecified; F41.9 Anxiety disorder, unspecified; I45.10 Unspecified right bundle-branch block; K72.90 Hepatic failure, unspecified without coma; M89.8X9 Other specified disorders of bone, unspecified site; Z88.1 Allergy status to other antibiotic agents; Z87.440 Personal history of urinary (tract) infections; Z79.899 Other long term (current) drug therapy
CPT/HCPCS: 36415; 70450; 70551; 71045; 71046; 80048; 80053; 80061; 81001; 82550; 82607; 82746; 82747; 83036; 83605; 83735; 83880; 84100; 84145; 84439; 84443; 84484; 85025; 85610; 86140; 87040; 87077; 87086; 87186; 87635; 90935; 93005; 93306; 93880; 94640; 94760; 95816

== ENCOUNTER 2021-06-08 10:26 | Inpatient (IN) | payer MEDICARE ==
--- NOTE | 2021-06-08 11:09 | ED ---
SOB HPI - General Chief Complaint: Shortness of Breath Stated Complaint: ROJELIO Source: EMS Mode of arrival: EMS Limitations: no limitations - History of Present Illness Initial Comments: 81-year-old female who presents to the emergency department from [facility]. She has multiple past medical conditions including COPD, diabetes and end-stage renal disease on dialysis Wednesday, Wednesday and Wednesday. She is transferred to our facility due to worsening respiratory failure. She was just discharged from our facility 2 days ago for similar complaints. She does have a history of CHF and volume overload. She normally wears 2 L of oxygen at her facility however they had increased to 6 L. Patient admits to shortness of breath however denies chest pain. No fevers or chills. She does not make any urine. Denies cough. Patient does have audible wheezing on examination. She cannot provide much history. Family is at bedside and states that she has been decompensating over the past month. No other alleviating, precipitating or modifying factors - Related Data Home Medications Medication Instructions Recorded Confirmed Brigette-Lynn Multivitamin 1 tab PO DAILY@169905/02/21 06/08/21 Apixaban [Eliquis] 2.5 mg PO BID@0900,169905/26/21 06/08/21 Auryxia 210 mg PO DAILY@169905/26/21 06/08/21 Venlafaxine HCl ER [Effexor XR] 37.5 mg PO DAILY@0900 05/26/21 06/08/21 rOPINIRole HCL [Requip] 0.25 mg PO HS@209905/26/21 06/08/21 rOPINIRole HCL [Requip] 0.25 mg PO MOWEFR PRN 05/26/21 06/08/21 Fluticasone/Salmeterol [Advair 1 puff INHALATION RT-BID@899,209905/31/21 06/08/21 250-50 Diskus] Amiodarone [Cordarone] 200 mg PO BID@0900,209906/08/21 06/08/21 Atorvastatin [Lipitor] 40 mg PO HS@209906/08/21 06/08/21 Budesonide/Formoterol Fumarate 1 puff INHALATION RT-BID@0900,209906/08/21 06/08/21 [Symbicort 160-4.5 Mcg Inhaler] Calcium Acetate [PhosLo] 667 mg PO TID@0800,1200,1700 06/08/21 06/08/21 Levofloxacin [Levaquin] 250 mg PO MOWEFR@0900 06/08/21 06/08/21 Metoprolol Tartrate [Lopressor] 50 mg PO TID@0900,1300,2100 06/08/21 06/08/21 Omeprazole 20 mg PO HS@2100 06/08/21 06/08/21 guaiFENesin [Mucinex] 600 mg PO Q12H PRN 06/08/21 06/08/21 Previous Rx's Medication Instructions Recorded ALPRAZolam [Xanax] 0.25 mg PO Q6HR PRN #6 tab 06/05/21 Acetaminophen Tab [Tylenol] 650 mg PO Q6HR PRN tab 06/05/21 Ipratropium Nebulized [Atrovent 0.5 mg INHALATION RT-QID ml 06/05/21 Nebulized 0.2 MG/ML] Allergies Allergy/AdvReac Type Severity Reaction Status Date / Time erythromycin base Allergy Unknown Unknown Verified 06/08/21 11:03 meloxicam Allergy Unknown Unknown Verified 06/08/21 11:03 nitrofurantoin Allergy Unknown Unknown Verified 06/08/21 11:03 [From Macrobid] nitrofurantoin Allergy Unknown Unknown Verified 06/08/21 11:03 macrocrystalline [From Macrobid] Sulfa (Sulfonamide Allergy Unknown Unknown Verified 06/08/21 11:03 Antibiotics) Review of Systems ROS Statement: Those systems with pertinent positive or pertinent negative responses have been documented in the HPI. ROS Other: All systems not noted in ROS Statement are negative. Past Medical History Past Medical History: COPD, Diabetes Mellitus, Dialysis, Eye Disorder, GERD/Reflux, Osteoarthritis (OA), Renal Disease Additional Past Medical History / Comment(s): Right Cataract, DIABETES (DIET CONTROLLED), CONSTIPATION. Hx UTI's, SCIATICA, hemodialysis Mon-Wed-Fri., uses oxygen @2l, very SOB per pt, swollen hands & feet, back pain between shoulder blades, irreg. heart rate per pt. hemodialysis fistula lt arm History of Any Multi-Drug Resistant Organisms: VRE Date of last positivie culture/infection: 8/2/21 MDRO Source:: VRE URINE Past Surgical History: Hernia Repair, Joint Replacement Additional Past Surgical History / Comment(s): Right hip replacement, dialysis catheter insertion Past Anesthesia/Blood Transfusion Reactions: No Reported Reaction Past Psychological History: Depression Smoking Status: Former smoker Past Alcohol Use History: None Reported Past Drug Use History: None Reported - Past Family History Mother Family Medical History: No Reported History General Exam Limitations: altered mental status General appearance: lethargic Head exam: Present: atraumatic, normocephalic, normal inspection Eye exam: Present: normal appearance, PERRL, EOMI. Absent: scleral icterus, conjunctival injection, periorbital swelling ENT exam: Present: normal exam, mucous membranes moist Respiratory exam: Present: rales, accessory muscle use Cardiovascular Exam: Present: normal rhythm, tachycardia GI/Abdominal exam: Present: soft Extremities exam: Present: pedal edema Neurological exam: Present: altered Psychiatric exam: Present: flat affect Skin exam: Present: warm, dry Course Vital Signs 06/08/21 06/08/21 06/08/21 10:27 10:49 13:39 Temperature 97.9 F Pulse Rate 114 H 113 H 113 H Respiratory 26 H 26 H 16 Rate Blood Pressure 132/118 130/91 138/82 O2 Sat by Pulse 91 L 94 L 98 Oximetry 06/08/21 14:41 Temperature Pulse Rate 112 H Respiratory 22 Rate Blood Pressure 107/83 O2 Sat by Pulse 99 Oximetry Medical Decision Making - Medical Decision Making Upon arrival the patient is placed into room 6. A thorough history and physical exam was performed. Laboratory studies are conducted. INR 2.2. Potassium 5.5. Troponin is 0.103. BNP 34459. Chest x-ray demonstrates cardiomegaly with mild pulmonary vascular congestion and small bilateral right greater than left pleural effusion. As the patient does not make any urine I did call Dr. Bland who will arrange the patient's dialysis. I updated the family at bedside. They would like the patient to be a DNR/DNI. I spoke with Dr. Martin who agreed to admit the patient. She does begin her dialysis in the emergency department and will be placed on the floor once completed - Lab Data Result diagrams: 06/10/21 11:20 06/10/21 11:20 Lab Results 06/05/21 06/08/21 06/08/21 Range/Units 23:39 10:49 10:49 WBC 8.6 (3.8-10.6) k/uL RBC 3.88 (3.80-5.40) m/uL Hgb 13.9 (11.4-16.0) gm/dL Hct 42.8 (34.0-46.0) % MCV 110.3 H D (80.0-100.0) fL MCH 35.8 H (25.0-35.0) pg MCHC 32.5 (31.0-37.0) g/dL RDW 21.7 H (11.5-15.5) % Plt Count 97 L (150-450) k/uL MPV 9.0 Neutrophils % (Manual) 71 % Band Neuts % (Manual) 4 % Lymphocytes % (Manual) 17 % Monocytes % (Manual) 7 % Eosinophils % (Manual) 1 % Neutrophils # (Manual) 6.40 (1.3-7.7) k/uL Lymphocytes # (Manual) 1.46 (1.0-4.8) k/uL Monocytes # (Manual) 0.60 (0-1.0) k/uL Eosinophils # (Manual) 0.09 (0-0.7) k/uL Nucleated RBCs 14 H (0-0) /100 WBC Polychromasia Present Hypochromasia Moderate Poikilocytosis Slight Poikilocytosis (manual Present Anisocytosis Moderate Macrocytosis Marked A PT 21.2 H (9.0-12.0) sec INR 2.2 H (<1.2) APTT 31.7 H (22.0-30.0) sec Sodium (137-145) mmol/L Potassium (3.5-5.1) mmol/L Chloride (98-107) mmol/L Carbon Dioxide (22-30) mmol/L Anion Gap mmol/L BUN (7-17) mg/dL Creatinine (0.52-1.04) mg/dL Est GFR (CKD-EPI)AfAm (>60 ml/min/1.73 sqM) Est GFR (CKD-EPI)NonAf (>60 ml/min/1.73 sqM) Glucose (74-99) mg/dL Plasma Lactic Acid Saad (0.7-2.0) mmol/L Calcium (8.4-10.2) mg/dL Magnesium (1.6-2.3) mg/dL Total Bilirubin (0.2-1.3) mg/dL AST (14-36) U/L ALT (4-34) U/L Alkaline Phosphatase (38-126) U/L Troponin I (0.000-0.034) ng/mL NT-Pro-B Natriuret Pep pg/mL Total Protein (6.3-8.2) g/dL Albumin (3.5-5.0) g/dL Procalcitonin 0.85 H (0.02-0.09) ng/mL 06/08/21 06/08/21 06/08/21 Range/Units 10:49 10:49 10:49 WBC (3.8-10.6) k/uL RBC (3.80-5.40) m/uL Hgb (11.4-16.0) gm/dL Hct (34.0-46.0) % MCV (80.0-100.0) fL MCH (25.0-35.0) pg MCHC (31.0-37.0) g/dL RDW (11.5-15.5) % Plt Count (150-450) k/uL MPV Neutrophils % (Manual) % Band Neuts % (Manual) % Lymphocytes % (Manual) % Monocytes % (Manual) % Eosinophils % (Manual) % Neutrophils # (Manual) (1.3-7.7) k/uL Lymphocytes # (Manual) (1.0-4.8) k/uL Monocytes # (Manual) (0-1.0) k/uL Eosinophils # (Manual) (0-0.7) k/uL Nucleated RBCs (0-0) /100 WBC Polychromasia Hypochromasia Poikilocytosis Poikilocytosis (manual Anisocytosis Macrocytosis PT (9.0-12.0) sec INR (<1.2) APTT (22.0-30.0) sec Sodium 134 L (137-145) mmol/L Potassium 5.5 H (3.5-5.1) mmol/L Chloride 100 (98-107) mmol/L Carbon Dioxide 21 L (22-30) mmol/L Anion Gap 13 mmol/L BUN 34 H (7-17) mg/dL Creatinine 4.22 H (0.52-1.04) mg/dL Est GFR (CKD-EPI)AfAm 11 (>60 ml/min/1.73 sqM) Est GFR (CKD-EPI)NonAf 9 (>60 ml/min/1.73 sqM) Glucose 109 H (74-99) mg/dL Plasma Lactic Acid Saad 1.9 (0.7-2.0) mmol/L Calcium 9.8 (8.4-10.2) mg/dL Magnesium 2.5 H (1.6-2.3) mg/dL Total Bilirubin 1.7 H (0.2-1.3) mg/dL AST 117 H (14-36) U/L ALT 95 H (4-34) U/L Alkaline Phosphatase 284 H (38-126) U/L Troponin I 0.103 H* (0.000-0.034) ng/mL NT-Pro-B Natriuret Pep pg/mL Total Protein 6.6 (6.3-8.2) g/dL Albumin 3.5 (3.5-5.0) g/dL Procalcitonin (0.02-0.09) ng/mL 06/08/21 Range/Units 10:49 WBC (3.8-10.6) k/uL RBC (3.80-5.40) m/uL Hgb (11.4-16.0) gm/dL Hct (34.0-46.0) % MCV (80.0-100.0) fL MCH (25.0-35.0) pg MCHC (31.0-37.0) g/dL RDW (11.5-15.5) % Plt Count (150-450) k/uL MPV Neutrophils % (Manual) % Band Neuts % (Manual) % Lymphocytes % (Manual) % Monocytes % (Manual) % Eosinophils % (Manual) % Neutrophils # (Manual) (1.3-7.7) k/uL Lymphocytes # (Manual) (1.0-4.8) k/uL Monocytes # (Manual) (0-1.0) k/uL Eosinophils # (Manual) (0-0.7) k/uL Nucleated RBCs (0-0) /100 WBC Polychromasia Hypochromasia Poikilocytosis Poikilocytosis (manual Anisocytosis Macrocytosis PT (9.0-12.0) sec INR (<1.2) APTT (22.0-30.0) sec Sodium (137-145) mmol/L Potassium (3.5-5.1) mmol/L Chloride (98-107) mmol/L Carbon Dioxide (22-30) mmol/L Anion Gap mmol/L BUN (7-17) mg/dL Creatinine (0.52-1.04) mg/dL Est GFR (CKD-EPI)AfAm (>60 ml/min/1.73 sqM) Est GFR (CKD-EPI)NonAf (>60 ml/min/1.73 sqM) Glucose (74-99) mg/dL Plasma Lactic Acid Saad (0.7-2.0) mmol/L Calcium (8.4-10.2) mg/dL Magnesium (1.6-2.3) mg/dL Total Bilirubin (0.2-1.3) mg/dL AST (14-36) U/L ALT (4-34) U/L Alkaline Phosphatase (38-126) U/L Troponin I (0.000-0.034) ng/mL NT-Pro-B Natriuret Pep 84424 pg/mL Total Protein (6.3-8.2) g/dL Albumin (3.5-5.0) g/dL Procalcitonin (0.02-0.09) ng/mL - EKG Data EKG Comments: EKG demonstrates a normal sinus rhythm with a ventricular rate of 115. QRS 96. QTC of 470. No acute ST segment elevations or depressions Disposition Clinical Impression: Pulmonary edema, ESRD (end stage renal disease), Respiratory failure Disposition: ADMITTED IP TO THIS [facility] Condition: Poor Is patient prescribed a controlled substance at d/c from ED?: No Decision to Admit Reason: Admit from EC Decision Date: 06/08/21 Decision Time: 12:50
[2021-06-08 11:14] LABS: Anisocytosis Moderate; HCT 42.8 % (34.0-46.0); HGB 13.9 gm/dL (11.4-16.0); Hypochromasia Moderate; MCH 35.8 pg (25.0-35.0); MCHC 32.5 g/dL (31.0-37.0); Macrocytosis Marked; Platelet Count 97 k/uL (150-450); Poikilocytosis Slight; RBC 3.88 m/uL (3.80-5.40); RDW 21.7 % (11.5-15.5)
[2021-06-08 11:16] LABS: MCV 110.3 fL (80.0-100.0)
[2021-06-08 11:33] LABS: INR 2.2 (<1.2); Partial Thromboplastin Time 31.7 sec (22.0-30.0); Prothrombin Time 21.2 sec (9.0-12.0)
[2021-06-08 11:49] LABS: Albumin 3.5 g/dL (3.5-5.0); Calcium 9.8 mg/dL (8.4-10.2); Magnesium 2.5 mg/dL (1.6-2.3); Total Bilirubin 1.7 mg/dL (0.2-1.3); Total Protein 6.6 g/dL (6.3-8.2)
[2021-06-08 11:54] LABS: Band Neutrophils % 4 %; Eosinophils # (M) 0.09 k/uL (0-0.7); Lymphocytes # (M) 1.46 k/uL (1.0-4.8); Neutrophils % (M) 71 %; Nucleated Red Blood Cells 14 /100 WBC (0-0); Poikilocytosis (M) Present; Polychromasia Present; Total Cells Counted 100; WBC 8.6 k/uL (3.8-10.6)
[2021-06-08 11:57] LABS: Potassium 5.5 mmol/L (3.5-5.1)
--- NOTE | 2021-06-08 12:09 | XR ---
EXAMINATION TYPE: XR chest 2V DATE OF EXAM: 06/08/2021 COMPARISON: 05/29/2021 HISTORY: 81 years Female. STUDY INDICATION GIVEN: difficulty breathing . TECHNIQUE: AP and lateral chest radiographs FINDINGS AND IMPRESSION: Cardiomegaly with mild pulmonary vascular congestion and small bilateral right greater than left pleu ral effusion. The left side pleural effusion has decreased in the interval. No definite focal airspace disease, pneumothorax or pleural effusion though developing infiltrates ca nnot be entirely excluded. Generalized osteopenia no obvious acute fracture or dislocation.
[2021-06-08] MEDS ORDERED: NALOXONE 0.4 MG/ML 1 ML VIAL IV PRN (12:46)
[2021-06-08] MEDS ORDERED: LIDOCAINE-PRILOCAINE 2.5-2.5% CREAM 5 GM TUBE TOPICAL STA (13:17)
--- NOTE | 2021-06-08 13:50 | HP ---
HISTORY AND PHYSICAL CHIEF COMPLAINT: Shortness of breath. HISTORY OF PRESENT ILLNESS: This 81-year-old woman with a past medical history of multiple medical problems, including COPD, history of diabetes, hemodialysis, GERD, DJD, right cataract, was recently admitted to [facility] with features of severe sepsis secondary to UTI. The patient had atrial fibrillation and multiple problems. The patient was sent to [facility] on the [place] for rehabilitation. At [facility] the patient was complaining of shortness of breath and the patient came to [facility] and was admitted for evaluation and treatment. The patient is on hemodialysis Wednesday, Wednesday, Wednesday. The chest x-ray showed evidence of fluid overload and some pleural effusions, also. The patient has significant wheezing and audible coarse rales, also. There is no history of any fever, rigors or chills at this time. PAST MEDICAL HISTORY: COPD, diabetes mellitus, hemodialysis, GERD, DJD, history of renal disease. MEDICATIONS: Home medications are Requip, Mucinex, Effexor XR, multivitamins, omeprazole, Lopressor, Levaquin, Atrovent, fluticasone, PhosLo, Symbicort, Auryxia, Lipitor, Eliquis, Cordarone, Tylenol, Xanax. ALLERGIES: ERYTHROMYCIN, MELOXICAM, MACROBID FAMILY HISTORY: No history of heart disease or strokes in the family. SOCIAL HISTORY: Previous history of smoking. No current smoking or alcohol intake. REVIEW OF SYSTEMS: ENT: Diminished hearing. Diminished vision. CARDIOVASCULAR SYSTEM: As mentioned earlier. RESPIRATORY SYSTEM: As mentioned earlier. GI: No nausea, vomiting. : No dysuria. NERVOUS SYSTEM: No numbness, weakness. ALLERGY/IMMUNOLOGY: No asthma or hay fever. MUSCULOSKELETAL: As mentioned earlier. HEMATOLOGY/ONCOLOGY: No history of anemia. ENDOCRINE: As mentioned earlier. CONSTITUTIONAL: As mentioned earlier. DERMATOLOGY: Negative. RHEUMATOLOGY: Negative. PSYCHIATRY: As mentioned earlier. PHYSICAL EXAMINATION: Patient is alert, oriented x2. The pulse is 113, blood pressure 132/118, respirations 26, temperature 97.1, pulse ox 94% on room air. HEENT: Conjunctivae normal. Oral mucosa moist. NECK: Accessory muscles of respiration are acting. CARDIOVASCULAR: S1, S2 muffled. No S3. No S4. RESPIRATORY SYSTEM: Breath sounds diminished at the bases. Bilateral scattered rhonchi and crackles. Coarse crackles in expiratory phase also audible. ABDOMEN: Soft, nontender. No mass palpable. LEGS: No edema. No swelling. NERVOUS SYSTEM: Higher functions are mentioned earlier. Moves all 4 limbs. Mild diffuse weakness. SKIN: No ulcer, rash, bleeding. JOINTS: No active deforming arthropathy. LABS: Labs at this time show WBC 8.7, hemoglobin 13.9, MCV 110, platelets are 97. INR is 2.2. Sodium , potassium 5.5, creatinine 4.22. ASSESSMENT: 1. Shortness of breath, possibly congestive heart failure, acute exacerbation, with acute on chronic systolic dysfunction, ejection fraction 45% to 50%, with acute hypoxic respiratory failure. 2. Moderate aortic valve sclerosis history with mild aortic stenosis. 3. Accelerated hypertension. 4. Mild to moderate mitral regurgitation. 5. Troponin 0.103, indeterminate. 6. Possible chronic obstructive pulmonary disease, acute exacerbation. 7. Acute purulent tracheobronchitis. 8. Hyponatremia. 9. Hyperkalemia. 10.On hemodialysis 3 times a week. 11.Hypermagnesemia. 12.Elevated total bilirubin and AST and ALT; mild hepatitis of undetermined etiology. 13.Coagulopathy. 14.History of recent sepsis as well as urinary tract infection. RECOMMENDATIONS AND DISCUSSION: In this 81-year-old woman who presented with multiple complex medical issues, we will monitor the patient closely. I would recommend nephrology consultation and rather emergent hemodialysis because of the fluid overload. I would also recommend bronchodilators as well as empiric antibiotics. Repeat labs. The patient also has evidence of hepatitis. Etiology is undetermined. Troponin is also elevated. Will obtain cardiology consultation. This might represent feature of acute on chronic renal failure as an acute myocardial event, but in any case, we will also resume the home medication once they are confirmed. Closely follow with Nephrology. Will continue to monitor. Prognosis is guarded because of multiple complex medical issues. Further recommendations to follow. A copy of this dictation is being forwarded to Dr. Workman, who is the primary physician. MMANDREL / KARENN: [id number] / ZOILA
[2021-06-08 16:27] LABS: Glucose,Whole Blood 94 mg/dL (75-99)
[2021-06-08] MEDS ORDERED: guaiFENesin 600 MG TABLET.ER PO PRN (16:52)
[2021-06-08] MEDS ORDERED: ACETAMINOPHEN TAB 325 MG TAB PO PRN (16:52)
[2021-06-08] MEDS ORDERED: ALPRAZolam 0.25 MG TAB PO PRN (16:52)
[2021-06-08] MEDS ORDERED: IPRATROPIUM-ALBUTEROL 3 ML NEB INHALATION PRN (17:23)
[2021-06-08] MEDS: APIXABAN 2.5 MG TABLET PO SCH (17:45)
[2021-06-08] MEDS: CALCIUM ACETATE 667 MG TAB PO SCH (17:45)
[2021-06-08] MEDS: FOLIC ACID-VIT B COMPLEX-VIT C 1 CAP PO SCH (17:45)
[2021-06-08] MEDS ORDERED: CEFDINIR 300 MG CAP PO STA (18:13)
[2021-06-08 18:36] LABS: Appearance,Urine Cloudy (Clear); Bacteria,Urine Few /hpf; Bilirubin,Urine Negative (Negative); Blood,Urine Large (Negative); Budding Yeast,Urine Many /hpf; Color,Urine Yellow; Glucose,Urine (UA) Negative (Negative); Ketones,Urine Negative (Negative); Leukocyte Esterase,Urine Large (Negative); Nitrite,Urine Negative (Negative); Protein,Urine 3+ (Negative); RBC,Urine 54 /hpf (0-5); Squamous Epithelial Cell,Urine 2 /hpf (0-4); Urobilinogen,Urine <2.0 mg/dL (<2.0); WBC,Urine >182 /hpf (0-5)
[2021-06-08] MEDS ORDERED: IPRATROPIUM 0.5 MG/2.5 ML NEBU INHALATION SCH (20:00)
[2021-06-08 20:04] LABS: Glucose,Whole Blood 102 mg/dL (75-99)
[2021-06-08] MEDS: AMIODARONE 200 MG TAB PO SCH (20:36)
[2021-06-08] MEDS: ATORVASTATIN 40 MG TAB PO SCH (20:36)
[2021-06-08] MEDS: PANTOPRAZOLE 40 MG TABLET PO SCH (20:37)
[2021-06-08] MEDS: METOPROLOL TARTRATE 50 MG TAB PO SCH (20:37)
[2021-06-08] MEDS: IPRATROPIUM-ALBUTEROL 3 ML NEB INHALATION SCH (21:20)
[2021-06-08] MEDS: SYMBICORT 160-4.5 MCG INHALER INHALATION SCH (22:08)
[2021-06-09 05:54] LABS: Glucose,Whole Blood 85 mg/dL (75-99)
[2021-06-09 06:08] LABS: Anisocytosis Moderate; HCT 42.1 % (34.0-46.0); HGB 13.6 gm/dL (11.4-16.0); Hypochromasia Moderate; MCH 35.8 pg (25.0-35.0); MCHC 32.2 g/dL (31.0-37.0); MCV 111.3 fL (80.0-100.0); Mean Platelet Volume 9.2; Poikilocytosis Slight; RBC 3.79 m/uL (3.80-5.40); RDW 21.9 % (11.5-15.5)
[2021-06-09 06:25] LABS: Macrocytosis Marked; Platelet Count 79 k/uL (150-450)
[2021-06-09 06:33] LABS: Calcium 9.3 mg/dL (8.4-10.2); Potassium 4.5 mmol/L (3.5-5.1)
[2021-06-09 06:35] LABS: Band Neutrophils % 1 %; Lymphocytes # (M) 0.77 k/uL (1.0-4.8); Metamyelocytes % 1 %; Monocytes # (M) 0.38 k/uL (0-1.0); Neutrophils % (M) 86 %; Nucleated Red Blood Cells 4 /100 WBC (0-0); Polychromasia Present; Total Cells Counted 200; WBC 9.6 k/uL (3.8-10.6)
[2021-06-09] MEDS: CALCIUM ACETATE 667 MG TAB PO SCH ×3 (06:52→16:31)
[2021-06-09] MEDS: IPRATROPIUM-ALBUTEROL 3 ML NEB INHALATION SCH ×4 (08:19→19:36)
[2021-06-09] MEDS: SYMBICORT 160-4.5 MCG INHALER INHALATION SCH ×2 (08:19→19:37)
--- NOTE | 2021-06-09 08:19 | P.NPCON ---
History of Present Illness - Reason for Consult end stage renal disease - History of Present Illness Reason for consultation: End-stage renal disease History of present illness: I sent patient is a 81-year-old female seen in renal consultation for end-stage renal disease. She is maintained on hemodialysis on Wednesday schedule. Patient was recently admitted with A. fib, pneumonia as well as volume overload. She was sent to extended care facility and was sent back due to shortness of breath. Overall the patient's condition has been declining. She is currently confused and not a reliable historian. Chest x-ray was suggestive of fluid overload. She underwent emergent hemodialysis yesterday. She was undergoing another treatment today. Heart rate is high. No fever. Blood pressure stable. She is on 4 L nasal cannula. Recent echocardiogram revealed ejection fraction of 45-50% with moderate tricuspid regurgitation and severe pulmonary hypertension. Vital signs are stable. General: On nasal cannula. HEENT: Head exam is unremarkable. LUNGS: Breath sounds decreased. HEART: Irregular rate and rhythm. ABDOMEN: Soft, no distention. EXTREMITITES: No edema. Past Medical History Past Medical History: COPD, CVA/TIA, Diabetes Mellitus, Dialysis, Eye Disorder, GERD/Reflux, Osteoarthritis (OA), Renal Disease Additional Past Medical History / Comment(s): Right Cataract, DIABETES (DIET CONTROLLED), CONSTIPATION. Hx UTI's, SCIATICA, hemodialysis Wed-Wed-Wed., uses oxygen @2l, very SOB per pt, swollen hands & feet, back pain between shoulder blades, irreg. heart rate per pt. hemodialysis fistula lt arm History of Any Multi-Drug Resistant Organisms: VRE Date of last positivie culture/infection: 05/26/21 MDRO Source:: VRE URINE Past Surgical History: Hernia Repair, Joint Replacement Additional Past Surgical History / Comment(s): Right hip replacement, dialysis catheter insertion Past Anesthesia/Blood Transfusion Reactions: No Reported Reaction Past Psychological History: Depression Smoking Status: Former smoker Past Alcohol Use History: None Reported Additional Past Alcohol Use History / Comment(s): Quit smoking 20 yrs ago, smoked since age 14, 2 PPD. Past Drug Use History: None Reported - Past Family History Mother Family Medical History: No Reported History Medications and Allergies Home Medications Medication Instructions Recorded Confirmed Type Brigette-Lynn Multivitamin 1 tab PO DAILY@1700 05/02/21 06/08/21 History Apixaban [Eliquis] 2.5 mg PO BID@0900,1700 05/26/21 06/08/21 History Auryxia 210 mg PO DAILY@1700 05/26/21 06/08/21 History Venlafaxine HCl ER [Effexor XR] 37.5 mg PO DAILY@0900 05/26/21 06/08/21 History rOPINIRole HCL [Requip] 0.25 mg PO HS@209905/26/21 06/08/21 History rOPINIRole HCL [Requip] 0.25 mg PO MOWEFR PRN 05/26/21 06/08/21 History Fluticasone/Salmeterol [Advair 1 puff INHALATION RT-BID@0900,209905/31/21 06/08/21 History 250-50 Diskus] ALPRAZolam [Xanax] 0.25 mg PO Q6HR PRN #6 tab 06/05/21 06/08/21 Rx Acetaminophen Tab [Tylenol] 650 mg PO Q6HR PRN tab 06/05/21 06/08/21 Rx Ipratropium Nebulized [Atrovent 0.5 mg INHALATION RT-QID ml 06/05/21 06/08/21 Rx Nebulized 0.2 MG/ML] Amiodarone [Cordarone] 200 mg PO BID@0900,209906/08/21 06/08/21 History Atorvastatin [Lipitor] 40 mg PO HS@209906/08/21 06/08/21 History Budesonide/Formoterol Fumarate 1 puff INHALATION RT-BID@0900,209906/08/21 06/08/21 History [Symbicort 160-4.5 Mcg Inhaler] Calcium Acetate [PhosLo] 667 mg PO TID@0800,1200,1700 06/08/21 06/08/21 History Levofloxacin [Levaquin] 250 mg PO MOWEFR@89906/08/21 06/08/21 History Metoprolol Tartrate [Lopressor] 50 mg PO TID@0900,1300,2100 06/08/21 06/08/21 History Omeprazole 20 mg PO HS@209906/08/21 06/08/21 History guaiFENesin [Mucinex] 600 mg PO Q12H PRN 06/08/21 06/08/21 History Allergies Allergy/AdvReac Type Severity Reaction Status Date / Time erythromycin base Allergy Unknown Unknown Verified 06/08/21 11:03 meloxicam Allergy Unknown Unknown Verified 06/08/21 11:03 nitrofurantoin Allergy Unknown Unknown Verified 06/08/21 11:03 [From Macrobid] nitrofurantoin Allergy Unknown Unknown Verified 06/08/21 11:03 macrocrystalline [From Macrobid] Sulfa (Sulfonamide Allergy Unknown Unknown Verified 06/08/21 11:03 Antibiotics) Physical Exam Vitals: Vital Signs Temp Pulse Pulse Resp BP BP Pulse Ox 06/09/21 08:00 97.7 F 115 H 18 126/87 98 06/09/21 04:00 97.5 F L 116 H 18 122/85 94 L 06/08/21 23:15 97.8 F 115 H 19 121/79 94 L 06/08/21 21:31 114 H 06/08/21 21:22 110 H 06/08/21 20:00 21 06/08/21 19:54 114 H 21 127/89 91 L 06/08/21 16:19 98.0 F 112 H 18 106/70 99 06/08/21 14:41 112 H 22 107/83 99 06/08/21 13:39 113 H 16 138/82 98 06/08/21 10:49 113 H 26 H 130/91 94 L 06/08/21 10:27 97.9 F 114 H 26 H 132/118 91 L Intake and Output 06/08/21 06/09/21 06/09/21 22:59 06:59 14:59 Other: # Bowel Movements 1 Weight 72.575 kg 79.5 kg Results - Lab Results Most recent lab results Calcium 9.3 mg/dL (8.4-10.2) 06/09/21 05:11 Magnesium 2.5 mg/dL (1.6-2.3) H 06/08/21 10:49 06/09/21 05:11 06/09/21 05:11 Assessment and Plan Plan: Assessment: 1. End-stage renal disease maintained on hemodialysis on Wednesday schedule. 2. Acute on chronic systolic CHF with ejection fraction of 45-50% with moderate tricuspid regurgitation and severe pulmonary hypertension. 3. Volume overload. 4. A. fib with RVR intake and on amiodarone and Lopressor. Also on anticoagulation. 5. Chronic kidney disease mineral bone disease maintained on PhosLo. 6. Recent pneumonia. Plan: Hemodialysis today. Follow-up cultures. Thank you for the consultation. I will continue to follow patient with you during her hospital stay.
[2021-06-09 11:45] LABS: Glucose,Whole Blood 70 mg/dL (75-99)
[2021-06-09] MEDS: AMIODARONE 200 MG TAB PO SCH ×2 (12:13→20:35)
[2021-06-09] MEDS: APIXABAN 2.5 MG TABLET PO SCH ×2 (12:13→16:31)
[2021-06-09] MEDS: METOPROLOL TARTRATE 50 MG TAB PO SCH ×3 (12:13→20:35)
[2021-06-09] MEDS: VENLAFAXINE HCL ER 37.5 MG CAP PO SCH (12:14)
[2021-06-09 13:14] VITALS: BMI 28.3
[2021-06-09] MEDS: FOLIC ACID-VIT B COMPLEX-VIT C 1 CAP PO SCH (16:31)
[2021-06-09 16:58] LABS: Glucose,Whole Blood 88 mg/dL (75-99)
[2021-06-09 20:08] LABS: Glucose,Whole Blood 96 mg/dL (75-99)
[2021-06-09] MEDS: PANTOPRAZOLE 40 MG TABLET PO SCH (20:35)
[2021-06-09] MEDS: ATORVASTATIN 40 MG TAB PO SCH (20:35)
--- NOTE | 2021-06-09 20:49 | P.PN ---
Subjective Progress Note Date: 06/09/21 This is an 81-year-old female who was recently admitted with increasing shortness of breath and is being closely monitored. Patient is being followed by nephrology and cardiology. Patient is hemodialysis dependent and planning hemodialysis today. Patient is maintained on Mon/Wed/Frid schedule. Patient was recently at [facility] on the [place] for PT/OT therapy and recently discharged from the hospital for CHF exacerbation, ESRD, UTI, and recent CVA. Patient is alert and oriented 2-3 but having periods of inability to express words since her recent stroke last admission. Daughters and patient had conversation about possible hospice and requested an informational meeting with [facility] and a referral was placed. Review of systems: Constitutional: reports of fatigue,no reports of fever, or chills Cardiovascular: No reports of chest pain or palpitations Respiratory: reports extreme shortness of breath GI: No reports of nausea, vomiting, or diarrhea, reports no apetite : No reports of dysuria or retention Neurovascular: reports generalized weakness All medications have been reviewed Active Medications Acetaminophen (Acetaminophen Tab 325 Mg Tab) 650 mg PO Q6HR PRN PRN Reason: Mild Pain or Fever > 100.5 Albuterol/Ipratropium (Ipratropium-Albuterol 3 Ml Neb) 3 ml INHALATION RT-QID [facility] Last Admin: 06/09/21 19:36 Dose: Not Given Documented by: Albuterol/Ipratropium (Ipratropium-Albuterol 3 Ml Neb) 3 ml INHALATION RT-QID PRN PRN Reason: Shortness Of Breath Or Wheezing Alprazolam (Alprazolam 0.25 Mg Tab) 0.25 mg PO Q6HR PRN PRN Reason: Anxiety Amiodarone HCl (Amiodarone 200 Mg Tab) 200 mg PO BID@0900,2100 [facility] Last Admin: 06/09/21 20:35 Dose: 200 mg Documented by: Apixaban (Apixaban 2.5 Mg Tablet) 2.5 mg PO BID@0900,1700 [facility]; Protocol Last Admin: 06/09/21 16:31 Dose: 2.5 mg Documented by: Atorvastatin Calcium (Atorvastatin 40 Mg Tab) 40 mg PO HS@2100 [facility] Last Admin: 06/09/21 20:35 Dose: 40 mg Documented by: Budesonide/Formoterol Fumarate (Symbicort 160-4.5 Mcg Inhaler) 2 puff INHALATION RT-BID@0900,2100 [facility] Last Admin: 06/09/21 19:37 Dose: Not Given Documented by: Calcium Acetate (Calcium Acetate 667 Mg Tab) 667 mg PO TID-W/MEALS [facility] Last Admin: 06/09/21 16:31 Dose: 667 mg Documented by: Guaifenesin (Guaifenesin 600 Mg Tablet.Er) 600 mg PO Q12H PRN PRN Reason: Congestion Last Admin: 06/09/21 20:35 Dose: 600 mg Documented by: Ceftriaxone Sodium 1 gm/ (Sodium Chloride) 50 mls @ 100 mls/hr IVPB Q24HR [facility] Last Admin: 06/09/21 12:16 Dose: 100 mls/hr Documented by: Metoprolol Tartrate (Metoprolol Tartrate 50 Mg Tab) 50 mg PO TID@0900,1300,2100 [facility] Last Admin: 06/09/21 20:35 Dose: 50 mg Documented by: Multivit/Ca Carb/B Cmplx/FA/Prenat (Folic Acid-Vit B Complex-Vit C 1 Cap) 1 each PO DAILY@1700 [facility] Last Admin: 06/09/21 16:31 Dose: 1 each Documented by: Naloxone HCl (Naloxone 0.4 Mg/Ml 1 Ml Vial) 0.2 mg IV Q2M PRN PRN Reason: Opioid Reversal Pantoprazole Sodium (Pantoprazole 40 Mg Tablet) 40 mg PO HS@2100 [facility] Last Admin: 06/09/21 20:35 Dose: 40 mg Documented by: Ropinirole HCl (Ropinirole Hcl 0.25 Mg Tab) 0.25 mg PO HS@2100 [facility] Last Admin: 06/09/21 20:35 Dose: 0.25 mg Documented by: Ropinirole HCl (Ropinirole Hcl 0.25 Mg Tab) 0.25 mg PO MOWEFR PRN PRN Reason: before dialysis Venlafaxine HCl (Venlafaxine Hcl Er 37.5 Mg Cap) 37.5 mg PO DAILY@0900 [facility] Last Admin: 06/09/21 12:14 Dose: 37.5 mg Documented by: Objective - Vital Signs Vital signs: Vital Signs Temp 97.7 F 06/09/21 08:00 Pulse 115 H 06/09/21 08:00 Resp 18 06/09/21 08:00 BP 126/87 06/09/21 08:00 Pulse Ox 98 06/09/21 08:00 Intake & Output 06/08/21 06/09/21 06/09/21 18:59 06:59 18:59 Weight 72.575 kg 79.5 kg Other: # Bowel Movements 1 - Exam Gen: This is a 81-year-old female asleep although arousable alert and oriented 2, ill-appearing. Temp is 97.7F, pulse is 115, respirations are 18, blood pressure 126/87, oxygen saturation is 98% on 4 L via nasal cannula HEENT: Head is atraumatic, normocephalic. Pupils equal, round. Sclerae is anicteric. NECK: Supple. No JVD. No lymphadenopathy. No thyromegaly. LUNGS: Diminished breath sounds bilaterally with diffuse crackles and rhonchi noted. Expiratory wheezing noted on exam HEART: S1, S2 muffled, irregularly irregular, tachy ABDOMEN: Soft. Bowel sounds are present. No masses. No tenderness. EXTREMITIES: No pedal edema. No calf tenderness. NEUROLOGICAL: Patient is lethargic, arousable, alert x 2, diffusely weak - Labs CBC & Chem 7: 06/09/21 05:11 06/09/21 05:11 Labs: Abnormal Lab Results - Last 24 Hours (Table) 06/05/21 06/08/21 06/08/21 Range/Units 23:39 10:49 10:49 RBC (3.80-5.40) m/uL MCV (80.0-100.0) fL MCH (25.0-35.0) pg RDW (11.5-15.5) % Plt Count 97 L (150-450) k/uL Neutrophils # (Manual) (1.3-7.7) k/uL Lymphocytes # (Manual) (1.0-4.8) k/uL Metamyelocytes # (Man) (0) k/uL Nucleated RBCs 14 H (0-0) /100 WBC Macrocytosis PT 21.2 H (9.0-12.0) sec INR 2.2 H (<1.2) APTT 31.7 H (22.0-30.0) sec Sodium (137-145) mmol/L Potassium (3.5-5.1) mmol/L Carbon Dioxide (22-30) mmol/L BUN (7-17) mg/dL Creatinine (0.52-1.04) mg/dL Glucose (74-99) mg/dL POC Glucose (mg/dL) (75-99) mg/dL Magnesium (1.6-2.3) mg/dL Total Bilirubin (0.2-1.3) mg/dL AST (14-36) U/L ALT (4-34) U/L Alkaline Phosphatase (38-126) U/L Troponin I (0.000-0.034) ng/mL Procalcitonin 0.85 H (0.02-0.09) ng/mL Urine Appearance (Clear) Urine Protein (Negative) Urine Blood (Negative) Ur Leukocyte Esterase (Negative) Urine RBC (0-5) /hpf Urine WBC (0-5) /hpf Urine WBC Clumps (None) /hpf Urine Bacteria (None) /hpf Urine Yeast (Budding) (None) /hpf 06/08/21 06/08/21 06/08/21 Range/Units 10:49 10:49 14:00 RBC (3.80-5.40) m/uL MCV (80.0-100.0) fL MCH (25.0-35.0) pg RDW (11.5-15.5) % Plt Count (150-450) k/uL Neutrophils # (Manual) (1.3-7.7) k/uL Lymphocytes # (Manual) (1.0-4.8) k/uL Metamyelocytes # (Man) (0) k/uL Nucleated RBCs (0-0) /100 WBC Macrocytosis PT (9.0-12.0) sec INR (<1.2) APTT (22.0-30.0) sec Sodium 134 L (137-145) mmol/L Potassium 5.5 H (3.5-5.1) mmol/L Carbon Dioxide 21 L (22-30) mmol/L BUN 34 H (7-17) mg/dL Creatinine 4.22 H (0.52-1.04) mg/dL Glucose 109 H (74-99) mg/dL POC Glucose (mg/dL) (75-99) mg/dL Magnesium 2.5 H (1.6-2.3) mg/dL Total Bilirubin 1.7 H (0.2-1.3) mg/dL AST 117 H (14-36) U/L ALT 95 H (4-34) U/L Alkaline Phosphatase 284 H (38-126) U/L Troponin I 0.103 H* 0.103 H* (0.000-0.034) ng/mL Procalcitonin (0.02-0.09) ng/mL Urine Appearance (Clear) Urine Protein (Negative) Urine Blood (Negative) Ur Leukocyte Esterase (Negative) Urine RBC (0-5) /hpf Urine WBC (0-5) /hpf Urine WBC Clumps (None) /hpf Urine Bacteria (None) /hpf Urine Yeast (Budding) (None) /hpf 06/08/21 06/08/21 06/08/21 Range/Units 17:50 18:06 20:02 RBC (3.80-5.40) m/uL MCV (80.0-100.0) fL MCH (25.0-35.0) pg RDW (11.5-15.5) % Plt Count (150-450) k/uL Neutrophils # (Manual) (1.3-7.7) k/uL Lymphocytes # (Manual) (1.0-4.8) k/uL Metamyelocytes # (Man) (0) k/uL Nucleated RBCs (0-0) /100 WBC Macrocytosis PT (9.0-12.0) sec INR (<1.2) APTT (22.0-30.0) sec Sodium (137-145) mmol/L Potassium (3.5-5.1) mmol/L Carbon Dioxide (22-30) mmol/L BUN (7-17) mg/dL Creatinine (0.52-1.04) mg/dL Glucose (74-99) mg/dL POC Glucose (mg/dL) 102 H (75-99) mg/dL Magnesium (1.6-2.3) mg/dL Total Bilirubin (0.2-1.3) mg/dL AST (14-36) U/L ALT (4-34) U/L Alkaline Phosphatase (38-126) U/L Troponin I 0.117 H* (0.000-0.034) ng/mL Procalcitonin (0.02-0.09) ng/mL Urine Appearance Cloudy H (Clear) Urine Protein 3+ H (Negative) Urine Blood Large H (Negative) Ur Leukocyte Esterase Large H (Negative) Urine RBC 54 H (0-5) /hpf Urine WBC >182 H (0-5) /hpf Urine WBC Clumps Many H (None) /hpf Urine Bacteria Few H (None) /hpf Urine Yeast (Budding) Many H (None) /hpf 06/09/21 06/09/21 Range/Units 05:11 05:11 RBC 3.79 L (3.80-5.40) m/uL MCV 111.3 H (80.0-100.0) fL MCH 35.8 H (25.0-35.0) pg RDW 21.9 H (11.5-15.5) % Plt Count 79 L (150-450) k/uL Neutrophils # (Manual) 8.30 H (1.3-7.7) k/uL Lymphocytes # (Manual) 0.77 L (1.0-4.8) k/uL Metamyelocytes # (Man) 0.10 H (0) k/uL Nucleated RBCs 4 H (0-0) /100 WBC Macrocytosis Marked A PT (9.0-12.0) sec INR (<1.2) APTT (22.0-30.0) sec Sodium 136 L (137-145) mmol/L Potassium (3.5-5.1) mmol/L Carbon Dioxide (22-30) mmol/L BUN 37 H (7-17) mg/dL Creatinine 4.22 H (0.52-1.04) mg/dL Glucose (74-99) mg/dL POC Glucose (mg/dL) (75-99) mg/dL Magnesium (1.6-2.3) mg/dL Total Bilirubin (0.2-1.3) mg/dL AST (14-36) U/L ALT (4-34) U/L Alkaline Phosphatase (38-126) U/L Troponin I (0.000-0.034) ng/mL Procalcitonin (0.02-0.09) ng/mL Urine Appearance (Clear) Urine Protein (Negative) Urine Blood (Negative) Ur Leukocyte Esterase (Negative) Urine RBC (0-5) /hpf Urine WBC (0-5) /hpf Urine WBC Clumps (None) /hpf Urine Bacteria (None) /hpf Urine Yeast (Budding) (None) /hpf Assessment and Plan Assessment: Shortness of breath, possibly congestive heart failure, acute exacerbation with acute on chronic systolic dysfunction, ejection fraction 45-50% with acute hypoxic respiratory failure possible acute urinary tract infection, present on admission on recent antibiotics Moderate aortic valve sclerosis history with mild aortic stenosis Accelerated hypertension Mild to moderate mitral regurgitation Troponin 0.103, indeterminate Possible chronic obstructive point disease, acute exacerbation Acute purulent tracheobronchitis Hyponatremia hyperkalemia On hemodialysis Wednesday/Wednesday/Wednesday Hypermagnesemia elevated total bilirubin and AST, ALT; mild hepatitis of undetermined etiology Coagulopathy History of recent sepsis as well as urinary tract infection No Code Recommendations and discussion: Recommend to receive hemodialysis again today. Nephrology and cardiology following. Patient continues to have elevated heart rate with afib and maintained on eliquis, amiodarone, and metoprolol and will continue. Patient continues to have poor oral intake and not eating much at all. Patient is quite lethargic and confused at times. Patient and family have discussed possible hospice. Educated patient and family on palliative versus hospice and family req uested an informational meeting with [facility]. Patient is refusing to go back to rehab but continues to be extremely weak and is unable to go home as she lives alone and family are in [place]. Patient continues on IV antibiotics in the form of ceftriaxone and will continue. Cultures thus far remain negative. Will repeat labs and continue to monitor closely. Continue breathing inhalational tr eatments and supplemental oxygen support. Prognosis is poor and guarded.
[2021-06-10] MEDS ORDERED: FUROSEMIDE 10 MG/ML 10 ML VIAL IV STA (00:07)
--- NOTE | 2021-06-10 00:53 | XR ---
EXAMINATION TYPE: XR chest 1V portable DATE OF EXAM: 06/10/2021 COMPARISON: 06/08/2021 HISTORY: Difficulty breathing TECHNIQUE: FINDINGS: Heart is enlarged. There is pulmonary vascular congestion. There is blunting of the costoph renic angles. There are chest leads. Thoracic aorta is atheromatous. IMPRESSION: Congestive heart failure with pleural effusions. No significant change.
[2021-06-10 06:33] LABS: Glucose,Whole Blood 82 mg/dL (75-99)
[2021-06-10] MEDS: CALCIUM ACETATE 667 MG TAB PO SCH ×3 (06:40→17:18)
[2021-06-10] MEDS: APIXABAN 2.5 MG TABLET PO SCH ×2 (07:45→17:18)
[2021-06-10] MEDS: METOPROLOL TARTRATE 50 MG TAB PO SCH ×3 (07:45→20:44)
[2021-06-10] MEDS: VENLAFAXINE HCL ER 37.5 MG CAP PO SCH (07:45)
[2021-06-10] MEDS: AMIODARONE 200 MG TAB PO SCH ×2 (07:45→21:20)
--- NOTE | 2021-06-10 08:53 | P.PN ---
Subjective Patient is seen in follow-up for end-stage renal disease. Patient is not a reliable historian. Blood pressure stable. Currently on 4 L nasal cannula. Chest x-ray suggestive of fluid overload. She did at hemodialysis yesterday. Vital signs are stable. General: The patient appeared well nourished and normally developed. HEENT: On nasal cannula. LUNGS: Scattered rhonchi. Breath sounds decreased. HEART: Irregular rate and rhythm. ABDOMEN: Soft, no distention. EXTREMITITES: No edema. Objective - Vital Signs Vital signs: Vital Signs Temp 97.6 F 06/10/21 07:30 Pulse 121 H 06/10/21 07:32 Resp 24 06/10/21 07:32 BP 137/80 06/10/21 07:30 Pulse Ox 95 06/10/21 07:30 Intake & Output 06/09/21 06/10/21 06/10/21 18:59 06:59 18:59 Intake Total 300 Output Total 1020 0 Balance -720 0 Weight 79.5 kg 80 kg Intake: Hemodialysis 300 Output: Urine 0 Hemodialysis 1020 Other: # Voids 0 0 - Labs CBC & Chem 7: 06/09/21 05:11 06/09/21 05:11 Labs: Abnormal Lab Results - Last 24 Hours (Table) 06/09/21 Range/Units 11:43 POC Glucose (mg/dL) 70 L (75-99) mg/dL Microbiology - Last 24 Hours (Table) 06/08/21 10:49 Blood Culture - Preliminary Blood No Growth after 24 hours 06/08/21 10:49 Blood Culture - Preliminary Blood No Growth after 24 hours Assessment and Plan Plan: Assessment: 1. End-stage renal disease maintained on hemodialysis on Wednesday schedule. 2. Acute on chronic systolic CHF with ejection fraction of 45-50% with moderate tricuspid regurgitation and severe pulmonary hypertension. 3. Volume overload. 4. A. fib with RVR intake and on amiodarone and Lopressor. Also on anticoagulation. 5. Chronic kidney disease mineral bone disease maintained on PhosLo. 6. Recent pneumonia. 7. Recent frontal lobe CVA. Plan: Extra hemodialysis treatment today mostly for ultrafiltration. Plan for another treatment tomorrow.
[2021-06-10] MEDS: IPRATROPIUM-ALBUTEROL 3 ML NEB INHALATION SCH ×4 (09:40→19:01)
[2021-06-10] MEDS: SYMBICORT 160-4.5 MCG INHALER INHALATION SCH ×2 (09:40→19:01)
[2021-06-10] MEDS ORDERED: MIDODRINE 5 MG TAB PO STA (09:51)
[2021-06-10 11:48] LABS: Calcium 8.8 mg/dL (8.4-10.2); Potassium 3.5 mmol/L (3.5-5.1)
[2021-06-10 11:53] LABS: Anisocytosis Moderate; HCT 42.9 % (34.0-46.0); HGB 13.6 gm/dL (11.4-16.0); Hypochromasia Moderate; MCH 35.5 pg (25.0-35.0); MCHC 31.8 g/dL (31.0-37.0); MCV 111.8 fL (80.0-100.0); Macrocytosis Marked; Mean Platelet Volume 8.9; Poikilocytosis Slight; RBC 3.84 m/uL (3.80-5.40)
[2021-06-10 11:54] LABS: Platelet Count 73 k/uL (150-450)
[2021-06-10 11:54] LABS: Glucose,Whole Blood 122 mg/dL (75-99)
[2021-06-10] MEDS: MORPHINE SULFATE 2 MG/ML SYRINGE IVP PRN (13:21)
[2021-06-10 13:22] LABS: Band Neutrophils % 1 %; Basophils # (M) 0.11 k/uL (0-0.2); Neutrophils % (M) 88 %; Nucleated Red Blood Cells 6 /100 WBC (0-0); Total Cells Counted 200
[2021-06-10 13:23] LABS: Lymphocytes # (M) 0.63 k/uL (1.0-4.8); Monocytes # (M) 0.53 k/uL (0-1.0); WBC 10.5 k/uL (3.8-10.6)
[2021-06-10 13:25] LABS: Basophilic Stippling Present; Polychromasia Present
[2021-06-10 16:57] LABS: Glucose,Whole Blood 115 mg/dL (75-99)
[2021-06-10] MEDS: FOLIC ACID-VIT B COMPLEX-VIT C 1 CAP PO SCH (17:18)
[2021-06-10] MEDS ORDERED: SCOPOLAMINE 1.5MG/72HR PATCH TRANSDERM SCH (20:15)
[2021-06-10 20:31] LABS: Glucose,Whole Blood 136 mg/dL (75-99)
[2021-06-10] MEDS: ATORVASTATIN 40 MG TAB PO SCH (21:20)
[2021-06-10] MEDS: PANTOPRAZOLE 40 MG TABLET PO SCH (21:20)
--- NOTE | 2021-06-11 02:19 | P.PN ---
Subjective Progress Note Date: 06/10/21 This is an 81-year-old female who was recently admitted with increasing shortness of breath and is being closely monitored. Patient is being followed by nephrology and cardiology. Patient is hemodialysis dependent and planning hemodialysis today. Patient is maintained on Mon/Wed/Frid schedule. Patient was recently at [facility] on the [place] for PT/OT therapy and recently discharged from the hospital for CHF exacerbation, ESRD, UTI, and recent CVA. Patient is alert and oriented 2-3 but having periods of inability to express words since her recent stroke last admission. Daughters and patient had conversation about possible hospice and requested an informational meeting with [facility] and a referral was placed. 06/10/2021 Patient is seen and evaluated with both daughters at the bedside today and are meeting with [facility] per their request for information. Patient states she is tired and stating she is in extreme discomfort. Patient has been receiving daily hemodialysis with ultrafiltration and per sales assistant institutional sales, patient is not tolerating dialysis very well and having worsening hypotension and continued tachycardia. Patient receiving a high dose of IV lasix last night and continues to be extremely dyspneic while sitting in bed. Patient is not eating and refusing to eat stating she has no appetite. Encouraged oral intake and supplements. Palliative discussed in detail as well and patient does not want to continue with dialysis. Daughters would like to proceed with hospice and are discussing [facility] and a referral was placed for financial assessment. Review of systems: Constitutional: reports of fatigue,no reports of fever, or chills Cardiovascular: No reports of chest pain or palpitations Respiratory: reports extreme shortness of breath GI: No reports of nausea, vomiting, or diarrhea, reports no appetite : No reports of dysuria or retention Neurovascular: reports generalized weakness All medications have been reviewed Active Medications Acetaminophen (Acetaminophen Tab 325 Mg Tab) 650 mg PO Q6HR PRN PRN Reason: Mild Pain or Fever > 100.5 Albuterol/Ipratropium (Ipratropium-Albuterol 3 Ml Neb) 3 ml INHALATION RT-QID [facility] Last Admin: 06/10/21 14:30 Dose: Not Given Documented by: Albuterol/Ipratropium (Ipratropium-Albuterol 3 Ml Neb) 3 ml INHALATION RT-QID PRN PRN Reason: Shortness Of Breath Or Wheezing Last Admin: 06/10/21 00:32 Dose: 3 ml Documented by: Alprazolam (Alprazolam 0.25 Mg Tab) 0.25 mg PO Q6HR PRN PRN Reason: Anxiety Last Admin: 06/09/21 22:01 Dose: 0.25 mg Documented by: Amiodarone HCl (Amiodarone 200 Mg Tab) 200 mg PO BID@0900,2100 [facility] Last Admin: 06/10/21 07:45 Dose: 200 mg Documented by: Apixaban (Apixaban 2.5 Mg Tablet) 2.5 mg PO BID@0900,1700 [facility]; Protocol Last Admin: 06/10/21 07:45 Dose: 2.5 mg Documented by: Atorvastatin Calcium (Atorvastatin 40 Mg Tab) 40 mg PO HS@2100 [facility] Last Admin: 06/09/21 20:35 Dose: 40 mg Documented by: Budesonide/Formoterol Fumarate (Symbicort 160-4.5 Mcg Inhaler) 2 puff INHALATION RT-BID@0900,2100 [facility] Last Admin: 06/10/21 09:40 Dose: Not Given Documented by: Calcium Acetate (Calcium Acetate 667 Mg Tab) 667 mg PO TID-W/MEALS [facility] Last Admin: 06/10/21 12:06 Dose: 667 mg Documented by: Guaifenesin (Guaifenesin 600 Mg Tablet.Er) 600 mg PO Q12H PRN PRN Reason: Congestion Last Admin: 06/09/21 20:35 Dose: 600 mg Documented by: Ceftriaxone Sodium 1 gm/ (Sodium Chloride) 50 mls @ 100 mls/hr IVPB Q24HR [facility] Last Admin: 06/10/21 07:45 Dose: 100 mls/hr Documented by: Metoprolol Tartrate (Metoprolol Tartrate 50 Mg Tab) 50 mg PO TID@0900,1300,2100 [facility] Last Admin: 06/10/21 12:06 Dose: 50 mg Documented by: Morphine Sulfate (Morphine Sulfate 2 Mg/Ml Syringe) 2 mg IVP Q4HR PRN PRN Reason: Pain/Discomfort Last Admin: 06/10/21 13:21 Dose: 2 mg Documented by: Multivit/Ca Carb/B Cmplx/FA/Prenat (Folic Acid-Vit B Complex-Vit C 1 Cap) 1 each PO DAILY@1700 [facility] Last Admin: 06/09/21 16:31 Dose: 1 each Documented by: Naloxone HCl (Naloxone 0.4 Mg/Ml 1 Ml Vial) 0.2 mg IV Q2M PRN PRN Reason: Opioid Reversal Pantoprazole Sodium (Pantoprazole 40 Mg Tablet) 40 mg PO HS@2100 [facility] Last Admin: 06/09/21 20:35 Dose: 40 mg Documented by: Ropinirole HCl (Ropinirole Hcl 0.25 Mg Tab) 0.25 mg PO HS@2100 [facility] Last Admin: 06/09/21 20:35 Dose: 0.25 mg Documented by: Ropinirole HCl (Ropinirole Hcl 0.25 Mg Tab) 0.25 mg PO MOWEFR PRN PRN Reason: before dialysis Venlafaxine HCl (Venlafaxine Hcl Er 37.5 Mg Cap) 37.5 mg PO DAILY@0900 [facility] Last Admin: 06/10/21 07:45 Dose: 37.5 mg Documented by: Objective - Vital Signs Vital signs: Vital Signs Temp 97.6 F 06/10/21 07:30 Pulse 121 H 06/10/21 07:32 Resp 24 06/10/21 07:32 BP 137/80 06/10/21 07:30 Pulse Ox 95 06/10/21 07:30 Intake & Output 06/09/21 06/10/21 06/10/21 18:59 06:59 18:59 Intake Total 300 Output Total 1020 0 Balance -720 0 Weight 79.5 kg 80 kg Intake: Hemodialysis 300 Output: Urine 0 Hemodialysis 1020 Other: # Voids 0 0 - Exam Gen: This is a 81-year-old female awake, although lethargic, alert and oriented 2, ill-appearing. Temp is 97.7F, pulse is 111, respirations are 22, blood pressure 91/61, oxygen saturation is 93% on 4 L via nasal cannula HEENT: Head is atraumatic, normocephalic. Pupils equal, round. Sclerae is anicteric. NECK: Supple. No JVD. No lymphadenopathy. No thyromegaly. LUNGS: Diminished breath sounds bilaterally with diffuse crackles and rhonchi noted. Expiratory wheezing noted on exam HEART: S1, S2 muffled, irregularly irregular, tachycardic ABDOMEN: Soft. Bowel sounds are present. No masses. No tenderness. EXTREMITIES: No pedal edema. No calf tenderness. NEUROLOGICAL: Patient is lethargic, alert x 2, diffusely weak - Labs CBC & Chem 7: 06/10/21 11:20 06/10/21 11:20 Labs: Abnormal Lab Results - Last 24 Hours (Table) 06/09/21 Range/Units 11:43 POC Glucose (mg/dL) 70 L (75-99) mg/dL Microbiology - Last 24 Hours (Table) 06/08/21 10:49 Blood Culture - Preliminary Blood No Growth after 24 hours 06/08/21 10:49 Blood Culture - Preliminary Blood No Growth after 24 hours Assessment and Plan Assessment: Shortness of breath, possibly congestive heart failure, acute exacerbation with acute on chronic systolic dysfunction, ejection fraction 45-50% with acute hypoxic respiratory failure possible acute urinary tract infection, present on admission on recent antibiotics Moderate aortic valve sclerosis history with mild aortic stenosis Accelerated hypertension Mild to moderate mitral regurgitation Troponin 0.103, indeterminate Possible chronic obstructive point disease, acute exacerbation Acute purulent tracheobronchitis Hyponatremia hyperkalemia On hemodialysis Wednesday/Wednesday/Wednesday Hypermagnesemia elevated total bilirubin and AST, ALT; mild hepatitis of undetermined etiology Coagulopathy History of recent sepsis as well as urinary tract infection No Code Recommendations and discussion: Recommend to receive hemodialysis again today as tolerated. Patient blood pressures have been low and required midodrine during dialysis and is also maintained on metoprolol and amiodarone, and eliquis. Nephrology and cardiology following. Patient continues to have poor oral intake and not eating at all per daughters. Patient is quite lethargic and confused at times. Patient and family have discussed possible hospice and have met with [facility] with possible [facility]. Educated patient and family on palliative versus hospice and family requested a financial assessment with [facility]. Patient is refusing to go back to rehab but continues to be extremely weak and is unable to go home as she lives alone and family are in [place]. Patient continues on IV antibiotics in the form of ceftriaxone and will continue. Cultures thus far remain negative. Will continue to monitor closely. Continue breathing inhalational treatments and supplemental oxygen support. Prognosis remains poor and guarded. Time with Patient: Greater than 30
[2021-06-11 04:09] VITALS: BP 106/51
[2021-06-11 06:33] LABS: Glucose,Whole Blood 71 mg/dL (75-99)
[2021-06-11] MEDS: CALCIUM ACETATE 667 MG TAB PO SCH (06:54)
[2021-06-11] MEDS ORDERED: ATROPINE OPHTH SOLN 1% 5ML BTL SUBLINGUAL PRN (07:10)
[2021-06-11] MEDS: IPRATROPIUM-ALBUTEROL 3 ML NEB INHALATION SCH ×2 (07:13→10:44)
[2021-06-11] MEDS: SYMBICORT 160-4.5 MCG INHALER INHALATION SCH (07:14)
[2021-06-11] MEDS: AMIODARONE 200 MG TAB PO SCH (10:19)
[2021-06-11] MEDS: APIXABAN 2.5 MG TABLET PO SCH (10:19)
[2021-06-11] MEDS: VENLAFAXINE HCL ER 37.5 MG CAP PO SCH (10:20)
[2021-06-11] MEDS: METOPROLOL TARTRATE 50 MG TAB PO SCH (10:20)
[2021-06-11] MEDS: MORPHINE SULFATE 2 MG/ML SYRINGE IVP PRN (10:32)
[2021-06-11 11:02] VITALS: PULSE 101; RESP 28; TEMP 97.9
--- NOTE | 2021-06-11 14:18 | P.DS ---
Providers Date of admission: 06/08/21 12:46 Expected date of discharge: 06/11/21 Attending physician: Rodney Martin Consults: 06/08/21 12:47 Consult Physician Urgent Consulting Provider: Filemon Bland Consult Reason/Comments: esrd on hd Do you want consulting provider notified?: Yes Primary care physician: Eduardo Workman Hospital Course: Final diagnosis Shortness of breath, possibly congestive heart failure, acute exacerbation with acute on chronic systolic dysfunction, ejection fraction 45-50% with acute hypoxic respiratory failure possible acute urinary tract infection, present on admission on recent antibiotics Moderate aortic valve sclerosis history with mild aortic stenosis Accelerated hypertension Mild to moderate mitral regurgitation Troponin 0.103, indeterminate Possible chronic obstructive point disease, acute exacerbation Acute purulent tracheobronchitis Hyponatremia hyperkalemia On hemodialysis Wednesday/Wednesday/Wednesday Hypermagnesemia elevated total bilirubin and AST, ALT; mild hepatitis of undetermined etiology Coagulopathy History of recent sepsis as well as urinary tract infection No Code Preliminary cause of Acute hypoxic respiratory failure secondary to congestive heart failure acute exacerbation with acute on chronic systolic dysfunction Discharge disposition Patient has . According to nursing documentation time of was 11:26 AM on 06/11/2021. Hospital course This is an 81-year-old female who was recently admitted to the hospital prior to this hospitalization for severe sepsis along with a urinary tract infection and was sent to [facility] on the [place] for PT/OT therapy. Patient experienced worsening shortness of breath and was sent here at [facility] for further evaluation. Patient has a significant past medical history of chronic obstructive pulmonary disease, diabetes, end-stage renal disease on hemodialysis, recent CVA and again severe sepsis secondary to UTI along with atrial fibrillation. Patient's clinical status continued to deteriorate and was receiving daily hemodialysis with ultrafiltration and unable to tolerate and continue to be extremely short of breath. Family had opted for hospice consult as the patient did not want to continue with hemodialysis. Palliative care was offered and family along with patient chose for hospice. Visiting nurse hospice following with possible discharge to the hospice house although patient's clinical status deteriorated overnight requiring more oxygen and patient ultimately became unresponsive and most likely volume overloaded. Hemodialysis attempted yesterday although unsuccessful as patient could not tolerate and blood pressures continued to drop. Patient refused any further dialysis treatments and were agreeable with hospice. Daughter is at the bedside and felt transferring the patient to the [facility] would be difficult as patient was actively dying. Please refer to previous dictations and other consultations for further HPI. Patient Condition at Discharge: Poor Plan - Discharge Summary Discharge Rx Participant: No New Discharge Prescriptions: No Action rOPINIRole HCL [Requip] 0.25 mg PO MOWEFR PRN PRN Reason: before dialysis rOPINIRole HCL [Requip] 0.25 mg PO HS@2100 Apixaban [Eliquis] 2.5 mg PO BID@0900,1700 Fluticasone/Salmeterol [Advair 250-50 Diskus] 1 puff INHALATION RT- BID@0900,2100 Ipratropium Nebulized [Atrovent Nebulized 0.2 MG/ML] 0.5 mg INHALATION RT-QID ml ALPRAZolam [Xanax] 0.25 mg PO Q6HR PRN #6 tab PRN Reason: Anxiety Amiodarone [Cordarone] 200 mg PO BID@0900,2100 Atorvastatin [Lipitor] 40 mg PO HS@2100 Calcium Acetate [PhosLo] 667 mg PO TID@0800,1200,1700 Levofloxacin [Levaquin] 250 mg PO MOWEFR@0900 Metoprolol Tartrate [Lopressor] 50 mg PO TID@0900,1300,2100 [place] Multivitamin 1 tab PO DAILY@1700 Auryxia 210 mg PO DAILY@1700 Venlafaxine HCl ER [Effexor XR] 37.5 mg PO DAILY@0900 Acetaminophen Tab [Tylenol] 650 mg PO Q6HR PRN tab PRN Reason: Mild Pain Or Fever > 100.5 Budesonide/Formoterol Fumarate [Symbicort 160-4.5 Mcg Inhaler] 1 puff INHALATION RT-BID@0900,2100 guaiFENesin [Mucinex] 600 mg PO Q12H PRN PRN Reason: Congestion Omeprazole 20 mg PO HS@2100 Discharge Medication List [place] Multivitamin 1 tab PO DAILY@1700 05/02/21 [History] Apixaban [Eliquis] 2.5 mg PO BID@0900,1700 05/26/21 [History] Auryxia 210 mg PO DAILY@1700 05/26/21 [History] Venlafaxine HCl ER [Effexor XR] 37.5 mg PO DAILY@0900 05/26/21 [History] rOPINIRole HCL [Requip] 0.25 mg PO HS@209905/26/21 [History] rOPINIRole HCL [Requip] 0.25 mg PO MOWEFR PRN 05/26/21 [History] Fluticasone/Salmeterol [Advair 250-50 Diskus] 1 puff INHALATION RT-BID@0900,209905/31/21 [History] ALPRAZolam [Xanax] 0.25 mg PO Q6HR PRN #6 tab 06/05/21 [Rx] Acetaminophen Tab [Tylenol] 650 mg PO Q6HR PRN tab 06/05/21 [Rx] Ipratropium Nebulized [Atrovent Nebulized 0.2 MG/ML] 0.5 mg INHALATION RT-QID ml 06/05/21 [Rx] Amiodarone [Cordarone] 200 mg PO BID@0900,209906/08/21 [History] Atorvastatin [Lipitor] 40 mg PO HS@209906/08/21 [History] Budesonide/Formoterol Fumarate [Symbicort 160-4.5 Mcg Inhaler] 1 puff INHALATION RT-BID@0900,209906/08/21 [History] Calcium Acetate [PhosLo] 667 mg PO TID@0800,1200,1700 06/08/21 [History] Levofloxacin [Levaquin] 250 mg PO MOWEFR@89906/08/21 [History] Metoprolol Tartrate [Lopressor] 50 mg PO TID@0900,1300,209906/08/21 [History] Omeprazole 20 mg PO HS@209906/08/21 [History] guaiFENesin [Mucinex] 600 mg PO Q12H PRN 06/08/21 [History] Follow up Appointment(s)/Referral(s): Eduardo Workman MD [Primary Care Provider] - 1-2 days Discharge Disposition: - Preliminary Cause of Preliminary Cause of : Congestive heart failure with systolic dysfunction, end-stage renal disease
== END 2021-06-11 12:41 | disposition expired | DRG 291 ==
LOC: EC 10:26 → 3SCARD 12:46
PROVIDERS: ADMIT Hospitalist; ATTEND Hospitalist
PROC: 5A1D70Z Performance of Urinary Filtration, Intermittent, Less than 6 Hours Per Day (ICD-10-PCS; principal; 2021-06-08)
PROC: 05H933Z Insertion of Infusion Device into Right Brachial Vein, Percutaneous Approach (ICD-10-PCS; 2021-06-09 11:50)
DX: I13.2 Hypertensive heart and chronic kidney disease with heart failure and with stage 5 chronic kidney disease, or end stage renal disease (principal); N18.6 End stage renal disease; I50.23 Acute on chronic systolic (congestive) heart failure; J96.01 Acute respiratory failure with hypoxia; E87.1 Hypo-osmolality and hyponatremia; N39.0 Urinary tract infection, site not specified; D68.9 Coagulation defect, unspecified; J44.0 Chronic obstructive pulmonary disease with (acute) lower respiratory infection; J44.1 Chronic obstructive pulmonary disease with (acute) exacerbation; E11.22 Type 2 diabetes mellitus with diabetic chronic kidney disease; K21.9 Gastro-esophageal reflux disease without esophagitis; I48.91 Unspecified atrial fibrillation; M19.90 Unspecified osteoarthritis, unspecified site; J20.9 Acute bronchitis, unspecified; E87.5 Hyperkalemia; E83.41 Hypermagnesemia; Z66 Do not resuscitate; F32.9 Major depressive disorder, single episode, unspecified; I08.3 Combined rheumatic disorders of mitral, aortic and tricuspid valves; K75.9 Inflammatory liver disease, unspecified; I27.20 Pulmonary hypertension, unspecified; M89.8X9 Other specified disorders of bone, unspecified site; Z79.01 Long term (current) use of anticoagulants; Z79.51 Long term (current) use of inhaled steroids; Z87.891 Personal history of nicotine dependence; Z99.2 Dependence on renal dialysis; Z87.01 Personal history of pneumonia (recurrent); Z87.440 Personal history of urinary (tract) infections; Z88.2 Allergy status to sulfonamides; Z88.8 Allergy status to other drugs, medicaments and biological substances; Z86.73 Personal history of transient ischemic attack (TIA), and cerebral infarction without residual deficits; Z96.641 Presence of right artificial hip joint; Z99.81 Dependence on supplemental oxygen; Z79.899 Other long term (current) drug therapy
CPT/HCPCS: 36410; 36415; 71045; 71046; 76937; 80048; 80053; 81001; 83605; 83735; 83880; 84145; 84484; 85025; 85610; 85730; 87040; 90935; 93005; 94640; 99285